=== PATIENT | male | born 1950 | race Caucasian/White ===

== ENCOUNTER 2020-02-27 11:13 | Outpatient (CLI) | payer MEDICARE, SELFPAY ==
--- NOTE | ~2020-02-27 | US_ITS ---
EXAMINATION: US carotid duplex BI DATE: 02/27/2020 12:05 INDICATION: Bilateral carotid stenosis. TECHNIQUE: Grayscale, color Doppler, and pulsed Doppler images of the cervical carotid arteries were obtained. The degree of vessel stenosis is placed in one of the following categories: normal, <50%, 5 0-69%, >=70% but less than near-occlusion, near-occlusion, or total occlusion. Note that percent sten osis relative to normal distal artery lumen diameter is indirectly measured from velocity measurement s as described by Rafy, et al. Radiology 2003; 229:340-346. COMPARISON: Ultrasound 07/28/2005 FINDINGS: RIGHT: The right common carotid artery (CCA) peak systolic velocity (PSV) is 100 cm/s. The right internal ca rotid artery (ICA) PSV is 81 cm/s. The right ICA end-diastolic velocity (EDV) is 23 cm/s. The right I CA/CCA PSV ratio is 0.8. Grayscale and color Doppler images yield an estimate of <50% diameter reduct ion from plaque in the ICA. There is antegrade flow in the right vertebral artery. LEFT: The left CCA PSV is 93 cm/s. The left ICA PSV is 83 cm/s. The left ICA EDV is 27 cm/s. The left ICA/C CA PSV ratio is 0.9. Grayscale and color Doppler images yield an estimate of <50% diameter reduction from plaque in the ICA. There is antegrade flow in the left vertebral artery. IMPRESSION: 1. <50% stenosis in the right internal carotid artery. 2. <50% stenosis in the left internal carotid artery. Reviewed, dictated and finalized at location A.
== END 2020-02-27 11:14 | disposition home or self-care (01) ==
PROVIDERS: PCP Internal Medicine; Visit Provider Internal Medicine
DX: I65.23 Occlusion and stenosis of bilateral carotid arteries (principal)
CPT/HCPCS: 93880

== ENCOUNTER 2020-07-12 10:10 | Outpatient (CLI) | payer MEDICARE, SELFPAY ==
--- NOTE | ~2020-07-12 | XR_ITS ---
EXAMINATION: XR shoulder LT min 2V DATE: 07/12/2020 10:51 INDICATION: Left shoulder pain. TECHNIQUE: 5 views of left shoulder were obtained. COMPARISON: None. FINDINGS: Bone alignment is normal. No fracture. There is mild osteoarthritis of glenohumeral joint a nd moderate osteoarthritis of acromioclavicular joint. IMPRESSION: 1. Polyarticular osteoarthritis. Reviewed, dictated and finalized at location A.
== END 2020-07-12 10:11 | disposition home or self-care (01) ==
PROVIDERS: PCP Internal Medicine; Visit Provider Internal Medicine
DX: M25.512 Pain in left shoulder (principal)
CPT/HCPCS: 73030

== ENCOUNTER 2020-07-14 10:52 | Outpatient (CLI) | payer MEDICARE, SELFPAY ==
--- NOTE | ~2020-07-14 | MR_ITS ---
EXAMINATION: MR shoulder LT wo con DATE: 07/14/2020 11:43 INDICATION: Left shoulder pain TECHNIQUE: Magnetic resonance imaging (MRI) of the left shoulder was performed without intravenous co ntrast. Sequences included axial PD-weighted FS FSE, coronal oblique PD-weighted FS FSE, coronal obli que T2-weighted FS FSE, sagittal PD-weighted FS FSE, and sagittal T1-weighted SE. COMPARISON: None. FINDINGS: Some degree of respiratory motion artifact or blurring on the sequences which mildly limits evaluatio n, most significantly for the labrum and cartilage. Coracoacromial arch: The acromion undersurface is curved in morphology (type II). The coracoacromial ligament is normal. M ild acromioclavicular osteoarthritis. Rotator cuff: Supraspinatus and moderate infraspinatus tendinopathy with full-thickness tear extending along the ware perior and middle facet footplates of both tendons. A minimal portion of the anterior most supraspina tus tendon appears to remain tethered to the superior facet footplate near the cephalad aspect of the lateral rim of the intertubercular groove. There is a small portion of the conjoined portion of the supraspinatus and infraspinatus tendons which appears to remain attached to the anterior aspect of th e superior facet footplate but which has a frayed and lax appearance suggesting it is torn more media lly. The supraspinatus tear margin is retracted approximately 2.7 cm to the level of the apex of the humeral head. The teres minor tendon is normal. Mild subscapularis tendinopathy with partial thicknes s tear involving the cysts superolateral quadrant of the lesser tuberosity footplate with associated split tear extending 1 cm more medially between the portion of the tendon remaining attached to the l rodrigo tuberosity and the more superficial portion of the tendon which remains contiguous to the trans verse humeral ligament. No fatty atrophy of the rotator cuff musculature. There is some feathery musc ular edema in the superficial aspect of the infraspinatus muscle belly consistent with associated low -grade muscle strain. Biceps tendon, glenoid labrum and glenohumeral cartilage: Moderate tendinopathy and longitudinal split tearing of the long head biceps tendon which is subluxed across the medial rim of the intertubercular groove and into the subscapularis tendon split tear def ect. Glenoid labrum is normal. Glenohumeral cartilage is normal. Fluid: Small glenohumeral joint effusion which extends through the full-thickness rotator cuff resulting in a small amount of fluid in the subacromial/subdeltoid and subcoracoid bursae. No loose osteochondral bodies. Bones: Slight cephalad subluxation of the humeral head with respect to the glenoid with narrowing of the sub acromial space which now measures approximately 3 mm. No fracture or pathologic marrow replacing proc ess. Mild cystic change at the greater tuberosity likely related to chronic rotator cuff disease. IMPRESSION: 1. Full-thickness tear involving nearly the entire supraspinatus and infraspinatus tendons. 2. Small partial-thickness tear involving the superolateral quadrant of the lesser tuberosity footpla te of the subscapularis tendon and allowing medial subluxation of the long head biceps tendon into th e tear defect. 3. Moderate tendinopathy and longitudinal split tearing of the long head biceps tendon. 4. Mild chromic clavicular osteoarthritis. Reviewed, dictated and finalized at location A. TECHNICIAN IMPRESSION: 1. Full-thickness tear involving nearly the entire supraspinatus and infraspina tus tendons. 2. Small partial-thickness tear involving the superolateral quadrant of the les ser tuberosity footplate of the subscapularis tendon and allowing medial sublux ation of the long
== END 2020-07-14 10:53 | disposition home or self-care (01) ==
LOC: CHSIMG 10:53
PROVIDERS: PCP Internal Medicine; Visit Provider Internal Medicine
DX: M25.512 Pain in left shoulder (principal)
CPT/HCPCS: 73221

== ENCOUNTER 2020-09-04 10:30 | Outpatient (CLI) | payer MEDICARE, SELFPAY ==
[2020-09-04 11:38] LABS: SARS-CoV-2 Ag Positive (Negative)
== END 2020-09-04 10:31 | disposition home or self-care (01) ==
LOC: CHSLAB 10:33
PROVIDERS: PCP Internal Medicine; Visit Provider Internal Medicine
DX: U07.1 COVID-19 (principal)
CPT/HCPCS: 87426

== ENCOUNTER 2021-01-21 12:54 | Outpatient (RCR) | payer MEDICARE, SELFPAY ==
--- NOTE | 2021-01-21 14:01 | PTOPEVAL ---
Thank you for referring Boo Serrato to [facility].? The patient is scheduled to be seen for therapy? ____x/week for ___ weeks. Please review, sign, date and return this plan of care KRISTIAN. I agree with and certify that the following plan of care is medically necessary. Referring Physician Date Admitting Provider: Attending Provider: ADALID POPE Referring Provider: *PT Outpatient Evaluation Start: 01/21/21 13:09 Freq: Status: Active Protocol: Document 01/21/21 13:09 ACR (Rec: 01/21/21 14:00 ACR [id number]) Therapy Assessment Status Assessment Status Assessment Status Evaluation Evaluation Information Problem Diagnosis L RTC repair Onset 12/04/20 Additional Evaluation Detail DELAY PROTOCOL BY 2 WEEKS PER MD Subjective Information Patient states that since Query Text:As Reported By Patient/ surgery he has been wearing Family his sling and abduction pillow since. He states he just d/c' d his ABD pillow today. Patient states he was on a step stool and stepped on a tool bag and fell on his shoulder which tore his rotator cuff in 07/03. He states with COVID it was not an emergency surgery so he just got it done. Patient states getting a shirt on and off and driving are difficult. Patient states that his goal for therapy is to get his ROM and strength back. Prior Level of Function Activity Level (Last 3 Months) Occupation retired Hand Dominance Right Activity of Daily Living Ability Independent Indoor/Home Mobility Independent Community Mobility Independent Stairs Ability Independent Functional Cognition (Planning, Shopping Independent , Taking Medications) Cooking Yes Cleaning Yes Laundry Yes Shopping Yes Driving Yes Pain Assessment Timing of Pain Assessment Timing of Pain Assessment Assessment Pain Scale Pain Scale Used Numeric (1 - 10) Self Report Pain Assessment Left Shoulder(s) Reported Pain Level 1 Greatest Pain Intensity 5 Pain Score Pain Score 1: Self Report Additional Pain Score Comments Patient states that the pain
[2021-02-21 15:30] VITALS: BP_SYST 175
--- NOTE | 2021-02-21 16:40 | PTOPEVAL ---
Thank you for referring Boo Serrato to [facility].? The patient is scheduled to be seen for therapy? ____x/week for ___ weeks. Please review, sign, date and return this plan of care KRISTIAN. I agree with and certify that the following plan of care is medically necessary. Referring Physician Date Admitting Provider: Attending Provider: ADALID POPE Referring Provider: *HAROON Outpatient Evaluation Start: 01/21/21 13:09 Freq: Status: Active Protocol: Document 02/21/21 15:30 [facility] (Rec: 02/21/21 16:37 [facility] [id number]) Therapy Assessment Status Assessment Status Assessment Status Re-evaluation Evaluation Information Problem Diagnosis L RTC repair Onset 12/04/20 Additional Evaluation Detail quick dash = 4.5% Subjective Information patient reports he feels good Query Text:As Reported By Patient/ this date. he reports he has Family not needed any pain medication for days. he reports he is returning to see the MD this coming week. he reports he still has slight increased pain with end rom overhead movement, and reaching behind head and back. Pain Assessment Timing of Pain Assessment Timing of Pain Assessment Assessment Pain Scale Pain Scale Used Numeric (1 - 10) Self Report Pain Assessment Left Shoulder(s) Reported Pain Level 1 Pain Score Pain Score 1: Self Report Interventions Used Interventions Used By Clinicians Activity or ADL's,Education, Electrical Stimulation, Exercise,Heat Upper Extremity Range of Motion Scapular/ Shoulder Range of Motion Left Shoulder Flexion - Active 150 Shoulder Flexion - Passive 155 Shoulder Abduction - Active 170 Shoulder Abduction - Passive 175 Shoulder Lateral Rotation - Active 60 Shoulder Lateral Rotation - Passive 65 Right Shoulder Medial Rotation - Active 40 Scapular/Shoulder Range of Motion Per patient's protocol, IR was Comments not to be performed and abduction >80 degrees until week 8. Upper Extremity Muscle Strength Testing Scapular/Shoulder Left Shoulder Flexion Strength 3+ Fair + Shoulder Abduction Strength 3+ Fair + Shoulder Medial Rotation Strength 3 Fair Shoulder Lateral Rotation Strength 3 Fair General Exercise General Exercises Exercise Description -prom 10 minutes Query Text:Record Sets, Reps, -pulleys 5 minutes Resistance, and Position -bicep curls 2lb bilat x30
--- NOTE | 2021-02-21 16:42 | PTOPEVAL ---
Thank you for referring Boo Serrato to [facility] [place]Note 2[place]? The patient is scheduled to be seen for therapy? ____x/week for ___ weeks. Please review, sign, date and return this plan of care KRISTIAN. I agree with and certify that the following plan of care is medically necessary. Referring Physician Date Admitting Provider: Attending Provider: ADALID POPE Referring Provider: *[facility] Outpatient Evaluation Start: 01/21/21 13:09 Freq: Status: Active Protocol: Document 02/21/21 15:30 [facility] (Rec: 02/21/21 16:37 [facility] [id number]) Therapy Assessment Status Assessment Status Assessment Status Re-evaluation Evaluation Information Problem Diagnosis L RTC repair Onset 12/04/20 Additional Evaluation Detail quick dash = 4.5% Subjective Information patient reports he feels good Query Text:As Reported By Patient/ this date. he reports he has Family not needed any pain medication for days. he reports he is returning to see the MD this coming week. he reports he still has slight increased pain with end rom overhead movement, and reaching behind head and back. Pain Assessment Timing of Pain Assessment Timing of Pain Assessment Assessment Pain Scale Pain Scale Used Numeric (1 - 10) Self Report Pain Assessment Left Shoulder(s) Reported Pain Level 1 Pain Score Pain Score 1: Self Report Interventions Used Interventions Used By Clinicians Activity or ADL's,Education, Electrical Stimulation, Exercise,Heat Upper Extremity Range of Motion Scapular/ Shoulder Range of Motion Left Shoulder Flexion - Active 150 Shoulder Flexion - Passive 155 Shoulder Abduction - Active 170 Shoulder Abduction - Passive 175 Shoulder Lateral Rotation - Active 60 Shoulder Lateral Rotation - Passive 65 Right Shoulder Medial Rotation - Active 40 Scapular/Shoulder Range of Motion Per patient's protocol, IR was Comments not to be performed and abduction >80 degrees until week 8. Upper Extremity Muscle Strength Testing Scapular/Shoulder Left Shoulder Flexion Strength 3+ Fair + Shoulder Abduction Strength 3+ Fair + Shoulder Medial Rotation Strength 3 Fair Shoulder Lateral Rotation Strength 3 Fair General Exercise General Exercises Exercise Description -prom 10 minutes Query Text:Record Sets, Reps, -pulleys 5 minutes Resistance, and Position -bicep curls 2lb bilat x30
--- NOTE | 2021-03-22 11:25 | PTOPEVAL ---
Thank you for referring Boo Serrato to [facility].? The patient is scheduled to be seen for therapy? ____x/week for ___ weeks. Please review, sign, date and return this plan of care KRISTIAN. I agree with and certify that the following plan of care is medically necessary. Referring Physician Date Admitting Provider: Attending Provider: ADALID POPE Referring Provider: ANGELICA Outpatient Evaluation Start: 01/21/21 13:09 Freq: Status: Active Protocol: Document 03/22/21 10:38 [facility] (Rec: 03/22/21 11:24 [facility] [id number]) Therapy Assessment Status Assessment Status Assessment Status Re-evaluation Evaluation Information Problem Diagnosis L RTC repair Onset 12/04/20 Subjective Information patient reports he feels good Query Text:As Reported By Patient/ this date. he reports mild Family pain in the L shoulder, and no more than 3/10 pain in the L shoulder at worst. he reports he still has difficulty lifting objects with the L UE, and reaching/raising objects overhead. Pain Assessment Timing of Pain Assessment Timing of Pain Assessment Assessment Pain Scale Pain Scale Used Numeric (1 - 10) Self Report Pain Assessment Left Shoulder(s) Reported Pain Level 2 Greatest Pain Intensity 3 Pain Score Pain Score 2: Self Report Interventions Used Interventions Used By Clinicians Activity or ADL's,Education, Exercise Upper Extremity Range of Motion Scapular/ Shoulder Range of Motion Left Shoulder Flexion - Active 160 Shoulder Flexion - Passive 165 Shoulder Medial Rotation - Active 60 Shoulder Medial Rotation - Passive 65 Shoulder Medial Rotation - Active functional reach to the lower Query Text:Reach Behind the Back lumbar spine with combined extension and IR. Shoulder Lateral Rotation - Active 70 Shoulder Lateral Rotation - Passive 75 Shoulder Lateral Rotation - Active functional reach to the mid to Query Text:Reach Behind the Head lower cervical spine with combined flexion and ER. Upper Extremity Muscle Strength Testing Scapular/Shoulder Left Shoulder Flexion Strength 3+ Fair + Shoulder Medial Rotation Strength 4 Good Shoulder Lateral Rotation Strength 3 Fair Shoulder Strength Comments significant L shoulder elevation with flexion reaching overhead and with mmt L shoulder flexion Elbow/Forearm Left Elbow Flexion Strength 5 Normal Elbow Extension Strength
== END 2021-04-17 23:59 | disposition home or self-care (01) ==
LOC: CHSPT 12:54
PROVIDERS: PCP Internal Medicine
DX: Z98.890 Other specified postprocedural states (principal)
CPT/HCPCS: 97014; 97110; 97161; 97530; G0283

== ENCOUNTER 2022-01-23 10:18 | Outpatient (CLI) | payer MEDICARE, SELFPAY ==
--- NOTE | ~2022-01-23 | US_ITS ---
EXAMINATION: US retroperitoneal comp DATE: 01/23/2022 10:41 INDICATION: Hematuria TECHNIQUE: Multiple grayscale and Doppler ultrasound images of the kidneys were obtained. COMPARISON: None. FINDINGS: The right kidney measures 10.5 x 5.6 x 6.3 cm. There is a 1.1 cm nonobstructing stone in th e lower pole of the right kidney. The left kidney measures 11.7 x 5.8 x 6.6 cm and contains a 1.2 cm cyst. The kidneys demonstrate normal parenchymal echogenicity. There is no hydronephrosis. The bladde r is normal. IMPRESSION: 1. Nonobstructing right nephrolithiasis. Reviewed, dictated and finalized at location A.
== END 2022-01-23 10:19 | disposition home or self-care (01) ==
LOC: CHSIMG 10:21
PROVIDERS: PCP Internal Medicine; Visit Provider Internal Medicine
DX: R31.9 Hematuria, unspecified (principal)
CPT/HCPCS: 76770

== ENCOUNTER 2024-09-19 21:32 | Emergency (ER) | payer MEDICARE, SELFPAY ==
--- NOTE | ~2024-09-19 | CT_ITS ---
CLINICAL INDICATION: Flank pain COMPARISON: Reference is made to an ultrasound of the bilateral kidneys dated 01/23/2022. TECHNIQUE: Multiple contiguous axial images of the abdomen and pelvis were performed without the admi nistration of intravenous contrast The dose-length product (DLP) was 319.71 mGy-cm. Automated exposure control and iterative reconstruction technique were employed. FINDINGS/OBSERVATIONS: Visualized lower thorax: The bilateral lung bases are clear. The heart is of normal size, without pericardial effusion. Liver: The liver demonstrates homogeneous attenuation and is not enlarged measuring 18 cm in longitudinal di mension. Gallbladder and biliary system: The gallbladder is decompressed, and otherwise unremarkable. Pancreas: Limited evaluation of the pancreas secondary to the lack of intravenous contrast. Spleen: The spleen demonstrates homogeneous attenuation and is not enlarged measuring 11 cm in longitudinal d imension. Kidneys: Global enlargement of the right kidney with mild right-sided hydroureteronephrosis extending to the p roximal/mid right ureter where a obstructing stone is identified. This stone measures 8.3 x 8.3 mm. Nonobstructing 5 mm stone within the lower pole of the left kidney. Exophytic focus of soft tissue attenuation within the interpolar region of the left kidney measuring 11.4 x 9 mm for which follow-up ultrasound is recommended. In January 2022, there was a similar size focus of fluid attenuation, for which a cyst was suspected, whi ch may or may not correspond with finding. Adrenal glands: Unremarkable. Gastrointestinal tract: Fecal stasis within the colon. Appendix: The appendix is not definitively visualized. However, no pericecal inflammatory change is identified suggest the presence of acute appendicitis. Vasculature: Bulky calcifications within the abdominal aorta and adjacent vasculature. No aneurysmal dilatation or dissection is appreciated. Lymph nodes: No pathologically enlarged or morphologically suspicious lymph nodes within the retroperitoneum or at the root of the mesentery. Pelvic structures: The bladder is distended, and otherwise unremarkable. Bulky calcifications within the prostate gland. Body wall and musculoskeletal: Small fat-containing umbilical hernia. Significant degenerative disease within the lumbosacral spine with osteophyte formation, disc space n arrowing, endplate changes and vacuum phenomena. IMPRESSION: Right-sided hydroureteronephrosis secondary to a 8.3 mm obstructing stone in the proximal/mid right u reter. Indeterminate soft tissue attenuation focus within the interpolar region of the left kidney for which follow-up ultrasound (nonemergently) is recommended. Nonobstructing calculus within the left kidney. Reviewed, dictated and finalized at location A. D CARE COORDINATOR IMPRESSION: Right-sided hydroureteronephrosis secondary to a 8.3 mm obstructing stone in th e proximal/mid right ureter. Indeterminate soft tissue attenuation focus within the interpolar region of the left kidney for which follow-up ultrasound (nonemergently) is recommended. Nonobstructing calculus within the left kidney.
--- NOTE | 2024-09-19 21:36 | ED.MALEGU ---
HPI - Male Genitourinary General Chief complaint: Urogenital-Male Stated complaint: hematuria Time Seen by Provider: 09/19/24 21:36 Source: patient Mode of arrival: ambulatory Limitations: no limitations History of Present Illness HPI Narrative: 74 years old white male came to the ED by private car from home complaining of pain at the mid abdomen radiating to right lower quadrant, sharp, radiating to the right flank area started within 1-2 hour prior to arrival to the emergency room associated with hematuria. History of kidney stone, diabetes hypertension hyperlipidemia, coronary stents and bypass. Patient on baby aspirin once a day, denies intact coagulant medication intake. Patient denies any fever or chills or vomiting or diarrhea or constipation. He reports some nausea. Related Data Home Medications ?Medication ?Instructions ?Recorded ?Confirmed ?Last Taken ?Type aspirin 81 mg capsule 81 mg PO DAILY 09/19/24 Unknown History evolocumab 140 mg/mL subcutaneous 140 mg subcut .every 2 weeks 09/19/24 Unknown History pen injector (Repatha SureClick) losartan 50 mg-hydrochlorothiazide 1 tablet PO DAILY 09/19/24 Unknown History 12.5 mg tablet metoprolol succinate 25 mg 12.5 mg PO DAILY 09/19/24 Unknown History tablet,extended release 24 hr semaglutide 0.25 mg or 0.5 mg (2 0.5 mg subcut WEEKLY 09/20/24 Unknown History mg/1.5 mL) subcutaneous pen injector (Ozempic) Allergies Allergy/AdvReac Type Severity Reaction Status Date / Time No Known Allergies Allergy Verified 09/19/24 21:41 Review of Systems Review of Systems: All systems reviewed & are unremarkable except as noted in HPI and below Exam Narrative: General appearance: Well-developed, well-nourished Skin: Normal color Head: Normocephalic, nontraumatic Eyes: Clear conjunctiva ENT: Oropharynx normal, ears normal, nose normal Neck: Supple, nontender Chest and respiratory: Airway patent, no respiratory distress, no accessory muscle use Heart: Regular rate/rhythm Abdomen: Soft, nontender, no organomegaly, quiet bowel sounds Slight right flank tenderness Vascular: Normal peripheral pulses, normal capillary refill. Musculoskeletal: Normal range of motion, nontender back Neurologic: Alert and oriented ?3, SPA MANAGER/ESTHETICIAN is normal as tested, no gross motor deficit Course Consultations Consultation #1: Dr. Cruz Date: 09/20/24 Vital Signs Vital signs: Vital Signs Temperature 36.5 C 09/19/24 21:45 Pulse Rate 78 09/19/24 21:45 Respiratory Rate 18 09/19/24 21:45 Blood Pressure 169/90 H 09/19/24 21:45 Pulse Oximetry 97 09/19/24 21:45 Oxygen Delivery Room Air 09/19/24 21:45 Temperature 36.7 C 09/20/24 02:14 Pulse Rate 78 09/20/24 02:14 Respiratory Rate 18 09/20/24 02:14 Blood Pressure 119/61 09/20/24 02:14 Pulse Oximetry 93 09/20/24 02:14 Oxygen Delivery Room Air 09/20/24 02:14 Oxygen Flow Rate 2 09/19/24 23:22 MDM - Male Genitourinary MDM Narrative Medical decision making narrative: patient presents with right lower quadrant pain radiating to right flank Physical examination showing patient with mild tenderness at the right flank area. Differential diagnosis includes kidney stone, urinary tract infection Blood workup today includes CBC, CMP showed Urinalysis today showed CT scan of abdomen and pelvis without IV contrast showed Differential Diagnosis Differential diagnosis: Likely urinary tract infection, urethritis, prostatitis and other Medical Records Attestation: I reviewed the patient's medical records. Lab Data Attestation: I reviewed the patient's lab results. 09/19/24 21:53 09/19/24 21:53 Labs: Lab Results 09/19/24 Range/Units 21:53 WBC 11.8 H (4.8-10.8) K/mm3 RBC 5.08 (4.70-6.10) M/mm3 Hgb 14.5 (12.4-15.3) g/dL Hct 44.2 (37.0-46.0) % MCV 87.0 (78.0-102.0) fL MCH 28.5 (27.0-31.0) pg MCHC 32.8 (32-36) g/dL RDW 11.9 (11.6-14.4) % Plt Count 413 (150-420) K/mm3 MPV 9.5 (8.7-11.0) fl Immature Gran % (Auto) 0.4 H (0.0-0.0) % Neut % (Auto) 65.6 (50.0-70.0) % Lymph % (Auto) 20.9 (18.0-42.0) % [place] % (Auto) 9.1 (2.0-11.0) % Eos % (Auto) 3.2 (1.0-6.0) % Baso % (Auto) 0.8 (0.0-1.0) % Lymph # (Auto) 2.47 (1.10-4.50) K/mm3 [place] # (Auto) 1.07 H (0.10-0.90) K/mm3 Eos # (Auto) 0.38 (0.02-0.50) K/mm3 Baso # (Auto) 0.10 (0.00-0.10) K/mm3 Abs Immat Gran (auto) 0.05 H (0.00-0.00) K/mm3 Absolute Neuts (auto) 7.74 H (1.70-7.20) K/mm3 Absolute Nucleated RBC 0.00 (0.00-0.00) K/mm3 Nucleated RBC % 0.0 (0-0.0) % Sodium 143 (136-145) mmol/L Potassium 4.0 (3.5-5.1) mmol/L Chloride 102 (98-108) mmol/L Carbon Dioxide 32 (21-32) mmol/L Anion Gap 9 (4-12) mmol/L BUN 14 (7-18) mg/dL Creatinine 1.09 (0.70-1.30) mg/dL Estim Creat Clear Calc 54 ml/min Estimated GFR > 60 (59 - ) Glucose 174 H (70-99) mg/dL Calculated Osmolality 300 H (285-295) mOsm/kg Calcium 9.4 (8.5-10.1) mg/dL Total Bilirubin 0.4 (0.00-1.00) mg/dL AST 16 (15-37) U/L ALT 24 (16-63) U/L Alkaline Phosphatase 91 (46-116) U/L Total Protein 7.5 (6.4-8.2) g/dL Albumin 4.1 (3.4-5.0) g/dL Urine Color Dark red (Yellow) Urine Appearance Clear (Clear) Urine pH 6.5 (5.0-8.0) Ur Specific [place] 1.025 H (1.010-1.020) Urine Protein 2+ H (Negative) Urine Glucose (UA) Negative (Negative) Urine Ketones Trace H (Negative) Ur Blood (Man) 3+ H (Negative) Urine Nitrate Positive H (Negative) Urine Bilirubin 1+ H (Negative) Urine Urobilinogen 1.0 (0.2-1.0) mg/dL Leukocyte Esterase Rfl Trace H (Negative) KATHLEEN/UL Urine RBC >75 H (0-2) /hpf Urine WBC 10-15 H (0-3) /hpf Ur Squamous Epith Cells None seen (Few) /hpf Urine Bacteria 1+ H (None) /hpf Urine Yeast (Budding) Present H (None) /hpf Imaging Data Radiologist's impression: Impressions Abdomen/Pelvis CT 09/19/24 22:02 IMPRESSION: Right-sided hydroureteronephrosis secondary to a 8.3 mm obstructing stone in the proximal/mid right ureter. Indeterminate soft tissue attenuation focus within the interpolar region of the left kidney for which follow-up ultrasound (nonemergently) is recommended. Nonobstructing calculus within the left kidney. Critical Care Time Critical Care Time Critical Care Time: Yes Total Critical Care Time: 30 Discharge Plan Discharge Clinical Impression: Urinary tract infection, Kidney stone Patient Disposition: Acute Care Hospital Condition: Stable [facility] Patient Language: Beninese Prescriptions: No Action aspirin 81 mg capsule 81 mg PO DAILY Repatha SureClick 140 mg/mL pen injector 140 mg subcut .every 2 weeks losartan-hydrochlorothiazide 50-12.5 mg tablet 1 tablet PO DAILY metoprolol succinate 25 mg tablet extended release 24 hr 12.5 mg PO DAILY Ozempic 0.25 mg or 0.5 mg(2 mg/1.5 mL) pen injector 0.5 mg subcut WEEKLY Follow-up/Referrals: Heydi Gomez MD [Primary Care Provider] -
[2024-09-19 21:45] VITALS: BP 169/90; PULSE 78; RESP 18; TEMP 36.5; O2SAT 97
[2024-09-19 21:57] LABS: Appearance Urine Clear (Clear); Bilirubin Urine 1+ (Negative); Blood Urine 3+ (Negative); Glucose Urine UA Negative (Negative); Ketones Urine Trace (Negative); Leukocyte Esterase Ur Trace LEU/UL (Negative); Nitrate Urine Positive (Negative); Protein Urine 2+ (Negative); Specific Grav Ur 1.025 (1.010-1.020); pH Urine 6.5 (5.0-8.0)
[2024-09-19] MEDS: SODIUM CHLORIDE 0.9% IV 1,000 ML 999 ML IV CONT (22:06)
[2024-09-19] MEDS: ONDANSETRON INJ 4 MG/2 ML VIAL IV PUSH (22:06)
[2024-09-19] MEDS: TAMSULOSIN HCL 0.4 MG CAPSULE PO (22:08)
[2024-09-19] MEDS: HYDROmorphone HCL INJ (*CRX) 2 MG/ML VIAL 0.5 MG IV PUSH (22:08)
[2024-09-19 22:09] LABS: Basophils Percent Auto 0.8 % (0.0-1.0); Eosinophils Absolute Auto 0.38 K/mm3 (0.02-0.50); Eosinophils Percent Auto 3.2 % (1.0-6.0); Hematocrit 44.2 % (37.0-46.0); Hemoglobin 14.5 g/dL (12.4-15.3); Immature Granulocyte Absolute 0.05 K/mm3 (0.00-0.00); Immature Granulocyte Percent A 0.4 % (0.0-0.0); Lymphocytes Absolute Auto 2.47 K/mm3 (1.10-4.50); Lymphocytes Percent Auto 20.9 % (18.0-42.0); Mean Corpuscular HGB Conc 32.8 g/dL (32-36); Mean Corpuscular Hemoglobin 28.5 pg (27.0-31.0); Mean Platelet Volume 9.5 fl (8.7-11.0); Monocytes Absolute Auto 1.07 K/mm3 (0.10-0.90); Monocytes Percent Auto 9.1 % (2.0-11.0); Neutrophils Absolute Auto 7.74 K/mm3 (1.70-7.20); Neutrophils Percent Auto 65.6 % (50.0-70.0); Platelet Count Result 413 K/mm3 (150-420); Red Blood Count 5.08 M/mm3 (4.70-6.10); Red Cell Distribution Width 11.9 % (11.6-14.4); White Blood Count 11.8 K/mm3 (4.8-10.8)
[2024-09-19 22:10] LABS: Add Urine Microscopic? YES; Bacteria Urine 1+ /hpf; Budding Yeast Urine Present /hpf; Color Urine Dark Red (Yellow); RBC Urine >75 /hpf (0-2); Squamous Epithelial Cell Urine None seen /hpf (Few)
--- NOTE | 2024-09-19 22:12 | PC.NURSE ---
patient returned from imaging and medicated per order, see MAR. ivf infusing without difficulty, patient grandson now at bedside. call light within reach.
[2024-09-19 22:25] LABS: Alanine Aminotransferase 24 U/L (16-63); Albumin Level 4.1 g/dL (3.4-5.0); Alkaline Phosphatase 91 U/L (46-116); Anion Gap 9 mmol/L (4-12); Aspartate Amino Transferase 16 U/L (15-37); Bilirubin,Total 0.4 mg/dL (0.00-1.00); Blood Urea Nitrogen 14 mg/dL (7-18); Calcium 9.4 mg/dL (8.5-10.1); Carbon Dioxide 32 mmol/L (21-32); Chloride 102 mmol/L (98-108); Estimated CRCL calculation 54 ml/min; Estimated Glomerular Filt Rate > 60; Glucose 174 mg/dL (70-99); Osmolality Calculated 300 mOsm/kg (285-295); Sodium 143 mmol/L (136-145); Total Protein 7.5 g/dL (6.4-8.2)
--- NOTE | 2024-09-19 23:04 | PC.NURSE ---
ERP Dr. Forrest at bedside at this time for update regarding results and plan of care.
[2024-09-19] MEDS: levoFLOXacin 750 MG/D5W 150 ML 750 MG/150 ML BAG 100 MG IVPB (23:10)
[2024-09-19 23:20] VITALS: BP 132/73; PULSE 83; RESP 18; TEMP 36.5; O2SAT 87
[2024-09-19 23:22] VITALS: O2SAT 93
[2024-09-20 00:15] VITALS: BP 130/79; PULSE 86; RESP 16; TEMP 36.4; O2SAT 93
--- NOTE | 2024-09-20 00:40 | PC.NURSE ---
RN to bedside, IV abxs infused. patient resting on stretcher without distress, reports pain remains under control. grandson at bedside. vss. RN monitoring. patient awaiting bed at transfer facility, update provided. call light within reach. all inquirires addressed by RN at this time.
--- NOTE | 2024-09-20 01:06 | PC.NURSE ---
patient moved to hospital bed for comfort, lights dimmed per request. visitor remains at bedside. patient awaiting a bed at transfer facility.
--- NOTE | 2024-09-20 01:29 | PC.NURSE ---
patient accepted by [facility], son just arrived at bedside. grandson leaving at this time. RN awaiting patient bed placement information.
[2024-09-20 02:14] VITALS: BP 119/61; PULSE 78; RESP 18; TEMP 36.7; O2SAT 93
--- NOTE | 2024-09-22 14:54 | PC.NURSE ---
FINAL URINE CULTURE RESULTS: NO GROWTH
== END 2024-09-20 02:20 | disposition short-term general hospital (02) ==
PROVIDERS: Emergency Provider Emergency Medicine; PCP Internal Medicine
DX: N39.0 Urinary tract infection, site not specified (principal); N20.0 Calculus of kidney; Z79.85 Long-term (current) use of injectable non-insulin antidiabetic drugs; Z79.82 Long term (current) use of aspirin
CPT/HCPCS: 36415; 74176; 80053; 81001; 85025; 87086; 96361; 96365; 96375; 99285; A9270; J1171; J1956; J2405; J7030

== ENCOUNTER 2024-10-31 22:21 | Emergency (ER) | payer MEDICARE, SELFPAY ==
[2024-10-31 22:26] VITALS: BP 167/98; PULSE 106; RESP 18; TEMP 37.1; O2SAT 96
--- OUTSIDE RECORDS SUMMARY | 2024-10-31 22:26 | XMS_ITS | Clinical Summary ---
Author Organization [facility] [address] Address [address] [place] [address] Care Team Providers Care Business Economist Name Role Phone Heydi Gomez MD Primary Care Provider Aleksandr Kirkland NP Unavailable [phone] Maximo Mobley MD Unavailable Allergies Active Allergy Reactions Criticality Noted Date Comments Wofznsn-Vgn-Slh Reductase Inhibitors Muscle pain Medium Medications cholecalciferol (VITAMIN D-3) 2000 unit capsule Take 1 capsule (2,000 Units total) by mouth daily 30 capsule 12/04/[address] (CYMBALTA) 30 mg capsule Take 1 capsule (30 mg total) by mouth daily 05/02/20 21 Active ascorbic acid (VITAMIN C) 500 mg tablet,chewable Take 1 tablet/chew tab (500 mg total) by mouth daily Active naproxen (ALEVE) 220 mg tablet Take by mouth daily as needed Active fluticasone propionate (FLONASE) 50 mcg/actuation nasal spray Administer 1 spray into each nostril daily as needed Active amlodipine-valsa rtan (EXFORGE) 5-160 mg per tabletIndication s:Essential hypertension Take 1 tablet by mouth once daily 90 tablet 07/14/20 24 Active Ozempic 1 mg/dose (4 mg/3 mL) pen injector injection Inject 1 mg under the skin once a week Thursday08/09/20 24 Active Repatha SureClick 140 mg/mL pen injector INJECT 1 ML BY SUBCUTANEOUS ROUTE EVERY 2 WEEKS IN THE ABDOMEN, THIGH, OR OUTER AREA OF UPPER ARM 08/06/20 24 Active acetaminophen (TYLENOL) 500 mg tabletIndication s:Pain Take 1 tablet (500 mg total) by mouth every 6 (six) hours as needed for pain 30 tablet 09/22/19 25 Active tamsulosin (FLOMAX) 0.4 mg extended release capsule Take 1 capsule (0.4 mg total) by mouth daily with dinner 30 capsule 1 09/22/19 25 025 Active clopidogreL (PLAVIX) 75 mg tablet Take 1 tablet (75 mg total) by mouth daily 30 tablet 1 09/22/19 25 025 Active trospium (SANCTURA) 20 mg tablet Take 1 tablet (20 mg total) by mouth 2 (two) times a day 60 tablet 09/22/19 25 026 Active metoprolol tartrate (LOPRESSOR) 50 mg immediate release tablet TAKE 1 & 1/2 (ONE & ONE-HALF) TABLETS BY MOUTH TWICE DAILY 270 tablet 09/26/19 25 Active oxyBUTYnin (DITROPAN) 5 mg tablet Take 1 tablet (5 mg total) by mouth 2 (two) times a day for 5 days 10 tablet 10/20/19 25 Active HYDROcodone-acet aminophen (NORCO) 5-325 mg per tabletIndication s:Pain Take 1 tablet by mouth every 8 (eight) hours as needed for pain for up to 12 days 12 tablet 10/20/19 25 025 Active aspirin 81 mg tablet Take one by mouth one time per day 0 0 07/26/20 09 025 Discontinu ed(Stop Taking at Discharge) triamcinolone (NASACORT) 55 mcg nasal inhaler Administer 2 sprays into each nostril daily as needed 025 Discontinu ed(Stop Taking at Discharge) apixaban (ELIQUIS) 5 mg tablet Take 1 tablet (5 mg total) by mouth 2 (two) times a day 60 tablet 1 09/22/19 25 025 Discontinu ed(Stop Taking at Discharge) phenazopyridine (PYRIDIUM) 200 mg tablet Take 1 tablet (200 mg total) by mouth 3 (three) times a day for 3 days 9 tablet 10/20/19 25 025 cephalexin (KEFLEX) 500 mg capsule Take 1 capsule (500 mg total) by mouth 2 (two) times a day for 5 days 10 capsule 10/20/19 25 025 Active Problems Problem Noted Date Diagnosed Date Hematuria 09/20/2024 Nephrolithiasis 09/20/2024 Overweight (BMI 25.0-29.9) 08/31/2023 Premature beats 08/18/2022 Biceps tendonitis on left 11/20/2020 Overview (11/20/2020): Added automatically from request for surgery [id number] Tear of left supraspinatus tendon 08/03/2020 Arthritis of left 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 Obesity (BMI 30-39.9) 10/31/2019 H/O atrial fibrillation without current medicati on 04/20/2019 Paroxysmal atrial fibrillation (CMS/HCC) 019 Hx of CABG 10/13/2018 Coronary artery disease invo lving [place] coronary artery of [place] heart without angina pectoris 09/15/2018 Overview (09/15/2018): Added automatically from request for surgery [id number] Hyperlipidemia associated with type 2 diabetes umm mayers 04/24/2016 Overview (12/19/2016): Hypercholesteremia Assessment & Plan (07/28/2017 1:29 PM PERSONAL COMPANION): 07/28/2017 POC lipids: Total chol 163, TG 143, LDL 101 on Crestor 10 mg twice a week. Essential hypertension 08/14/2015 Overview (12/19/2016): Essential hypertension Type 2 diabetes mellitus with hyperlipidemia (CM S/HCC) 02/12/2015 Overview (12/19/2016): DM type 2 (diabetes mellitus, type 2) Obstructive sleep apnea syndrome 02/12/2015 Overview (12/19/2016): LINDA (obstructive sleep apnea) Presence of stent in coronary artery 02/12/2015 Overview (12/19/2016): S/P coronary artery stent placement Statin intolerance 02/12/2015 Overview (12/19/2016): Statin intolerance Resolved Problems Problem Noted Date Diagnosed Date Resolved Date Biceps tendinitis of left upper extremity 08/03/2020 08/18/2022 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/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 07/24/2020 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 07/24/2020 07/24/2020 Coronary artery disease of [place] heart with stable angina pectoris 08/31/2018 10/13/2018 Overview (08/31/2018): Added automatically from request for surgery [id number] Hyperlipidemia 02/12/2015 07/28/2017 Overview (12/19/2016): HLD (hyperlipidemia) Coronary arteriosclerosis in [place] artery 02/12/2015 10/13/2018 Overview (12/19/2016): CAD in [place] artery Encounters Date Type Department Care Team Description 10/31/2024 12:33 PM PERSONAL COMPANION Hospital Encounter [facility] [address] [place] [id number] Nephrolithiasis 10/31/2024 12:15 PM PERSONAL COMPANION Lab [facility] [address] [place] [id number] Nephrolithiasis 10/31/2024 11:20 AM PERSONAL COMPANION Office Visit [facility] Surgery [address] [place] [address] [address] [place] [address] Sofie Chen MD Nephrolithiasis (Primary Dx) 10/31/2024 [address] [facility] Surgery [facility] 2nd [place] [address] [place] [phone] Sunita Diaz MD 10/31/2024 Results Follow-Up [facility] Surgery [address] [place] [address] [address] [place] [phone] Sofie Chen MD 10/31/[address] [facility] Surgery [address] [place] [address] Sofie Chen MD Kidney stone (Primary Dx) 10/20/2024 7:35 AM PERSONAL COMPANION Anesthesia Event [facility] OR [address] [place] [phone] Familia Reed MD Grehan, William G., MD 10/20/2024 7:30 AM PERSONAL COMPANION - 10/20/2024 9:20 AM PERSONAL COMPANION Surgery [facility] OR [address] [place] [address] Sofie Chen MD HOLMIUM LASER LITHOTRIPSY, STONE BASKETING ,CYSTOSCOPY, BILATERAL RETROGRADE PYELOGRAM,BILATERAL URETEROSCOPY , BILATERAL STENT EXCHANGE 10/20/2024 5:29 AM PERSONAL COMPANION - 10/20/2024 12:32 PM PERSONAL COMPANION Hospital Encounter [facility] OR [address] [place] [address] Sofie Chen MD Nephrolithiasis (Primary Dx) Discharge Disposition: Discharge to home or self care 10/20/[address] [facility] Surgery [address] [facility] [address] [place] [address] Sofie Chen MD Kidney stone (Primary Dx) 10/14/2024 Telephone [facility]iology [address] [facility] [address] [place] [phone] Maximo Mobley MD 10/04/2024 Telephone [facility] Surgery [address] [place] [address] Diann Light 09/26/2024 Telephone [facility] [address] [facility] [address] [place] [phone] Maximo Mobley MD 09/21/2024 6:53 PM PERSONAL COMPANION Anesthesia Event [facility] Operating Room [address] [place] [address] Palmira Garcia MD Lentz, William Thomas, NP 09/21/2024 6:25 PM PERSONAL COMPANION - 09/21/2024 7:40 PM [facility] Surgery [facility] Operating Room [address] [place] [address] Valery Carson MD CYSTOSCOPY, RIGHT RETROGRADE PYELOGRAM, RIGHT URETERAL STENT PLACEMENT 09/20/2024 3:35 AM PERSONAL COMPANION - 09/22/2024 10:42 AM PERSONAL COMPANION Hospital Encounter [address] [phone] Du Cruz MD Kidney stone (Primary Dx) Discharge Disposition: Discharge to home or self care 08/31/2024 1:30 PM PERSONAL COMPANION Office Visit [facility] [address] [place] [address] Maximo Mobley MD Coronary artery disease involving [place] coronary artery of [place] heart without angina pectoris (Primary Dx); S/P CABG x 3; Essential hypertension; RBBB; Statin intolerance; Myalgia due to statin from Last 3 Months Immunizations Immunization Administration Dates Next Due Influenza, Unspecified 06/27/2024 Pfizer SARS-CoV-2 Monovalent Vaccination (12+ Yrs) PURPLE 11/29/2020,11/08/2020 Surgical History Surgery Date Site/Laterality Comments ROTATOR CUFF REPAIR Bilateral CORONARY ANGIOPLASTY WITH STENT PLACEMENT 09/14/2003 - 09/13/2004 LA RPR ANOM CORONARY ARTERY PULM ART ORIGIN GRAFT HAND SURGERY Bilateral trigger fingers CARPAL TUNNEL RELEASE Bilateral CORONARY ARTERY BYPASS GRAFT 09/14/2018 - 09/13/2019 triple bypass CYSTOSCOPY INSERTION / REMOVAL STENT / STONE 09/21/2024 Right CYSTOSCOPY, RIGHT RETROGRADE PYELOGRAM, RIGHT URETERAL STENT PLACEMENT Medical History Medical History Date Comments Sleep apnea DOES NOT WEAR CP AP MACHINE STATES Hypertension Hyperlipidemia Myocardial infarction (HCC) 2003 Type 2 diabetes mellitus (HCC) History of transfusion BLOOD 197 0'S PER PT Arthritis CHRONIC PAIN Kidney stone on right side CAD (coronary artery disease) A-fib (CMS/HCC) (HCC) 2018 NOTED AFTE R CABG Family History Medical History Relation Name Comments Prostate cancer Brother 1 Heart disease Brother 2 Garrison Serrato Other Father Aspirated food; Diabetes Mother Shen Serrato Heart failure Mother Shen Serrato Congestive heart failure; Alcohol abuse Son Arthritis Son Relation Name Status Comments Brother 1 Brother 2 Garrison Serrato Alive Father Mother Shen Serrato (Age 70) Son Social History Tobacco Use Types Packs/Day Years Used Date Smoking Tobacco: Former Cigarettes 0.5 4 Q uit: 09/14/1994 Cigars 09/14/1986 - 0 09/14/1994 Smokeless Tobacco: Never Tobacco Cessation:Counseling Given: Not Answered Alcohol Use Standard Drinks/Week Comments No 0 (1 standard drink = 0.6 oz pur e alcohol) AUDIT-C Answer Date Recorded Q1: How often do you have a drink containing alcohol? Never 10/20/2024 Q2: How many drinks containi ng alcohol do you have on a typical day when you are drinking? Patient does not drink Q3: How often do you have si x or more drinks on one occasion? Never 10/20/2024 Personal Safety Answer Date Recorded Have you ever been in or are you currently in a harmful physical or emotional relationship or is someone making you feel afraid or unsafe? Denies 10/20/2024 Sex and Gender Information Value Date Recorded Sex Assigned at Not on file Legal Sex Male 10:57 AM PERSONAL COMPANION Gender Identity Not on file Sexual Orientation Not on file Obstetrics History Last Filed Vital Signs Vital Sign Reading Time Taken Comments Blood Pressure 123/40 10/20/2024 12:15 PM PERSONAL COMPANION Pulse 79 10/20/2024 12:15 PM PERSONAL COMPANION Temperature 36.4 C (97.5 F) 10/20/2024 10:05 AM PERSONAL COMPANION Respiratory Rate 18 10/20/2024 12:15 PM PERSONAL COMPANION Oxygen Saturation 93% 10/20/2024 12:15 PM PERSONAL COMPANION Inhaled Oxygen Concentration - - Weight 91.6 kg (202 lb) 10/31/2024 11:24 AM PERSONAL COMPANION Height 175.3 cm (5' 9 ) 10/31/2024 11:24 AM PERSONAL COMPANION Body Mass Index 29.83 10/31/2024 11:24 AM PERSONAL COMPANION Plan of Treatment Health Maintenance Due Date Last Done Comments Albumin Creatinine Ratio, Urine 1951 Colon Cancer Screening-Colonoscopy 1950 Depression Screening 1950 Hemoglobin A1C 1951 Hepatitis C Screening 1951 Prostate Cancer Screening-PSA 1951 Dilated Eye Exam 1951 Foot Exam 1951 Hepatitis B Screening 1969 Abdominal Aortic Aneurysm (A AA) Screen 2016 Well Visit 65+ 2016 Zoster Vaccine (3 of 3) 11/22/2020 09/27/2020, 02/22 DTaP/Tdap/Td Vaccine (2 - Td or Tdap) 08/25/2021 08/25/2011 Covid-19 Vaccine (6 2023-2 5 season) 2024 06/18/2021, 11/29/2020, 11/29/2020, Additional history exists Lipid Panel 08/31/2025 08/31/2024, 08/14, 08/18/2022, Additional history exists eGFR 09/20/2025 09/20/2024, 03/2025, 09/23/2018, Additional history exists Fall Risk Assessment 10/07/2025 10/07/2024 Pneumococcal vaccine 65+ Completed 018, 06/13/2015, 07/22/2013 Influenza Vaccine Completed 06/27/2024, , 06/13/2019, Additional history exists Medical Devices Implanted Type Area Patient Account Analyst Device Identifier Shelf Expiration Date Model / Serial / Lot [employer] Universa 6fr 24cm Radiopaque Graduate Firm Monofilament Tether [id number] - [id number] Implanted:Qty: 1 on 10/20/2024 by Sofie Chen MD at [facility] Stent Right: Ureter [employer] [id number] 07/15/2027 [id number] / / [id number] [employer] Universa 6fr 24cm Radiopaque Graduate Firm Monofilament Tether [id number] - [id number] Implanted:Qty: 1 on 10/20/2024 by Sofie Chen MD at [facility] Stent Right: Ureter [employer] [id number] 07/15/2027 [id number] / / [id number] Medsternal Wire Cabg Bilateral: Chest Wall [employer] [id number] Suturebridge Argyle Drill Guide Punch Tap Set Implant Achilles - [id number] Implanted:Qty: 1 on 12/04/2020 by Ryan Allison MD at [facility] Left: Shoulder [employer] 01/12/2024 [id number]- CP / / [id number] [employer] Ar-7535 Fiberlink Arthrex Suturetape 1.3mm Tape Suture Nonabsorbable - [id number] Implanted:Qty: 1 on 12/04/2020 by Ryan Allison MD at [facility] Left: Shoulder [employer] 10/14/2024 [id number] / / [id number] [employer] [id number] Swivelock C 4.75mm 19.1mm Closed Eyelet Vent [place] Suture - [id number] Implanted:Qty: 1 on 12/04/2020 by Ryan Allison MD at [facility] Left: Shoulder [employer] 06/13/2024 [id number] / / [id number] [facility] [employer] [facility] [id number] Regenesorb Ultratape Ultrabraid 4.75mm Smooth 2 [place] Suture - [id number] Implanted:Qty: 1 on 12/04/2020 by Ryan Allison MD at [facility] Left: Shoulder [employer] 08/07/2023 [id number] / / [id number] [employer] [id number] Swivelock Tenodesis 6.25mm 19.1mm Closed Eyelet Shoulder Biceps - [id number] Implanted:Qty: 1 on 12/04/2020 by Ryan Allison MD at [facility] Left: Shoulder [employer] 09/13/2024 [id number]-[id number] / / [id number] Explanted Type Area Patient Account Analyst Device Identifier Shelf Expiration Date Model / Serial / Lot [employer] Universa 6fr 24cm Radiopaque Graduate Firm Monofilament Tether [id number] - [id number] - [id number] Implanted:Qty: 1 on 09/21/2024 by Valery Carson MD at [facility] Explanted:Qty: 1 on 10/20/2024 Stent Right: Ureter [employer] [facility] Inc [id number] 05/10/2027 [id number] / [id number] T1 / [id number] Procedures Procedure Name Priority Date/Time Associated Diagnosis Comments PHOSPHORUS, URINE, RANDOM Routine 10/31/2024 12:31 PM PERSONAL COMPANION Nephrolithiasis PTH Routine 10/31/2024 12:24 PM PERSONAL COMPANION Nephrolithiasis URIC ACID Routine 10/31/2024 12:24 PM PERSONAL COMPANION Nephrolithiasis URINALYSIS, MICROSCOPIC ONLY Routine 10/31/2024 12:01 PM PERSONAL COMPANION Nephrolithiasis URINALYSIS AND REFLEX TO MICROSCOPIC AND CULTURE Routine 10/31/2024 12:01 PM PERSONAL COMPANION Nephrolithiasis POCT URINALYSIS DIPSTICK Routine 10/31/2024 11:49 AM PERSONAL COMPANION Nephrolithiasis POCT GLUCOSE DEVICE Routine 10/20/2024 9 :28 AM PERSONAL COMPANION FL RETRO PYELO (IN OR) IP Routine 9:10 AM PERSONAL COMPANION STONE ANALYSIS Routine 10/20/2024 9:02 AM PERSONAL COMPANION LA AN PROCEDURE PLACEHOLDER Routine 10/20/2024 7:44 AM PERSONAL COMPANION LA AN ELECTIVE SUPRAGLOTTIC AIRWAY Routine 10/20/2024 7:44 AM PERSONAL COMPANION URETEROSCOPY STONE MANIPULATION WITH ABLATION LASER 10/20/2024 7:36 AM PERSONAL COMPANION Kidney stone POC BLOOD GAS AND CHEMISTRIES, VENOUS Routine 10/20/2024 6:15 AM PERSONAL COMPANION POCT CREATININE FOR CONTRAST EVALUATION Routine 10/20/2024 6:11 AM PERSONAL COMPANION POCT GLUCOSE DEVICE Routine 09/22/2024 7 :38 AM PERSONAL COMPANION POCT GLUCOSE DEVICE Routine 09/22/2024 4 :24 AM PERSONAL COMPANION POCT GLUCOSE DEVICE Routine 09/22/2024 12:20 AM PERSONAL COMPANION POCT GLUCOSE DEVICE Routine 09/21/2024 9 :49 PM PERSONAL COMPANION POCT GLUCOSE DEVICE Routine 09/21/2024 7 :44 PM PERSONAL COMPANION FL FLUOROSCOPY < 1 HOUR IP Routine 09/21/19 7:23 PM PERSONAL COMPANION URINE CULTURE Routine 09/21/2024 7:21 PM PERSONAL COMPANION LA AN PROCEDURE PLACEHOLDER Routine 09/21/2024 7:13 PM PERSONAL COMPANION LA AN ELECTIVE ENDOTRACHEAL AIRWAY Routine 09/21/2024 7:13 PM PERSONAL COMPANION CYSTOSCOPY PLACEMENT URETERAL STENT 09/21/2024 6:56 PM PERSONAL COMPANION Kidney stone Case Notes POC; Rob [phone] POCT GLUCOSE DEVICE Routine 09/21/2024 5 :12 PM PERSONAL COMPANION POCT GLUCOSE DEVICE Routine 09/21/2024 3 :42 PM PERSONAL COMPANION POCT GLUCOSE DEVICE Routine 09/21/2024 11:52 AM PERSONAL COMPANION POCT GLUCOSE DEVICE Routine 09/21/2024 7 :29 AM PERSONAL COMPANION POCT GLUCOSE DEVICE Routine 09/21/2024 3 :39 AM PERSONAL COMPANION POCT GLUCOSE DEVICE Routine 09/21/2024 12:07 AM PERSONAL COMPANION POCT GLUCOSE DEVICE Routine 09/20/2024 10:47 PM PERSONAL COMPANION EGFR Timed 09/20/2024 9:52 PM PERSONAL COMPANION CBC WITHOUT DIFFERENTIAL Timed 09/20/2024 9:52 PM PERSONAL COMPANION PHOSPHORUS Timed 09/20/2024 9:52 PM PERSONAL COMPANION MAGNESIUM Timed 09/20/2024 9:52 PM PERSONAL COMPANION BASIC METABOLIC PANEL Timed 09/20/2024 9:52 PM PERSONAL COMPANION TROPONIN I HIGH-SENSITIVITY 4-HOUR Timed 09/20/2024 9:52 PM PERSONAL COMPANION POCT GLUCOSE DEVICE Routine 09/20/2024 8 :37 PM PERSONAL COMPANION POCT GLUCOSE DEVICE Routine 09/20/2024 5 :23 PM PERSONAL COMPANION TROPONIN I HIGH-SENSITIVITY 6-HOUR Timed 09/20/2024 4:35 PM PERSONAL COMPANION TROPONIN I HIGH-SENSITIVITY 2-HOUR Timed 09/20/2024 1:45 PM PERSONAL COMPANION POCT GLUCOSE DEVICE Routine 09/20/2024 1 :42 PM PERSONAL COMPANION TRANSTHORACIC ECHO (TTE) COMPLETE W DOPPLER/CF W CONTRAST ED Urgent/IP Urgent 09/20/2024 12:22 PM PERSONAL COMPANION POCT GLUCOSE DEVICE Routine 09/20/2024 11:15 AM PERSONAL COMPANION XR CHEST PA LATERAL 2 VIEWS ED Urgent/IP Urgent 09/20/2024 11:04 AM PERSONAL COMPANION ECG 12-LEAD STAT 09/20/2024 10:33 AM PERSONAL COMPANION TROPONIN I HIGH-SENSITIVITY SERIES (BASELINE, 2HR, 4HR, 6HR) STAT 09/20/2024 10:15 AM PERSONAL COMPANION POCT GLUCOSE DEVICE Routine 09/20/2024 8 :45 AM PERSONAL COMPANION URINALYSIS, MICROSCOPIC ONLY Routine 09/20/2024 6:17 AM PERSONAL COMPANION URINALYSIS AND REFLEX TO MICROSCOPIC Routine 09/20/2024 6:17 AM PERSONAL COMPANION URINE CULTURE Routine 09/20/2024 6:17 AM PERSONAL COMPANION B CHECK SAMPLE STAT 09/20/2024 5:42 AM PERSONAL COMPANION POCT GLUCOSE DEVICE Routine 09/20/2024 5 :[address] BODY OUTSIDE CONSULT Routine 09/20/19 4:57 AM PERSONAL COMPANION EGFR STAT 09/20/2024 4:33 AM PERSONAL COMPANION DIFFERENTIAL AUTO STAT 09/20/2024 4:3 3 AM PERSONAL COMPANION PHOSPHORUS STAT 09/20/2024 4:33 AM PERSONAL COMPANION MAGNESIUM STAT 09/20/2024 4:33 AM PERSONAL COMPANION TYPE AND SCREEN STAT 09/20/2024 4:33 AM PERSONAL COMPANION APTT STAT 09/20/2024 4:33 AM PERSONAL COMPANION PROTIME-INR STAT 09/20/2024 4:33 AM PERSONAL COMPANION BASIC METABOLIC PANEL STAT 09/20/2024 4:33 AM PERSONAL COMPANION CBC WITH AUTO DIFFERENTIAL STAT 09/20/2024 4:33 AM PERSONAL COMPANION ELECTROCARDIOGRAM REPORT Routine 08/31/2024 2:35 PM PERSONAL COMPANION Coronary artery disease involving [place] coronary artery of [place] heart without angina pectoris POCT LIPID PANEL Routine 08/31/2024 9:59 AM PERSONAL COMPANION Coronary artery disease involving [place] coronary artery of [place] heart without angina pectoris CYSTOSCOPY PLACEMENT URETERAL STENT Kidney stone Case Notes POC; Sree [phone] from Last 3 Months Results * Phosphorus, urine, random (10/31/2024 12:31 PM PERSONAL COMPANION) Phosphorus, ur 28.7 mg/dL Comment: Interpretive Data No reference range established. Current interpretive data was last revised 2019. Urine 10/31/2024 12:3 1 PM PERSONAL COMPANION 10/31/2024 7:01 PM PERSONAL COMPANION Sofie Chen MD LAB URINE ORDERABLES Final Result Performing Organization Address City/[facility] Co de Phone Number [address] [place] [address] * Uric acid (10/31/2024 12:24 PM PERSONAL COMPANION) [facility] Uric acid 6.1 3.0 - 8.0 mg/dL Comment:Testing performed by : [address] [address] Blood 10/31/2024 12:2 4 PM PERSONAL COMPANION 10/31/2024 1:38 PM PERSONAL COMPANION Sofie Chen MD LAB BLOOD ORDERABLES Final Result Performing Organization Address [facility] de Phone Number [address] [address] * PTH (10/31/2024 12:24 PM PERSONAL COMPANION) [facility] PTH 56 15 - 65 pg/mL Comment:Testing performed by : [address] [address] Blood 10/31/2024 12:2 4 PM PERSONAL COMPANION 10/31/2024 1:38 PM PERSONAL COMPANION Sofie Chen MD LAB BLOOD ORDERABLES Final Result Performing Organization Address [facility] de Phone Number [address] [address] * (ABNORMAL) Urinalysis reflex to microscopic and culture Urine, bladder (10/31/2024 12:01 PM PERSONAL COMPANION) Color, ur Red(A) Yellow Comment:Testing performed by : [address] [address] Clarity, ur Turbid(A) Clear CHERYL Comment:Testing performed by : [address] [address] Specific gravity, ur 1.018 1.003 - 1.030 CHERYL Comment:Testing performed by : [address] [address] pH, urine 6.0 CHEYRL Comment: Interpretive Data U rine pH is affected by diet, medications, systemic acid-base disturbances, and renal tubular function. pH may affect urinary stone formation. For example, urine pH below 6.0 may help reduce the tendency for calcium phosphate stones and pH greater than 6.0 may reduce the tendency for uric acid stone formation. Source: [facility] Current Interpretive Data was last revised on 2017 Testing performed by: [address] [address] Protein, ur ql 2+(A) Negative CHERYL Comment:Testing performed by : [address] [address] Glucose, ur ql Negative Negative CHERYL Comment:Testing performed by : [address] [address] Ketones, ur Negative Negative CHERYL Comment:Testing performed by : [address] [address] Bilirubin, ur Negative Negative CHERYL Comment:Testing performed by : [address] [address] Blood, ur 3+(A) Negative CHERYL Comment:Testing performed by : [address] [address] Urobilinogen, ur <2.0 <2.0 mg/dL CHERYL Comment:Testing performed by : [address] [address] Nitrite, ur Negative Negative CHERYL Comment:Testing performed by : [address] [address] Leukocyte esterase, ur 4+(A) Negative CHERYL Comment:Testing performed by : [address] [address] UA reflex comment Reflex to microscopic UA will be performed. CHERYL Comment:Testing performed by : [address] [address] Urine, bladder 10/31/2024 12 :01 PM PERSONAL COMPANION 10/31/2024 8:31 PM PERSONAL COMPANION Arturo Carito Chen MD LAB MICROBIOLOGY - G ENERAL ORDERABLES Final Result Performing Organization Address [facility] Co de Phone Number CHERYL [address] [place] [address] * (ABNORMAL) Urinalysis, microscopic only (10/31/2024 12:01 PM PERSONAL COMPANION) WBC, ur >50(A) 0 - 5 /HPF Comment:Testing performed by : [address] [address] RBC, ur >50(A) 0 - 2 /HPF CHERYL Comment:Testing performed by : [address] [address] Culture Reflex Comment Reflex to urine culture will be performed. CHERYL Comment:Testing performed by : [address] [address] Urine, bladder 10/31/2024 12 :01 PM PERSONAL COMPANION 10/31/2024 8:31 PM PERSONAL COMPANION Sofie Chen MD LAB URINE ORDERABLES Final Result Performing Organization Address [facility] Co de Phone Number CHERYL [address] [place] [address] * (ABNORMAL) POCT urinalysis dipstick (10/31/2024 11:49 AM PERSONAL COMPANION) Color, Urine, POC Yellow Clarity, ur, POC Clear Clear Glucose, ur, POC Negative Negative MG/DL Bilirubin, ur, POC Negative Negative, Small, Moderate, Large Ketones, ur, POC Negative Negative Specific [place], POC 1.025 1.003 - 1.030 Blood, ur, POC 3+(A) Negative pH, ur, POC 6.0 5.0 - 8.0 Protein, ur, POC 2+(A) Negative Urobilinogen, urine, POC 0.2 0.2 - 1.0 mg/dL Nitrite, ur, POC Negative Negative Leukocytes, ur, POC 3+(A) Negative Lot Number 0 Urine 10/31/2024 11:4 9 AM PERSONAL COMPANION Sofie Chen MD POINT OF CARE TEST O RDERABLES Final Result * POCT glucose (10/20/2024 9:28 AM PERSONAL COMPANION) Glucose, POC 158 70 - 199 mg/dL Blood 10/20/2024 9:28 AM PERSONAL COMPANION 10/20/2024 9:28 AM PERSONAL COMPANION Sofie Chen MD LAB POCT ORDERABLES - DEVICE Final Result Performing Organization Address [facility]/ZIP Co de Phone Number CHERYL [facility] Department [place] [address] * [place] Retro Pyelo (In Or) (10/20/2024 9:10 AM PERSONAL COMPANION) Narrative ADRIAN_MORGAN_ALPHONSO_MHE - 10/20/2024 9:18 AM PERSONAL COMPANION The images from this study are not interpreted by Radiology. Please refer to the physician's procedure / OR operative note. Sofie Chen MD IMG FLUOROSCOPY PROC EDURES Final Result Performing Organization Address City/[facility]/ZIP Co de Phone Number RAD_[email or web address] * Stone analysis (10/20/2024 9:02 AM PERSONAL COMPANION) Stone analysis Not Reported [place] ref Lab Source, Kid Stone Right Ureter CHERYL FONSECA Interp, Kid stone analysis See Footnote CHERYL FONSECA Comment:RESULT: 100% Calcium oxalate monohydrate. COMMENT See Footnote CHERYL Comment: For stones containing calcium oxalate, calcium phosphate, and/or uric acid, a 24 hr urinary supersaturation test may help detect underlying risk factors for this type of stone formation and provide guidance for a stone prevention strategy. ADDITIONAL INFORMATION This test was developed and its performance characteristics determined by [facility] in a manner consistent with CLIA requirements. This test has not been cleared or approved by the U.S. Food and Drug Administration. Test Performed by: [facility] [place] [address] Project Controls Specialist: Bridger Mckeon Ph.D.; CLIA# [id number] Stone (Urine, Clean Catch) 10/20/2024 9:02 AM PERSONAL COMPANION 10/20/2024 9:29 AM PERSONAL COMPANION Willie LUNA - 10/28/2024 11:09 AM PERSONAL COMPANION Right ureteral stone for analysis us Yousef Carito Chen MD LAB URINE ORDERABLES Final Result CHERYL [address] [place] [address] Department [place] [address] [place] ref [facility] * LA AN ELECTIVE SUPRAGLOTTIC AIRWAY, LA AN PROCEDURE PLACEHOLDER (10/20/2024 7:44 AM PERSONAL COMPANION) Narrative Nallely Mosley CRNA - 10/20/2024 7:44 AM PERSONAL COMPANION Nallely Mosley CRNA 10/20/2024 7:48 AM Airway Patient location: OR Urgency: elective Indications for airway management: anesthesia Difficult airway: no Staff: Placed by: RITA: Nallely Mosley CRNA Emergent airway documentation: Risks and benefits discussed: yes Consent obtained: yes Consent given by: patient Airway prep: Preoxygenated: yes Patient position: sniffing MILS maintained throughout: yes Mask difficulty assessment: 0 - not attempted Spontaneous ventilation during airway: absent Sedation level during airway: GA Final airway details: Final airway type: supraglottic airway Final supraglottic airway: classic SGA size: 4 Number of attempts: 1 Additional comments: Patient states he has been tolerating ozempic well, without nausea/reflux. Began ozempic this past fall. Familia Reed MD ANESTHESIA ORDERABLES Edited Result - Final * (ABNORMAL) POC Blood Gas and Chemistries, Venous - (10/20/2024 6:15 AM PERSONAL COMPANION) Pathologist [facility] pH,live POC 7.38 7.32 - 7.43 pCO2, live POC 44 40 - 50 mmHg [facility] pO2,live POC 45 mmHg [facility] Comment: Interpretive Data No reference range established. Current interpretive data was last revised 2020. HCO3, live (Calc) POC 26 20 - 30 mmol/L [facility] Base excess, live POC 1 mmol/L [facility] Comment: Interpretive Data No reference range established. Current interpretive data was last revised 2020. Hemoglobin, live POC 11.6(L) 13.0 - 17.5 g/dL [facility] Hematocrit, live POC 34.0(L) 38.9 - 50.3 % [facility] Sodium, live POC 140 135 - 145 mmol/L [facility] Potassium, live POC 4.1 3.3 - 4.9 mmol/L [facility] Comment: Interpretive Data This method is not able to assess for hemolysis, which may falsely increase potassium concentrations. If further testing is needed to evaluate this result, consider in-laboratory plasma potassium. Current Interpretive Data was last revised on 2022. Glucose, live POC 158 70 - 199 mg/dL [facility] Ionized Calcium, live POC 5.10 4.50 - 5.10 mg/dL [facility] Blood 10/20/2024 6:15 AM PERSONAL COMPANION 10/20/2024 6:15 AM PERSONAL COMPANION Sofie Chen MD LAB POCT ORDERABLES - DEVICE Final Result [facility] [address] [facility] Department [place] [address] * POCT creatinine for contrast evaluation (10/20/2024 6:11 AM PERSONAL COMPANION) Creatinine POC 1.00 0.80 - 1.30 mg/dL Blood 10/20/2024 6:11 AM PERSONAL COMPANION 10/20/2024 6:11 AM PERSONAL COMPANION us Sofie Chen MD POINT OF CARE TEST O RDERABLES Final Result CHERYL [address] Department [place] [address] * POCT glucose (09/22/2024 7:38 AM PERSONAL COMPANION) Glucose, POC 116 70 - 199 mg/dL Blood 09/22/2024 7:38 AM PERSONAL COMPANION 09/22/2024 7:38 AM PERSONAL COMPANION Du Cruz MD LAB POCT ORDERABLES - DEV ICE Final Result Performing Organization Address City/[facility]/ZIP Co de Phone Number [facility] Department [place] [address] * POCT glucose (09/22/2024 4:24 AM PERSONAL COMPANION) Glucose, POC 121 70 - 199 mg/dL Blood 09/22/2024 4:24 AM PERSONAL COMPANION 09/22/2024 4:24 AM PERSONAL COMPANION Du Cruz MD LAB POCT ORDERABLES - DEV ICE Final Result Performing Organization Address City/[facility]/ZIP Co de Phone Number [facility] [place] [address] * POCT glucose (09/22/2024 12:20 AM PERSONAL COMPANION) Glucose, POC 124 70 - 199 mg/dL Blood 09/22/2024 12:2 0 AM PERSONAL COMPANION 09/22/2024 12:20 AM PERSONAL COMPANION Du Cruz MD LAB POCT ORDERABLES - DEV ICE Final Result Performing Organization Address [facility]/RUST de Phone Number CHERYL [facility] [place] [address] * POCT glucose (09/21/2024 9:49 PM PERSONAL COMPANION) Glucose, POC 130 70 - 199 mg/dL Blood 09/21/2024 9:49 PM PERSONAL COMPANION 09/21/2024 9:49 PM PERSONAL COMPANION Du Cruz MD LAB POCT ORDERABLES - DEV ICE Final Result Performing Organization Address [facility] de Phone Number [facility] [place] [address] * POCT glucose (09/21/2024 7:44 PM PERSONAL COMPANION) Glucose, POC 121 70 - 199 mg/dL Blood 09/21/2024 7:44 PM PERSONAL COMPANION 09/21/2024 7:44 PM PERSONAL COMPANION Du Cruz MD LAB POCT ORDERABLES - DEV ICE Final Result Performing Organization Address [facility] de Phone Number [facility] [place] [address] * FL Fluoroscopy < 1 Hour (09/21/2024 7:23 PM PERSONAL COMPANION) Narrative [facility]_PACS_BJ - 09/21/2024 7:23 PM PERSONAL COMPANION The images from this study are not interpreted by Radiology. Please refer to the physician's procedure / OR operative note. Valery Carson MD IMG FLUOROSCOPY PROCEDURES F inal Result Performing Organization Address [facility]/RUST de Phone Number RAD_[email or web address] * Urine culture Urine, bladder (09/21/2024 7:21 PM PERSONAL COMPANION) Report Final Report: No growth Urine, bladder 09/21/2024 7: 21 PM PERSONAL COMPANION 09/21/2024 9:38 PM PERSONAL COMPANION Narrative CHERYL ESPINOSA - 09/23/2024 7:48 AM PERSONAL COMPANION Urine culture Indications for Culture:->Urology patient Specimen received in a sterile container. Testing performed by [facility] ([phone]) us Valery Carson MD LAB MICROBIOLOGY - GENERAL O RDERABLES Final Result CHERYL [facility] [place] [address] * LA AN ELECTIVE ENDOTRACHEAL AIRWAY, LA AN PROCEDURE PLACEHOLDER (09/21/2024 7:13 PM PERSONAL COMPANION) Narrative Christiana Howard CRNA - 09/21/2024 7:13 PM PERSONAL COMPANION Christiana Howard CRNA 09/21/2024 7:14 PM Airway Patient location: OR Urgency: elective Indications for airway management: anesthesia Difficult airway: no Staff: Supervising provider: Palmira Garcia MD Placed by: FIRE CONTROL TECHNICIAN: Christiana Howard CRNA Emergent airway documentation: Risks and benefits discussed: yes Consent obtained: yes Consent given by: patient Airway prep: Preoxygenated: yes Patient position: sniffing Mask difficulty assessment: 0 - not attempted Spontaneous ventilation during airway: absent Sedation level during airway: GA Final airway details: Final airway type: endotracheal airway Tube type: ETT ETT size: 8.0 mm Technique used for successful ETT placement: video laryngoscopy Devices/Methods used in placement: stylet Insertion site: oral Blade type: Dora Video blade type: Gill Blade size: 4 Cormack-Lehane (video): grade IIa - partial view of glottis ETT to lips: 23 cm Placement verified by: auscultation and CO2 detection Airway secured with: silk tape and tegaderm Number of attempts: 1 us Palmira Garcia MD ANESTHESIA ORDERABLES Final R esult * POCT glucose (09/21/2024 5:12 PM PERSONAL COMPANION) Glucose, POC 104 70 - 199 mg/dL Blood 09/21/2024 5:12 PM PERSONAL COMPANION 09/21/2024 5:12 PM PERSONAL COMPANION Du Cruz MD LAB POCT ORDERABLES - DEV ICE Final Result Performing Organization Address City/[facility] Co de Phone Number [facility] [place] [address] * POCT glucose (09/21/2024 3:42 PM PERSONAL COMPANION) Glucose, POC 130 70 - 199 mg/dL Blood 09/21/2024 3:42 PM PERSONAL COMPANION 09/21/2024 3:42 PM PERSONAL COMPANION Du Cruz MD LAB POCT ORDERABLES - DEV ICE Final Result Performing Organization Address [facility]/[place] [address] * POCT glucose (09/21/2024 11:52 AM PERSONAL COMPANION) Glucose, POC 170 70 - 199 mg/dL Blood 09/21/2024 11:5 2 AM PERSONAL COMPANION 09/21/2024 11:52 AM PERSONAL COMPANION Du Cruz MD LAB POCT ORDERABLES - DEV ICE Final Result Performing Organization Address City/[facility]/[place] de Phone Number [facility] [place] [address] * POCT glucose (09/21/2024 7:29 AM PERSONAL COMPANION) Glucose, POC 188 70 - 199 mg/dL Blood 09/21/2024 7:29 AM PERSONAL COMPANION 09/21/2024 7:29 AM PERSONAL COMPANION us Du Cruz MD LAB POCT ORDERABLES - DEV ICE Final Result Performing Organization Address [facility]/[place] de Phone Number [facility] [address] * POCT glucose (09/21/2024 3:39 AM PERSONAL COMPANION) Glucose, POC 161 70 - 199 mg/dL Blood 09/21/2024 3:39 AM PERSONAL COMPANION 09/21/2024 3:39 AM PERSONAL COMPANION Du Cruz MD LAB POCT ORDERABLES - DEV ICE Final Result Performing Organization Address [facility] Phone Number [facility] [address] * POCT glucose (09/21/2024 12:07 AM PERSONAL COMPANION) Glucose, POC 134 70 - 199 mg/dL Blood 09/21/2024 12:0 7 AM PERSONAL COMPANION 09/21/2024 12:07 AM PERSONAL COMPANION Du Cruz MD LAB POCT ORDERABLES - DEV ICE Final Result Performing Organization Address [facility] [place] [address] * POCT glucose (09/20/2024 10:47 PM PERSONAL COMPANION) Glucose, POC 133 70 - 199 mg/dL Blood 09/20/2024 10:4 7 PM PERSONAL COMPANION 09/20/2024 10:47 PM PERSONAL COMPANION Du Cruz MD LAB POCT ORDERABLES - DEV ICE Final Result Performing Organization Address [facility]/[place] de Phone Number CHERYL ESPINOSA [facility] [place] [address] * Troponin I high-sensitivity 4-hour (09/20/2024 9:52 PM PERSONAL COMPANION) Trop I hs <4 <=35 ng/L Comment: Interpretive Data For further hscTnI resources including the diagnostic algorithm and an aid in interpretation, copy and paste this link: https://bjhlab.testcatalog.org/show/hsTrop-[email or web address] Current Interpretive Data last revised 2020. Trop I hs delta See Comment ng/L [facility] Comment:Inappropriate collec tion time to report a delta. Trop I hs pct delta See Comment % [facility] Comment:Inappropriate collec tion time to report a delta. Trop I hs interp See Comment [facility] Comment:Inappropriate collec tion time to report a delta. Blood 09/20/2024 9:52 PM PERSONAL COMPANION 09/20/2024 10:16 PM PERSONAL COMPANION [facility] MD LAB BLOOD ORDERABLES Cinthia l Result Performing Organization Address [facility] Co de Phone Number CHERYL ESPINOSA [facility] Department [place] [address] * eGFR (09/20/2024 9:52 PM PERSONAL COMPANION) eGFR 71 >=60 mL/min/1. 73 m2 Comment: Interpretive Data Reference Interval Normal >/= 90 mL/min/1.73m2 Mildly decreased* 60 - 89 mL/min/1.73m2 Mildly to moderately decreased 45 - 59 mL/min/1.73m2 Moderately to severely decreased 30 - 44 mL/min/1.73m2 Severely decreased 15 - 29 mL/min/1.73m2 Kidney Failure < 15 mL/min/1.73m2 *Relative to young adult level Estimated glomerular filtration rate is determined by the 2020 CKD-EPI equation recommended by the National Kidney Foundation (A Unifying Approach to GFR Estimation: Recommendations of the NKF-ASK Task Force on Reassessing the Inclusion of Race in Diagnosing Kidney Disease, JASN 2020). The CKD-EPI equation should not be used for patients with unstable renal function and has not been validated in children and those over 70. Current interpretive data was last reviewed 2021. Blood 09/20/2024 9:52 PM PERSONAL COMPANION 09/20/2024 10:17 PM PERSONAL COMPANION Du Cruz MD LAB BLOOD ORDERABLES Cinthia l Result Performing Organization Address City/[facility]/ZIP Co de Phone Number [facility] Department [place] [address] * (ABNORMAL) CBC without differential (09/20/2024 9:52 PM PERSONAL COMPANION) WBC 8.8 3.8 - 9.9 K/cumm Hgb 12.7(L) 13.0 - 17.5 g/dL [facility] Hct 38.5(L) 38.9 - 50.3 % [facility] Plt 307 150 - 400 K/cumm [facility] MPV 9.8 9.1 - 12.3 fL [facility] RBC 4.35 4.30 - 5.80 M/cumm [facility] MCV 88.5 81.3 - 96.4 fL [facility] MCH 29.2 27.1 - 33.3 pg [facility] MCHC 33.0 32.3 - 35.7 g/dL [facility] RDW CV 11.9 11.1 - 14.9 % [facility] RDW SD 38.7 35.7 - 48.1 fL [facility] NRBC abs 0.00 0.00 - 0.01 K/cumm [facility] Blood 09/20/2024 9:52 PM PERSONAL COMPANION 09/20/2024 10:18 PM PERSONAL COMPANION Du Cruz MD LAB BLOOD ORDERABLES Cinthia l Result Performing Organization Address City/[facility]/ZIP Co de Phone Number [facility] Department [place] [address] * Phosphorus (09/20/2024 9:52 PM PERSONAL COMPANION) [facility] Phosphorus, pl 4.1 2.3 - 4.5 mg/dL Blood 09/20/2024 9:52 PM PERSONAL COMPANION 09/20/2024 10:17 PM PERSONAL COMPANION Result [facility] Du Cruz MD LAB BLOOD ORDERABLES Cinthia l Result Performing Organization Address [facility] [place] [address] * Magnesium (09/20/2024 9:52 PM PERSONAL COMPANION) [facility] Magnesium 1.9 1.4 - 2.5 mg/dL Blood 09/20/2024 9:52 PM PERSONAL COMPANION 09/20/2024 10:17 PM PERSONAL COMPANION Result [facility] Du Cruz MD LAB BLOOD ORDERABLES Cinthia l Result Performing Organization Address [facility]/[place] [address] * Basic metabolic panel (09/20/2024 9:52 PM PERSONAL COMPANION) [facility] Sodium 141 135 - 145 mmol/L Potassium, pl 4.1 3.3 - 4.9 mmol/L [facility] Chloride 102 97 - 110 mmol/L [facility] CO2 31 22 - 32 mmol/L [facility] Anion gap 8 2 - 15 mmol/L [facility] BUN 15 6 - 25 mg/dL [facility] Creatinine 1.10 0.80 - 1.30 mg/dL [facility] Glucose 127 70 - 199 mg/dL [facility] Comment: Interpretive Data Fasting glucose >/= 126 mg/dl is diagnostic for diabetes. Fasting is defined as no caloric intake for at least 8 hours. Fasting glucose between 100 mg/dl to 125 mg/dl is diagnostic of prediabetes. In a patient with classic symptoms of hyperglycemia or hyperglycemic crisis, a random glucose >/= 200 mg/dl is diagnostic for diabetes. In the absence of unequivocal hyperglycemia, results should be confirmed by repeat testing. The classification and Diagnosis of Diabetes Diabetes Care 2021; 46: S19-S40. Current interpretive data was last revised 2022. Calcium 8.9 8.5 - 10.3 mg/dL [facility] Blood 09/20/2024 9:52 PM PERSONAL COMPANION 09/20/2024 10:17 PM PERSONAL COMPANION Du Cruz MD LAB BLOOD ORDERABLES Cinthia l Result Performing Organization Address [facility] Co de Phone Number [facility] Department [place] [address] * POCT glucose (09/20/2024 8:37 PM PERSONAL COMPANION) Glucose, POC 155 70 - 199 mg/dL Blood 09/20/2024 8:37 PM PERSONAL COMPANION 09/20/2024 8:37 PM PERSONAL COMPANION Du Cruz MD LAB POCT ORDERABLES - DEV ICE Final Result Performing Organization Address [facility]/[place] de Phone Number [facility] Department [place] [address] * POCT glucose (09/20/2024 5:23 PM PERSONAL COMPANION) Glucose, POC 145 70 - 199 mg/dL Blood 09/20/2024 5:23 PM PERSONAL COMPANION 09/20/2024 5:23 PM PERSONAL COMPANION Du Cruz MD LAB POCT ORDERABLES - DEV ICE Final Result Performing Organization Address [facility] Co de Phone Number [facility] Department [place] [address] * Troponin I high-sensitivity 6-hour (09/20/2024 4:35 PM PERSONAL COMPANION) Trop I hs <4 <=35 ng/L Comment: Interpretive Data For further hscTnI resources including the diagnostic algorithm and an aid in interpretation, copy and paste this link: [email or web address] [email or web address]/show/[email or web address] Current Interpretive Data last revised 2020. Trop I hs delta 0 ng/L [facility] Trop I hs interp Insignificant [facility] Blood 09/20/2024 4:35 PM PERSONAL COMPANION 09/20/2024 5:10 PM PERSONAL COMPANION Du Cruz MD LAB BLOOD ORDERABLES Cinthia l Result Performing Organization Address [facility] Co de Phone Number [facility] [place] [address] * Troponin I high-sensitivity 2-hour (09/20/2024 1:45 PM PERSONAL COMPANION) Pathologist [facility] Trop I hs <4 <=35 ng/L Comment: Interpretive Data For further hscTnI resources including the diagnostic algorithm and an aid in interpretation, copy and paste this link: https://MyEveTab.[email or web address] [email or web address]/show/hsTrop-[email or web address] Current Interpretive Data last revised 2020. Trop I hs delta See Comment ng/L [facility] Comment:Inappropriate collec tion time to report a delta. Trop I hs pct delta See Comment % [facility] Comment:Inappropriate collec tion time to report a delta. Trop I hs interp See Comment [facility] Comment:Inappropriate collec tion time to report a delta. Blood 09/20/2024 1:45 PM PERSONAL COMPANION 09/20/2024 2:21 PM PERSONAL COMPANION Du Cruz MD LAB BLOOD ORDERABLES Cinthia l Result Performing Organization Address [facility]/ZIP Co de Phone Number [facility] [place] [address] * POCT glucose (09/20/2024 1:42 PM PERSONAL COMPANION) Glucose, POC 172 70 - 199 mg/dL Blood 09/20/2024 1:42 PM PERSONAL COMPANION 09/20/2024 1:42 PM PERSONAL COMPANION us Du Cruz MD LAB POCT ORDERABLES - DEV ICE Final Result CHERYL [facility] [place] [address] * TRANSTHORACIC ECHO (TTE) COMPLETE W DOPPLER/CF W CONTRAST (09/20/2024 12:22 PM PERSONAL COMPANION) LV EF 70 % CARDIOREPORT Anatomical Region Laterality Modality Ultrasound 09/20/2024 11:3 5 AM PERSONAL COMPANION Narrative 09/20/2024 1:44 PM PERSONAL COMPANION Patient name: Boo Serrato Date of test: 09/20/2024 Type of test: TTE w/Doppler Hospital #: 0 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 Contrast Administered by: Diann Renee RN Supervised/Interpreted by: Steve Yu MD Diagnosis: SOB Location: [facility] Reason for test: Chest pain or SOB, pleurisy or effusion suspected MV Structure: Normal, MV Motion: Normal, Mitral Annulus: Normal AV Structure: tricuspid and is Normal, AV Motion: Normal Aotic root: Normal, TM: Normal, PV: Normal Valvular Vegetations: none seen, Mass/Thrombi: none seen RA: Normal Measurements: M-Mode Normal Aotic Root: <3.8 LA: <4.0 RV: <2.8 LV(ED): <5.7 LV(ES): Variable 2D Linear Normal Aotic Root: 3.2 cm <4.0 Ao Indexed: 1.6 cm/M2 <2.0 LA: <4.0 RV: 3.6 cm <4.2 LV(ED): 4.7 cm <5.9 LV(ES): 2.5 cm <4.0 2D Vol. Normal Indexed Indexed Normal RA: 30.0 ml 14.6 ml/M2 11-39 LA: 80.0 ml 39.0 ml/M2 16-34 RV: <12.7 LV(ED): 88.0 ml 62-150 42.9 ml/M2 <75 LV(ES): 26.0 ml 21-61 12.7 ml/M2 <32 3D Vol. Indexed Normal LV(ED): <75 LV(ES): <32 LV EF: 70 % (Normal: >=52%) LV Septum: 0.9 cm (Normal: <1.0 cm) Wall Motion Scoring (1=Normal 2=Hypo 3=Akinetic 4=Dyskin./Aneurysm 0=Not visualized) Parasternal Long [place]:MAS=1 BAS=1 MIL=1 JESSICA=1 Parasternal Short [place]:MAS=1 MIS=1 KY=1 MIL=1 MAL=1 MA=1 Apical 4 Chambers:=1 MIS=1 BIS=1 BAL=1 MAL=1 AL=1 AC=1 Apical 2 Chambers:AI=1 KY=1 BI=1 BA=1 MA=1 AA=1 AC=1 LV Global Longitudinal Strain: -19.1% (Normal <-17%) RV Global Longitudinal Strain: LV Function: Normal LV Ejection Fraction, (EF=52-72%) RV Function: Normal Septal Motion: Normal Pericardial Effusion: none seen Atrial Septum: Normal DOPPLER/COLOR FLOW DOPPLER RESULTS: Diastolic Function: Grade I, altered relax. w/N. LA pres. Tricuspid Valve: mild TV regurgitation Pulmonic Valve: normal PV AV Regurgitation: No AR seen AV Stenosis: no AV Area: cm2 AV Pressure Gradient (mmHg): Mean: 0, Peak:0 MV Regurgitation: Mild MR MV Stenosis: no MS MV Area: cm2 MV Pressure Gradient (mmHg): Mean: 0 MV ERO: cm Regurg. Vol.: ml/beat Regurg. Frac.: % PA Pressure: 30+ mmHg DOPPLER/COLOR FOLOW DOPPLER COMMENTS: No AR seen, Mild MR, no , no MS, mild TV regurgitation, normal PV. Diastolic function: Grade I, altered relax. w/N. LA pres. PVAT 78 / E: A1.8 / Evel 87 / E/e' 13,7 / CONTRAST: 0.15 ml Definity Administered, (1.35 ml wasted). SUMMARY: Normal LV volume, mass, systolic function (LVEF 70%, GLS -19.1%). Grade 1 diastolic dysfunction. Normal AV. Mild MR. Dilated LA. Normal RV size, low normal function. Mild TR. PASP 30 mmHg. Normal IVC/RAP. Normal aorta. 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 Confirmed on 09/20/2024 - 13:44:19 by Steve Yu MD By signing this report, the attending director women certifies that he or she has personally supervised and interpreted the echocardiogram and has reviewed and or edited and agrees with the written comments contained within the report. 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 Contrast Administered by: Diann Renee RN Supervised/Interpreted by: Steve Yu MD Diagnosis: SOB Location: [facility] Reason for test: Chest pain or SOB, pleurisy or effusion suspected MV Structure: Normal, MV Motion: Normal, Mitral Annulus: Normal AV Structure: tricuspid and is Normal, AV Motion: Normal Aotic root: Normal, TM: Normal, PV: Normal Valvular Vegetations: none seen, Mass/Thrombi: none seen RA: Normal Measurements: M-Mode Normal Aotic Root: <3.8 LA: <4.0 RV: <2.8 LV(ED): <5.7 LV(ES): Variable 2D Linear Normal Aotic Root: 3.2 cm <4.0 Ao Indexed: 1.6 cm/M2 <2.0 LA: <4.0 RV: 3.6 cm <4.2 LV(ED): 4.7 cm <5.9 LV(ES): 2.5 cm <4.0 2D Vol. Normal Indexed Indexed Normal RA: 30.0 ml 14.6 ml/M2 11-39 LA: 80.0 ml 39.0 ml/M2 16-34 RV: <12.7 LV(ED): 88.0 ml 62-150 42.9 ml/M2 <75 LV(ES): 26.0 ml 21-61 12.7 ml/M2 <32 3D Vol. Indexed Normal LV(ED): <75 LV(ES): <32 LV EF: 70 % (Normal: >=52%) LV Septum: 0.9 cm (Normal: <1.0 cm) Wall Motion Scoring (1=Normal 2=Hypo 3=Akinetic 4=Dyskin./Aneurysm 0=Not visualized) Parasternal Long [place]:MAS=1 BAS=1 MIL=1 JESSICA=1 Parasternal Short [place]:MAS=1 MIS=1 KY=1 MIL=1 MAL=1 MA=1 Apical 4 Chambers:=1 MIS=1 BIS=1 BAL=1 MAL=1 AL=1 AC=1 Apical 2 Chambers:AI=1 KY=1 BI=1 BA=1 MA=1 AA=1 AC=1 LV Global Longitudinal Strain: -19.1% (Normal <-17%) RV Global Longitudinal Strain: LV Function: Normal LV Ejection Fraction, (EF=52-72%) RV Function: Normal Septal Motion: Normal Pericardial Effusion: none seen Atrial Septum: Normal DOPPLER/COLOR FLOW DOPPLER RESULTS: Diastolic Function: Grade I, altered relax. w/N. LA pres. Tricuspid Valve: mild TV regurgitation Pulmonic Valve: normal PV AV Regurgitation: No AR seen AV Stenosis: no AV Area: cm2 AV Pressure Gradient (mmHg): Mean: 0, Peak:0 MV Regurgitation: Mild MR MV Stenosis: no MS MV Area: cm2 MV Pressure Gradient (mmHg): Mean: 0 MV ERO: cm Regurg. Vol.: ml/beat Regurg. Frac.: % PA Pressure: 30+ mmHg DOPPLER/COLOR FOLOW DOPPLER COMMENTS: No AR seen, Mild MR, no , no MS, mild TV regurgitation, normal PV. Diastolic function: Grade I, altered relax. w/N. LA pres. PVAT 78 / E: A1.8 / Evel 87 / E/e' 13,7 / CONTRAST: 0.15 ml Definity Administered, (1.35 ml wasted). SUMMARY: Normal LV volume, mass, systolic function (LVEF 70%, GLS -19.1%). Grade 1 diastolic dysfunction. Normal AV. Mild MR. Dilated LA. Normal RV size, low normal function. Mild TR. PASP 30 mmHg. Normal IVC/RAP. Normal aorta. 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 Confirmed on 09/20/2024 - 13:44:19 by Steve Yu MD By signing this report, the attending director women certifies that he or she has personally supervised and interpreted the echocardiogram and has reviewed and or edited and agrees with the written comments contained within the report. Du Cruz MD CV ECHO PROCEDURES Final Result * POCT glucose (09/20/2024 11:15 AM PERSONAL COMPANION) Glucose, POC 149 70 - 199 mg/dL Blood 09/20/2024 11:1 5 AM PERSONAL COMPANION 09/20/2024 11:15 AM PERSONAL COMPANION Du Cruz MD LAB POCT ORDERABLES - DEV ICE Final Result [facility] [place] [address] * XR Chest Pa Lateral 2 Views (09/20/2024 11:04 AM PERSONAL COMPANION) Anatomical Region Laterality Modality Body, Chest N/A Computed Radiogr aphy 09/20/2024 11:2 4 AM PERSONAL COMPANION Impressions 09/20/2024 11:24 AM PERSONAL COMPANION Comparison is made to prior study of 11/27/2020. The lung volumes are smaller with increased atelectasis. There is no pulmonary edema or pneumonia. No pneumothorax. No definite pleural effusion. The heart size and mediastinal contour are unchanged. Electronically signed by: Lokesh Bui M.D. Narrative 09/20/2024 11:24 AM PERSONAL COMPANION EXAMINATION: 2 view chest radiograph Procedure Note Lokesh Bui MD - 09/20/2024 EXAMINATION: 2 view chest radiograph IMPRESSION: Comparison is made to prior study of 11/27/2020. The lung volumes are smaller with increased atelectasis. There is no pulmonary edema or pneumonia. No pneumothorax. No definite pleural effusion. The heart size and mediastinal contour are unchanged. Electronically signed by: Lokesh Bui M.D. Result [facility] Du Cruz MD IMG XR PROCEDURES Final R esult * ECG 12 lead (09/20/2024 10:33 AM PERSONAL COMPANION) Pathologist [facility] Ventricular Rate EKG/Min 86 BPM [facility] Atrial Rate 86 BPM [facility] LA-Interval (MSEC) 154 ms [facility] QRS-Interval (MSEC) 124 ms [facility] QT-Interval (MSEC) 378 ms [facility] QTc 452 ms [facility] P [place] -9 degrees [facility] R [place] -5 degrees [facility] T Tyler 16 degrees [facility] Diagnosis Normal sinus rhythm Right bundle branch block Abnormal ECG No previous ECGs available Confirmed by Bouchra FLAHERTY [facility] ([id number]) on 09/20/2024 10:32:01 PM [facility] 09/20/2024 10:3 3 AM PERSONAL COMPANION 09/20/2024 10:32 PM PERSONAL COMPANION Result [facility] Urbano Rhodes MD ECG ORDERABLES Final Result [facility] * Troponin I high-sensitivity series (baseline, 2hr, 4hr, 6hr) (09/20/2024 10:15 AM PERSONAL COMPANION) [facility] Trop I hs <4 <=35 ng/L Comment: Interpretive Data For further hscTnI resources including the diagnostic algorithm and an aid in interpretation, copy and paste this link: [email or web address] Current Interpretive Data last revised 2020. Blood 09/20/2024 10:1 5 AM PERSONAL COMPANION 09/20/2024 10:52 AM PERSONAL COMPANION Result [facility] Du Cruz MD LAB BLOOD ORDERABLES Cinthia l Result Performing Organization Address City/[facility]/ZIP Co de Phone Number [facility] [place] [address] * POCT glucose (09/20/2024 8:45 AM PERSONAL COMPANION) Glucose, POC 147 70 - 199 mg/dL Blood 09/20/2024 8:45 AM PERSONAL COMPANION 09/20/2024 8:45 AM PERSONAL COMPANION [facility] Velasquez Cruz MD LAB POCT ORDERABLES - DEV ICE Final Result Performing Organization Address [facility]/[place] de Phone Number [facility] [place] [address] * (ABNORMAL) Urinalysis reflex to microscopic (09/20/2024 6:17 AM PERSONAL COMPANION) Color, ur Katie Yellow Clarity, ur Cloudy(A) Clear [facility] Specific gravity, ur 1.022 1.003 - 1.030 [facility] pH, urine 5.5 [facility] Comment: Interpretive Data U rine pH is affected by diet, medications, systemic acid-base disturbances, and renal tubular function. pH may affect urinary stone formation. For example, urine pH below 6.0 may help reduce the tendency for calcium phosphate stones and pH greater than 6.0 may reduce the tendency for uric acid stone formation. Source: [facility] Current Interpretive Data was last revised on 2017 Protein, ur ql 1+(A) Negative [facility] Glucose, ur ql Negative Negative [facility] Ketones, ur Negative Negative [facility] Bilirubin, ur Negative Negative [facility] Blood, ur 3+(A) Negative [facility] Urobilinogen, ur <2.0 <2.0 mg/dL [facility] Nitrite, ur Negative Negative [facility] Leukocyte esterase, ur Negative Negative [facility] UA reflex comment Reflex to microscopic UA will be performed. [facility] Urine 09/20/2024 6:17 AM PERSONAL COMPANION 09/20/2024 6:40 AM PERSONAL COMPANION Du Cruz MD LAB URINE ORDERABLES Cinthia l Result Performing Organization Address [facility] Co de Phone Number [facility] Department [place] [address] * (ABNORMAL) Urinalysis, microscopic only (09/20/2024 6:17 AM PERSONAL COMPANION) WBC, ur 0-5 0 - 5 /HPF RBC, ur >50(A) 0 - 2 /HPF [facility] Mucous, ur Present(A) [facility] Urine 09/20/2024 6:17 AM PERSONAL COMPANION 09/20/2024 6:40 AM PERSONAL COMPANION Du Cruz MD LAB URINE ORDERABLES Cinthia l Result Performing Organization Address [facility]/[place] de Phone Number [facility] Department [place] [address] * Urine culture Urine, clean voided (09/20/2024 6:17 AM PERSONAL COMPANION) Report Final Report: No growth Urine, clean voided 09/20/2024 6:17 AM PERSONAL COMPANION 09/20/2024 6:43 AM PERSONAL COMPANION Narrative [facility] - 09/21/2024 9:41 AM PERSONAL COMPANION Indications for Culture:->Urology patient Testing performed by [facility] Microbiology [facility] ([phone]) Du Cruz MD LAB MICROBIOLOGY - GENERA L ORDERABLES Final Result Performing Organization Address [facility] Co de Phone Number [facility] Department [place] [address] * Check Sample (09/20/2024 5:42 AM PERSONAL COMPANION) ABO Rh O Negative [facility] OTHER 09/20/2024 5:42 AM PERSONAL COMPANION 09/20/2024 6:43 AM PERSONAL COMPANION Du Cruz MD LAB BLOOD ORDERABLES Cinthia l Result [facility] Department [place] [address] BJ * POCT glucose (09/20/2024 5:29 AM PERSONAL COMPANION) Glucose, POC 143 70 - 199 mg/dL Blood 09/20/2024 5:29 AM PERSONAL COMPANION 09/20/2024 5:29 AM PERSONAL COMPANION Du Cruz MD LAB POCT ORDERABLES - DEV ICE Final Result Performing Organization Address [facility] Co de Phone Number [facility] [place] [address] * CT Body Outside Consult (09/20/2024 4:57 AM PERSONAL COMPANION) Anatomical Region Laterality Modality Body N/A Computed Tomogra phy 09/20/2024 9:40 AM PERSONAL COMPANION Impressions 09/20/2024 12:05 PM PERSONAL COMPANION 1. Mild right hydroureteronephrosis down to the level of an obstructing 8mm right proximal ureteral stone. 5 mm nonobstructing left renal calculus without appreciable left-sided hydronephrosis. 2. Indeterminant 1cm exophytic left renal lesion, recommend ultrasound to further characterize. Recommend follow up of the Incidental renal nodule Additional Imaging in 3 Months with renal ultrasound. The findings, conclusions and recommendations within this report do not replace the initial findings, conclusions and recommendations made at the facility where the study was performed based upon the imaging and clinical condition at that time. Comparison with the prior report and clinical history is necessary. The provided images may or may not represent the [place] source data set and thus may contain changes that may lower the accuracy of this second-opinion interpretation. Dictated by: Bradley Maldonado M.D. The radiology attending physician has personally reviewed this study, and had reviewed and/or edited this written report and agrees with it. Electronically signed by: Louann Camilo M.D. Narrative 09/20/2024 12:05 PM PERSONAL COMPANION EXAMINATION: RADIOLOGY CONSULTATION ON OUTSIDE IMAGING STUDY STUDY INITIALLY PERFORMED: 09/19/2024 at [facility]. TYPE OF STUDY: Multiple CT images of the abdomen and pelvis without IV contrast are provided at the time of this interpretation. CONTRAST ROUTE: No contrast was administered. The protocol was adequate to address the clinical question. The outside final report was not available at the time of this second opinion interpretation. TYPE OF CONSULTATION: Consult on outside imaging study with images submitted through Outside Image Sharing Service DATE OF CONSULTATION: 09/20/2024 8:18 AM HISTORY: Acute right abdominal/flank pain and hematuria COMPARISON: None available. FINDINGS: The included bases of the lungs demonstrates partially imaged postoperative changes of coronary artery bypass grafting and coronary artery disease. There is mild segmental atelectasis. No pleural effusion. The heart size is normal. There is no pericardial effusion. The thoracic aorta is normal in caliber with mild atherosclerosis. Normal noncontrast appearance of the liver. There is no intrahepatic or extrahepatic biliary ductal dilation. The gallbladder is relatively decompressed. The pancreas, spleen, and adrenal glands are normal. There is mild right greater than left perinephric fat stranding bilaterally. There is mild right-sided hydroureteronephrosis down to the level of a 8mm right proximal ureteral stone. 5 mm nonobstructing left renal calculus is also noted. There is no appreciable left-sided hydronephrosis. 1 cm exophytic left renal lesion is noted and indeterminant. The bladder is decompressed. The calcified prostate is present. There is no free fluid in the abdomen or pelvis. There is no pneumoperitoneum. There is no bowel obstruction. Normal stomach and duodenal sweep. Colonic diverticulosis without diverticulitis. Normal appendix. There is moderate atherosclerosis of the abdominal aorta which is normal in course and caliber. There are scattered prominent periaortic lymph nodes, which are not enlarged, likely reactive. Degenerative changes of the spine are noted. There are no acute osseous abnormalities. Small fat containing umbilical hernia. Procedure Note Louann Camilo MD - 09/20/2024 EXAMINATION: RADIOLOGY CONSULTATION ON OUTSIDE IMAGING STUDY STUDY INITIALLY PERFORMED: 09/19/2024 at [facility]. TYPE OF STUDY: Multiple CT images of the abdomen and pelvis without IV contrast are provided at the time of this interpretation. CONTRAST ROUTE: No contrast was administered. The protocol was adequate to address the clinical question. The outside final report was not available at the time of this second opinion interpretation. TYPE OF CONSULTATION: Consult on outside imaging study with images submitted through Outside Image Sharing Service DATE OF CONSULTATION: 09/20/2024 8:18 AM HISTORY: Acute right abdominal/flank pain and hematuria COMPARISON: None available. FINDINGS: The included bases of the lungs demonstrates partially imaged postoperative changes of coronary artery bypass grafting and coronary artery disease. There is mild segmental atelectasis. No pleural effusion. The heart size is normal. There is no pericardial effusion. The thoracic aorta is normal in caliber with mild atherosclerosis. Normal noncontrast appearance of the liver. There is no intrahepatic or extrahepatic biliary ductal dilation. The gallbladder is relatively decompressed. The pancreas, spleen, and adrenal glands are normal. There is mild right greater than left perinephric fat stranding bilaterally. There is mild right-sided hydroureteronephrosis down to the level of a 8mm right proximal ureteral stone. 5 mm nonobstructing left renal calculus is also noted. There is no appreciable left-sided hydronephrosis. 1 cm exophytic left renal lesion is noted and indeterminant. The bladder is decompressed. The calcified prostate is present. There is no free fluid in the abdomen or pelvis. There is no pneumoperitoneum. There is no bowel obstruction. Normal stomach and duodenal sweep. Colonic diverticulosis without diverticulitis. Normal appendix. There is moderate atherosclerosis of the abdominal aorta which is normal in course and caliber. There are scattered prominent periaortic lymph nodes, which are not enlarged, likely reactive. Degenerative changes of the spine are noted. There are no acute osseous abnormalities. Small fat containing umbilical hernia. IMPRESSION: 1. Mild right hydroureteronephrosis down to the level of an obstructing 8mm right proximal ureteral stone. 5 mm nonobstructing left renal calculus without appreciable left-sided hydronephrosis. 2. Indeterminant 1cm exophytic left renal lesion, recommend ultrasound to further characterize. Recommend follow up of the Incidental renal nodule Additional Imaging in 3 Months with renal ultrasound. The findings, conclusions and recommendations within this report do not replace the initial findings, conclusions and recommendations made at the facility where the study was performed based upon the imaging and clinical condition at that time. Comparison with the prior report and clinical history is necessary. The provided images may or may not represent the [place] source data set and thus may contain changes that may lower the accuracy of this second-opinion interpretation. Dictated by: Bradley Maldonado M.D. The radiology attending physician has personally reviewed this study, and had reviewed and/or edited this written report and agrees with it. Electronically signed by: Louann Camilo M.D. Du Cruz MD IMG CT PROCEDURES Final R esult * eGFR (09/20/2024 4:33 AM PERSONAL COMPANION) eGFR 82 >=60 mL/min/1. 73 m2 Comment: Interpretive Data Reference Interval Normal >/= 90 mL/min/1.73m2 Mildly decreased* 60 - 89 mL/min/1.73m2 Mildly to moderately decreased 45 - 59 mL/min/1.73m2 Moderately to severely decreased 30 - 44 mL/min/1.73m2 Severely decreased 15 - 29 mL/min/1.73m2 Kidney Failure < 15 mL/min/1.73m2 *Relative to young adult level Estimated glomerular filtration rate is determined by the 2020 CKD-EPI equation recommended by the National Kidney Foundation (A Unifying Approach to GFR Estimation: Recommendations of the NKF-ASK Task Force on Reassessing the Inclusion of Race in Diagnosing Kidney Disease, JASN 202). The CKD-EPI equation should not be used for patients with unstable renal function and has not been validated in children and those over 70. Current interpretive data was last reviewed 2021. Blood 09/20/2024 4:33 AM PERSONAL COMPANION 09/20/2024 5:19 AM PERSONAL COMPANION us Du Cruz MD LAB BLOOD ORDERABLES Cinthia l Result [facility] [place] [address] * (ABNORMAL) Differential, auto (09/20/2024 4:33 AM PERSONAL COMPANION) Neutrophil abs 6.8(H) 1.5 - 6.5 K/cumm Imm gran abs 0.0 0.0 - 0.1 K/cumm [facility] Lymphocyte abs 2.1 0.8 - 3.3 K/cumm [facility] Monocyte abs 1.0(H) 0.2 - 0.8 K/cumm [facility] Eosinophil abs 0.2 0.0 - 0.5 K/cumm [facility] Basophil abs 0.1 0.0 - 0.1 K/cumm [facility] Neutrophil pct 66.4 % [facility] Comment: Interpretive Data Percent cell count reference ranges are not reported, since discordance with absolute values may lead to misinterpretation of CBC data. Current Interpretive Data was last revised on 2017. Imm gran pct 0.4 % [facility] Comment: Interpretive Data Percent cell count reference ranges are not reported, since discordance with absolute values may lead to misinterpretation of CBC data. Current Interpretive Data was last revised on 2017. Lymphocyte pct 20.9 % [facility] Comment: Interpretive Data Percent cell count reference ranges are not reported, since discordance with absolute values may lead to misinterpretation of CBC data. Current Interpretive Data was last revised on 2017. Monocyte pct 9.5 % [facility] Comment: Interpretive Data Percent cell count reference ranges are not reported, since discordance with absolute values may lead to misinterpretation of CBC data. Current Interpretive Data was last revised on 2017. Eosinophil pct 2.1 % [facility] Comment: Interpretive Data Percent cell count reference ranges are not reported, since discordance with absolute values may lead to misinterpretation of CBC data. Current Interpretive Data was last revised on 2017. Basophil pct 0.7 % [facility] Comment: Interpretive Data Percent cell count reference ranges are not reported, since discordance with absolute values may lead to misinterpretation of CBC data. Current Interpretive Data was last revised on 2017. Blood 09/20/2024 4:33 AM PERSONAL COMPANION 09/20/2024 5:21 AM PERSONAL COMPANION Du Cruz MD LAB BLOOD ORDERABLES Cinthia l Result Performing Organization Address [facility] Co de Phone Number [facility] [place] [address] * (ABNORMAL) CBC with auto differential (09/20/2024 4:33 AM PERSONAL COMPANION) [facility] WBC 10.2(H) 3.8 - 9.9 K/cumm Hgb 13.4 13.0 - 17.5 g/dL [facility] Hct 40.2 38.9 - 50.3 % [facility] Plt 346 150 - 400 K/cumm [facility] MPV 9.9 9.1 - 12.3 fL [facility] RBC 4.53 4.30 - 5.80 M/cumm [facility] MCV 88.7 81.3 - 96.4 fL [facility] MCH 29.6 27.1 - 33.3 pg [facility] MCHC 33.3 32.3 - 35.7 g/dL [facility] RDW CV 11.9 11.1 - 14.9 % [facility] RDW SD 39.0 35.7 - 48.1 fL [facility] NRBC abs 0.00 0.00 - 0.01 K/cumm [facility] Blood 09/20/2024 4:33 AM PERSONAL COMPANION 09/20/2024 5:21 AM PERSONAL COMPANION Du Cruz MD LAB BLOOD ORDERABLES Cinthia l Result [facility] Department [place] [address] * aPTT (09/20/2024 4:33 AM PERSONAL COMPANION) Pathologist [facility] aPTT 35 28 - 38 sec Comment: Interpretive Data Heparin therapeutic range: 66.0 - 100.0 seconds. Range based on correlation with therapeutic heparin activity range of 0.3 - 0.7 Units/mL. Current interpretive data was last revised on 2023. Blood 09/20/2024 4:33 AM PERSONAL COMPANION 09/20/2024 5:30 AM PERSONAL COMPANION Du Cruz MD LAB BLOOD ORDERABLES Cinthia l Result Performing Organization Address [facility]/[place] de Phone Number [facility] [place] [address] * Protime-INR (09/20/2024 4:33 AM PERSONAL COMPANION) PT 11.7 9.7 - 13.0 sec INR 1.08 0.90 - 1.20 [facility] Comment: Interpretive data Oral anticoagulant therapeutic ranges: Venous thromboembolism prophylaxis or treatment: 2.0-3.0 CARDIOLOGY Standard range: 2.0-3.0 High-intensity range: 2.5-3.5 Refer to indication-specific guidelines for appropriate target ranges for prosthetic heart valve replacement. Current interpretive data was last revised on 2019. Blood 09/20/2024 4:33 AM PERSONAL COMPANION 09/20/2024 5:30 AM PERSONAL COMPANION Result [facility] Du Cruz MD LAB BLOOD ORDERABLES Cinthia l Result Performing Organization Address [facility]/[place] [address] * Type and screen (09/20/2024 4:33 AM PERSONAL COMPANION) ABO Rh O Negative [place], indirect Negative [facility] Blood 09/20/2024 4:33 AM PERSONAL COMPANION 09/20/2024 5:20 AM PERSONAL COMPANION Narrative [employer] [facility] [facility] - 09/20/2024 6:11 AM PERSONAL COMPANION Has the patient had Daratumumab or Isatuximab in the past 6 months?->Unknown Du Cruz MD LAB BLOOD BANK TEST ORDER YULI Final Result Performing Organization Address City/[facility] Co de Phone Number [facility] [place] [address] * Phosphorus (09/20/2024 4:33 AM PERSONAL COMPANION) [facility] Phosphorus, pl 3.7 2.3 - 4.5 mg/dL Blood 09/20/2024 4:33 AM PERSONAL COMPANION 09/20/2024 5:19 AM PERSONAL COMPANION Du Cruz MD LAB BLOOD ORDERABLES Cinthia l Result Performing Organization Address [facility] de Phone Number [facility] [place] [address] * Magnesium (09/20/2024 4:33 AM PERSONAL COMPANION) [facility] Magnesium 2.0 1.4 - 2.5 mg/dL Blood 09/20/2024 4:33 AM PERSONAL COMPANION 09/20/2024 5:19 AM PERSONAL COMPANION Du Cruz MD LAB BLOOD ORDERABLES Cinthia l Result Performing Organization Address [facility] de Phone Number [facility] [place] [address] * Basic metabolic panel (09/20/2024 4:33 AM PERSONAL COMPANION) [facility] Sodium 142 135 - 145 mmol/L Potassium, pl 4.3 3.3 - 4.9 mmol/L [facility] Chloride 105 97 - 110 mmol/L [facility] CO2 30 22 - 32 mmol/L [facility] Anion gap 7 2 - 15 mmol/L [facility] BUN 14 6 - 25 mg/dL [facility] Creatinine 0.97 0.80 - 1.30 mg/dL [facility] Glucose 143 70 - 199 mg/dL [facility] Comment: Interpretive Data Fasting glucose >/= 126 mg/dl is diagnostic for diabetes. Fasting is defined as no caloric intake for at least 8 hours. Fasting glucose between 100 mg/dl to 125 mg/dl is diagnostic of prediabetes. In a patient with classic symptoms of hyperglycemia or hyperglycemic crisis, a random glucose >/= 200 mg/dl is diagnostic for diabetes. In the absence of unequivocal hyperglycemia, results should be confirmed by repeat testing. The classification and Diagnosis of Diabetes Diabetes Care 2021; 46: S19-S40. Current interpretive data was last revised 2022. Calcium 9.2 8.5 - 10.3 mg/dL [facility] Blood 09/20/2024 4:33 AM PERSONAL COMPANION 09/20/2024 5:19 AM PERSONAL COMPANION Result [facility] Du Cruz MD LAB BLOOD ORDERABLES Cinthia mercado Result [facility] Department [place] [address] * Electrocardiogram Report (08/31/2024 2:35 PM PERSONAL COMPANION) Maximo Mobley MD ECG ORDERABLES Edited Result - Final * POCT lipid panel (08/31/2024 9:59 AM PERSONAL COMPANION) Cholesterol, POC 108 mg/dL Comment:GLU = 121 HDL, POC 36 mg/dL Triglycerides, POC 194 mg/dL LDL Cholesterol POC 33 mg/dL Chol/HDL Ratio, POC 0.9 Non-HDL Cholesterol, POC 72 mg/dL Cholesterol Total, POC 108 mg/dL Capillary blood 08/31/2024 9 :59 AM PERSONAL COMPANION Maximo Mobley MD POINT OF CARE TEST ORDERABLES Fi nal Result from Last [address] [facility] [employer] [facility] OPEN ACCESS MEDICARE [facility] Address: [address] [address] [place] [address] [facility] [employer] Advance Directives For more information, please contact: [phone] * Full Code (Latest Code Status on File) Date Activated Date Inactivated Comments 09/20/2024 4:10 AM 09/22/2024 2:52 PM * Full Code Date Activated Date Inactivated Comments 09/16/2018 1:22 PM 09/23/2018 6:01 PM Care Teams Business Economist Relationship Specialty Start Date End Date Heydi Gomez MD [address] [place] [address] PCP - General 12/12/16 Aleksandr Kirkland NP [address] [place] [address] [address], [place] [address] Nurse Practitioner Nurse Practitioner 12/04/20 Maximo Mobley MD [facility] [facility] [address] [place] [id number] Consulting Physician Cardiology 10/07/24
--- OUTSIDE RECORDS SUMMARY | 2024-10-31 22:26 | XMS_ITS | Encounter Summary ---
Author Organization [facility] Healthcare Address [address] [place] [address] Care Team Providers Care Government Affairs Director Name Role Phone Heydi Gomez MD Primary Care Provider [phone] Aleksandr Kirkland NP Unavailable [phone] Maximo Mobley MD Unavailable Encounter Details Date Type Department Care Team (Latest Contact Info) Description 10/31/2024 12:33 PM WINE MANAGER Hospital Encounter [facility] Building [address] [id number] Nephrolithiasis Social History Tobacco Use Types Packs/Day Years Used Date Smoking Tobacco: Former Cigarettes 0.5 4 Q uit: 09/14/1994 Cigars 09/14/1986 - 0 09/14/1994 Smokeless Tobacco: Never Alcohol Use Standard Drinks/Week Comments No 0 [...] on file Legal Sex Male 10:57 AM WINE MANAGER Gender Identity Not on file Sexual Orientation Not on file documented as of this encounter Plan of Treatment Pending Results Name Type Priority Associated Diagnoses Date /Time Urine culture Urine, bladder Microbiology Routine 10/31/2024 12:01 PM WINE MANAGER Scheduled Orders Name Type Priority Associated Diagnoses Orde r Schedule Urine culture Microbiology Routine Once for 1 Occurrences starting 10/31/2024 until 10/31/2024 documented as of this encounter Procedures Procedure Name Priority Date/Time Associated Diagnosis Comments URINALYSIS AND REFLEX TO MICROSCOPIC AND CULTURE Routine 10/31/2024 12:01 PM WINE MANAGER Nephrolithiasis URINALYSIS, MICROSCOPIC ONLY Routine 10/31/2024 12:01 PM WINE MANAGER Nephrolithiasis documented in this encounter Results * (ABNORMAL) Urinalysis, microscopic only (10/31/2024 12:01 PM WINE MANAGER) WBC, ur >50(A) 0 - 5 /HPF Comment:Testing performed by : [address] [address] RBC, ur >50(A) 0 - 2 /HPF CHERYL FONSECA Comment:Testing performed by : [address] [address] Culture Reflex Comment Reflex to urine culture will be performed. CHERYL Comment:Testing performed by : [address] [address] Urine, bladder 10/31/2024 12 :01 PM WINE MANAGER 10/31/2024 8:31 PM WINE MANAGER us Yousef Carito Chen MD LAB URINE ORDERABLES Final Result CHERYL [address] [facility] Department [place] [address] * (ABNORMAL) Urinalysis reflex to microscopic and culture Urine, bladder (10/31/2024 12:01 PM WINE MANAGER) Color, ur Red(A) Yellow Comment:Testing performed by : [address] [place] [address] Clarity, ur Turbid(A) Clear CHERYL Comment:Testing performed by : [address] [address] Specific gravity, ur 1.018 1.003 - 1.030 CHERYL Comment:Testing performed by : [address] [address] pH, urine 6.0 CHERYL Comment: Interpretive Data U rine pH is affected by diet, medications, systemic acid-base disturbances, and renal tubular function. pH may affect urinary stone formation. For example, urine pH below 6.0 may help reduce the tendency for calcium phosphate stones and pH greater than 6.0 may reduce the tendency for uric acid stone formation. Source: [facility] [employer] Current Interpretive Data was last revised on 2017 Testing performed by: [address] [address] Protein, ur ql 2+(A) Negative CHERYL Comment:Testing performed by : [address] [address] Glucose, ur ql Negative Negative CHERYL Comment:Testing performed by : [address] [address] Ketones, ur Negative Negative CHERYL Comment:Testing performed by : [address] [address] Bilirubin, ur Negative Negative CHERYL Comment:Testing performed by : [address] [address] Blood, ur 3+(A) Negative CHERYL Comment:Testing performed by : [address] [address] Urobilinogen, ur <2.0 <2.0 mg/dL CHERYL Comment:Testing performed by : [address] [address] Nitrite, ur Negative Negative CHERYL Comment:Testing performed by : [address] [address] Leukocyte esterase, ur 4+(A) Negative CHERYL Comment:Testing performed by : [address] [address] UA reflex comment Reflex to microscopic UA will be performed. CHERYL Comment:Testing performed by : [facility] [address] [facility], [place]., [address] Urine, bladder 10/31/2024 12 :01 PM WINE MANAGER 10/31/2024 8:31 PM WINE MANAGER us Yousef Carito Chen MD LAB MICROBIOLOGY - G ENERAL ORDERABLES Final Result CHERYL [address] [facility] Department [place] [address] documented in this encounter Visit Diagnoses Diagnosis Nephrolithiasis Calculus of kidney documented in this encounter Care Teams Government Affairs Director Relationship Specialty Start Date End Date Heydi Gomez MD [address] [place] [address] PCP - General 12/12/16 Aleksandr Kirkland, JONATAN [address] [place] [address] [address], [place] [address] Nurse Practitioner Nurse Practitioner 12/04/20 Maximo Mobley MD [address] [place] [address] Consulting Physician Cardiology 10/07/24 documented as of this encounter
--- OUTSIDE RECORDS SUMMARY | 2024-10-31 22:26 | XMS_ITS | Encounter Summary ---
Author Organization [facility] Address [address] [facility] [address] [place] [address] Phone Care Team Providers Care Visiting Professor Name Role Phone Heydi Gomez MD Primary Care Provider [phone] Aleksandr Kirkland NP Unavailable Maximo Mobley MD Unavailable Encounter Details Date Type Department Care Team (Late st Contact Info) Description 10/31/2024 Results Follow-Up [facility] [address] [place] [address] [address] [place] [address] Sofie Chen MD [address] [facility] [place], [place] [id number] Social History Tobacco Use Types Packs/Day Years [...] on file Legal Sex Male 10:57 AM PELT SALTER Gender Identity Not on file Sexual Orientation Not on file documented as of this encounter Plan of Treatment Not on file documented as of this encounter Visit Diagnoses Not on filedocumented in this encounter Care Teams Visiting Professor Relationship Specialty Start Date End Date Heydi Gomez MD [address] [place] [address] PCP - General 12/12/16 Aleksandr Kirkland NP [address] [facility] [address], [place] [address] Nurse Practitioner Nurse Practitioner 12/04/20 Maximo Mobley MD [address] [address] Consulting Physician Cardiology 10/07/24 documented as of this encounter
--- OUTSIDE RECORDS SUMMARY | 2024-10-31 22:26 | XMS_ITS | Encounter Summary ---
Author Organization [facility] Healthcare Address [address] [place] [address] Care Team Providers Care Business Operations Specialist Name Role Phone Heydi Gomez MD Primary Care Provider [phone] Aleksandr Kirkland NP Unavailable [phone] Maximo Mobley MD Unavailable Encounter Details Date Type Department Care Team (Late st Contact Info) Description 10/14/2024 Telephone [facility] Medical Group Cardiology [address] [place] [address] Maximo Mobley MD [address] [address] Social History Tobacco Use Types Packs/Day Years Used Date Smoking Tobacco: Former Cigarettes 0.5 4 Q uit: 09/14/1994 Cigars 09/14/1986 - 0 09/14/1994 Smokeless Tobacco: Never Alcohol Use Standard Drinks/Week Comments No 0 (1 standard drink = 0.6 oz pur e alcohol) AUDIT-C Answer Date Recorded Q1: How often do you have a drink containing alcohol? Never 10/07/2024 Q2: How many drinks containi ng alcohol do you have on a typical day when you are drinking? Patient does not drink Q3: How often do you have si x or more drinks on one occasion? Never 10/07/2024 Personal Safety Answer Date Recorded Have you ever been in or are you currently in a harmful physical or emotional relationship or is someone making you feel afraid or unsafe? Denies 10/07/2024 Sex and Gender Information Value Date Recorded Sex Assigned at Not on file Legal Sex Male 10:57 AM COMBAT CONTROL Gender Identity Not on file Sexual Orientation Not on file documented as of this encounter Miscellaneous Notes * Telephone Encounter - Bhavna Mota, RN - 10/14/2024 9:30 AM COMBAT CONTROL DK-Dr. Gomez is requesting a callback from you regarding this pt-his personal cell is listed. Thank you! AT CONTROL * Telephone Encounter - Wen Hernandez - 10/14/2024 9:[address] Gomez (PCP) is requesting to speak to Dr. Mobley today. States pt has a lot of blood in urine and wanting to see if Eliquis can be stopped. Contact: AT CONTROL documented in this encounter Plan of Treatment Not on file documented as of this encounter Visit Diagnoses Not on filedocumented in this encounter Care Teams Business Operations Specialist Relationship Specialty Start Date End Date Heydi Gomez MD [address] [place] [address] PCP - General 12/12/16 Aleksandr Kirkland NP [address] [place] [address] [address] [place] [address] Nurse Practitioner Nurse Practitioner 12/04/20 Maximo Mobley MD [address] [facility] [address] [place] [address] Consulting Physician Cardiology 10/07/24 documented as of this encounter
--- OUTSIDE RECORDS SUMMARY | 2024-10-31 22:26 | XMS_ITS | Continuity of Care Document ---
Author Organization [facility] Address [address] [place] [address] [address] [place] [address] Phone Care Team Providers Care Can Closing Machine Operator Name Role Phone Jocelyn MS, OTR/L, CHTKimberley Unavailable Unavailable Procedures Procedure Date JOGGER OPERATOR Acute Therapeutic Exercise Therapeutic Activities Neuromuscular Re-Ed Manual Therapy Hot or Cold Pack Progress Note Therapeutic Exercise Therapeutic Activities Neuromuscular Re-Ed Manual Therapy Hot or Cold Pack Therapeutic Exercise Therapeutic Activities Neuromuscular Re-Ed Manual Therapy Hot or Cold Pack Therapeutic Exercise Therapeutic Activities Neuromuscular Re-Ed Manual Therapy Hot or Cold Pack Therapeutic Exercise Therapeutic Activities Neuromuscular Re-Ed Manual Therapy Hot or Cold Pack Therapeutic Exercise Therapeutic Activities Neuromuscular Re-Ed Manual Therapy Hot or Cold Pack Therapeutic Exercise Therapeutic Activities Neuromuscular Re-Ed Manual Therapy Hot or Cold Pack Therapeutic Exercise Therapeutic Activities Neuromuscular Re-Ed Manual Therapy Hot or Cold Pack Theraputty Therapeutic Exercise Therapeutic Activities Neuromuscular Re-Ed Manual Therapy Hot or Cold Pack Therapeutic Exercise Therapeutic Activities Neuromuscular Re-Ed Manual Therapy Hot or Cold Pack Therapeutic Exercise Therapeutic Activities Neuromuscular Re-Ed Manual Therapy Hot or Cold Pack OT Re-Evaluation Therapeutic Exercise Therapeutic Activities Neuromuscular Re-Ed Manual Therapy Hot or Cold Pack Therapeutic Exercise Therapeutic Activities Neuromuscular Re-Ed Hot or Cold Pack OT Evaluation Low Complexity Therapeutic Exercise Neuromuscular Re-Ed Hot or Cold Pack Advance Directives Directive Yes / No Effective Date File Name No Information Encounters Encounter Description Practice Location Reason(s) For Visit Diagnoses Date Provider Providers Copied on Encounter [facility], [place], [place], [id number], [place] tel:[phone] Cope Stiffness of right wrist, not elsewhere classifiedOth symptoms and signs involving the musculoskeletal systemParesthes ia of skinOther general symptoms and signsCarpal tunnel syndrome, right upper limbCarpal tunnel syndrome, left upper limb 8 Jocelyn Chu. [address] [facility], [address], [place], [address], [place]. tel:[phone] Referring Provider: Jan Licea, [address] [facility] [address], [place], [address]. tel:[phone] [facility], [place], [place], [id number], [place] tel:[phone] Cope Stiffness of right wrist, not elsewhere classifiedOth symptoms and signs involving the musculoskeletal systemParesthes ia of skinOther general symptoms and signsCarpal tunnel syndrome, right upper limbCarpal tunnel syndrome, left upper limb 8 Jocelyn Chu. [address] [facility], [address], [place], [address], [place]. tel:[phone] Referring Provider: Jan Licea, [address] [facility] [address], [place], [address]. tel:[phone] [facility], [address], [place], [place], [id number], [place] tel:[phone] Cope Stiffness of right wrist, not elsewhere classifiedOth symptoms and signs involving the musculoskeletal systemParesthes ia of skinOther general symptoms and signsCarpal tunnel syndrome, right upper limbCarpal tunnel syndrome, left upper limb 8 Jocelyn Chu. [address] [facility], [address], [place], [address], [place]. tel:[phone] Referring Provider: Jan Licea, [address] [place] [address] [address], [place] [place], [address]. tel:[phone] [facility] [facility] [address], [place], [place], [address], [place] tel:[phone] Cope Stiffness of right wrist, not elsewhere classifiedOth symptoms and signs involving the musculoskeletal systemParesthes ia of skinOther general symptoms and signsCarpal tunnel syndrome, right upper limbCarpal tunnel syndrome, left upper limb 8 Jocelyn Chu. [address] [facility], [address], [place], [address], [place]. tel:[phone] Referring Provider: Jan Licea, [address] [facility] [address], [place], [address]. tel:[phone] [facility], [address], [place], [place], [id number], [place] tel:[phone] Cope Stiffness of right wrist, not elsewhere classifiedOth symptoms and signs involving the musculoskeletal systemParesthes ia of skinOther general symptoms and signsCarpal tunnel syndrome, right upper limbCarpal tunnel syndrome, left upper limb 8 Jocelyn Desouzafer. [address] [facility], [address], [place], [address], [place]. tel:[phone] Referring Provider: Jan Licea, [address] [facility] [address], [place], [address]. tel:[phone] [facility] [address], [place], [place], [address], [place] tel:[phone] Cope Stiffness of right wrist, not elsewhere classifiedOth symptoms and signs involving the musculoskeletal systemParesthes ia of skinOther general symptoms and signsCarpal tunnel syndrome, right upper limbCarpal tunnel syndrome, left upper limb 8 Jocelyn Chu. [address] [facility], [address], [place], [address], [place]. tel:[phone] Referring Provider: Jan Licea, [address] [facility] [address], [place], [address]. tel:[phone] [place] [address], [place], [place], [address], [place] tel:[phone] Cope Stiffness of right wrist, not elsewhere classifiedOth symptoms and signs involving the musculoskeletal systemParesthes ia of skinOther general symptoms and signsCarpal tunnel syndrome, right upper limbCarpal tunnel syndrome, left upper limb 8 Jocelyn Chu. [address] [facility], [address], [place], [address], [place]. tel:[phone] Referring Provider: Jan Licea, [address] [facility] [address], [place], [address]. tel:[phone] [facility], [place], [place], [address], [place] tel:[phone] Cope Stiffness of right wrist, not elsewhere classifiedOth symptoms and signs involving the musculoskeletal systemParesthes ia of skinOther general symptoms and signsCarpal tunnel syndrome, right upper limbCarpal tunnel syndrome, left upper limb Oct-1 0-201 8 Haantonio Kimberley. [address] [facility], [address], [place], [address], [place]. tel:[phone] Referring Provider: Jan Licea, [address] [place] [address] [address], [place], [address]. tel:[phone] [facility] [address] [place], [place] [address] [address], [place], [place], [address], [place] tel:[phone] Cope Stiffness of right wrist, not elsewhere classifiedOth symptoms and signs involving the musculoskeletal systemParesthes ia of skinOther general symptoms and signsCarpal tunnel syndrome, right upper limbCarpal tunnel syndrome, left upper limb Oct-0 8-201 8 Hauscamrit Kimberley. [address] [place] [address], [address], [place], [address], [place]. tel:[phone] Referring Provider: Jan Licea, [address] [place] [address] [address], [place], [address]. tel:[phone] [facility] [address] [facility] [address], [place], [place], [address], [place] tel:[phone] Cope Stiffness of right wrist, not elsewhere classifiedOth symptoms and signs involving the musculoskeletal systemParesthes ia of skinOther general symptoms and signsCarpal tunnel syndrome, right upper limbCarpal tunnel syndrome, left upper limb Jun-0 5-201 8 Hauscamrit Kimberley. [address] [facility], [address], [place], [address], [place]. tel:[phone] Referring Provider: Jan Licea, [address] [place] [address] [address], [place], [address]. tel:[phone] [facility] [facility] [address], [place], [place], [address], [place] tel:[phone] Cope Stiffness of right wrist, not elsewhere classifiedOth symptoms and signs involving the musculoskeletal systemParesthes ia of skinOther general symptoms and signsCarpal tunnel syndrome, right upper limbCarpal tunnel syndrome, left upper limb 0 3-201 8 Haantonio Chu. [address] [facility], [address], [place], [place], [facility], [place]. tel:[phone] Referring Provider: Jan Licea, [address] [place] [address] [address], [place], [address]. tel:[phone] [facility] [address] [facility] [address], [place], [place], [address], [place] tel:[phone] Cope Stiffness of right wrist, not elsewhere classifiedOth symptoms and signs involving the musculoskeletal systemParesthes ia of skinOther general symptoms and signsCarpal tunnel syndrome, right upper limbCarpal tunnel syndrome, left upper limb 0 1-201 8 Haantonio Chu. [address] [facility], [address], [place], [place], [facility], [place]. tel:[phone] Referring Provider: Jan Licea, [address] [place] [address] [address], [place], [address]. tel:[phone] [facility] [address] [facility] [address], [place], [place], [id number], [place] tel:[phone] Cope Stiffness of right wrist, not elsewhere classifiedOth symptoms and signs involving the musculoskeletal systemParesthes ia of skinOther general symptoms and signsCarpal tunnel syndrome, right upper limb Sep-2 6-201 8 Haantonio Chu. [address] [facility], [address], [place], [address], [place]. tel:[phone] Referring Provider: Jan Licea, [address] [place] [address] [address], [place], [address]. tel:[phone] [facility] [facility], [place], [place], [address], [place] tel:[phone] Cope Stiffness of right wrist, not elsewhere classifiedOth symptoms and signs involving the musculoskeletal systemParesthes ia of skinOther general symptoms and signsCarpal tunnel syndrome, right upper limb Sep-2 4-201 8 Hauschild Kimberley. [address] [facility], [address], [place], [address], [place]. tel:[phone] Referring Provider: Jan Licea, [address] [facility] [address], [place], [address]. tel:[phone] Family History Family Member Type Diagnosis Age At Onset No Information Payers Payer name Insurance type Covered libertarian ID Authoriza tion(s) -[facility]audel c[id number] Social History Type Description Quantity Date Captured Comments Sex Male Smoking Status No Information Chief Complaint And Reason For Visit No Information Reason For Referral Reason For Referral No Information History Of Present Illness Encounter Date Complaint History Of Prese nt Illness No Information Functional Status Date Functional Assessmen t No Information Instructions Date Instruction Additional Infor mation No Information Assessments Type Assessment Date No Information Patient Care Teams Name Effective Dates (start - stop) Status Members No Information
--- OUTSIDE RECORDS SUMMARY | 2024-10-31 22:26 | XMS_ITS | Encounter Summary ---
Author Organization [facility] Address [address] [place] [address] Care Team Providers Care Lamps Tester And Inspector Name Role Phone Heydi Gomez MD Primary Care Provider [phone] Aleksandr Kirkland NP Unavailable [phone] Maximo Mobley MD Unavailable Encounter Details Date Type Department Care Team (Late st Contact Info) Description 10/31/2024 12:15 PM SHIPPING AND RECEIVING SPECIALIST Lab [facility] Building [address] [id number] Nephrolithiasis Social History Tobacco Use Types Packs/Day [...] on file Legal Sex Male 10:57 AM SHIPPING AND RECEIVING SPECIALIST Gender Identity Not on file Sexual Orientation Not on file documented as of this encounter Plan of Treatment Not on file documented as of this encounter Procedures Procedure Name Priority Date/Time Associated Diagnosis Comments PHOSPHORUS, URINE, RANDOM Routine 10/31/2024 12:31 PM SHIPPING AND RECEIVING SPECIALIST Nephrolithiasis URIC ACID Routine 10/31/2024 12:24 PM SHIPPING AND RECEIVING SPECIALIST Nephrolithiasis PTH Routine 10/31/2024 12:24 PM SHIPPING AND RECEIVING SPECIALIST Nephrolithiasis documented in this encounter Results * Phosphorus, urine, random (10/31/2024 12:31 PM SHIPPING AND RECEIVING SPECIALIST) Pathologist [facility] Phosphorus, ur 28.7 mg/dL Comment: Interpretive Data No reference range established. Current interpretive data was last revised 2019. Urine 10/31/2024 12:3 1 PM SHIPPING AND RECEIVING SPECIALIST 10/31/2024 7:01 PM SHIPPING AND RECEIVING SPECIALIST us Yousef Carito Chen MD LAB URINE ORDERABLES Final Result Performing Organization Address City/[facility]/ZIP Co de Phone Number [address] [place] [address] * PTH (10/31/2024 12:24 PM SHIPPING AND RECEIVING SPECIALIST) Pathologist [facility] PTH 56 15 - 65 pg/mL Comment:Testing performed by : [facility], [address] [place] [address], [address] Blood 10/31/2024 12:2 4 PM SHIPPING AND RECEIVING SPECIALIST 10/31/2024 1:38 PM SHIPPING AND RECEIVING SPECIALIST Sofie Chen MD LAB BLOOD ORDERABLES Final Result [address] [place] [address] * Uric acid (10/31/2024 12:24 PM SHIPPING AND RECEIVING SPECIALIST) Pathologist [facility] Uric acid 6.1 3.0 - 8.0 mg/dL Comment:Testing performed by : [facility], [address] [place] [address], [place]., [address] Blood 10/31/2024 12:2 4 PM SHIPPING AND RECEIVING SPECIALIST 10/31/2024 1:38 PM SHIPPING AND RECEIVING SPECIALIST us Yousef Carito Chen MD LAB BLOOD ORDERABLES Final Result [facility] [address] [facility] [place] [address] documented in this encounter Visit Diagnoses Diagnosis Nephrolithiasis Calculus of kidney documented in this encounter Care Teams Lamps Tester And Inspector Relationship Specialty Start Date End Date Heydi Gomez MD [address] [place] [address] PCP - General 12/12/16 Aleksandr Kirkland NP [address] [place] [address] [address] [place] [address] Nurse Practitioner Nurse Practitioner 12/04/20 Maximo Mobley MD [address] [place] [address] [place] [address] Consulting Physician Cardiology 10/07/24 documented as of this encounter
--- OUTSIDE RECORDS SUMMARY | 2024-10-31 22:26 | XMS_ITS | Encounter Summary ---
Author Organization [facility] Healthcare Address [address] [place] [address] Care Team Providers Care Fruit Loader Machine Operator Name Role Phone Heydi Gomez MD Primary Care Provider [phone] Aleksandr Kirkland NP Unavailable [phone] Maximo Mobley MD Unavailable Encounter Details Date Type Department Care Team (Late st Contact Info) Description 09/21/2018 Telephone Transition to Wellness [address] [address] Vijaya Dunn LCSW Social History Tobacco Use Types Packs/Day Years Used Date Smoking Tobacco: Former Smokeless Tobacco: Never Alcohol Use Standard Drinks/Week Comments No 0 (1 standard drink = 0.6 oz pur e alcohol) Sex and Gender Information Value Date Recorded Sex Assigned at Not on file Legal Sex Male 10:57 AM CASHIER HOST/HOSTESS Gender Identity Not on file Sexual Orientation Not on file documented as of this encounter Plan of Treatment Not on file documented as of this encounter Visit Diagnoses Not on filedocumented in this encounter Additional Health Concerns Infection Onset Date Last Indicated Resolved Time COVID: Recovered 09/04/2020 12/03/2020 04/02/2021 3:05 AM CDT documented as of this encounter Care Teams Fruit Loader Machine Operator Relationship Specialty Start Date End Date Heydi Gomez MD [address] [place] [address] PCP - General 12/12/16 Aleksandr Kirkland NP [address] [place] [address] [address], [place] [address] Nurse Practitioner Nurse Practitioner 12/04/20 Maximo Mobley MD [address] [address] Consulting Physician Cardiology 10/07/24 documented as of this encounter
--- OUTSIDE RECORDS SUMMARY | 2024-10-31 22:26 | XMS_ITS | Referral Summary ---
Author Organization [facility] [address] Address [address] [place] [address] Care Team Providers Care Machine Operator Farmworker Name Role Phone Heydi Goemz MD Primary Care Provider [phone] Aleksandr Kirkland NP Unavailable Maximo Mobley MD Unavailable Encounters Date Type Department Care Team Description 10/31/2024 Telephone [facility] Surgery [facility] 2nd [place] [address] [place] [id number] Sunita Diaz MD 10/31/2024 Results Follow-Up [facility] Surgery [address] [place] [address] [address] [place] [phone] 74 Sofie Chen MD 10/31/2024 12:33 PM RATE QUOTING OPERATOR Hospital Encounter [facility] Office Building [address] [place] [address] Nephrolithiasis 10/31/2024 12:15 PM RATE QUOTING OPERATOR Lab [facility] Office Building [address] [place] [address] Nephrolithiasis 10/31/2024 Orders Only [facility] Surgery [address] [place] [address] [address] [place] [address] Sofie Chen MD Kidney stone (Primary Dx) 10/31/2024 11:20 AM RATE QUOTING OPERATOR Office Visit [facility] Surgery [address] [facility] [address] [place] [address] Sofie Chen MD Nephrolithiasis (Primary Dx) 10/20/2024 Orders Only [facility] Surgery [address] [place] [address] Sofie Chen MD Kidney stone (Primary Dx) 10/20/2024 7:30 AM RATE QUOTING OPERATOR - 10/20/2024 9:20 AM RATE QUOTING OPERATOR Surgery [facility] OR [address] [place] [address] Sofie Chen MD HOLMIUM LASER LITHOTRIPSY, STONE BASKETING ,CYSTOSCOPY, BILATERAL RETROGRADE PYELOGRAM,BILATERAL URETEROSCOPY , BILATERAL STENT EXCHANGE 10/20/2024 7:35 AM RATE QUOTING OPERATOR Anesthesia Event [facility] OR [address] [place] [address] Familia Reed MD Grehan, William G., MD 10/20/2024 5:29 AM RATE QUOTING OPERATOR - 10/20/2024 12:32 PM RATE QUOTING OPERATOR Hospital Encounter [facility] OR [address] [place] [address] Sofie Chen MD Nephrolithiasis (Primary Dx) Discharge Disposition: Discharge to home or self care 10/14/2024 Telephone [facility] Cardiology [address] [facility] [address] [place] [phone] Maximo Mobley MD 10/04/2024 Telephone [facility] Surgery [facility] [place] [address] Diann Light 09/26/2024 Telephone [facility] Cardiology [address] [place] [address] Maximo Mobley MD 09/20/2024 3:35 AM RATE QUOTING OPERATOR - 09/22/2024 10:42 AM RATE QUOTING OPERATOR Hospital Encounter [facility] 1 [place] [address] Du Cruz MD Kidney stone (Primary Dx) Discharge Disposition: Discharge to home or self care 09/21/2024 6:53 PM RATE QUOTING OPERATOR Anesthesia Event [facility] Operating Room 1 [place] [address] Palmira Garcia MD Lentz, William Thomas, NP 09/21/2024 6:25 PM RATE QUOTING OPERATOR - 09/21/2024 7:40 PM RATE QUOTING OPERATOR Surgery [facility] Operating Room 1 [place] [address] Valery Carson MD CYSTOSCOPY, RIGHT RETROGRADE PYELOGRAM, RIGHT URETERAL STENT PLACEMENT 08/31/2024 1:30 PM RATE QUOTING OPERATOR Office Visit [facility] Cardiology [address] [place] [address] Maximo Mobley MD Coronary artery disease involving otoe-[place]ou[place] coronary artery of o[place] heart without angina pectoris (Primary Dx); S/P CABG x 3; Essential hypertension; RBBB; Statin intolerance; Myalgia due to statin from Last 3 Months Allergies Active Allergy Reactions Criticality Noted Date Comments Fmpxplb-Vmy-Voe Reductase Inhibitors Muscle pain Medium Medications cholecalciferol [...] 2 (two) times a day 60 tablet 11 09/22/19 25 026 Active metoprolol tartrate (LOPRESSOR) [...] (11/20/2020): Added automatically from request for surgery [id number] Tear of left supraspinatus tendon 08/03/2020 Arthritis of left 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 Obesity (BMI 30-39.9) 10/31/2019 H/O atrial fibrillation without current medicati on 04/20/2019 Paroxysmal atrial fibrillation (CMS/HCC) 019 Hx of CABG 10/13/2018 Coronary artery disease invo lving otoe-missouria coronary artery of [place] heart without angina pectoris 09/15/2018 Overview (09/15/2018): Added automatically from request for surgery [id number] Hyperlipidemia associated with type 2 diabetes m talib 04/24/2016 Overview (12/19/2016): Hypercholesteremia Assessment & Plan (07/28/2017 1:29 PM RATE QUOTING OPERATOR): 07/28/2017 POC lipids: Total chol 163, TG [...] (08/31/2018): Added automatically from request for surgery [id number] Hyperlipidemia 02/12/2015 07/28/2017 Overview (12/19/2016): HLD (hyperlipidemia) Coronary arteriosclerosis in o[place]ou[place] artery 02/12/2015 10/13/2018 Overview (12/19/2016): CAD in o[place] artery Immunizations Immunization Administration Dates Next Due Influenza, Unspecified 06/27/2024 Pfizer SARS-CoV-2 Monovalent Vaccination (12+ Yrs) PURPLE 11/29/2020,11/08/2020 Social History Tobacco Use Types Packs/Day Years [...] on file Legal Sex Male 10:57 AM RATE QUOTING OPERATOR Gender Identity Not on file Sexual Orientation Not on file Last Filed Vital Signs Vital Sign Reading Time Taken Comments Blood Pressure 123/40 10/20/2024 12:15 PM RATE QUOTING OPERATOR Pulse 79 10/20/2024 12:15 PM RATE QUOTING OPERATOR Temperature 36.4 C (97.5 F) 10/20/2024 10:05 AM RATE QUOTING OPERATOR Respiratory Rate 18 10/20/2024 12:15 PM RATE QUOTING OPERATOR Oxygen Saturation 93% 10/20/2024 12:15 PM RATE QUOTING OPERATOR Inhaled Oxygen Concentration - - Weight 91.6 kg (202 lb) 10/31/2024 11:24 AM RATE QUOTING OPERATOR Height 175.3 cm (5' 9 ) 10/31/2024 11:24 AM RATE QUOTING OPERATOR Body Mass Index 29.83 10/31/2024 11:24 AM RATE QUOTING OPERATOR Plan of Treatment Not on file Medical Devices Implanted Type Area Roofing Foreman Device Identifier Shelf Expiration Date Model / Serial / Lot [employer] Universa 6fr 24cm Radiopaque Graduate Firm Monofilament Tether [id number] - [id number] Implanted:Qty: 1 on 10/20/2024 by oSfie Chen MD at [facility] Stent Right: Ureter [employer] [id number] 07/15/2027 [id number] / / [id number] [employer] Universa 6fr 24cm Radiopaque Graduate Firm Monofilament Tether [id number] - [id number] Implanted:Qty: 1 on 10/20/2024 by Sofie Chen MD at [facility] Stent Right: Ureter [employer] [id number] 07/15/2027 [id number] / / [id number] Medsternal Wire Cabg Bilateral: Chest Wall [employer] [id number] Suturebridge [place] Drill Guide Punch Tap Set Implant Achilles - [id number] Implanted:Qty: 1 on 12/04/2020 by Ryan Allison MD at [facility] Left: Shoulder [employer] 01/12/2024 [id number]- CP / / [id number] [employer] Ar-7535 Fiberlink Arthrex Suturetape 1.3mm Tape Suture Nonabsorbable - [id number] Implanted:Qty: 1 on 12/04/2020 by Ryan Allison MD at [facility] Left: Shoulder [employer] 10/14/2024 AR-7535 / / [id number] [employer] Ar-2324bcc Swivelock C 4.75mm 19.1mm Closed Eyelet Vent [place] Suture - [id number] Implanted:Qty: 1 on 12/04/2020 by Ryan Allison MD at [facility] Left: Shoulder [employer] 06/13/2024 AR-[id number] / / [id number] [facility] [employer] [facility] [id number] Regenesorb Ultratape Ultrabraid 4.75mm Smooth 2 [place] Suture - [id number] Implanted:Qty: 1 on 12/04/2020 by Ryan Allison MD at [facility] Left: Shoulder [employer] 08/07/2023 [id number] / / [id number] [employer] Ar-[id number] Swivelock Tenodesis 6.25mm 19.1mm Closed Eyelet Shoulder Biceps - [id number] Implanted:Qty: 1 on 12/04/2020 by Ryan Allison MD at [facility] Left: Shoulder [employer] 09/13/2024 AR-[id number] / / [id number] Explanted Type Area Roofing Foreman Device Identifier Shelf Expiration Date Model / Serial / Lot [employer] Universa 6fr 24cm Radiopaque Graduate Firm Monofilament Tether [id number] - [id number] - [id number] Implanted:Qty: 1 on 09/21/2024 by Valery Carson MD at [facility] Explanted:Qty: 1 on 10/20/2024 Stent Right: Ureter [employer] [id number] 05/10/2027 [id number] / [id number] T1 / [id number] Procedures Procedure Name Priority Date/Time Associated Diagnosis Comments PHOSPHORUS, URINE, RANDOM Routine 10/31/2024 12:31 PM RATE QUOTING OPERATOR Nephrolithiasis PTH Routine 10/31/2024 12:24 PM RATE QUOTING OPERATOR Nephrolithiasis URIC ACID Routine 10/31/2024 12:24 PM RATE QUOTING OPERATOR Nephrolithiasis URINALYSIS, MICROSCOPIC ONLY Routine 10/31/2024 12:01 PM RATE QUOTING OPERATOR Nephrolithiasis URINALYSIS AND REFLEX TO MICROSCOPIC AND CULTURE Routine 10/31/2024 12:01 PM RATE QUOTING OPERATOR Nephrolithiasis POCT URINALYSIS DIPSTICK Routine 10/31/2024 11:49 AM RATE QUOTING OPERATOR Nephrolithiasis POCT GLUCOSE DEVICE Routine 10/20/2024 9 :28 AM RATE QUOTING OPERATOR FL RETRO PYELO (IN OR) IP Routine 9:10 AM RATE QUOTING OPERATOR STONE ANALYSIS Routine 10/20/2024 9:02 AM RATE QUOTING OPERATOR WI AN PROCEDURE PLACEHOLDER Routine 10/20/2024 7:44 AM RATE QUOTING OPERATOR WI AN ELECTIVE SUPRAGLOTTIC AIRWAY Routine 10/20/2024 7:44 AM RATE QUOTING OPERATOR URETEROSCOPY STONE MANIPULATION WITH ABLATION LASER 10/20/2024 7:36 AM RATE QUOTING OPERATOR Kidney stone POC BLOOD GAS AND CHEMISTRIES, VENOUS Routine 10/20/2024 6:15 AM RATE QUOTING OPERATOR POCT CREATININE FOR CONTRAST EVALUATION Routine 10/20/2024 6:11 AM RATE QUOTING OPERATOR POCT GLUCOSE DEVICE Routine 09/22/2024 7 :38 AM RATE QUOTING OPERATOR POCT GLUCOSE DEVICE Routine 09/22/2024 4 :24 AM RATE QUOTING OPERATOR POCT GLUCOSE DEVICE Routine 09/22/2024 12:20 AM RATE QUOTING OPERATOR POCT GLUCOSE DEVICE Routine 09/21/2024 9 :49 PM RATE QUOTING OPERATOR POCT GLUCOSE DEVICE Routine 09/21/2024 7 :44 PM RATE QUOTING OPERATOR FL FLUOROSCOPY < 1 HOUR IP Routine 09/21/19 7:23 PM RATE QUOTING OPERATOR URINE CULTURE Routine 09/21/2024 7:21 PM RATE QUOTING OPERATOR WI AN PROCEDURE PLACEHOLDER Routine 09/21/2024 7:13 PM RATE QUOTING OPERATOR WI AN ELECTIVE ENDOTRACHEAL AIRWAY Routine 09/21/2024 7:13 PM RATE QUOTING OPERATOR CYSTOSCOPY PLACEMENT URETERAL STENT 09/21/2024 6:56 PM RATE QUOTING OPERATOR Kidney stone Case Notes POC; Rob [phone] POCT GLUCOSE DEVICE Routine 09/21/2024 5 :12 PM RATE QUOTING OPERATOR POCT GLUCOSE DEVICE Routine 09/21/2024 3 :42 PM RATE QUOTING OPERATOR POCT GLUCOSE DEVICE Routine 09/21/2024 11:52 AM RATE QUOTING OPERATOR POCT GLUCOSE DEVICE Routine 09/21/2024 7 :29 AM RATE QUOTING OPERATOR POCT GLUCOSE DEVICE Routine 09/21/2024 3 :39 AM RATE QUOTING OPERATOR POCT GLUCOSE DEVICE Routine 09/21/2024 12:07 AM RATE QUOTING OPERATOR POCT GLUCOSE DEVICE Routine 09/20/2024 10:47 PM RATE QUOTING OPERATOR EGFR Timed 09/20/2024 9:52 PM RATE QUOTING OPERATOR CBC WITHOUT DIFFERENTIAL Timed 09/20/2024 9:52 PM RATE QUOTING OPERATOR PHOSPHORUS Timed 09/20/2024 9:52 PM RATE QUOTING OPERATOR MAGNESIUM Timed 09/20/2024 9:52 PM RATE QUOTING OPERATOR BASIC METABOLIC PANEL Timed 09/20/2024 9:52 PM RATE QUOTING OPERATOR TROPONIN I HIGH-SENSITIVITY 4-HOUR Timed 09/20/2024 9:52 PM RATE QUOTING OPERATOR POCT GLUCOSE DEVICE Routine 09/20/2024 8 :37 PM RATE QUOTING OPERATOR POCT GLUCOSE DEVICE Routine 09/20/2024 5 :23 PM RATE QUOTING OPERATOR TROPONIN I HIGH-SENSITIVITY 6-HOUR Timed 09/20/2024 4:35 PM RATE QUOTING OPERATOR TROPONIN I HIGH-SENSITIVITY 2-HOUR Timed 09/20/2024 1:45 PM RATE QUOTING OPERATOR POCT GLUCOSE DEVICE Routine 09/20/2024 1 :42 PM RATE QUOTING OPERATOR TRANSTHORACIC ECHO (TTE) COMPLETE W DOPPLER/CF W CONTRAST ED Urgent/IP Urgent 09/20/2024 12:22 PM RATE QUOTING OPERATOR POCT GLUCOSE DEVICE Routine 09/20/2024 11:15 AM RATE QUOTING OPERATOR XR CHEST PA LATERAL 2 VIEWS ED Urgent/IP Urgent 09/20/2024 11:04 AM RATE QUOTING OPERATOR ECG 12-LEAD STAT 09/20/2024 10:33 AM RATE QUOTING OPERATOR TROPONIN I HIGH-SENSITIVITY SERIES (BASELINE, 2HR, 4HR, 6HR) STAT 09/20/2024 10:15 AM RATE QUOTING OPERATOR POCT GLUCOSE DEVICE Routine 09/20/2024 8 :45 AM RATE QUOTING OPERATOR URINALYSIS, MICROSCOPIC ONLY Routine 09/20/2024 6:17 AM RATE QUOTING OPERATOR URINALYSIS AND REFLEX TO MICROSCOPIC Routine 09/20/2024 6:17 AM RATE QUOTING OPERATOR URINE CULTURE Routine 09/20/2024 6:17 AM RATE QUOTING OPERATOR B CHECK SAMPLE STAT 09/20/2024 5:42 AM RATE QUOTING OPERATOR POCT GLUCOSE DEVICE Routine 09/20/2024 5 :29 AM RATE QUOTING OPERATOR CT BODY OUTSIDE CONSULT Routine 09/20/19 4:57 AM RATE QUOTING OPERATOR EGFR STAT 09/20/2024 4:33 AM RATE QUOTING OPERATOR DIFFERENTIAL AUTO STAT 09/20/2024 4:3 3 AM RATE QUOTING OPERATOR PHOSPHORUS STAT 09/20/2024 4:33 AM RATE QUOTING OPERATOR MAGNESIUM STAT 09/20/2024 4:33 AM RATE QUOTING OPERATOR TYPE AND SCREEN STAT 09/20/2024 4:33 AM RATE QUOTING OPERATOR APTT STAT 09/20/2024 4:33 AM RATE QUOTING OPERATOR PROTIME-INR STAT 09/20/2024 4:33 AM RATE QUOTING OPERATOR BASIC METABOLIC PANEL STAT 09/20/2024 4:33 AM RATE QUOTING OPERATOR CBC WITH AUTO DIFFERENTIAL STAT 09/20/2024 4:33 AM RATE QUOTING OPERATOR ELECTROCARDIOGRAM REPORT Routine 08/31/2024 2:35 PM RATE QUOTING OPERATOR Coronary artery disease involving otoe-[place]ouria coronary artery of o[place] heart without angina pectoris POCT LIPID PANEL Routine 08/31/2024 9:59 AM RATE QUOTING OPERATOR Coronary artery disease involving o[place]e-[place]ou[place] coronary artery of o[place]ou[place] heart without angina pectoris CYSTOSCOPY PLACEMENT URETERAL STENT Kidney stone Case Notes POC; Sree [phone] from Last 3 Months Results * Phosphorus, urine, random (10/31/2024 12:31 PM RATE QUOTING OPERATOR) Phosphorus, ur 28.7 mg/dL Comment: Interpretive Data No reference range established. Current interpretive data was last revised 2019. Urine 10/31/2024 12:3 1 PM RATE QUOTING OPERATOR 10/31/2024 7:01 PM RATE QUOTING OPERATOR us Hectorsef Carito Chen MD LAB URINE ORDERABLES Final Result Performing Organization Address [facility] de Phone Number [address] [address] * Uric acid (10/31/2024 12:24 PM RATE QUOTING OPERATOR) Pathologist [facility] Uric acid 6.1 3.0 - 8.0 mg/dL Comment:Testing performed by : [address] [address] Blood 10/31/2024 12:2 4 PM RATE QUOTING OPERATOR 10/31/2024 1:38 PM RATE QUOTING OPERATOR us Yousef Carito Chen MD LAB BLOOD ORDERABLES Final Result Performing Organization Address [facility] de Phone Number [address] [address] * PTH (10/31/2024 12:24 PM RATE QUOTING OPERATOR) Pathologist [facility] PTH 56 15 - 65 pg/mL Comment:Testing performed by : [address] [address] Blood 10/31/2024 12:2 4 PM RATE QUOTING OPERATOR 10/31/2024 1:38 PM RATE QUOTING OPERATOR Sofie Chen MD LAB BLOOD ORDERABLES Final Result Performing Organization Address [facility] de Phone Number [address] [address] * (ABNORMAL) Urinalysis reflex to microscopic and culture Urine, bladder (10/31/2024 12:01 PM RATE QUOTING OPERATOR) Pathologist [facility] Color, ur Red(A) Yellow Comment:Testing performed by : [address] [address] Clarity, ur Turbid(A) Clear CHERYL FONSECA Comment:Testing performed by : [address] [address] Specific gravity, ur 1.018 1.003 - 1.030 CHERYL FONSECA Comment:Testing performed by : [facility], [address] [place] [address], [place]., [address] pH, urine 6.0 CHERYL Comment: Interpretive Data U rine pH is affected by diet, medications, systemic acid-base disturbances, and renal tubular function. pH may affect urinary stone formation. For example, urine pH below 6.0 may help reduce the tendency for calcium phosphate stones and pH greater than 6.0 may reduce the tendency for uric acid stone formation. Source: [facility] Current Interpretive Data was last revised on 2017 Testing performed by: [facility], [address] [place] [address], [place]., [address] Protein, ur ql 2+(A) Negative CHERYL Comment:Testing performed by : [address], [place]., [address] Glucose, ur ql Negative Negative CHERYL Comment:Testing performed by : [address], [place]., [address] Ketones, ur Negative Negative CHERYL Comment:Testing performed by : [address], [place]., [address] Bilirubin, ur Negative Negative CHERYL Comment:Testing performed by : [address], [place]., [address] Blood, ur 3+(A) Negative CHERYL Comment:Testing performed by : [address], [place]., [address] Urobilinogen, ur <2.0 <2.0 mg/dL CHERYL Comment:Testing performed by : [address] [address] Nitrite, ur Negative Negative CHERYL Comment:Testing performed by : [address], [place]., [address] Leukocyte esterase, ur 4+(A) Negative CHERYL Comment:Testing performed by : [address] [address] UA reflex comment Reflex to microscopic UA will be performed. CHERYL Comment:Testing performed by : [address], [place]., [address] Urine, bladder 10/31/2024 12 :01 PM RATE QUOTING OPERATOR 10/31/2024 8:31 PM RATE QUOTING OPERATOR Hectorsef Carito Chen MD LAB MICROBIOLOGY - G ENERAL ORDERABLES Final Result Performing Organization Address [facility] Co de Phone Number CHERYL [address] [place] [place] [address] * (ABNORMAL) Urinalysis, microscopic only (10/31/2024 12:01 PM RATE QUOTING OPERATOR) WBC, ur >50(A) 0 - 5 /HPF Comment:Testing performed by : [facility], [address] [place] [address]., [address] RBC, ur >50(A) 0 - 2 /HPF CHERYL Comment:Testing performed by : [facility], [address] [place] [address]., [address] Culture Reflex Comment Reflex to urine culture will be performed. CHERYL Comment:Testing performed by : [address] [address] Urine, bladder 10/31/2024 12 :01 PM RATE QUOTING OPERATOR 10/31/2024 8:31 PM RATE QUOTING OPERATOR us Yousef Carito Chen MD LAB URINE ORDERABLES Final Result Performing Organization Address [facility] de Phone Number CHERYL [address] [address] * (ABNORMAL) POCT urinalysis dipstick (10/31/2024 11:49 AM RATE QUOTING OPERATOR) Color, Urine, POC Yellow Clarity, ur, POC Clear Clear Glucose, ur, POC Negative Negative MG/DL Bilirubin, ur, POC Negative Negative, Small, Moderate, Large Ketones, ur, POC Negative Negative Specific [place], POC 1.025 1.003 - 1.030 Blood, ur, POC 3+(A) Negative pH, ur, POC 6.0 5.0 - 8.0 Protein, ur, POC 2+(A) Negative Urobilinogen, urine, POC 0.2 0.2 - 1.0 mg/dL Nitrite, ur, POC Negative Negative Leukocytes, ur, POC 3+(A) Negative Lot Number 0 Urine 10/31/2024 11:4 9 AM RATE QUOTING OPERATOR Sofie Chen MD POINT OF CARE TEST O RDERABLES Final Result * POCT glucose (10/20/2024 9:28 AM RATE QUOTING OPERATOR) Glucose, POC 158 70 - 199 mg/dL Blood 10/20/2024 9:28 AM RATE QUOTING OPERATOR 10/20/2024 9:28 AM RATE QUOTING OPERATOR Sofie Chen MD LAB POCT ORDERABLES - DEVICE Final Result Performing Organization Address [facility] Co de Phone Number CHERYL FONSECA [address] [facility] Department [place] [address] * FL Retro Pyelo (In Or) (10/20/2024 9:10 AM RATE QUOTING OPERATOR) Narrative ADRIAN_MORGAN_RAYMUNDOB_MHE - 10/20/2024 9:18 AM RATE QUOTING OPERATOR The images from this study are not interpreted by Radiology. Please refer to the physician's procedure / OR operative note. Sofie Chen MD IMG FLUOROSCOPY PROC EDURES Final Result Performing Organization Address [facility] Co de Phone Number ADRIAN_[email or web address] * Stone analysis (10/20/2024 9:02 AM RATE QUOTING OPERATOR) Stone analysis Not Reported [facility] Source, Kid Stone Right Ureter CHERYL Interp, Kid stone analysis See Footnote CHERYL FONSECA Comment:RESULT: 100% Calcium oxalate monohydrate. COMMENT See Footnote CHERYL FONSECA Comment: For stones containing calcium oxalate, calcium phosphate, and/or uric acid, a 24 hr urinary supersaturation test may help detect underlying risk factors for this type of stone formation and provide guidance for a stone prevention strategy. ADDITIONAL INFORMATION This test was developed and its performance characteristics determined by [facility] in a manner consistent with CLIA requirements. This test has not been cleared or approved by the U.S. Food and Drug Administration. Test Performed by: [facility] - [facility] [address] [place] [address] Capacitor Inspector: Bridger Mckeon Ph.D.; CLIA# [id number] Stone (Urine, Clean Catch) 10/20/2024 9:02 AM RATE QUOTING OPERATOR 10/20/2024 9:29 AM RATE QUOTING OPERATOR Narrative CHERYL - 10/28/2024 11:09 AM RATE QUOTING OPERATOR Right ureteral stone for analysis us Sofie Chen MD LAB URINE ORDERABLES Final Result CHERYL [address] [place] [address] Department [place] [address] [facility] * WI AN ELECTIVE SUPRAGLOTTIC AIRWAY, WI AN PROCEDURE PLACEHOLDER (10/20/2024 7:44 AM RATE QUOTING OPERATOR) Narrative Nalelly Mosley CRNA - 10/20/2024 7:44 AM RATE QUOTING OPERATOR Nallely Mosley CRNA 10/20/2024 7:48 AM Airway Patient location: OR Urgency: elective Indications for airway management: anesthesia Difficult airway: no Staff: Placed by: IRRIGATION SERVICE TECHNICIAN: Nallely Mosley CRNA Emergent airway documentation: Risks [...] without nausea/reflux. Began ozempic this past fall. us Familia Reed MD ANESTHESIA ORDERABLES Edited Result - Final * (ABNORMAL) POC Blood Gas and Chemistries, Venous - (10/20/2024 6:15 AM RATE QUOTING OPERATOR) pH,live POC 7.38 7.32 - 7.43 pCO2, live POC 44 40 - 50 mmHg [facility] pO2,live POC 45 mmHg [facility] Comment: Interpretive Data No reference range established. Current interpretive data was last revised 2020. HCO3, live (Calc) POC 26 20 - 30 mmol/L [facility] Base excess, live POC 1 mmol/L [facility] Comment: Interpretive Data No reference range established. Current interpretive data was last revised 2020. Hemoglobin, live POC 11.6(L) 13.0 - 17.5 g/dL [facility] Hematocrit, live POC 34.0(L) 38.9 - 50.3 % [facility] Sodium, live POC 140 135 - 145 mmol/L [facility] Potassium, live POC 4.1 3.3 - 4.9 mmol/L [facility] Comment: Interpretive Data This method is not able to assess for hemolysis, which may falsely increase potassium concentrations. If further testing is needed to evaluate this result, consider in-laboratory plasma potassium. Current Interpretive Data was last revised on 2022. Glucose, live POC 158 70 - 199 mg/dL [facility] Ionized Calcium, live POC 5.10 4.50 - 5.10 mg/dL [facility] Blood 10/20/2024 6:15 AM RATE QUOTING OPERATOR 10/20/2024 6:15 AM RATE QUOTING OPERATOR us Hectorsef Carito Chen MD LAB POCT ORDERABLES - DEVICE Final Result CHERYL [address] [facility] Department [place] [address] * POCT creatinine for contrast evaluation (10/20/2024 6:11 AM RATE QUOTING OPERATOR) Pathologist [facility] Creatinine POC 1.00 0.80 - 1.30 mg/dL Blood 10/20/2024 6:11 AM RATE QUOTING OPERATOR 10/20/2024 6:11 AM RATE QUOTING OPERATOR us Sofie Chen MD POINT OF CARE TEST O RDERABLES Final Result CHERYL [address] [place] [address] * POCT glucose (09/22/2024 7:38 AM RATE QUOTING OPERATOR) Glucose, POC 116 70 - 199 mg/dL Blood 09/22/2024 7:38 AM RATE QUOTING OPERATOR 09/22/2024 7:38 AM RATE QUOTING OPERATOR Du Cruz MD LAB POCT ORDERABLES - DEV ICE Final Result Performing Organization Address City/[facility]/ZIP Co de Phone Number [facility] [place] [address] * POCT glucose (09/22/2024 4:24 AM RATE QUOTING OPERATOR) Glucose, POC 121 70 - 199 mg/dL Blood 09/22/2024 4:24 AM RATE QUOTING OPERATOR 09/22/2024 4:24 AM RATE QUOTING OPERATOR Du Cruz MD LAB POCT ORDERABLES - DEV ICE Final Result Performing Organization Address [facility]/ZIP Co de Phone Number [facility] [place] [address] * POCT glucose (09/22/2024 12:20 AM RATE QUOTING OPERATOR) Glucose, POC 124 70 - 199 mg/dL Blood 09/22/2024 12:2 0 AM RATE QUOTING OPERATOR 09/22/2024 12:20 AM RATE QUOTING OPERATOR Du Cruz MD LAB POCT ORDERABLES - DEV ICE Final Result Performing Organization Address City/[facility]/ZIP Co de Phone Number [facility] [place] [address] * POCT glucose (09/21/2024 9:49 PM RATE QUOTING OPERATOR) Glucose, POC 130 70 - 199 mg/dL Blood 09/21/2024 9:49 PM RATE QUOTING OPERATOR 09/21/2024 9:49 PM RATE QUOTING OPERATOR Du Cruz MD LAB POCT ORDERABLES - DEV ICE Final Result Performing Organization Address [facility] de Phone Number [facility] [place] [address] * POCT glucose (09/21/2024 7:44 PM RATE QUOTING OPERATOR) Glucose, POC 121 70 - 199 mg/dL Blood 09/21/2024 7:44 PM RATE QUOTING OPERATOR 09/21/2024 7:44 PM RATE QUOTING OPERATOR Du Cruz MD LAB POCT ORDERABLES - DEV ICE Final Result Performing Organization Address [facility] de Phone Number [facility] [place] [address] * [place] Fluoroscopy < 1 Hour (09/21/2024 7:23 PM RATE QUOTING OPERATOR) Narrative [facility] - 09/21/2024 7:23 PM RATE QUOTING OPERATOR The images from this study are not interpreted by Radiology. Please refer to the physician's procedure / OR operative note. Valery Carson MD IMG FLUOROSCOPY PROCEDURES F inal Result Performing Organization Address [facility] Co de Phone Number [email or web address] * Urine culture Urine, bladder (09/21/2024 7:21 PM RATE QUOTING OPERATOR) Report Final Report: No growth Urine, bladder 09/21/2024 7: 21 PM RATE QUOTING OPERATOR 09/21/2024 9:38 PM RATE QUOTING OPERATOR Narrative [facility] - 09/23/2024 7:48 AM RATE QUOTING OPERATOR Urine culture Indications for Culture:->Urology patient Specimen received in a sterile container. Testing performed by [facility] ([phone]) us Valery Carson MD LAB MICROBIOLOGY - GENERAL O RDERABLES Final Result CHERYL [facility] [place] [address] * WI AN ELECTIVE ENDOTRACHEAL AIRWAY, WI AN PROCEDURE PLACEHOLDER (09/21/2024 7:13 PM RATE QUOTING OPERATOR) Narrative Christiana Howard CRNA - 09/21/2024 7:13 PM RATE QUOTING OPERATOR Christiana Howard CRNA 09/21/2024 7:14 PM Airway Patient location: OR Urgency: elective Indications for airway management: anesthesia Difficult airway: no Staff: Supervising provider: Palmira Garcia MD Placed by: IRRIGATION SERVICE TECHNICIAN: Christiana Howard CRNA Emergent airway documentation: [...] esult * POCT glucose (09/21/2024 5:12 PM RATE QUOTING OPERATOR) Glucose, POC 104 70 - 199 mg/dL Blood 09/21/2024 5:12 PM RATE QUOTING OPERATOR 09/21/2024 5:12 PM RATE QUOTING OPERATOR us Du Cruz MD LAB POCT ORDERABLES - DEV ICE Final Result Performing Organization Address [facility] Co de Phone Number [facility] [place] [address] * POCT glucose (09/21/2024 3:42 PM RATE QUOTING OPERATOR) Glucose, POC 130 70 - 199 mg/dL Blood 09/21/2024 3:42 PM RATE QUOTING OPERATOR 09/21/2024 3:42 PM RATE QUOTING OPERATOR Du Cruz MD LAB POCT ORDERABLES - DEV ICE Final Result Performing Organization Address [facility] [place] [address] * POCT glucose (09/21/2024 11:52 AM RATE QUOTING OPERATOR) Glucose, POC 170 70 - 199 mg/dL Blood 09/21/2024 11:5 2 AM RATE QUOTING OPERATOR 09/21/2024 11:52 AM RATE QUOTING OPERATOR Du Cruz MD LAB POCT ORDERABLES - DEV ICE Final Result Performing Organization Address [facility] Co de Phone Number [facility] [place] [address] * POCT glucose (09/21/2024 7:29 AM RATE QUOTING OPERATOR) Glucose, POC 188 70 - 199 mg/dL Blood 09/21/2024 7:29 AM RATE QUOTING OPERATOR 09/21/2024 7:29 AM RATE QUOTING OPERATOR Du Cruz MD LAB POCT ORDERABLES - DEV ICE Final Result Performing Organization Address City/[facility] Co de Phone Number [facility] [place] [address] * POCT glucose (09/21/2024 3:39 AM RATE QUOTING OPERATOR) Glucose, POC 161 70 - 199 mg/dL Blood 09/21/2024 3:39 AM RATE QUOTING OPERATOR 09/21/2024 3:39 AM RATE QUOTING OPERATOR Du Cruz MD LAB POCT ORDERABLES - DEV ICE Final Result Performing Organization Address [facility] de Phone Number [facility] [place] [address] * POCT glucose (09/21/2024 12:07 AM RATE QUOTING OPERATOR) Glucose, POC 134 70 - 199 mg/dL Blood 09/21/2024 12:0 7 AM RATE QUOTING OPERATOR 09/21/2024 12:07 AM RATE QUOTING OPERATOR Du Cruz MD LAB POCT ORDERABLES - DEV ICE Final Result Performing Organization Address [facility] de Phone Number [facility] [place] [address] * POCT glucose (09/20/2024 10:47 PM RATE QUOTING OPERATOR) Glucose, POC 133 70 - 199 mg/dL Blood 09/20/2024 10:4 7 PM RATE QUOTING OPERATOR 09/20/2024 10:47 PM RATE QUOTING OPERATOR Du Cruz MD LAB POCT ORDERABLES - DEV ICE Final Result Performing Organization Address [facility] de Phone Number [facility] [place] [address] * Troponin I high-sensitivity 4-hour (09/20/2024 9:52 PM RATE QUOTING OPERATOR) Trop I hs <4 <=35 ng/L Comment: Interpretive Data For further hscTnI resources including the diagnostic algorithm and an aid in interpretation, copy and paste this link: https://bjhlab.testcatalog.org/show/hsTrop-1 Current Interpretive Data last revised 2020. Trop I hs delta See Comment ng/L CHERYL [facility] Comment:Inappropriate collec tion time to report a delta. Trop I hs pct delta See Comment % CHERYL [facility] Comment:Inappropriate collec tion time to report a delta. Trop I hs interp See Comment CHERYL [facility] Comment:Inappropriate collec tion time to report a delta. Blood 09/20/2024 9:52 PM RATE QUOTING OPERATOR 09/20/2024 10:16 PM RATE QUOTING OPERATOR [facility] Velasquez Cruz MD LAB BLOOD ORDERABLES Cinthia mercado Result [facility] [place] [address] * eGFR (09/20/2024 9:52 PM RATE QUOTING OPERATOR) eGFR 71 >=60 mL/min/1. 73 m2 Comment: [...] last reviewed 2021. Blood 09/20/2024 9:52 PM RATE QUOTING OPERATOR 09/20/2024 10:17 PM RATE QUOTING OPERATOR uD Cruz MD LAB BLOOD ORDERABLES Cinthia l Result Performing Organization Address [facility] Co de Phone Number [facility] Department [place] [address] * (ABNORMAL) CBC without differential (09/20/2024 9:52 PM RATE QUOTING OPERATOR) Pathologist [facility] [place] WBC 8.8 3.8 - 9.9 K/cumm Hgb 12.7(L) 13.0 - 17.5 g/dL [facility] Hct 38.5(L) 38.9 - 50.3 % [facility] Plt 307 150 - 400 K/cumm [facility] MPV 9.8 9.1 - 12.3 fL [facility] RBC 4.35 4.30 - 5.80 M/cumm [facility] MCV 88.5 81.3 - 96.4 fL [facility] MCH 29.2 27.1 - 33.3 pg [facility] MCHC 33.0 32.3 - 35.7 g/dL [facility] RDW CV 11.9 11.1 - 14.9 % [facility] RDW SD 38.7 35.7 - 48.1 fL [facility] NRBC abs 0.00 0.00 - 0.01 K/cumm [facility] Blood 09/20/2024 9:52 PM RATE QUOTING OPERATOR 09/20/2024 10:18 PM RATE QUOTING OPERATOR Du Cruz MD LAB BLOOD ORDERABLES Cinthia l Result [facility] [place] [address] * Phosphorus (09/20/2024 9:52 PM RATE QUOTING OPERATOR) Pathologist [facility] [place] Phosphorus, pl 4.1 2.3 - 4.5 mg/dL Blood 09/20/2024 9:52 PM RATE QUOTING OPERATOR 09/20/2024 10:17 PM RATE QUOTING OPERATOR Du Cruz MD LAB BLOOD ORDERABLES Cinthia l Result Performing Organization Address City/[facility]/ZIP Co de Phone Number [facility] Department [place] [address] * Magnesium (09/20/2024 9:52 PM RATE QUOTING OPERATOR) Pathologist [facility] [place] Magnesium 1.9 1.4 - 2.5 mg/dL Blood 09/20/2024 9:52 PM RATE QUOTING OPERATOR 09/20/2024 10:17 PM RATE QUOTING OPERATOR Du Cruz MD LAB BLOOD ORDERABLES Cinthia l Result Performing Organization Address [facility] de Phone Number [facility] Department [place] [address] * Basic metabolic panel (09/20/2024 9:52 PM RATE QUOTING OPERATOR) Pathologist [facility] [place] Sodium 141 135 - 145 mmol/L Potassium, pl 4.1 3.3 - 4.9 mmol/L [facility] Chloride 102 97 - 110 mmol/L [facility] CO2 31 22 - 32 mmol/L [facility] Anion gap 8 2 - 15 mmol/L [facility] BUN 15 6 - 25 mg/dL [facility] Creatinine 1.10 0.80 - 1.30 mg/dL [facility] Glucose 127 70 - 199 mg/dL [facility] Comment: Interpretive Data Fasting glucose >/= [...] 2022. Calcium 8.9 8.5 - 10.3 mg/dL [facility] Blood 09/20/2024 9:52 PM RATE QUOTING OPERATOR 09/20/2024 10:17 PM RATE QUOTING OPERATOR Du Cruz MD LAB BLOOD ORDERABLES Cinthia l Result Performing Organization Address [facility] Co de Phone Number [facility] [place] [address] * POCT glucose (09/20/2024 8:37 PM RATE QUOTING OPERATOR) Glucose, POC 155 70 - 199 mg/dL Blood 09/20/2024 8:37 PM RATE QUOTING OPERATOR 09/20/2024 8:37 PM RATE QUOTING OPERATOR Du Cruz MD LAB POCT ORDERABLES - DEV ICE Final Result Performing Organization Address [facility] de Phone Number [facility] [place] [address] * POCT glucose (09/20/2024 5:23 PM RATE QUOTING OPERATOR) Glucose, POC 145 70 - 199 mg/dL Blood 09/20/2024 5:23 PM RATE QUOTING OPERATOR 09/20/2024 5:23 PM RATE QUOTING OPERATOR Result [facility] Du Cruz MD LAB POCT ORDERABLES - DEV ICE Final Result Performing Organization Address [facility] [place] [address] * Troponin I high-sensitivity 6-hour (09/20/2024 4:35 PM RATE QUOTING OPERATOR) Trop I hs <4 <=35 ng/L Comment: Interpretive Data For further hscTnI resources including the diagnostic algorithm and an aid in interpretation, copy and paste this link: https://bjhlab.testcatalog.org/show/hsTrop-1 Current Interpretive Data last revised 2020. Trop I hs delta 0 ng/L [facility] Trop I hs interp Insignificant [facility] Blood 09/20/2024 4:35 PM RATE QUOTING OPERATOR 09/20/2024 5:10 PM RATE QUOTING OPERATOR Du Cruz MD LAB BLOOD ORDERABLES Cinthia l Result Performing Organization Address [facility] Co de Phone Number [facility] [place] [address] * Troponin I high-sensitivity 2-hour (09/20/2024 1:45 PM RATE QUOTING OPERATOR) [facility] Trop I hs <4 <=35 ng/L Comment: Interpretive Data For further hscTnI resources including the diagnostic algorithm and an aid in interpretation, copy and paste this link: https://bjhlab.testcatalog.org/show/hsTrop-1 Current Interpretive Data last revised 2020. Trop I hs delta See Comment ng/L [facility] Comment:Inappropriate collec tion time to report a delta. Trop I hs pct delta See Comment % [facility] Comment:Inappropriate collec tion time to report a delta. Trop I hs interp See Comment [facility] Comment:Inappropriate collec tion time to report a delta. Blood 09/20/2024 1:45 PM RATE QUOTING OPERATOR 09/20/2024 2:21 PM RATE QUOTING OPERATOR Result [facility] Du Cruz MD LAB BLOOD ORDERABLES Cinthia l Result Performing Organization Address [facility] Co de Phone Number [facility] [place] [address] * POCT glucose (09/20/2024 1:42 PM RATE QUOTING OPERATOR) [facility] Glucose, POC 172 70 - 199 mg/dL Blood 09/20/2024 1:42 PM RATE QUOTING OPERATOR 09/20/2024 1:42 PM RATE QUOTING OPERATOR Result [facility] Du Cruz MD LAB POCT ORDERABLES - DEV ICE Final Result CHERYL [facility] [place] [address] * TRANSTHORACIC ECHO (TTE) COMPLETE W DOPPLER/CF W CONTRAST (09/20/2024 12:22 PM RATE QUOTING OPERATOR) LV EF 70 % CARDIOREPORT Anatomical Region Laterality Modality Ultrasound 09/20/2024 11:3 5 AM RATE QUOTING OPERATOR Narrative 09/20/2024 1:44 PM RATE QUOTING OPERATOR Patient name: Boo Serrato Date of test: 09/20/2024 Type of test: TTE w/Doppler Hospital #: 0 Date of : 1950 (M) Sql Programmer: Nichole Lin RDCS, [facility] Referring Physician: DU CRUZ MD Contrast Agent: 0.15 ml Definity Administered, (1.35 ml wasted). Contrast Administered by: Diann Renee RN Supervised/Interpreted by: Steve Yu MD Diagnosis: SOB Location: [facility] Reason for test: Chest pain or [...] 2=Hypo 3=Akinetic 4=Dyskin./Aneurysm 0=Not visualized) Parasternal Long [place]:MAS=1 BAS=1 MIL=1 JESSICA=1 Parasternal [place]:MAS=1 MIS=1 NM=1 MIL=1 MAL=1 MA=1 Apical 4 Chambers:=1 MIS=1 BIS=1 BAL=1 MAL=1 AL=1 AC=1 Apical 2 Chambers:AI=1 NM=1 BI=1 BA=1 MA=1 AA=1 AC=1 LV Global [...] MD By signing this report, the attending applications coordinator certifies that he or she has personally supervised and interpreted the echocardiogram and has reviewed and or edited and agrees with the written comments contained within the report. Procedure Note Steve Yu MD - 09/20/2024 Patient name: Boo Serrato Date of test: 09/20/2024 Type of test: TTE w/Doppler [facility] #: 0 Date of : 1950 (M) Sql Programmer: Nichole Lin, SONAL, [facility] Referring Physician: DU CRUZ MD Contrast Agent: 0.15 ml Definity Administered, (1.35 ml wasted). Contrast Administered by: Diann Renee, RN Supervised/Interpreted by: Steve Yu MD Diagnosis: SOB Location: [facility] Reason for test: Chest pain or [...] 2=Hypo 3=Akinetic 4=Dyskin./Aneurysm 0=Not visualized) Parasternal [place]:MAS=1 BAS=1 MIL=1 JESSICA=1 Parasternal [place]:MAS=1 MIS=1 NM=1 MIL=1 MAL=1 MA=1 Apical 4 Chambers:=1 MIS=1 BIS=1 BAL=1 MAL=1 AL=1 AC=1 Apical 2 Chambers:AI=1 NM=1 BI=1 BA=1 MA=1 AA=1 AC=1 LV Global [...] MD By signing this report, the attending applications coordinator certifies that he or she has personally supervised and interpreted the echocardiogram and has reviewed and or edited and agrees with the written comments contained within the report. Du Cruz MD CV ECHO PROCEDURES Final Result * POCT glucose (09/20/2024 11:15 AM RATE QUOTING OPERATOR) Glucose, POC 149 70 - 199 mg/dL Blood 09/20/2024 11:1 5 AM RATE QUOTING OPERATOR 09/20/2024 11:15 AM RATE QUOTING OPERATOR Du Cruz MD LAB POCT ORDERABLES - DEV ICE Final Result CHERYL [facility] One [facility] [place] [address] * XR Chest Pa Lateral 2 Views (09/20/2024 11:04 AM RATE QUOTING OPERATOR) Anatomical Region Laterality Modality Body, Chest N/A Computed Radiogr aphy 09/20/2024 11:2 4 AM RATE QUOTING OPERATOR Impressions 09/20/2024 11:24 AM RATE QUOTING OPERATOR Comparison is made to prior study of 11/27/2020. The lung volumes are smaller with increased atelectasis. There is no pulmonary edema or pneumonia. No pneumothorax. No definite pleural effusion. The heart size and mediastinal contour are unchanged. Electronically signed by: Lokesh Bui M.D. Narrative 09/20/2024 11:24 AM RATE QUOTING OPERATOR EXAMINATION: 2 view chest radiograph Procedure Note Lokesh Bui MD - 09/20/2024 EXAMINATION: 2 view chest radiograph IMPRESSION: Comparison is made to prior study of 11/27/2020. The lung volumes are smaller with increased atelectasis. There is no pulmonary edema or pneumonia. No pneumothorax. No definite pleural effusion. The heart size and mediastinal contour are unchanged. Electronically signed by: Lokesh Bui M.D. Du Cruz MD IMG XR PROCEDURES Final R esult * ECG 12 lead (09/20/2024 10:33 AM RATE QUOTING OPERATOR) [facility] Ventricular Rate EKG/Min 86 BPM [facility] Atrial Rate 86 BPM [facility] WI-Interval (MSEC) 154 ms [facility] QRS-Interval (MSEC) 124 ms [facility] QT-Interval (MSEC) 378 ms [facility] QTc 452 ms [facility] P [place] -9 degrees [facility] R [place] -5 degrees [facility] T [place] 16 degrees [facility] Diagnosis Normal sinus rhythm Right bundle branch block Abnormal ECG No previous ECGs available Confirmed by Laura Shook MD ([id number]) on 09/20/2024 10:32:01 PM [facility] 09/20/2024 10:3 3 AM RATE QUOTING OPERATOR 09/20/2024 10:32 PM RATE QUOTING OPERATOR us Urbano Rhodes MD ECG ORDERABLES Final Result [facility] * Troponin I high-sensitivity series (baseline, 2hr, 4hr, 6hr) (09/20/2024 10:15 AM RATE QUOTING OPERATOR) [facility] Trop I hs <4 <=35 ng/L Comment: Interpretive Data For further [facility] resources including the diagnostic algorithm and an aid in interpretation, copy and paste this link: https://bjhlab.testcatalog.org/show/hsTrop-1 Current Interpretive Data last revised 2020. Blood 09/20/2024 10:1 5 AM RATE QUOTING OPERATOR 09/20/2024 10:52 AM RATE QUOTING OPERATOR us Du Cruz MD LAB BLOOD ORDERABLES Cinthia l Result [facility] Department [place] [address] * POCT glucose (09/20/2024 8:45 AM RATE QUOTING OPERATOR) [facility] Glucose, POC 147 70 - 199 mg/dL Blood 09/20/2024 8:45 AM RATE QUOTING OPERATOR 09/20/2024 8:45 AM RATE QUOTING OPERATOR Du Cruz MD LAB POCT ORDERABLES - DEV ICE Final Result Performing Organization Address [facility] Co de Phone Number [facility] [place] [address] * (ABNORMAL) Urinalysis reflex to microscopic (09/20/2024 6:17 AM RATE QUOTING OPERATOR) Color, ur Katie Yellow Clarity, ur Cloudy(A) Clear [facility] Specific gravity, ur 1.022 1.003 - 1.030 [facility] pH, urine 5.5 [facility] Comment: Interpretive Data U rine pH is affected by diet, medications, systemic acid-base disturbances, and renal tubular function. pH may affect urinary stone formation. For example, urine pH below 6.0 may help reduce the tendency for calcium phosphate stones and pH greater than 6.0 may reduce the tendency for uric acid stone formation. Source: [facility] Current Interpretive Data was last revised on 2017 Protein, ur ql 1+(A) Negative [facility] Glucose, ur ql Negative Negative [facility] Ketones, ur Negative Negative [facility] Bilirubin, ur Negative Negative [facility] Blood, ur 3+(A) Negative [facility] Urobilinogen, ur <2.0 <2.0 mg/dL [facility] Nitrite, ur Negative Negative [facility] Leukocyte esterase, ur Negative Negative [facility] UA reflex comment Reflex to microscopic UA will be performed. [facility] Urine 09/20/2024 6:17 AM RATE QUOTING OPERATOR 09/20/2024 6:40 AM RATE QUOTING OPERATOR Du Cruz MD LAB URINE ORDERABLES Cinthia l Result Performing Organization Address [facility]/ZIP Co de Phone Number [facility] [place] [address] * (ABNORMAL) Urinalysis, microscopic only (09/20/2024 6:17 AM RATE QUOTING OPERATOR) WBC, ur 0-5 0 - 5 /HPF RBC, ur >50(A) 0 - 2 /HPF [facility] Mucous, ur Present(A) [facility] Urine 09/20/2024 6:17 AM RATE QUOTING OPERATOR 09/20/2024 6:40 AM RATE QUOTING OPERATOR Du Cruz MD LAB URINE ORDERABLES Cinthia l Result Performing Organization Address [facility] de Phone Number [facility] [place] [address] * Urine culture Urine, clean voided (09/20/2024 6:17 AM RATE QUOTING OPERATOR) Report Final Report: No growth Urine, clean voided 09/20/2024 6:17 AM RATE QUOTING OPERATOR 09/20/2024 6:43 AM RATE QUOTING OPERATOR Narrative [facility] - 09/21/2024 9:41 AM RATE QUOTING OPERATOR Indications for Culture:->Urology patient Testing performed by [facility] ([phone]) Du Cruz MD LAB MICROBIOLOGY - GENERA L ORDERABLES Final Result Performing Organization Address [facility] de Phone Number [facility] [place] [address] * Check Sample (09/20/2024 5:42 AM RATE QUOTING OPERATOR) ABO Rh O Negative [facility] HCLL OTHER 09/20/2024 5:42 AM RATE QUOTING OPERATOR 09/20/2024 6:43 AM RATE QUOTING OPERATOR Du Cruz MD LAB BLOOD ORDERABLES Cinthia l Result Performing Organization Address [facility] Co de Phone Number [facility] [place] [address] [facility] * POCT glucose (09/20/2024 5:29 AM RATE QUOTING OPERATOR) Glucose, POC 143 70 - 199 mg/dL Blood 09/20/2024 5:29 AM RATE QUOTING OPERATOR 09/20/2024 5:29 AM RATE QUOTING OPERATOR [facility] MD LAB POCT ORDERABLES - DEV ICE Final Result CHERYL [facility] One [facility] [place] [address] * CT Body Outside Consult (09/20/2024 4:57 AM RATE QUOTING OPERATOR) Anatomical Region Laterality Modality Body N/A Computed Tomogra phy 09/20/2024 9:40 AM RATE QUOTING OPERATOR Impressions 09/20/2024 12:05 PM RATE QUOTING OPERATOR 1. Mild right hydroureteronephrosis down to the [...] images may or may not represent the o[place] source data set and thus may contain changes that may lower the accuracy of this second-opinion interpretation. Dictated by: Bradley Maldonado M.D. The radiology attending physician has personally reviewed this study, and had reviewed and/or edited this written report and agrees with it. Electronically signed by: Louann Camilo M.D. Narrative 09/20/2024 12:05 PM RATE QUOTING OPERATOR EXAMINATION: RADIOLOGY CONSULTATION ON OUTSIDE IMAGING STUDY STUDY INITIALLY PERFORMED: 09/19/2024 at [facility]. TYPE OF STUDY: Multiple CT images of [...] IMAGING STUDY STUDY INITIALLY PERFORMED: 09/19/2024 at [facility]. TYPE OF STUDY: Multiple CT images of [...] images may or may not represent the o[place] source data set and thus may contain changes that may lower the accuracy of this second-opinion interpretation. Dictated by: Bradley Maldonado M.D. The radiology attending physician has personally reviewed this study, and had reviewed and/or edited this written report and agrees with it. Electronically signed by: Louann Camilo M.D. Du Cruz MD IMG CT PROCEDURES Final R esult * eGFR (09/20/2024 4:33 AM RATE QUOTING OPERATOR) eGFR 82 >=60 mL/min/1. 73 m2 Comment: [...] last reviewed 2021. Blood 09/20/2024 4:33 AM RATE QUOTING OPERATOR 09/20/2024 5:19 AM RATE QUOTING OPERATOR Du Cruz MD LAB BLOOD ORDERABLES Cinthia l Result [facility] Department [place] [address] * (ABNORMAL) Differential, auto (09/20/2024 4:33 AM RATE QUOTING OPERATOR) Neutrophil abs 6.8(H) 1.5 - 6.5 K/cumm Imm gran abs 0.0 0.0 - 0.1 K/cumm [facility] Lymphocyte abs 2.1 0.8 - 3.3 K/cumm [facility] Monocyte abs 1.0(H) 0.2 - 0.8 K/cumm [facility] Eosinophil abs 0.2 0.0 - 0.5 K/cumm [facility] Basophil abs 0.1 0.0 - 0.1 K/cumm [facility] Neutrophil pct 66.4 % [facility] Comment: Interpretive Data Percent cell count reference ranges are not reported, since discordance with absolute values may lead to misinterpretation of CBC data. Current Interpretive Data was last revised on 2017. Imm gran pct 0.4 % [facility] Comment: Interpretive Data Percent cell count reference ranges are not reported, since discordance with absolute values may lead to misinterpretation of CBC data. Current Interpretive Data was last revised on 2017. Lymphocyte pct 20.9 % [facility] Comment: Interpretive Data Percent cell count reference ranges are not reported, since discordance with absolute values may lead to misinterpretation of CBC data. Current Interpretive Data was last revised on 2017. Monocyte pct 9.5 % [facility] Comment: Interpretive Data Percent cell count reference ranges are not reported, since discordance with absolute values may lead to misinterpretation of CBC data. Current Interpretive Data was last revised on 2017. Eosinophil pct 2.1 % [facility] Comment: Interpretive Data Percent cell count reference ranges are not reported, since discordance with absolute values may lead to misinterpretation of CBC data. Current Interpretive Data was last revised on 2017. Basophil pct 0.7 % [facility] Comment: Interpretive Data Percent cell count reference ranges are not reported, since discordance with absolute values may lead to misinterpretation of CBC data. Current Interpretive Data was last revised on 2017. Blood 09/20/2024 4:33 AM RATE QUOTING OPERATOR 09/20/2024 5:21 AM RATE QUOTING OPERATOR Du Cruz MD LAB BLOOD ORDERABLES Cinthia mercado Result [facility] [place] [address] * (ABNORMAL) CBC with auto differential (09/20/2024 4:33 AM RATE QUOTING OPERATOR) [facility] WBC 10.2(H) 3.8 - 9.9 K/cumm Hgb 13.4 13.0 - 17.5 g/dL [facility] Hct 40.2 38.9 - 50.3 % [facility] Plt 346 150 - 400 K/cumm [facility] MPV 9.9 9.1 - 12.3 fL [facility] RBC 4.53 4.30 - 5.80 M/cumm [facility] MCV 88.7 81.3 - 96.4 fL [facility] MCH 29.6 27.1 - 33.3 pg [facility] MCHC 33.3 32.3 - 35.7 g/dL [facility] RDW CV 11.9 11.1 - 14.9 % [facility] RDW SD 39.0 35.7 - 48.1 fL [facility] NRBC abs 0.00 0.00 - 0.01 K/cumm [facility] Blood 09/20/2024 4:33 AM RATE QUOTING OPERATOR 09/20/2024 5:21 AM RATE QUOTING OPERATOR Du Cruz MD LAB BLOOD ORDERABLES Cinthia l Result Performing Organization Address [facility]/State/ZIP Co de Phone Number [facility] [place] [address] * aPTT (09/20/2024 4:33 AM RATE QUOTING OPERATOR) [facility] aPTT 35 28 - 38 sec Comment: Interpretive Data Heparin therapeutic range: 66.0 - 100.0 seconds. Range based on correlation with therapeutic heparin activity range of 0.3 - 0.7 Units/mL. Current interpretive data was last revised on 2023. Blood 09/20/2024 4:33 AM RATE QUOTING OPERATOR 09/20/2024 5:30 AM RATE QUOTING OPERATOR Du Cruz MD LAB BLOOD ORDERABLES Cinthia l Result Performing Organization Address [facility] Co de Phone Number [facility] [place] [address] * Protime-INR (09/20/2024 4:33 AM RATE QUOTING OPERATOR) Pathologist [facility] PT 11.7 9.7 - 13.0 sec INR 1.08 0.90 - 1.20 [facility] Comment: Interpretive data Oral anticoagulant therapeutic ranges: Venous thromboembolism prophylaxis or treatment: 2.0-3.0 CARDIOLOGY Standard range: 2.0-3.0 High-intensity range: 2.5-3.5 Refer to indication-specific guidelines for appropriate target ranges for prosthetic heart valve replacement. Current interpretive data was last revised on 2019. Blood 09/20/2024 4:33 AM RATE QUOTING OPERATOR 09/20/2024 5:30 AM RATE QUOTING OPERATOR Du Cruz MD LAB BLOOD ORDERABLES Cinthia l Result Performing Organization Address [facility] [place] [address] * Type and screen (09/20/2024 4:33 AM RATE QUOTING OPERATOR) [facility] ABO Rh O Negative Tono, indirect Negative [facility] Blood 09/20/2024 4:33 AM RATE QUOTING OPERATOR 09/20/2024 5:20 AM RATE QUOTING OPERATOR Narrative [facility] - 09/20/2024 6:11 AM RATE QUOTING OPERATOR Has the patient had Daratumumab or Isatuximab in the past 6 months?->Unknown Du Cruz MD LAB BLOOD BANK TEST ORDER YULI Final Result Performing Organization Address [facility] [place] [address] * Phosphorus (09/20/2024 4:33 AM RATE QUOTING OPERATOR) Pathologist [facility] Phosphorus, pl 3.7 2.3 - 4.5 mg/dL Blood 09/20/2024 4:33 AM RATE QUOTING OPERATOR 09/20/2024 5:19 AM RATE QUOTING OPERATOR Du Cruz MD LAB BLOOD ORDERABLES Cinthia l Result Performing Organization Address City/[facility] Co de Phone Number [facility] [place] [address] * Magnesium (09/20/2024 4:33 AM RATE QUOTING OPERATOR) Pathologist [facility] Magnesium 2.0 1.4 - 2.5 mg/dL Blood 09/20/2024 4:33 AM RATE QUOTING OPERATOR 09/20/2024 5:19 AM RATE QUOTING OPERATOR Du Cruz MD LAB BLOOD ORDERABLES Cinthia l Result Performing Organization Address [facility] de Phone Number [facility] [place] [address] * Basic metabolic panel (09/20/2024 4:33 AM RATE QUOTING OPERATOR) Pathologist [facility] Sodium 142 135 - 145 mmol/L Potassium, pl 4.3 3.3 - 4.9 mmol/L [facility] Chloride 105 97 - 110 mmol/L [facility] CO2 30 22 - 32 mmol/L [facility] Anion gap 7 2 - 15 mmol/L [facility] BUN 14 6 - 25 mg/dL [facility] Creatinine 0.97 0.80 - 1.30 mg/dL [facility] Glucose 143 70 - 199 mg/dL [facility] Comment: Interpretive Data Fasting glucose >/= [...] 2022. Calcium 9.2 8.5 - 10.3 mg/dL [facility] Blood 09/20/2024 4:33 AM RATE QUOTING OPERATOR 09/20/2024 5:19 AM RATE QUOTING OPERATOR Du Cruz MD LAB BLOOD ORDERABLES Cinthia l Result [facility] [place] [address] * Electrocardiogram Report (08/31/2024 2:35 PM RATE QUOTING OPERATOR) Maximo Mobley MD ECG ORDERABLES Edited Result - Final * POCT lipid panel (08/31/2024 9:59 AM RATE QUOTING OPERATOR) Cholesterol, POC 108 mg/dL Comment:GLU = 121 HDL, POC 36 mg/dL Triglycerides, POC 194 mg/dL LDL Cholesterol POC 33 mg/dL Chol/HDL Ratio, POC 0.9 Non-HDL Cholesterol, POC 72 mg/dL Cholesterol Total, POC 108 mg/dL Capillary blood 08/31/2024 9 :59 AM RATE QUOTING OPERATOR Maximo Mobley MD POINT OF CARE TEST ORDERABLES Fi nal Result from Last 3 Months [facility] OPEN ACCESS MEDIC[facility] Address: [address] [address] [place] [address] [facility] Advance Directives For more information, please contact: [phone] * Full Code (Latest Code Status on File) Date Activated Date Inactivated Comments 09/20/2024 4:10 AM 09/22/2024 2:52 PM * Full Code Date Activated Date Inactivated Comments 09/16/2018 1:22 PM 09/23/2018 6:01 PM Care Teams Machine Operator Farmworker Relationship Specialty Start Date End Date Heydi Gomez MD [address] [place] [address] PCP - General 12/12/16 Aleksandr Kirkland NP [address] [place] [address] [address] [place] [address] Nurse Practitioner Nurse Practitioner 12/04/20 Maximo Mobley MD [address] [address] Consulting Physician Cardiology 10/07/24
--- OUTSIDE RECORDS SUMMARY | 2024-10-31 22:26 | XMS_ITS | Encounter Summary ---
Author Organization [facility] Healthcare Address [address] [place] [address] Care Team Providers Care Sheet Finisher Name Role Phone Heydi Gomez MD Primary Care Provider Aleksandr Kirkland NP Unavailable Maximo Mobley MD Unavailable Encounter Details Date Type Department Care Team (Late st Contact Info) Description 09/17/2018 Telephone [facility] [address] [place], [place] [id number] Vijaya Dunn LCSW Social History Tobacco Use Types Packs/Day Years Used Date Smoking Tobacco: Former Smokeless Tobacco: Never Alcohol Use Standard Drinks/Week Comments No 0 (1 standard drink = 0.6 oz pur e alcohol) Sex and Gender Information Value Date Recorded Sex Assigned at Not on file 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 Gender Identity Not on file Sexual Orientation Not on file documented as of this encounter Plan of Treatment Not on file documented as of this encounter Visit Diagnoses Not on filedocumented in this encounter Additional Health Concerns Infection Onset Date Last Indicated Resolved Time COVID: Recovered 09/04/2020 12/03/2020 04/02/2021 3:05 AM CDT documented as of this encounter Care Teams Sheet Finisher Relationship Specialty Start Date End Date Heydi Gomez MD [address] [place] [address] PCP - General 12/12/16 Aleksandr Kirkland NP [address] [place] [address] [address] [place] [address] Nurse Practitioner Nurse Practitioner 12/04/20 Maximo Mobley MD [address] [place] [address] [address] Consulting Physician Cardiology 10/07/24 documented as of this encounter
--- OUTSIDE RECORDS SUMMARY | 2024-10-31 22:26 | XMS_ITS | Encounter Summary ---
Author Organization [facility] Address [address] [facility] [address] [place] [address] Phone Care Team Providers Care Rn Cardiology Name Role Phone Heydi Gomez MD Primary Care Provider Aleksandr Kirkland NP Unavailable [phone] Maximo Mobley MD Unavailable Reason for Referral * Diagnostic Imaging (Routine) - Pending Review Specialty Diagnoses / Procedures Referred By Dori king Referred To Contact Diagnoses Nephrolithiasis Procedures US Kidney Complete Sofie Chen MD [address] [facility] [place] [address] Phone: tel: fax: [facility] (All Locations) Referral ID Status Reason Start Date Expiration Date V isits Requested Visits Authorized [id number] Pending Review 10/31/2024 11/30/2025 99 99 DOZER ENGINEER Encounter Details Date Type Department Care Team (Latest Contact Info) Description 10/31/2024 11:20 AM BULLDOZER ENGINEER Office Visit [facility] [facility] [address] [place] [address] Sofie Chen MD [address] [facility] [place] [address] Nephrolithiasis (Primary Dx) Social History Tobacco Use Types Packs/Day Years [...] on file Legal Sex Male 10:57 AM BULLDOZER ENGINEER Gender Identity Not on file Sexual Orientation Not on file documented as of this encounter Last Filed Vital Signs Vital Sign Reading Time Taken Comments Blood Pressure - - Pulse - - Temperature - - Respiratory Rate - - Oxygen Saturation - - Inhaled Oxygen Concentration - - Weight 91.6 kg (202 lb) 10/31/2024 11:24 AM BULLDOZER ENGINEER Height 175.3 cm (5' 9 ) 10/31/2024 11:24 AM BULLDOZER ENGINEER Body Mass Index 29.83 10/31/2024 11:24 AM BULLDOZER ENGINEER documented in this encounter Patient Instructions * Patient Instructions* Sofie Chen MD - 10/31/2024 11:20 AM BULLDOZER ENGINEER - US kidneys 4 Weeks - FU OV 4 weeks with US prior - PTH - URIC ACID - PHOSPHORUS (PO4) - UR,24 HR, (litho link) - CMP General Kidney Stone Prevention Recommendations 1. Drink enough fluid (preferably water) to produce 2-3 L urine per day 2. Maintain moderate calcium (3-4 daily servings of calcium-rich foods) 3. Maintain low sodium (less than 2-3 g/day) diet 4. Limit animal protein intake (especially red meat -- no more than 2x/week) 5. Increase citrate intake by drinking natural lemonade or adding lemon wedges and lemon juice (~4 oz. lemon juice concentrate daily) to beverages. 6. Decrease dietary oxalate -- oxalate-rich foods that may require moderation in your diet include,but are not limited to: black/iced tea, instant coffee, nuts, nut butters, blueberries, blackberries, raspberries, canned strawberries, rhubarb, [place] grapes, tangerines, citrus fruit peels, beets,michaela greens, kale, spinach, chococlate, and black pepper. DOZER ENGINEER * Attachments The following attachments cannot be sent through Care Everywhere. * Cystoscopy (Associate Attorney) ([place] Ze[place]) documented in this encounter Progress Notes * Sofie Chen MD - 10/31/2024 11:20 AM CST Male Office Cystoscopy Indications: - S/P Meet URS, LL, Meet Stents - Stone analysis: 100% Calcium oxalate monohydrate. Prophylactic Antibiotics: Procedure Details: Boo Serrato was brought to the procedure room and placed in the supine position. The risks and benefits of this procedure including bleeding, severe urinary tract infection, urosepsis, burning with urination, and urethral stricture formation were discussed. The patient wishes to proceed. Pre procedure urinalysis revealed no evidence of pyuria or bacteruria. The patient was prepped and draped in the standard fashion, and 10cc of 1% viscous lidocaine was injected into the urethra. He was prepped and draped in the usual sterile fashion. A flexible cystoscope was inserted. The penile urethra wnl. The bulbar urethra was wnl. The membranous urethra was intact. The prostatic urethra was 3 cm in length with no visual obstruction. The bladder was entered and inspected. Stents were removed intact sequentially. The patient tolerated the procedure well. The Patient, family, and/or caregiver verbalizes understanding of instructions and plan of care. Disposition: Home - hemodynamically stable. Condition: stable - US kidneys 4 Weeks - FU OV 4 weeks with US prior - PTH - URIC ACID - PHOSPHORUS (PO4) - UR,24 HR, (litho link) - CMP General Kidney Stone Prevention Recommendations 1. Drink enough fluid (preferably water) to produce 2-3 L urine per day 2. Maintain moderate calcium (3-4 daily servings of calcium-rich foods) 3. Maintain low sodium (less than 2-3 g/day) diet 4. Limit animal protein intake (especially red meat -- no more than 2x/week) 5. Increase citrate intake by drinking natural lemonade or adding lemon wedges and lemon juice (~4 oz. lemon juice concentrate daily) to beverages. 6. Decrease dietary oxalate -- oxalate-rich foods that may require moderation in your diet include,but are not limited to: black/iced tea, instant coffee, nuts, nut butters, blueberries, blackberries, raspberries, canned strawberries, rhubarb, [place] grapes, tangerines, citrus fruit peels, beets,michaela greens, kale, spinach, chococlate, and black pepper. Sofie Chen MD, 10/31/2024 11:43 AM Referring Physician: Heydi Gomez Attending Physician: No att. providers found Primary Care Physician: Heydi Gomez MD DOZER ENGINEER documented in this encounter Miscellaneous Notes * Addendum Note - Laura Krishna - 10/31/2024 11:20 AM CSTAddended by: LAURA KRISHNA on: 10/31/2024 12:15 PM Modules accepted: Orders DOZER ENGINEER * Addendum Note - Diann Barrera RMA - 10/31/2024 11:20 AM CSTAddended by: DIANN BARRERA on: 10/31/2024 12:21 PM Modules accepted: Orders DOZER ENGINEER documented in this encounter Plan of Treatment Scheduled Orders Name Type Priority Associated Diagnoses Orde r Schedule US Kidney Complete Imaging Schedule Rout ine, Read Routine (OP Routine) Nephrolithiasis Expected: 10/31/2024, Expires: 04/30/2026 [facility] 24Hr Urine Panel Lab Routine Nephrolithiasis Expected: 11/03/2024, Expires: 10/31/2025 documented as of this encounter Procedures Procedure Name Priority Date/Time Associated Diagnosis Comments POCT URINALYSIS DIPSTICK Routine 10/31/2024 11:49 AM BULLDOZER ENGINEER Nephrolithiasis documented in this encounter Results * Phosphorus, urine, random (10/31/2024 12:31 PM BULLDOZER ENGINEER) Phosphorus, ur 28.7 mg/dL Comment: Interpretive Data No reference range established. Current interpretive data was last revised 2019. Urine 10/31/2024 12:3 1 PM BULLDOZER ENGINEER 10/31/2024 7:01 PM BULLDOZER ENGINEER Sofie Chen MD LAB URINE ORDERABLES Final Result Performing Organization Address [facility] de Phone Number [address] [place] [address] * Uric acid (10/31/2024 12:24 PM BULLDOZER ENGINEER) Pathologist [facility] Uric acid 6.1 3.0 - 8.0 mg/dL Comment:Testing performed by : [facility], [address] [place] [address]., [address] Blood 10/31/2024 12:2 4 PM BULLDOZER ENGINEER 10/31/2024 1:38 PM BULLDOZER ENGINEER Sofie Chen MD LAB BLOOD ORDERABLES Final Result Performing Organization Address City/[facility] Co de Phone Number [address] [place] [address] * PTH (10/31/2024 12:24 PM BULLDOZER ENGINEER) PTH 56 15 - 65 pg/mL Comment:Testing performed by : [address] [address] Blood 10/31/2024 12:2 4 PM BULLDOZER ENGINEER 10/31/2024 1:38 PM BULLDOZER ENGINEER us Hectorsef Carito Chen MD LAB BLOOD ORDERABLES Final Result [facility] [address] [facility] [place] [address] * (ABNORMAL) Urinalysis reflex to microscopic and culture Urine, bladder (10/31/2024 12:01 PM BULLDOZER ENGINEER) Color, ur Red(A) Yellow Comment:Testing performed by : [address] [address] Clarity, ur Turbid(A) Clear CH[facility] Comment:Testing performed by : [address] [address] Specific gravity, ur 1.018 1.003 - 1.030 [facility] Comment:Testing performed by : [address] [address] pH, urine 6.0 [facility] Comment: Interpretive Data U rine pH is affected by diet, medications, systemic acid-base disturbances, and renal tubular function. pH may affect urinary stone formation. For example, urine pH below 6.0 may help reduce the tendency for calcium phosphate stones and pH greater than 6.0 may reduce the tendency for uric acid stone formation. Source: [facility] Current Interpretive Data was last revised on 2017 Testing performed by: [address] [address] Protein, ur ql 2+(A) Negative [facility] Comment:Testing performed by : [address] [address] Glucose, ur ql Negative Negative [facility] Comment:Testing performed by : [address] [address] Ketones, ur Negative Negative [facility] Comment:Testing performed by : [address] [address] Bilirubin, ur Negative Negative [facility] Comment:Testing performed by : [facility], [address] [place] [address]., [address] Blood, ur 3+(A) Negative [facility]ERY[facility] Comment:Testing performed by : [facility], [address] [place] [address]., [address] Urobilinogen, ur <2.0 <2.0 mg/dL [facility] Comment:Testing performed by : [address] [address] Nitrite, ur Negative Negative [facility] Comment:Testing performed by : [address], [place]., [address] Leukocyte esterase, ur 4+(A) Negative [facility] Comment:Testing performed by : [address] [address] UA reflex comment Reflex to microscopic UA will be performed. [facility]ERYL Comment:Testing performed by : [address] [address] Urine, bladder 10/31/2024 12 :01 PM BULLDOZER ENGINEER 10/31/2024 8:31 PM BULLDOZER ENGINEER us Yousef Carito Chen MD LAB MICROBIOLOGY - G ENERAL ORDERABLES Final Result [facility] [address] [facility] [place] [address] * (ABNORMAL) POCT urinalysis dipstick (10/31/2024 11:49 AM BULLDOZER ENGINEER) Color, Urine, POC Yellow Clarity, ur, POC Clear Clear Glucose, ur, POC Negative Negative MG/DL Bilirubin, ur, POC Negative Negative, Small, Moderate, Large Ketones, ur, POC Negative Negative Specific [place], POC 1.025 1.003 - 1.030 Blood, ur, POC 3+(A) Negative pH, ur, POC 6.0 5.0 - 8.0 Protein, ur, POC 2+(A) Negative Urobilinogen, urine, POC 0.2 0.2 - 1.0 mg/dL Nitrite, ur, POC Negative Negative Leukocytes, ur, POC 3+(A) Negative Lot Number 0 Urine 10/31/2024 11:4 9 AM BULLDOZER ENGINEER us Yousef Carito Chen MD POINT OF CARE TEST O RDERABLES Final Result documented in this encounter Visit Diagnoses Diagnosis Nephrolithiasis- Primary Calculus of kidney documented in this encounter Care Teams Rn Cardiology Relationship Specialty Start Date End Date Heydi Gomez MD [address] [place] [address] PCP - General 12/12/16 Aleksandr Kirkland NP [address] [place] [address] [address] [place] [address] Nurse Practitioner Nurse Practitioner 12/04/20 Maximo Mobley MD [address] [address] Consulting Physician Cardiology 10/07/24 documented as of this encounter
--- OUTSIDE RECORDS SUMMARY | 2024-10-31 22:26 | XMS_ITS | Clinical Summary ---
Author Organization [facility] Address [address] [place] [address] Attn: Epic Prelude ADT TERRA MICHELLE [address] Care Team Providers Care Warper Creeler Name Role Phone Unavailable Primary Care Provider Unavailabl e Social History Tobacco Use Types Packs/Day Years Used Date Smoking Tobacco: Never Assessed Sex and Gender Information Value Date Recorded Sex Assigned at Not on file Legal Sex Male 3:27 PM CDT Gender Identity Not on file Sexual Orientation Not on file Plan of Treatment Health Maintenance Due Date Last Done Comments DTAP/TDAP/TD VACCINES (1 - Tdap) 1970 COLORECTAL SCREENING 1996 Colorectal Cancer Screening 1996 FIT-DNA Q 3 years 1996 FIT/FOBT Q 1 year 1996 Flex Sig/CT Colonography Q 5 years 1996 PNEUMOCOCCAL VACCINE 65+ YEARS (1 of 1 - PCV) 04/15/20 01 ZOSTER VACCINE (1 of 2) 2001 INFLUENZA VACCINE (#1) 2024 RSV VACCINE (60+ or ) (1 - 1-dose 75+ series) 2026 Insurance RX AETNA Medicare Part D RX AETNA Medicare Part D
--- OUTSIDE RECORDS SUMMARY | 2024-10-31 22:26 | XMS_ITS | Encounter Summary ---
Author Organization [facility] Address [address] [facility] [address] [place] [address] Phone Care Team Providers Care Ticket Broker Name Role Phone Heydi Gomez MD Primary Care Provider Aleksandr Kirkland NP Unavailable [phone] Maximo Mobley MD Unavailable Encounter Details Date Type Department Care Team (Late st Contact Info) Description 10/31/2024 Telephone [facility] 2nd [place] [address] [place] [address] Sunita Diaz MD [address] [facility] [phone] [place], [place] [id number] Social History Tobacco Use Types Packs/Day Years [...] on file 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 He has been voiding without difficulty for the past couple of days. He endorses passage of small clots but is able to pass them after a brief period. He does not note suprapubic distention at this time and it's difficult to assess whether he is experiencing retention vs.Bladder spasms given indwelling stents since it has only been 15 minutes. He has not been taking oxybutynin but has been taking trospium; recommended that he stop taking these medications as they maymake it more difficult to void and drink plenty of fluids. No other sx or complaints. Instructed him to go to nearest ED for straight cath if he is unable to void in the next 6 hours and he expressedclear understanding. Bradley Diaz MD, MS Urologic Surgery PGY-2 To reach the urology consult resident from 6:00 to 18:00 (Thursday-Thursday), please call [phone].If you want to contact Urology consults after hours (18:00 to 6:00) and over the weekend, please call the systems operator or check the schedule on Amion. CE LEAD documented in this encounter Plan of Treatment Not on file documented as of this encounter Visit Diagnoses Not on filedocumented in this encounter Care Teams Ticket Broker Relationship Specialty Start Date End Date Heydi Gomez MD [address] [place] [address] PCP - General 12/12/16 Aleksandr Kirkland NP [address] [address] Nurse Practitioner Nurse Practitioner 12/04/20 Maximo Mobley MD [address] [place] [address] [address] Consulting Physician Cardiology 10/07/24 documented as of this encounter
--- OUTSIDE RECORDS SUMMARY | 2024-10-31 22:26 | XMS_ITS | Encounter Summary ---
Author Organization [facility] Address [address] [facility] [address] [place] [address] Phone Care Team Providers Care Ecdis N Navigation Operator Name Role Phone Heydi Gomez MD Primary Care Provider Aleksandr Kirkland NP Unavailable [phone] Maximo Molbey MD Unavailable Encounter Details Date Type Department Care Team (Late st Contact Info) Description 10/31/2024 Orders Only [facility] Surgery [facility] [facility] [address] [place] [address] Sofie Chen MD [address] [facility] [place], [place] [id number] Kidney stone (Primary Dx) Social History Tobacco Use Types [...] you are drinking? 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 Gender Identity Not on file Sexual Orientation Not on file documented as of this encounter Plan of Treatment Scheduled Orders Name Type Priority Associated Diagnoses Orde r Schedule Creatinine clearance, urine, 24 hour Lab Routine Kidney stone Expected: 10/31/2024, Expires: 10/31/2025 documented as of this encounter Visit Diagnoses Diagnosis Kidney stone- Primary Calculus of kidney documented in this encounter Care Teams Ecdis N Navigation Operator Relationship Specialty Start Date End Date Heydi Gomez MD [address] [place] [address] PCP - General 12/12/16 Aleksandr Kirkland NP [address] [place] [address] [address], [place] [address] Nurse Practitioner Nurse Practitioner 12/04/20 Maximo Mobley MD [address] [place] [address] Consulting Physician Cardiology 10/07/24 documented as of this encounter
--- NOTE | 2024-10-31 22:38 | ED_ITS ---
HPI - Male Genitourinary General Stated complaint: urogenital male Time Seen by Provider: 10/31/24 22:36 Source: patient Mode of arrival: ambulatory Limitations: no limitations History of Present Illness HPI Narrative: patient is a 74-year-old male with significant past medical history that presents today for problems with urination. Patient had kidney stones before 4th and her work and now there ureteral stents were put in and they put the stents out today and he was urinating blood pretty much most of the time of the day today. Until finally he could not even urine and blood that was coming out. That is when he came to the emergency department. He will need to have Carter catheterization put and at that follow-up tomorrow with Urology. Related Data Home Medications ?Medication ?Instructions ?Recorded ?Confirmed ?Last Taken ?Type aspirin 81 mg capsule 81 mg PO DAILY 09/19/24 Unknown History evolocumab 140 mg/mL subcutaneous 140 mg subcut .every 2 weeks 09/19/24 Unknown History pen injector (Repatha deviantARTick) losartan 50 mg-hydrochlorothiazide 1 tablet PO DAILY 09/19/24 Unknown History 12.5 mg tablet metoprolol succinate 25 mg 12.5 mg PO DAILY 09/19/24 Unknown History tablet,extended release 24 hr semaglutide 0.25 mg or 0.5 mg (2 0.5 mg subcut WEEKLY 09/20/24 Unknown History mg/1.5 mL) subcutaneous pen injector (Ozempic) Allergies Allergy/AdvReac Type Severity Reaction Status Date / Time No Known Allergies Allergy Verified 09/19/24 21:41 Review of Systems Review of Systems: All systems reviewed & are unremarkable except as noted in HPI and below Constitutional: Constitutional: Reports as per HPI Eyes: Eyes: Reports no additional eye complaints ENT: Reports system reviewed and no additional complaints, except as documented Cardiovascular: Cardiovascular: Reports no additional cardiovascular complaints Respiratory: Respiratory: Reports no additional respiratory complaints Gastrointestinal: Gastrointestinal: Reports no additional gastrointestinal complaints Genitourinary: Genitourinary: Reports as per HPI and Reports hematuria Musculoskeletal: Musculoskeletal: Reports no additional musculoskeletal complaints Integumentary/Breasts: Skin/Breast: Reports system reviewed and no additional complaints, except as docu Neurologic: Reports system reviewed and no additional complaints, except as documented Psychiatric: Psychiatric: Reports no additional psychiatric complaints Endocrine: Endocrine: Reports no additional endocrine complaints Hematologic/Lymphatic: Hematologic/Lymphatic: Reports no additional hematologic/lymphatic complaints Allergic/Immunologic: Allergic/Immunologic: Reports no additional allergic/immunologic complaints Exam Const: General: healthy appearing and no acute distress Nutritional Appearance: well nourished HENMT: Head: normal to inspection Ears: TM's normal bilaterally Face/Nose/Sinus: Normal external nose present Eyes: Conjunctivae: conjunctivae normal Pupils: Equal, round and reactive pupils present EOM: EOMs intact bilaterally Neck: Neck: normal visual inspection Chest: Chest palpation & inspection: normal inspection of the chest Resp: Effort & Inspection: normal respiratory effort Auscultation: clear to auscultation bilaterally Cardio: Rate: regular rate Rhythm: regular rhythm GI: GI Palp: Yes Soft to palpation : Other: Is a bladder scan and 800 was left. Will put a catheter in to get out this Urine. Urinary Catheter: Urinary Catheter: urine red Back/Spine/Pelvis: Back: no CVA tenderness Skin: General skin exam: normal color Rashes: no rashes Wounds: no wounds Neuro: General: patient oriented x3 Cranial nerves: Yes CN's II-XII intact bilaterally Speech: normal speech Gait exam (Neuro): Normal gait present Extrem: General: normal to inspection Psych: Mental Status: mental status grossly normal Affect: normal affect Attitude: cooperative Course Vital Signs Vital signs: Vital Signs Temperature 98.7 F 10/31/24 22:26 Pulse Rate 106 H 10/31/24 22:26 Respiratory Rate 18 10/31/24 22:26 Blood Pressure 167/98 H 10/31/24 22:26 Pulse Oximetry 96 10/31/24 22:26 Oxygen Delivery Room Air 10/31/24 22:26 Temperature 98.7 F 10/31/24 22:26 Pulse Rate 106 H 10/31/24 22:26 Respiratory Rate 18 10/31/24 22:26 Blood Pressure 167/98 H 10/31/24 22:26 Pulse Oximetry 96 10/31/24 22:26 Oxygen Delivery Room Air 10/31/24 22:26 MDM - Male Genitourinary MDM Narrative Medical decision making narrative: Want to put a urinary catheter and to get out of here because it is not going out most likely because the clots in the blood. First attempt for a cathet erization had also clots came out and got stuck and no urine was coming out. Will times he has a larger devices try to get the urine out. And get the clots past rather stuck. We will get it with this larger catheter and get the clots out and then get the urine out. He was to follow-up with urology tomorrow. Differential Diagnosis Differential diagnosis: Likely acute retention of urine Medical Records Attestation: I reviewed the patient's medical records. Lab Data Attestation: I reviewed the patient's lab results. ABG Data Attestation: I personally reviewed and interpreted this ABG as follows: Imaging Data Attestation: I personally reviewed and interpreted this imaging study as follows: Discharge Plan Discharge Clinical Impression: Acute urinary retention, Blood clots in urine Patient Disposition: Home, Self-Care Condition: Stable Instructions: Carter Catheter Placement and Care (ED) Additional Instructions: follow-up tomorrow with Urology call 1st thing in the morning and see them tomorrow. Patient Language: Mosotho Prescriptions: No Action aspirin 81 mg capsule 81 mg PO DAILY Repatha SureClick 140 mg/mL pen injector 140 mg subcut .every 2 weeks losartan-hydrochlorothiazide 50-12.5 mg tablet 1 tablet PO DAILY metoprolol succinate 25 mg tablet extended release 24 hr 12.5 mg PO DAILY Ozempic 0.25 mg or 0.5 mg(2 mg/1.5 mL) pen injector 0.5 mg subcut WEEKLY Follow-up/Referrals: Heydi Gomez MD [Primary Care Provider] - Time of Disposition: 22:47
--- OUTSIDE RECORDS SUMMARY | 2024-10-31 22:50 | XMS_ITS | Encounter Summary ---
Author Organization [facility] Address [address] [facility] [address] [place] [address] Phone Care Team Providers Care Ethnic Studies Professor Name Role Phone Heydi Gomez MD Primary Care Provider [phone] Aleksandr Kirkland NP Unavailable [phone] Maximo Mobley MD Unavailable Reason for Referral * Diagnostic Imaging (Routine) - Pending Review Specialty Diagnoses / Procedures Referred By Dori king Referred To Contact Diagnoses Nephrolithiasis Procedures US Kidney Complete Sofie Chen MD [address] [facility] [place] [address] Phone: tel: fax: [facility] (All Locations) Referral ID Status Reason Start Date Expiration Date V isits Requested Visits Authorized [id number] Pending Review 10/31/2024 11/30/2025 99 99 RATORY IMMUNOLOGIST Encounter Details Date Type Department Care Team (Latest Contact Info) Description 10/31/2024 11:20 AM LABORATORY IMMUNOLOGIST Office Visit [facility] [facility] [address] [place] [address] Sofie Chen MD [address] [facility] [place] [address] Nephrolithiasis (Primary Dx) Social History Tobacco Use [...] on file Legal Sex Male 10:57 AM LABORATORY IMMUNOLOGIST Gender Identity Not on file Sexual Orientation Not on file documented as of this encounter Last Filed Vital Signs Vital Sign Reading Time Taken Comments Blood Pressure - - Pulse - - Temperature - - Respiratory Rate - - Oxygen Saturation - - Inhaled Oxygen Concentration - - Weight 91.6 kg (202 lb) 10/31/2024 11:24 AM LABORATORY IMMUNOLOGIST Height 175.3 cm (5' 9 ) 10/31/2024 11:24 AM LABORATORY IMMUNOLOGIST Body Mass Index 29.83 10/31/2024 11:24 AM LABORATORY IMMUNOLOGIST documented in this encounter Patient Instructions * Patient Instructions* Sofie Chen MD - 10/31/2024 11:20 AM LABORATORY IMMUNOLOGIST - US kidneys 4 Weeks - FU [...] butters, blueberries, blackberries, raspberries, canned strawberries, rhubarb, [place] grapes, tangerines, citrus fruit peels, beets,michaela greens, kale, spinach, chococlate, and black pepper. RATORY IMMUNOLOGIST * Attachments The following attachments cannot be sent through Care Everywhere. * Cystoscopy (English Faculty Member) (Tuvaluan) documented in this encounter Progress Notes * [...] butters, blueberries, blackberries, raspberries, canned strawberries, rhubarb, [place] grapes, tangerines, citrus fruit peels, beets,michaela greens, kale, spinach, chococlate, and black pepper. Sofie Chen MD, 10/31/2024 11:43 AM Referring Physician: Heydi Gomez Attending Physician: No att. providers found Primary Care Physician: Heydi Gomez MD RATORY IMMUNOLOGIST documented in this encounter Miscellaneous Notes * Addendum Note - Laura Krishna - 10/31/2024 11:20 AM CSTAddended by: LAURA KRISHNA on: 10/31/2024 12:15 PM Modules accepted: Orders RATORY IMMUNOLOGIST * Addendum Note - Diann Barrera RMA - 10/31/2024 11:20 AM CSTAddended by: DIANN BARRERA on: 10/31/2024 12:21 PM Modules accepted: Orders RATORY IMMUNOLOGIST documented in this encounter Plan of Treatment [...] POCT URINALYSIS DIPSTICK Routine 10/31/2024 11:49 AM LABORATORY IMMUNOLOGIST Nephrolithiasis documented in this encounter Results * Phosphorus, urine, random (10/31/2024 12:31 PM LABORATORY IMMUNOLOGIST) Phosphorus, ur 28.7 mg/dL Comment: Interpretive Data No reference range established. Current interpretive data was last revised 2019. Urine 10/31/2024 12:3 1 PM LABORATORY IMMUNOLOGIST 10/31/2024 7:01 PM LABORATORY IMMUNOLOGIST Sofie Chen MD LAB URINE ORDERABLES Final Result Performing Organization Address [facility] de Phone Number [address] [place] [address] * Uric acid (10/31/2024 12:24 PM LABORATORY IMMUNOLOGIST) Pathologist [facility] Uric acid 6.1 3.0 - 8.0 mg/dL Comment:Testing performed by : [facility], [address] [place] [address]., [id number] Blood 10/31/2024 12:2 4 PM LABORATORY IMMUNOLOGIST 10/31/2024 1:38 PM LABORATORY IMMUNOLOGIST Sofie Chen MD LAB BLOOD ORDERABLES Final Result Performing Organization Address City/[facility] Co de Phone Number [address] [place] [employer] [address] * PTH (10/31/2024 12:24 PM LABORATORY IMMUNOLOGIST) PTH 56 15 - 65 pg/mL Comment:Testing performed by : [address] [address] Blood 10/31/2024 12:2 4 PM LABORATORY IMMUNOLOGIST 10/31/2024 1:38 PM LABORATORY IMMUNOLOGIST us Hectorsef Carito Chen MD LAB BLOOD ORDERABLES Final Result CHERYL [address] [facility] Department [place] [address] * (ABNORMAL) Urinalysis reflex to microscopic and culture Urine, bladder (10/31/2024 12:01 PM LABORATORY IMMUNOLOGIST) Color, ur Red(A) Yellow Comment:Testing performed by : [address] [address] Clarity, ur Turbid(A) Clear CHERYL Comment:Testing performed by : [address] [address] Specific gravity, ur 1.018 1.003 - 1.030 CHERYL Comment:Testing performed by : [address] [address] pH, urine 6.0 CHERYL Comment: Interpretive Data U rine pH is affected by diet, medications, systemic acid-base disturbances, and renal tubular function. pH may affect urinary stone formation. For example, urine pH below 6.0 may help reduce the tendency for calcium phosphate stones and pH greater than 6.0 may reduce the tendency for uric acid stone formation. Source: [facility] [employer] Current Interpretive Data was last revised on 2017 Testing performed by: [address] [address] Protein, ur ql 2+(A) Negative CHERYL Comment:Testing performed by : [address] [address] Glucose, ur ql Negative Negative CHERYL Comment:Testing performed by : [address] [address] Ketones, ur Negative Negative CHERYL Comment:Testing performed by : [address] [address] Bilirubin, ur Negative Negative CHERYL Comment:Testing performed by : [facility], [address] [place] [address]., [address] Blood, ur 3+(A) Negative CHERYL Comment:Testing performed by : [facility], [address] [place] [address]., [address] Urobilinogen, ur <2.0 <2.0 mg/dL CHERYL Comment:Testing performed by : [address] [address] Nitrite, ur Negative Negative CHERYL Comment:Testing performed by : [address], [place]., [address] Leukocyte esterase, ur 4+(A) Negative CHERYL Comment:Testing performed by : [address] [address] UA reflex comment Reflex to microscopic UA will be performed. CHERYL Comment:Testing performed by : [address] [address] Urine, bladder 10/31/2024 12 :01 PM LABORATORY IMMUNOLOGIST 10/31/2024 8:31 PM LABORATORY IMMUNOLOGIST us Yousef Carito Chen MD LAB MICROBIOLOGY - G ENERAL ORDERABLES Final Result [facility]ERY[facility] [address] [facility] Department [place] [address] * (ABNORMAL) POCT urinalysis dipstick (10/31/2024 11:49 AM LABORATORY IMMUNOLOGIST) Color, Urine, POC Yellow Clarity, ur, POC Clear Clear Glucose, ur, POC Negative Negative MG/DL Bilirubin, ur, POC Negative Negative, Small, Moderate, Large Ketones, ur, POC Negative Negative Specific [place], POC 1.025 1.003 - 1.030 Blood, ur, POC 3+(A) Negative pH, ur, POC 6.0 5.0 - 8.0 Protein, ur, POC 2+(A) Negative Urobilinogen, urine, POC 0.2 0.2 - 1.0 mg/dL Nitrite, ur, POC Negative Negative Leukocytes, ur, POC 3+(A) Negative Lot Number 0 Urine 10/31/2024 11:4 9 AM LABORATORY IMMUNOLOGIST us Yousef Carito Chen MD POINT OF CARE TEST O RDERABLES Final Result documented in this encounter Visit Diagnoses Diagnosis Nephrolithiasis- Primary Calculus of kidney documented in this encounter Care Teams Ethnic Studies Professor Relationship Specialty Start Date End Date Heydi Gomez MD [address] [place] [address] PCP - General 12/12/16 Aleksandr Kirkland NP [address] [place] [address] [address] [place] [address] Nurse Practitioner Nurse Practitioner 12/04/20 Maximo Mobley MD [address] [address] Consulting Physician Cardiology 10/07/24 documented as of this encounter
--- OUTSIDE RECORDS SUMMARY | 2024-10-31 22:50 | XMS_ITS | Referral Summary ---
Author Organization [facility] [address] Address [address] [place] [address] Care Team Providers Care Grinder Set Up Operator Gear Tool Name Role Phone Heydi Gomez MD Primary Care Provider Aleksandr Kirkland NP Unavailable [phone] Maximo Mobley MD Unavailable Encounters Date Type Department Care Team Description 10/31/[address] [facility] Surgery [facility] 2nd [place] [address] [place] [phone] Sunita Diaz MD 10/31/2024 Results Follow-Up [facility] Surgery [address] [place] [address] [address] [place] [phone] Sofie Chen MD 10/31/2024 12:33 PM RECORDS ADMINISTRATOR Hospital Encounter [facility] Office Building [address] [place] [address] Nephrolithiasis 10/31/2024 12:15 PM RECORDS ADMINISTRATOR Lab [facility] Office Building [address] [place] [address] Nephrolithiasis 10/31/2024 Orders Only [facility] Surgery [address] [place] [address] [address] [place] [address] Sofie Chen MD Kidney stone (Primary Dx) 10/31/2024 11:20 AM RECORDS ADMINISTRATOR Office Visit [facility] Surgery [address] [place] [address] Sofie Chen MD Nephrolithiasis (Primary Dx) 10/20/2024 Orders Only [facility] Surgery [address] [place] [address] Sofie Chen MD Kidney stone (Primary Dx) 10/20/2024 7:30 AM RECORDS ADMINISTRATOR - 10/20/2024 9:20 AM RECORDS ADMINISTRATOR Surgery [facility] OR [address] [place] [address] Sofie Chen MD HOLMIUM LASER LITHOTRIPSY, STONE BASKETING ,CYSTOSCOPY, BILATERAL RETROGRADE PYELOGRAM,BILATERAL URETEROSCOPY , BILATERAL STENT EXCHANGE 10/20/2024 7:35 AM RECORDS ADMINISTRATOR Anesthesia Event [facility] OR [address] [place] [address] Familia Reed MD Grehan, William G., MD 10/20/2024 5:29 AM RECORDS ADMINISTRATOR - 10/20/2024 12:32 PM RECORDS ADMINISTRATOR Hospital Encounter [facility] OR [address] [place] [address] Sofie Chen MD Nephrolithiasis (Primary Dx) Discharge Disposition: Discharge to home or self care 10/14/[address] [facility] [address] [facility] [address] [place] [phone] Maximo Mobley MD 10/04/[address] [facility] Surgery [facility] [place] [address] Diann Light 09/26/[address] [facility] [address] [place] [address] Maximo Mobley MD 09/20/2024 3:35 AM RECORDS ADMINISTRATOR - 09/22/2024 10:42 AM RECORDS ADMINISTRATOR Hospital Encounter [facility] 1 [place] [address] Du Cruz MD Kidney stone (Primary Dx) Discharge Disposition: Discharge to home or self care 09/21/2024 6:53 PM RECORDS ADMINISTRATOR Anesthesia Event [facility] Operating Room 1 [place] [address] Palmira Garcia MD Lentz, William Thomas, NP 09/21/2024 6:25 PM RECORDS ADMINISTRATOR - 09/21/2024 7:40 PM RECORDS ADMINISTRATOR Surgery [facility] Operating Room 1 [place] [address] Valery Carson MD CYSTOSCOPY, RIGHT RETROGRADE PYELOGRAM, RIGHT URETERAL STENT PLACEMENT 08/31/2024 1:30 PM RECORDS ADMINISTRATOR Office Visit [facility] [address] [place] [address] Maximo Mobley MD Coronary artery disease involving sleetmute coronary artery of sleetmute heart without angina pectoris (Primary Dx); S/P CABG x 3; Essential hypertension; RBBB; Statin intolerance; Myalgia due to statin from Last 3 Months Allergies Active Allergy Reactions Criticality Noted Date Comments Gxtrosz-Fyy-Nny Reductase Inhibitors Muscle pain Medium Medications cholecalciferol [...] (11/20/2020): Added automatically from request for surgery [id number] Tear of left supraspinatus tendon 08/03/2020 Arthritis of left 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 Obesity (BMI 30-39.9) 10/31/2019 H/O atrial fibrillation without current medicati on 04/20/2019 Paroxysmal atrial fibrillation (CMS/HCC) 019 Hx of CABG 10/13/2018 Coronary artery disease invo lving sleetmute coronary artery of sleetmute heart without angina pectoris 09/15/2018 Overview (09/15/2018): Added automatically from request for surgery [id number] Hyperlipidemia associated with type 2 diabetes m talib 04/24/2016 Overview (12/19/2016): Hypercholesteremia Assessment & Plan (07/28/2017 1:29 PM RECORDS ADMINISTRATOR): 07/28/2017 POC lipids: Total chol 163, TG [...] (08/31/2018): Added automatically from request for surgery [id number] Hyperlipidemia 02/12/2015 07/28/2017 Overview (12/19/2016): HLD (hyperlipidemia) Coronary arteriosclerosis in sleetmute artery 02/12/2015 10/13/2018 Overview (12/19/2016): CAD in sleetmute artery Immunizations Immunization Administration Dates Next Due [...] on file Legal Sex Male 10:57 AM RECORDS ADMINISTRATOR Gender Identity Not on file Sexual Orientation Not on file Last Filed Vital Signs Vital Sign Reading Time Taken Comments Blood Pressure 123/40 10/20/2024 12:15 PM RECORDS ADMINISTRATOR Pulse 79 10/20/2024 12:15 PM RECORDS ADMINISTRATOR Temperature 36.4 C (97.5 F) 10/20/2024 10:05 AM RECORDS ADMINISTRATOR Respiratory Rate 18 10/20/2024 12:15 PM RECORDS ADMINISTRATOR Oxygen Saturation 93% 10/20/2024 12:15 PM RECORDS ADMINISTRATOR Inhaled Oxygen Concentration - - Weight 91.6 kg (202 lb) 10/31/2024 11:24 AM RECORDS ADMINISTRATOR Height 175.3 cm (5' 9 ) 10/31/2024 11:24 AM RECORDS ADMINISTRATOR Body Mass Index 29.83 10/31/2024 11:24 AM RECORDS ADMINISTRATOR Plan of Treatment Not on file Medical Devices Implanted Type Area Panel Cutter Device Identifier Shelf Expiration Date Model / Serial / Lot [employer] Universa 6fr 24cm Radiopaque Graduate Firm Monofilament Tether [id number] - [id number] Implanted:Qty: 1 on 10/20/2024 by Sofie Chen MD at [facility] Stent Right: Ureter [employer] [id number] 07/15/2027 [id number] / / [id number] [employer] Universa 6fr 24cm Radiopaque Graduate Firm Monofilament Tether [id number] - [id number] Implanted:Qty: 1 on 10/20/2024 by Sofie Chen MD at [facility] Stent Right: Ureter [employer] [id number] 07/15/2027 [id number] / / [id number] Medsternal Wire Cabg Bilateral: Chest Wall [employer] [id number] Suturebridge Tobias Drill Guide Punch Tap Set Implant Achilles - [id number] Implanted:Qty: 1 on 12/04/2020 by Ryan Allison MD at [facility] Left: Shoulder [employer] 01/12/2024 [id number]- CP / / [id number] [employer] Ar-7535 Fiberlink Arthrex Suturetape 1.3mm Tape Suture Nonabsorbable - [id number] Implanted:Qty: 1 on 12/04/2020 by Ryan Allison MD at [facility] Left: Shoulder [employer] 10/14/2024 [id number]-7535 / / [id number] [employer] Ar-[id number] Swivelock C 4.75mm 19.1mm Closed Eyelet Vent Tobias Suture - [id number] Implanted:Qty: 1 on 12/04/2020 by Ryan Allison MD at [facility] Left: Shoulder [employer] 06/13/2024 [id number] / / [id number] [facility] [id number] Regenesorb Ultratape Ultrabraid 4.75mm Smooth 2 Tobias Suture - [id number] Implanted:Qty: 1 on 12/04/2020 by Ryan Allison MD at [facility] Left: Shoulder [employer] [facility] 08/07/2023 [id number] / / [id number] [employer] Ar-[id number] Swivelock Tenodesis 6.25mm 19.1mm Closed Eyelet Shoulder Biceps - [id number] Implanted:Qty: 1 on 12/04/2020 by Ryan Allison MD at [facility] Left: Shoulder [employer] 09/13/2024 AR-[id number] / / [id number] Explanted Type Area Panel Cutter Device Identifier Shelf Expiration Date Model / Serial / Lot [employer] Universa 6fr 24cm Radiopaque Graduate Firm Monofilament Tether [id number] - [id number] - [id number] Implanted:Qty: 1 on 09/21/2024 by Valery Carson MD at [facility] Explanted:Qty: 1 on 10/20/2024 Stent Right: Ureter [employer] [id number] 05/10/2027 [id number] / [id number] T1 / [id number] Procedures Procedure Name Priority Date/Time Associated Diagnosis Comments PHOSPHORUS, URINE, RANDOM Routine 10/31/2024 12:31 PM RECORDS ADMINISTRATOR Nephrolithiasis PTH Routine 10/31/2024 12:24 PM RECORDS ADMINISTRATOR Nephrolithiasis URIC ACID Routine 10/31/2024 12:24 PM RECORDS ADMINISTRATOR Nephrolithiasis URINALYSIS, MICROSCOPIC ONLY Routine 10/31/2024 12:01 PM RECORDS ADMINISTRATOR Nephrolithiasis URINALYSIS AND REFLEX TO MICROSCOPIC AND CULTURE Routine 10/31/2024 12:01 PM RECORDS ADMINISTRATOR Nephrolithiasis POCT URINALYSIS DIPSTICK Routine 10/31/2024 11:49 AM RECORDS ADMINISTRATOR Nephrolithiasis POCT GLUCOSE DEVICE Routine 10/20/2024 9 :28 AM RECORDS ADMINISTRATOR FL RETRO PYELO (IN OR) IP Routine 9:10 AM RECORDS ADMINISTRATOR STONE ANALYSIS Routine 10/20/2024 9:02 AM RECORDS ADMINISTRATOR AZ AN PROCEDURE PLACEHOLDER Routine 10/20/2024 7:44 AM RECORDS ADMINISTRATOR AZ AN ELECTIVE SUPRAGLOTTIC AIRWAY Routine 10/20/2024 7:44 AM RECORDS ADMINISTRATOR URETEROSCOPY STONE MANIPULATION WITH ABLATION LASER 10/20/2024 7:36 AM RECORDS ADMINISTRATOR Kidney stone POC BLOOD GAS AND CHEMISTRIES, VENOUS Routine 10/20/2024 6:15 AM RECORDS ADMINISTRATOR POCT CREATININE FOR CONTRAST EVALUATION Routine 10/20/2024 6:11 AM RECORDS ADMINISTRATOR POCT GLUCOSE DEVICE Routine 09/22/2024 7 :38 AM RECORDS ADMINISTRATOR POCT GLUCOSE DEVICE Routine 09/22/2024 4 :24 AM RECORDS ADMINISTRATOR POCT GLUCOSE DEVICE Routine 09/22/2024 12:20 AM RECORDS ADMINISTRATOR POCT GLUCOSE DEVICE Routine 09/21/2024 9 :49 PM RECORDS ADMINISTRATOR POCT GLUCOSE DEVICE Routine 09/21/2024 7 :44 PM RECORDS ADMINISTRATOR FL FLUOROSCOPY < 1 HOUR IP Routine 09/21/19 7:23 PM RECORDS ADMINISTRATOR URINE CULTURE Routine 09/21/2024 7:21 PM RECORDS ADMINISTRATOR AZ AN PROCEDURE PLACEHOLDER Routine 09/21/2024 7:13 PM RECORDS ADMINISTRATOR AZ AN ELECTIVE ENDOTRACHEAL AIRWAY Routine 09/21/2024 7:13 PM RECORDS ADMINISTRATOR CYSTOSCOPY PLACEMENT URETERAL STENT 09/21/2024 6:56 PM RECORDS ADMINISTRATOR Kidney stone Case Notes POC; Rob [phone] POCT GLUCOSE DEVICE Routine 09/21/2024 5 :12 PM RECORDS ADMINISTRATOR POCT GLUCOSE DEVICE Routine 09/21/2024 3 :42 PM RECORDS ADMINISTRATOR POCT GLUCOSE DEVICE Routine 09/21/2024 11:52 AM RECORDS ADMINISTRATOR POCT GLUCOSE DEVICE Routine 09/21/2024 7 :29 AM RECORDS ADMINISTRATOR POCT GLUCOSE DEVICE Routine 09/21/2024 3 :39 AM RECORDS ADMINISTRATOR POCT GLUCOSE DEVICE Routine 09/21/2024 12:07 AM RECORDS ADMINISTRATOR POCT GLUCOSE DEVICE Routine 09/20/2024 10:47 PM RECORDS ADMINISTRATOR EGFR Timed 09/20/2024 9:52 PM RECORDS ADMINISTRATOR CBC WITHOUT DIFFERENTIAL Timed 09/20/2024 9:52 PM RECORDS ADMINISTRATOR PHOSPHORUS Timed 09/20/2024 9:52 PM RECORDS ADMINISTRATOR MAGNESIUM Timed 09/20/2024 9:52 PM RECORDS ADMINISTRATOR BASIC METABOLIC PANEL Timed 09/20/2024 9:52 PM RECORDS ADMINISTRATOR TROPONIN I HIGH-SENSITIVITY 4-HOUR Timed 09/20/2024 9:52 PM RECORDS ADMINISTRATOR POCT GLUCOSE DEVICE Routine 09/20/2024 8 :37 PM RECORDS ADMINISTRATOR POCT GLUCOSE DEVICE Routine 09/20/2024 5 :23 PM RECORDS ADMINISTRATOR TROPONIN I HIGH-SENSITIVITY 6-HOUR Timed 09/20/2024 4:35 PM RECORDS ADMINISTRATOR TROPONIN I HIGH-SENSITIVITY 2-HOUR Timed 09/20/2024 1:45 PM RECORDS ADMINISTRATOR POCT GLUCOSE DEVICE Routine 09/20/2024 1 :42 PM RECORDS ADMINISTRATOR TRANSTHORACIC ECHO (TTE) COMPLETE W DOPPLER/CF W CONTRAST ED Urgent/IP Urgent 09/20/2024 12:22 PM RECORDS ADMINISTRATOR POCT GLUCOSE DEVICE Routine 09/20/2024 11:15 AM RECORDS ADMINISTRATOR XR CHEST PA LATERAL 2 VIEWS ED Urgent/IP Urgent 09/20/2024 11:04 AM RECORDS ADMINISTRATOR ECG 12-LEAD STAT 09/20/2024 10:33 AM RECORDS ADMINISTRATOR TROPONIN I HIGH-SENSITIVITY SERIES (BASELINE, 2HR, 4HR, 6HR) STAT 09/20/2024 10:15 AM RECORDS ADMINISTRATOR POCT GLUCOSE DEVICE Routine 09/20/2024 8 :45 AM RECORDS ADMINISTRATOR URINALYSIS, MICROSCOPIC ONLY Routine 09/20/2024 6:17 AM RECORDS ADMINISTRATOR URINALYSIS AND REFLEX TO MICROSCOPIC Routine 09/20/2024 6:17 AM RECORDS ADMINISTRATOR URINE CULTURE Routine 09/20/2024 6:17 AM RECORDS ADMINISTRATOR B CHECK SAMPLE STAT 09/20/2024 5:42 AM RECORDS ADMINISTRATOR POCT GLUCOSE DEVICE Routine 09/20/2024 5 :[address] BODY OUTSIDE CONSULT Routine 09/20/19 4:57 AM RECORDS ADMINISTRATOR EGFR STAT 09/20/2024 4:33 AM RECORDS ADMINISTRATOR DIFFERENTIAL AUTO STAT 09/20/2024 4:3 3 AM RECORDS ADMINISTRATOR PHOSPHORUS STAT 09/20/2024 4:33 AM RECORDS ADMINISTRATOR MAGNESIUM STAT 09/20/2024 4:33 AM RECORDS ADMINISTRATOR TYPE AND SCREEN STAT 09/20/2024 4:33 AM RECORDS ADMINISTRATOR APTT STAT 09/20/2024 4:33 AM RECORDS ADMINISTRATOR PROTIME-INR STAT 09/20/2024 4:33 AM RECORDS ADMINISTRATOR BASIC METABOLIC PANEL STAT 09/20/2024 4:33 AM RECORDS ADMINISTRATOR CBC WITH AUTO DIFFERENTIAL STAT 09/20/2024 4:33 AM RECORDS ADMINISTRATOR ELECTROCARDIOGRAM REPORT Routine 08/31/2024 2:35 PM RECORDS ADMINISTRATOR Coronary artery disease involving sleetmute coronary artery of sleetmute heart without angina pectoris POCT LIPID PANEL Routine 08/31/2024 9:59 AM RECORDS ADMINISTRATOR Coronary artery disease involving sleetmute coronary artery of sleetmute heart without angina pectoris CYSTOSCOPY PLACEMENT URETERAL STENT Kidney stone Case Notes POC; Sree [phone] from Last 3 Months Results * Phosphorus, urine, random (10/31/2024 12:31 PM RECORDS ADMINISTRATOR) Phosphorus, ur 28.7 mg/dL Comment: Interpretive Data No reference range established. Current interpretive data was last revised 2019. Urine 10/31/2024 12:3 1 PM RECORDS ADMINISTRATOR 10/31/2024 7:01 PM RECORDS ADMINISTRATOR us Hectorsef Carito Chen MD LAB URINE ORDERABLES Final Result Performing Organization Address [facility] de Phone Number [address] [address] * Uric acid (10/31/2024 12:24 PM RECORDS ADMINISTRATOR) Pathologist [facility] Uric acid 6.1 3.0 - 8.0 mg/dL Comment:Testing performed by : [address] [address] Blood 10/31/2024 12:2 4 PM RECORDS ADMINISTRATOR 10/31/2024 1:38 PM RECORDS ADMINISTRATOR us Yousef Carito Chen MD LAB BLOOD ORDERABLES Final Result Performing Organization Address [facility] de Phone Number [address] [address] * PTH (10/31/2024 12:24 PM RECORDS ADMINISTRATOR) Pathologist [facility] PTH 56 15 - 65 pg/mL Comment:Testing performed by : [address] [address] Blood 10/31/2024 12:2 4 PM RECORDS ADMINISTRATOR 10/31/2024 1:38 PM RECORDS ADMINISTRATOR Sofie Chen MD LAB BLOOD ORDERABLES Final Result Performing Organization Address [facility] de Phone Number [address] [address] * (ABNORMAL) Urinalysis reflex to microscopic and culture Urine, bladder (10/31/2024 12:01 PM RECORDS ADMINISTRATOR) Pathologist [facility] Color, ur Red(A) Yellow Comment:Testing performed by : [address] [address] Clarity, ur Turbid(A) Clear CHERYL FONSECA Comment:Testing performed by : [address] [address] Specific gravity, ur 1.018 1.003 - 1.030 CHERYL FONSECA Comment:Testing performed by : [facility], [address] [place] [address], [place]., [address] pH, urine 6.0 CHERYL Comment: Interpretive Data U rine pH is affected by diet, medications, systemic acid-base disturbances, and renal tubular function. pH may affect urinary stone formation. For example, urine pH below 6.0 may help reduce the tendency for calcium phosphate stones and pH greater than 6.0 may reduce the tendency for uric acid stone formation. Source: [facility] Tele[facility] Current Interpretive Data was last revised on 2017 Testing performed by: [facility], [address] [place] [address], [place]., [address] Protein, ur ql 2+(A) Negative CHERYL Comment:Testing performed by : [address], [place]., [address] Glucose, ur ql Negative Negative CHERYL Comment:Testing performed by : [address], [place]., [address] Ketones, ur Negative Negative CHERYL Comment:Testing performed by : [address], [place]., [address] Bilirubin, ur Negative Negative CHERYL Comment:Testing performed by : [address], [place]., [address] Blood, ur 3+(A) Negative CHERYL Comment:Testing performed by : [address], [place]., [address] Urobilinogen, ur <2.0 <2.0 mg/dL CHERYL Comment:Testing performed by : [address] [address] Nitrite, ur Negative Negative CHERYL Comment:Testing performed by : [address], [place]., [address] Leukocyte esterase, ur 4+(A) Negative CHERYL Comment:Testing performed by : [address] [address] UA reflex comment Reflex to microscopic UA will be performed. CHERYL Comment:Testing performed by : [address], [place]., [address] Urine, bladder 10/31/2024 12 :01 PM RECORDS ADMINISTRATOR 10/31/2024 8:31 PM RECORDS ADMINISTRATOR Hectorsef Carito Chen MD LAB MICROBIOLOGY - G ENERAL ORDERABLES Final Result Performing Organization Address [facility] de Phone Number CHERYL [address] [place] [address] * (ABNORMAL) Urinalysis, microscopic only (10/31/2024 12:01 PM RECORDS ADMINISTRATOR) WBC, ur >50(A) 0 - 5 /HPF Comment:Testing performed by : [facility], [address] [place] [address]., [address] RBC, ur >50(A) 0 - 2 /HPF CHERYL Comment:Testing performed by : [facility], [address] [place] [address]., [address] Culture Reflex Comment Reflex to urine culture will be performed. CHERYL Comment:Testing performed by : [address] [address] Urine, bladder 10/31/2024 12 :01 PM RECORDS ADMINISTRATOR 10/31/2024 8:31 PM RECORDS ADMINISTRATOR us Yousef Carito Chen MD LAB URINE ORDERABLES Final Result Performing Organization Address [facility] de Phone Number CHERYL [address] [address] * (ABNORMAL) POCT urinalysis dipstick (10/31/2024 11:49 AM RECORDS ADMINISTRATOR) Color, Urine, POC Yellow Clarity, ur, POC Clear Clear Glucose, ur, POC Negative Negative MG/DL Bilirubin, ur, POC Negative Negative, Small, Moderate, Large Ketones, ur, POC Negative Negative Specific [place], POC 1.025 1.003 - 1.030 Blood, ur, POC 3+(A) Negative pH, ur, POC 6.0 5.0 - 8.0 Protein, ur, POC 2+(A) Negative Urobilinogen, urine, POC 0.2 0.2 - 1.0 mg/dL Nitrite, ur, POC Negative Negative Leukocytes, ur, POC 3+(A) Negative Lot Number 0 Urine 10/31/2024 11:4 9 AM RECORDS ADMINISTRATOR Sofie Chen MD POINT OF CARE TEST O RDERABLES Final Result * POCT glucose (10/20/2024 9:28 AM RECORDS ADMINISTRATOR) Glucose, POC 158 70 - 199 mg/dL Blood 10/20/2024 9:28 AM RECORDS ADMINISTRATOR 10/20/2024 9:28 AM RECORDS ADMINISTRATOR Sofie Chen MD LAB POCT ORDERABLES - DEVICE Final Result Performing Organization Address [facility] de Phone Number CHERYL FONSECA [address] [facility] Department [place] [address] * FL Retro Pyelo (In Or) (10/20/2024 9:10 AM RECORDS ADMINISTRATOR) Narrative ADRIAN_[email or web address]_[email or web address]_MHE - 10/20/2024 9:18 AM RECORDS ADMINISTRATOR The images from this study are not interpreted by Radiology. Please refer to the physician's procedure / OR operative note. Sofie Chen MD IMG FLUOROSCOPY PROC EDURES Final Result Performing Organization Address [facility] de Phone Number ADRIAN_[email or web address] * Stone analysis (10/20/2024 9:02 AM RECORDS ADMINISTRATOR) Stone analysis Not Reported [facility] Lab Source, Kid Stone Right Ureter CHERYL [...] developed and its performance characteristics determined by [facility] in a manner consistent with CLIA requirements. This test has not been cleared or approved by the U.S. Food and Drug Administration. Test Performed by: [facility] Laboratories - [facility] [address] [place] [address] Button Reclaimer: Bridger Mckeon Ph.D.; CLIA# [id number] Stone (Urine, Clean Catch) 10/20/2024 9:02 AM RECORDS ADMINISTRATOR 10/20/2024 9:29 AM RECORDS ADMINISTRATOR Narrative CHERYL - 10/28/2024 11:09 AM RECORDS ADMINISTRATOR Right ureteral stone for analysis us Sofie Chen MD LAB URINE ORDERABLES Final Result CHERYL [address] [place] [address] Department [place] [address] [facility] * AZ AN ELECTIVE SUPRAGLOTTIC AIRWAY, [place] AN PROCEDURE PLACEHOLDER (10/20/2024 7:44 AM RECORDS ADMINISTRATOR) Narrative Nallely Mosley CRNA - 10/20/2024 7:44 AM RECORDS ADMINISTRATOR Nallely Mosley CRNA 10/20/2024 7:48 AM Airway Patient location: OR Urgency: elective Indications for airway management: anesthesia Difficult airway: no Staff: Placed by: CRITICAL CARE REGISTERED NURSE: Nallely Mosley CRNA Emergent airway documentation: Risks [...] and Chemistries, Venous - (10/20/2024 6:15 AM RECORDS ADMINISTRATOR) pH,live POC 7.38 7.32 - 7.43 pCO2, live POC 44 40 - 50 mmHg [facility] pO2,live POC 45 mmHg [facility] Comment: Interpretive Data No reference range established. Current interpretive data was last revised 2020. HCO3, live (Calc) POC 26 20 - 30 mmol/L [facility] Base excess, live POC 1 mmol/L [facility] Comment: Interpretive Data No reference range established. Current interpretive data was last revised 2020. Hemoglobin, live POC 11.6(L) 13.0 - 17.5 g/dL [facility] Hematocrit, live POC 34.0(L) 38.9 - 50.3 % [facility] Sodium, live POC 140 135 - 145 mmol/L [facility] Potassium, live POC 4.1 3.3 - 4.9 mmol/L [facility] Comment: Interpretive Data This method is not able to assess for hemolysis, which may falsely increase potassium concentrations. If further testing is needed to evaluate this result, consider in-laboratory plasma potassium. Current Interpretive Data was last revised on 2022. Glucose, live POC 158 70 - 199 mg/dL [facility] Ionized Calcium, live POC 5.10 4.50 - 5.10 mg/dL [facility] Blood 10/20/2024 6:15 AM RECORDS ADMINISTRATOR 10/20/2024 6:15 AM RECORDS ADMINISTRATOR us Hectorsef Carito Chen MD LAB POCT ORDERABLES - DEVICE Final Result CHERYL [address] [facility] Department [place] [address] * POCT creatinine for contrast evaluation (10/20/2024 6:11 AM RECORDS ADMINISTRATOR) Pathologist [facility] Creatinine POC 1.00 0.80 - 1.30 mg/dL Blood 10/20/2024 6:11 AM RECORDS ADMINISTRATOR 10/20/2024 6:11 AM RECORDS ADMINISTRATOR us Sofie Chen MD POINT OF CARE TEST O RDERABLES Final Result CHERYL [address] Department [place] [address] * POCT glucose (09/22/2024 7:38 AM RECORDS ADMINISTRATOR) Glucose, POC 116 70 - 199 mg/dL Blood 09/22/2024 7:38 AM RECORDS ADMINISTRATOR 09/22/2024 7:38 AM RECORDS ADMINISTRATOR Du Cruz MD LAB POCT ORDERABLES - DEV ICE Final Result Performing Organization Address City/[facility]/ZIP Co de Phone Number [facility] [place] [address] * POCT glucose (09/22/2024 4:24 AM RECORDS ADMINISTRATOR) Glucose, POC 121 70 - 199 mg/dL Blood 09/22/2024 4:24 AM RECORDS ADMINISTRATOR 09/22/2024 4:24 AM RECORDS ADMINISTRATOR Du Cruz MD LAB POCT ORDERABLES - DEV ICE Final Result Performing Organization Address [facility]/ZIP Co de Phone Number [facility] [place] [address] * POCT glucose (09/22/2024 12:20 AM RECORDS ADMINISTRATOR) Glucose, POC 124 70 - 199 mg/dL Blood 09/22/2024 12:2 0 AM RECORDS ADMINISTRATOR 09/22/2024 12:20 AM RECORDS ADMINISTRATOR Du Cruz MD LAB POCT ORDERABLES - DEV ICE Final Result Performing Organization Address City/[facility]/ZIP Co de Phone Number [facility] [place] [address] * POCT glucose (09/21/2024 9:49 PM RECORDS ADMINISTRATOR) Glucose, POC 130 70 - 199 mg/dL Blood 09/21/2024 9:49 PM RECORDS ADMINISTRATOR 09/21/2024 9:49 PM RECORDS ADMINISTRATOR Du Cruz MD LAB POCT ORDERABLES - DEV ICE Final Result Performing Organization Address [facility] de Phone Number [facility] [place] [address] * POCT glucose (09/21/2024 7:44 PM RECORDS ADMINISTRATOR) Glucose, POC 121 70 - 199 mg/dL Blood 09/21/2024 7:44 PM RECORDS ADMINISTRATOR 09/21/2024 7:44 PM RECORDS ADMINISTRATOR Du Cruz MD LAB POCT ORDERABLES - DEV ICE Final Result Performing Organization Address [facility] de Phone Number [facility] [place] [address] * FL Fluoroscopy < 1 Hour (09/21/2024 7:23 PM RECORDS ADMINISTRATOR) Narrative [facility] - 09/21/2024 7:23 PM RECORDS ADMINISTRATOR The images from this study are not interpreted by Radiology. Please refer to the physician's procedure / OR operative note. Valery Carson MD IMG FLUOROSCOPY PROCEDURES F inal Result Performing Organization Address [facility]/[place] Co de Phone Number [email or web address] * Urine culture Urine, bladder (09/21/2024 7:21 PM RECORDS ADMINISTRATOR) Report Final Report: No growth Urine, bladder 09/21/2024 7: 21 PM RECORDS ADMINISTRATOR 09/21/2024 9:38 PM RECORDS ADMINISTRATOR Narrative [facility] - 09/23/2024 7:48 AM RECORDS ADMINISTRATOR Urine culture Indications for Culture:->Urology patient Specimen received in a sterile container. Testing performed by [facility] ([phone]) us Valery Carson MD LAB MICROBIOLOGY - GENERAL O RDERABLES Final Result CHERYL [facility] Department [place] [address] * [place] AN ELECTIVE ENDOTRACHEAL AIRWAY, [place] AN PROCEDURE PLACEHOLDER (09/21/2024 7:13 PM RECORDS ADMINISTRATOR) Narrative Christiana Howard CRNA - 09/21/2024 7:13 PM RECORDS ADMINISTRATOR Chirstiana Howard CRNA 09/21/2024 7:14 PM Airway Patient location: OR Urgency: elective Indications for airway management: anesthesia Difficult airway: no Staff: Supervising provider: Palmira Garcia MD Placed by: CRITICAL CARE REGISTERED NURSE: Christiana Howard CRNA Emergent airway documentation: Risks [...] esult * POCT glucose (09/21/2024 5:12 PM RECORDS ADMINISTRATOR) Glucose, POC 104 70 - 199 mg/dL Blood 09/21/2024 5:12 PM RECORDS ADMINISTRATOR 09/21/2024 5:12 PM RECORDS ADMINISTRATOR us Du Cruz MD LAB POCT ORDERABLES - DEV ICE Final Result Performing Organization Address [facility]/[place] Co de Phone Number [facility] [place] [address] * POCT glucose (09/21/2024 3:42 PM RECORDS ADMINISTRATOR) Glucose, POC 130 70 - 199 mg/dL Blood 09/21/2024 3:42 PM RECORDS ADMINISTRATOR 09/21/2024 3:42 PM RECORDS ADMINISTRATOR Du Cruz MD LAB POCT ORDERABLES - DEV ICE Final Result Performing Organization Address [facility]/[place] [address] * POCT glucose (09/21/2024 11:52 AM RECORDS ADMINISTRATOR) Glucose, POC 170 70 - 199 mg/dL Blood 09/21/2024 11:5 2 AM RECORDS ADMINISTRATOR 09/21/2024 11:52 AM RECORDS ADMINISTRATOR Du Cruz MD LAB POCT ORDERABLES - DEV ICE Final Result Performing Organization Address [facility]/[place] Co de Phone Number [facility] [place] [address] * POCT glucose (09/21/2024 7:29 AM RECORDS ADMINISTRATOR) Glucose, POC 188 70 - 199 mg/dL Blood 09/21/2024 7:29 AM RECORDS ADMINISTRATOR 09/21/2024 7:29 AM RECORDS ADMINISTRATOR Du Cruz MD LAB POCT ORDERABLES - DEV ICE Final Result Performing Organization Address City/[facility]/[place] Co de Phone Number [facility] [place] [address] * POCT glucose (09/21/2024 3:39 AM RECORDS ADMINISTRATOR) Glucose, POC 161 70 - 199 mg/dL Blood 09/21/2024 3:39 AM RECORDS ADMINISTRATOR 09/21/2024 3:39 AM RECORDS ADMINISTRATOR Du Cruz MD LAB POCT ORDERABLES - DEV ICE Final Result Performing Organization Address [facility] de Phone Number [facility] [place] [address] * POCT glucose (09/21/2024 12:07 AM RECORDS ADMINISTRATOR) Glucose, POC 134 70 - 199 mg/dL Blood 09/21/2024 12:0 7 AM RECORDS ADMINISTRATOR 09/21/2024 12:07 AM RECORDS ADMINISTRATOR Du Cruz MD LAB POCT ORDERABLES - DEV ICE Final Result Performing Organization Address [facility] de Phone Number [facility] [place] [address] * POCT glucose (09/20/2024 10:47 PM RECORDS ADMINISTRATOR) Glucose, POC 133 70 - 199 mg/dL Blood 09/20/2024 10:4 7 PM RECORDS ADMINISTRATOR 09/20/2024 10:47 PM RECORDS ADMINISTRATOR Du Cruz MD LAB POCT ORDERABLES - DEV ICE Final Result Performing Organization Address [facility] de Phone Number [facility] [place] [address] * Troponin I high-sensitivity 4-hour (09/20/2024 9:52 PM RECORDS ADMINISTRATOR) Trop I hs <4 <=35 ng/L Comment: [...] report a delta. Blood 09/20/2024 9:52 PM RECORDS ADMINISTRATOR 09/20/2024 10:16 PM RECORDS ADMINISTRATOR [facility] Velasquez Cruz MD LAB BLOOD ORDERABLES Cinthia mercado Result [facility] Department [place] [address] * eGFR (09/20/2024 9:52 PM RECORDS ADMINISTRATOR) eGFR 71 >=60 mL/min/1. 73 m2 Comment: [...] last reviewed 2021. Blood 09/20/2024 9:52 PM RECORDS ADMINISTRATOR 09/20/2024 10:17 PM RECORDS ADMINISTRATOR Du Cruz MD LAB BLOOD ORDERABLES Cinthia l Result Performing Organization Address [facility]/[place] Co de Phone Number [facility] Department [place] [address] * (ABNORMAL) CBC without differential (09/20/2024 9:52 PM RECORDS ADMINISTRATOR) Pathologist [facility] WBC 8.8 3.8 - 9.9 K/cumm Hgb 12.7(L) 13.0 - 17.5 g/dL [facility] Hct 38.5(L) 38.9 - 50.3 % [facility] Plt 307 150 - 400 K/cumm [facility] MPV 9.8 9.1 - 12.3 fL [facility] RBC 4.35 4.30 - 5.80 M/cumm [facility] MCV 88.5 81.3 - 96.4 fL [facility] MCH 29.2 27.1 - 33.3 pg [facility] MCHC 33.0 32.3 - 35.7 g/dL [facility] RDW CV 11.9 11.1 - 14.9 % [facility] RDW SD 38.7 35.7 - 48.1 fL [facility] NRBC abs 0.00 0.00 - 0.01 K/cumm [facility] Blood 09/20/2024 9:52 PM RECORDS ADMINISTRATOR 09/20/2024 10:18 PM RECORDS ADMINISTRATOR Du Cruz MD LAB BLOOD ORDERABLES Cinthia l Result [facility] Department [place] [address] * Phosphorus (09/20/2024 9:52 PM RECORDS ADMINISTRATOR) Pathologist [facility] Phosphorus, pl 4.1 2.3 - 4.5 mg/dL Blood 09/20/2024 9:52 PM RECORDS ADMINISTRATOR 09/20/2024 10:17 PM RECORDS ADMINISTRATOR Du Curz MD LAB BLOOD ORDERABLES Cinthia l Result Performing Organization Address City/[facility]/ZIP Co de Phone Number [facility] Department [place] [address] * Magnesium (09/20/2024 9:52 PM RECORDS ADMINISTRATOR) Pathologist [facility] Magnesium 1.9 1.4 - 2.5 mg/dL Blood 09/20/2024 9:52 PM RECORDS ADMINISTRATOR 09/20/2024 10:17 PM RECORDS ADMINISTRATOR Du Cruz MD LAB BLOOD ORDERABLES Cinthia l Result Performing Organization Address [facility] de Phone Number [facility] Department [place] [address] * Basic metabolic panel (09/20/2024 9:52 PM RECORDS ADMINISTRATOR) Pathologist [facility] Sodium 141 135 - 145 mmol/L Potassium, pl 4.1 3.3 - 4.9 mmol/L [facility] Chloride 102 97 - 110 mmol/L [facility] CO2 31 22 - 32 mmol/L [facility] Anion gap 8 2 - 15 mmol/L [facility] BUN 15 6 - 25 mg/dL [facility] Creatinine 1.10 0.80 - 1.30 mg/dL [facility] Glucose 127 70 - 199 mg/dL [facility] Comment: Interpretive Data Fasting glucose >/= 126 [...] 2022. Calcium 8.9 8.5 - 10.3 mg/dL [facility] Blood 09/20/2024 9:52 PM RECORDS ADMINISTRATOR 09/20/2024 10:17 PM RECORDS ADMINISTRATOR Du Cruz MD LAB BLOOD ORDERABLES Cinthia l Result Performing Organization Address [facility]/[place] Co de Phone Number [facility] [place] [address] * POCT glucose (09/20/2024 8:37 PM RECORDS ADMINISTRATOR) Glucose, POC 155 70 - 199 mg/dL Blood 09/20/2024 8:37 PM RECORDS ADMINISTRATOR 09/20/2024 8:37 PM RECORDS ADMINISTRATOR Du Cruz MD LAB POCT ORDERABLES - DEV ICE Final Result Performing Organization Address [facility] de Phone Number [facility] Department [place] [address] * POCT glucose (09/20/2024 5:23 PM RECORDS ADMINISTRATOR) Glucose, POC 145 70 - 199 mg/dL Blood 09/20/2024 5:23 PM RECORDS ADMINISTRATOR 09/20/2024 5:23 PM RECORDS ADMINISTRATOR Result [facility] Du Cruz MD LAB POCT ORDERABLES - DEV ICE Final Result Performing Organization Address [facility] [place] [address] * Troponin I high-sensitivity 6-hour (09/20/2024 4:35 PM RECORDS ADMINISTRATOR) Trop I hs <4 <=35 ng/L Comment: Interpretive Data For further hscTnI resources including the diagnostic algorithm and an aid in interpretation, copy and paste this link: https://bjhlab.testcatalog.org/show/hsTrop-1 Current Interpretive Data last revised 2020. Trop I hs delta 0 ng/L [facility] Trop I hs interp Insignificant [facility] Blood 09/20/2024 4:35 PM RECORDS ADMINISTRATOR 09/20/2024 5:10 PM RECORDS ADMINISTRATOR Du Cruz MD LAB BLOOD ORDERABLES Cinthia l Result Performing Organization Address [facility]/[place] Co de Phone Number [facility] Department [place] [address] * Troponin I high-sensitivity 2-hour (09/20/2024 1:45 PM RECORDS ADMINISTRATOR) [facility] Trop I hs <4 <=35 ng/L Comment: Interpretive Data For further hscTnI resources including the diagnostic algorithm and an aid in interpretation, copy and paste this link: https://bjhlab.testcatalog.org/show/hsTrop-1 Current Interpretive Data last revised 2020. Trop I hs delta See Comment ng/L [facility] Comment:Inappropriate collec tion time to report a delta. Trop I hs pct delta See Comment % [facility] Comment:Inappropriate collec tion time to report a delta. Trop I hs interp See Comment [facility] Comment:Inappropriate collec tion time to report a delta. Blood 09/20/2024 1:45 PM RECORDS ADMINISTRATOR 09/20/2024 2:21 PM RECORDS ADMINISTRATOR Result [facility] Du Cruz MD LAB BLOOD ORDERABLES Cinthia l Result Performing Organization Address [facility]/[place] Co de Phone Number [facility] [address] [place] [address] * POCT glucose (09/20/2024 1:42 PM RECORDS ADMINISTRATOR) [facility] Glucose, POC 172 70 - 199 mg/dL Blood 09/20/2024 1:42 PM RECORDS ADMINISTRATOR 09/20/2024 1:42 PM RECORDS ADMINISTRATOR Result [facility] Du Cruz MD LAB POCT ORDERABLES - DEV ICE Final Result CHERYL [facility] Department [place] [address] * TRANSTHORACIC ECHO (TTE) COMPLETE W DOPPLER/CF W CONTRAST (09/20/2024 12:22 PM RECORDS ADMINISTRATOR) LV EF 70 % CARDIOREPORT Anatomical Region Laterality Modality Ultrasound 09/20/2024 11:3 5 AM RECORDS ADMINISTRATOR Narrative 09/20/2024 1:44 PM RECORDS ADMINISTRATOR Patient name: Boo Serrato Date of test: 09/20/2024 Type of test: TTE w/Doppler Hospital #: 0 Date of : 1950 (M) [place] Worker: Nichole Lin RDCS, [employer] Referring Physician: DU CRUZ MD Contrast Agent: 0.15 ml Definity Administered, (1.35 ml wasted). Contrast Administered by: Diann Renee RN Supervised/Interpreted by: Steve Yu MD Diagnosis: SOB Location: [place] [facility] Reason for test: Chest pain [...] 2=Hypo 3=Akinetic 4=Dyskin./Aneurysm 0=Not visualized) Parasternal Long [place]:MAS=1 BAS=1 MIL=1 JESSICA=1 Parasternal Short [place]:MAS=1 MIS=1 PR=1 MIL=1 MAL=1 MA=1 Apical 4 Chambers:=1 MIS=1 BIS=1 BAL=1 MAL=1 AL=1 AC=1 Apical 2 Chambers:AI=1 PR=1 BI=1 BA=1 MA=1 AA=1 AC=1 LV Global [...] MD By signing this report, the attending mixing plant operator certifies that he or she has personally supervised and interpreted the echocardiogram and has reviewed and or edited and agrees with the written comments contained within the report. Procedure Note Steve Yu MD - 09/20/2024 Patient name: Boo Serrato Date of test: 09/20/2024 Type of test: TTE w/Doppler [facility] #: 0 Date of : 1950 (M) [place] Worker: Nichole Lin, SONAL, [employer] Referring Physician: DU CRUZ MD Contrast Agent: 0.15 ml Definity Administered, (1.35 ml wasted). Contrast Administered by: Diann Renee, RN Supervised/Interpreted by: Steve Yu MD Diagnosis: SOB Location: [facility] Reason for test: Chest pain or SOB, [...] 2=Hypo 3=Akinetic 4=Dyskin./Aneurysm 0=Not visualized) Parasternal Long [place]:MAS=1 BAS=1 MIL=1 JESSICA=1 Parasternal Short [place]:MAS=1 MIS=1 PR=1 MIL=1 MAL=1 MA=1 Apical 4 Chambers:=1 MIS=1 BIS=1 BAL=1 MAL=1 AL=1 AC=1 Apical 2 Chambers:AI=1 PR=1 BI=1 BA=1 MA=1 AA=1 AC=1 LV Global [...] MD By signing this report, the attending mixing plant operator certifies that he or she has personally supervised and interpreted the echocardiogram and has reviewed and or edited and agrees with the written comments contained within the report. Du Cruz MD CV ECHO PROCEDURES Final Result * POCT glucose (09/20/2024 11:15 AM RECORDS ADMINISTRATOR) Glucose, POC 149 70 - 199 mg/dL Blood 09/20/2024 11:1 5 AM RECORDS ADMINISTRATOR 09/20/2024 11:15 AM RECORDS ADMINISTRATOR Du Cruz MD LAB POCT ORDERABLES - DEV ICE Final Result CHERYL [facility] Department [place] [address] * XR Chest Pa Lateral 2 Views (09/20/2024 11:04 AM RECORDS ADMINISTRATOR) Anatomical Region Laterality Modality Body, Chest N/A Computed Radiogr aphy 09/20/2024 11:2 4 AM RECORDS ADMINISTRATOR Impressions 09/20/2024 11:24 AM RECORDS ADMINISTRATOR Comparison is made to prior study of 11/27/2020. The lung volumes are smaller with increased atelectasis. There is no pulmonary edema or pneumonia. No pneumothorax. No definite pleural effusion. The heart size and mediastinal contour are unchanged. Electronically signed by: Lokesh Bui M.D. Narrative 09/20/2024 11:24 AM RECORDS ADMINISTRATOR EXAMINATION: 2 view chest radiograph Procedure Note [...] * ECG 12 lead (09/20/2024 10:33 AM RECORDS ADMINISTRATOR) [facility] Ventricular Rate EKG/Min [address] [facility] Atrial Rate [address] [facility] AZ-Interval (MSEC) [address] [facility] QRS-Interval (MSEC) [address] [facility] QT-Interval (MSEC) [address] [facility] QTc [address] [facility] P [place] -[address] [facility] R [place] -[address] [facility] T [place] [address] [facility] Diagnosis Normal sinus rhythm Right bundle branch block Abnormal ECG No previous ECGs available Confirmed by Laura Shook MD ([id number]) on 09/20/2024 10:32:[address] [facility] 09/20/2024 10:3 3 AM RECORDS ADMINISTRATOR 09/20/2024 10:32 PM RECORDS ADMINISTRATOR us Urbano Rhodes MD ECG ORDERABLES Final Result [facility] * Troponin I high-sensitivity series (baseline, 2hr, 4hr, 6hr) (09/20/2024 10:15 AM RECORDS ADMINISTRATOR) [facility] Trop I hs <4 <=35 ng/L Comment: Interpretive Data For further [facility] resources including the diagnostic algorithm and an aid in interpretation, copy and paste this link: https://bjhlab.testcatalog.org/show/hsTrop-1 Current Interpretive Data last revised 2020. Blood 09/20/2024 10:1 5 AM RECORDS ADMINISTRATOR 09/20/2024 10:52 AM RECORDS ADMINISTRATOR us Du Cruz MD LAB BLOOD ORDERABLES Cinthia l Result [facility] Department [place] [address] * POCT glucose (09/20/2024 8:45 AM RECORDS ADMINISTRATOR) [facility] Glucose, POC 147 70 - 199 mg/dL Blood 09/20/2024 8:45 AM RECORDS ADMINISTRATOR 09/20/2024 8:45 AM RECORDS ADMINISTRATOR Du Cruz MD LAB POCT ORDERABLES - DEV ICE Final Result Performing Organization Address [facility]/[place] Co de Phone Number [facility] Department [place] [address] * (ABNORMAL) Urinalysis reflex to microscopic (09/20/2024 6:17 AM RECORDS ADMINISTRATOR) Color, ur Katie Yellow Clarity, ur Cloudy(A) Clear [facility] Specific gravity, ur 1.022 1.003 - 1.030 [facility] pH, urine 5.5 [facility] Comment: Interpretive Data U rine pH is affected by diet, medications, systemic acid-base disturbances, and renal tubular function. pH may affect urinary stone formation. For example, urine pH below 6.0 may help reduce the tendency for calcium phosphate stones and pH greater than 6.0 may reduce the tendency for uric acid stone formation. Source: [facility] Current Interpretive Data was last revised on 2017 Protein, ur ql 1+(A) Negative [facility] Glucose, ur ql Negative Negative [facility] Ketones, ur Negative Negative [facility] Bilirubin, ur Negative Negative [facility] Blood, ur 3+(A) Negative [facility] Urobilinogen, ur <2.0 <2.0 mg/dL [facility] Nitrite, ur Negative Negative [facility] Leukocyte esterase, ur Negative Negative [facility] UA reflex comment Reflex to microscopic UA will be performed. [facility] Urine 09/20/2024 6:17 AM RECORDS ADMINISTRATOR 09/20/2024 6:40 AM RECORDS ADMINISTRATOR Du Cruz MD LAB URINE ORDERABLES Cinthia l Result Performing Organization Address [facility]/ZIP Co de Phone Number [facility] Department [place] [address] * (ABNORMAL) Urinalysis, microscopic only (09/20/2024 6:17 AM RECORDS ADMINISTRATOR) WBC, ur 0-5 0 - 5 /HPF RBC, ur >50(A) 0 - 2 /HPF [facility] Mucous, ur Present(A) [facility] Urine 09/20/2024 6:17 AM RECORDS ADMINISTRATOR 09/20/2024 6:40 AM RECORDS ADMINISTRATOR Du Cruz MD LAB URINE ORDERABLES Cinthia l Result Performing Organization Address [facility] de Phone Number [facility] [place] [address] * Urine culture Urine, clean voided (09/20/2024 6:17 AM RECORDS ADMINISTRATOR) Report Final Report: No growth Urine, clean voided 09/20/2024 6:17 AM RECORDS ADMINISTRATOR 09/20/2024 6:43 AM RECORDS ADMINISTRATOR Narrative [facility] - 09/21/2024 9:41 AM RECORDS ADMINISTRATOR Indications for Culture:->Urology patient Testing performed by [facility] ([phone]) Du Cruz MD LAB MICROBIOLOGY - GENERA L ORDERABLES Final Result Performing Organization Address [facility] de Phone Number [facility] Department [place] [address] * Check Sample (09/20/2024 5:42 AM RECORDS ADMINISTRATOR) ABO Rh O Negative [facility] HCLL OTHER 09/20/2024 5:42 AM RECORDS ADMINISTRATOR 09/20/2024 6:43 AM RECORDS ADMINISTRATOR Du Cruz MD LAB BLOOD ORDERABLES Cinthia l Result Performing Organization Address [facility]/[place] Co de Phone Number [facility] Department [place] [address] [facility] * POCT glucose (09/20/2024 5:29 AM RECORDS ADMINISTRATOR) Glucose, POC 143 70 - 199 mg/dL Blood 09/20/2024 5:29 AM RECORDS ADMINISTRATOR 09/20/2024 5:29 AM RECORDS ADMINISTRATOR [facility] MD LAB POCT ORDERABLES - DEV ICE Final Result CHERYL [facility] Department [place] [address] * CT Body Outside Consult (09/20/2024 4:57 AM RECORDS ADMINISTRATOR) Anatomical Region Laterality Modality Body N/A Computed Tomogra phy 09/20/2024 9:40 AM RECORDS ADMINISTRATOR Impressions 09/20/2024 12:05 PM RECORDS ADMINISTRATOR 1. Mild right hydroureteronephrosis down to the [...] images may or may not represent the sleetmute source data set and thus may contain changes that may lower the accuracy of this second-opinion interpretation. Dictated by: Bradley Maldonado M.D. The radiology attending physician has personally reviewed this study, and had reviewed and/or edited this written report and agrees with it. Electronically signed by: Louann Camilo M.D. Narrative 09/20/2024 12:05 PM RECORDS ADMINISTRATOR EXAMINATION: RADIOLOGY CONSULTATION ON OUTSIDE IMAGING STUDY STUDY INITIALLY PERFORMED: 09/19/2024 at [facility] [place]. TYPE OF STUDY: Multiple CT images of [...] IMAGING STUDY STUDY INITIALLY PERFORMED: 09/19/2024 at [facility] [place]. TYPE OF STUDY: Multiple CT images of [...] images may or may not represent the sleetmute source data set and thus may contain changes that may lower the accuracy of this second-opinion interpretation. Dictated by: Bradley Maldonado M.D. The radiology attending physician has personally reviewed this study, and had reviewed and/or edited this written report and agrees with it. Electronically signed by: Louann Camilo M.D. Du Cruz MD IMG CT PROCEDURES Final R esult * eGFR (09/20/2024 4:33 AM RECORDS ADMINISTRATOR) eGFR 82 >=60 mL/min/1. 73 m2 Comment: [...] last reviewed 2021. Blood 09/20/2024 4:33 AM RECORDS ADMINISTRATOR 09/20/2024 5:19 AM RECORDS ADMINISTRATOR Du Cruz MD LAB BLOOD ORDERABLES Cinthia l Result [facility] Department [place] [address] * (ABNORMAL) Differential, auto (09/20/2024 4:33 AM RECORDS ADMINISTRATOR) Neutrophil abs 6.8(H) 1.5 - 6.5 K/cumm Imm gran abs 0.0 0.0 - 0.1 K/cumm [facility] Lymphocyte abs 2.1 0.8 - 3.3 K/cumm [facility] Monocyte abs 1.0(H) 0.2 - 0.8 K/cumm [facility] Eosinophil abs 0.2 0.0 - 0.5 K/cumm [facility] Basophil abs 0.1 0.0 - 0.1 K/cumm [facility] Neutrophil pct 66.4 % [facility] Comment: Interpretive Data Percent cell count reference ranges are not reported, since discordance with absolute values may lead to misinterpretation of CBC data. Current Interpretive Data was last revised on 2017. Imm gran pct 0.4 % [facility] Comment: Interpretive Data Percent cell count reference ranges are not reported, since discordance with absolute values may lead to misinterpretation of CBC data. Current Interpretive Data was last revised on 2017. Lymphocyte pct 20.9 % [facility] Comment: Interpretive Data Percent cell count reference ranges are not reported, since discordance with absolute values may lead to misinterpretation of CBC data. Current Interpretive Data was last revised on 2017. Monocyte pct 9.5 % [facility] Comment: Interpretive Data Percent cell count reference ranges are not reported, since discordance with absolute values may lead to misinterpretation of CBC data. Current Interpretive Data was last revised on 2017. Eosinophil pct 2.1 % [facility] Comment: Interpretive Data Percent cell count reference ranges are not reported, since discordance with absolute values may lead to misinterpretation of CBC data. Current Interpretive Data was last revised on 2017. Basophil pct 0.7 % [facility] Comment: Interpretive Data Percent cell count reference ranges are not reported, since discordance with absolute values may lead to misinterpretation of CBC data. Current Interpretive Data was last revised on 2017. Blood 09/20/2024 4:33 AM RECORDS ADMINISTRATOR 09/20/2024 5:21 AM RECORDS ADMINISTRATOR Du Cruz MD LAB BLOOD ORDERABLES Cinthia mercado Result [facility] Department [place] [address] * (ABNORMAL) CBC with auto differential (09/20/2024 4:33 AM RECORDS ADMINISTRATOR) [facility] WBC 10.2(H) 3.8 - 9.9 K/cumm Hgb 13.4 13.0 - 17.5 g/dL [facility] Hct 40.2 38.9 - 50.3 % [facility] Plt 346 150 - 400 K/cumm [facility] MPV 9.9 9.1 - 12.3 fL [facility] RBC 4.53 4.30 - 5.80 M/cumm [facility] MCV 88.7 81.3 - 96.4 fL [facility] MCH 29.6 27.1 - 33.3 pg [facility] MCHC 33.3 32.3 - 35.7 g/dL [facility] RDW CV 11.9 11.1 - 14.9 % [facility] RDW SD 39.0 35.7 - 48.1 fL [facility] NRBC abs 0.00 0.00 - 0.01 K/cumm [facility] Blood 09/20/2024 4:33 AM RECORDS ADMINISTRATOR 09/20/2024 5:21 AM RECORDS ADMINISTRATOR Du Cruz MD LAB BLOOD ORDERABLES Cinthia l Result Performing Organization Address [facility]/State/ZIP Co de Phone Number [facility] Department [place] [address] * aPTT (09/20/2024 4:33 AM RECORDS ADMINISTRATOR) [facility] aPTT 35 28 - 38 sec Comment: Interpretive Data Heparin therapeutic range: 66.0 - 100.0 seconds. Range based on correlation with therapeutic heparin activity range of 0.3 - 0.7 Units/mL. Current interpretive data was last revised on 2023. Blood 09/20/2024 4:33 AM RECORDS ADMINISTRATOR 09/20/2024 5:30 AM RECORDS ADMINISTRATOR Du Cruz MD LAB BLOOD ORDERABLES Cinthia l Result Performing Organization Address [facility]/[place]UST Co de Phone Number [facility] [address] * Protime-INR (09/20/2024 4:33 AM RECORDS ADMINISTRATOR) Pathologist [facility] PT 11.7 9.7 - 13.0 sec INR 1.08 0.90 - 1.20 [facility] Comment: Interpretive data Oral anticoagulant therapeutic ranges: Venous thromboembolism prophylaxis or treatment: 2.0-3.0 CARDIOLOGY Standard range: 2.0-3.0 High-intensity range: 2.5-3.5 Refer to indication-specific guidelines for appropriate target ranges for prosthetic heart valve replacement. Current interpretive data was last revised on 2019. Blood 09/20/2024 4:33 AM RECORDS ADMINISTRATOR 09/20/2024 5:30 AM RECORDS ADMINISTRATOR Du Cruz MD LAB BLOOD ORDERABLES Cinthia l Result Performing Organization Address [facility] [place] [address] * Type and screen (09/20/2024 4:33 AM RECORDS ADMINISTRATOR) [facility] ABO Rh O Negative Tono, indirect Negative [facility] Blood 09/20/2024 4:33 AM RECORDS ADMINISTRATOR 09/20/2024 5:20 AM RECORDS ADMINISTRATOR Narrative [facility] - 09/20/2024 6:11 AM RECORDS ADMINISTRATOR Has the patient had Daratumumab or Isatuximab in the past 6 months?->Unknown Du Cruz MD LAB BLOOD BANK TEST ORDER YULI Final Result Performing Organization Address [facility]/[place] [address] * Phosphorus (09/20/2024 4:33 AM RECORDS ADMINISTRATOR) Pathologist [facility] Phosphorus, pl 3.7 2.3 - 4.5 mg/dL Blood 09/20/2024 4:33 AM RECORDS ADMINISTRATOR 09/20/2024 5:19 AM RECORDS ADMINISTRATOR Du Cruz MD LAB BLOOD ORDERABLES Cinthia l Result Performing Organization Address City/[facility] Co de Phone Number [facility] [place] [address] * Magnesium (09/20/2024 4:33 AM RECORDS ADMINISTRATOR) Pathologist [facility] Magnesium 2.0 1.4 - 2.5 mg/dL Blood 09/20/2024 4:33 AM RECORDS ADMINISTRATOR 09/20/2024 5:19 AM RECORDS ADMINISTRATOR Du Cruz MD LAB BLOOD ORDERABLES Cinthia l Result Performing Organization Address [facility] de Phone Number [facility] [place] [address] * Basic metabolic panel (09/20/2024 4:33 AM RECORDS ADMINISTRATOR) Pathologist [facility] Sodium 142 135 - 145 mmol/L Potassium, pl 4.3 3.3 - 4.9 mmol/L [facility] Chloride 105 97 - 110 mmol/L [facility] CO2 30 22 - 32 mmol/L [facility] Anion gap 7 2 - 15 mmol/L [facility] BUN 14 6 - 25 mg/dL [facility] Creatinine 0.97 0.80 - 1.30 mg/dL [facility] Glucose 143 70 - 199 mg/dL [facility] Comment: Interpretive Data Fasting glucose >/= 126 [...] 2022. Calcium 9.2 8.5 - 10.3 mg/dL [facility] Blood 09/20/2024 4:33 AM RECORDS ADMINISTRATOR 09/20/2024 5:19 AM RECORDS ADMINISTRATOR Du Cruz MD LAB BLOOD ORDERABLES Cinthia l Result [facility] Department [place] [address] * Electrocardiogram Report (08/31/2024 2:35 PM RECORDS ADMINISTRATOR) Maximo Mobley MD ECG ORDERABLES Edited Result - Final * POCT lipid panel (08/31/2024 9:59 AM RECORDS ADMINISTRATOR) Cholesterol, POC 108 mg/dL Comment:GLU = 121 HDL, POC 36 mg/dL Triglycerides, POC 194 mg/dL LDL Cholesterol POC 33 mg/dL Chol/HDL Ratio, POC 0.9 Non-HDL Cholesterol, POC 72 mg/dL Cholesterol Total, POC 108 mg/dL Capillary blood 08/31/2024 9 :59 AM RECORDS ADMINISTRATOR Maximo Mobley MD POINT OF CARE TEST ORDERABLES Fi nal Result from Last 3 Months [facility] OPEN [facility] MEDICARE [facility] Advance Directives For more information, please contact: [phone] * Full Code (Latest Code Status on File) Date Activated Date Inactivated Comments 09/20/2024 4:10 AM 09/22/2024 2:52 PM * Full Code Date Activated Date Inactivated Comments 09/16/2018 1:22 PM 09/23/2018 6:01 PM Care Teams Grinder Set Up Operator Gear Tool Relationship Specialty Start Date End Date Heydi Gomez MD [address] [place] [address] PCP - General 12/12/16 Aleksandr Kirkland NP [address] [place] [address] DR R[address] [place] [address] Nurse Practitioner Nurse Practitioner 12/04/20 Maximo Mobley MD [address] [address] Consulting Physician Cardiology 10/07/24
--- OUTSIDE RECORDS SUMMARY | 2024-10-31 22:50 | XMS_ITS | Encounter Summary ---
Author Organization [facility] Address [address] [facility] [address] [place] [address] Phone Care Team Providers Care Underwear Cutter Name Role Phone Heydi Gomez MD Primary Care Provider [phone] Aleksandr Kirkland NP Unavailable [phone] Maximo Mobley MD Unavailable Encounter Details Date Type Department Care Team (Late st Contact Info) Description 10/31/2024 Orders Only [facility] Surgery [facility] [address] [place] [address] Sofie Chen MD [address] [facility] [place], [place] [id number] Kidney stone (Primary Dx) Social History Tobacco [...] on file 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 Gender Identity Not on file Sexual Orientation Not on file documented as of this encounter Plan of Treatment Scheduled Orders Name Type Priority Associated Diagnoses Orde r Schedule Creatinine clearance, urine, 24 hour Lab Routine Kidney stone Expected: 10/31/2024, Expires: 10/31/2025 documented as of this encounter Visit Diagnoses Diagnosis Kidney stone- Primary Calculus of kidney documented in this encounter Care Teams Underwear Cutter Relationship Specialty Start Date End Date Heydi Gomez MD [address] [place] [address] PCP - General 12/12/16 Aleksandr Kirkland NP [address] [place] [address] [address] [address] Nurse Practitioner Nurse Practitioner 12/04/20 Maximo Mobley MD [address] [place] [address] Consulting Physician Cardiology 10/07/24 documented as of this encounter
--- OUTSIDE RECORDS SUMMARY | 2024-10-31 22:50 | XMS_ITS | Encounter Summary ---
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 Gender Identity Not on file Sexual Orientation Not on file documented as of this encounter Plan of Treatment Not on file documented as of this encounter Procedures Procedure Name Priority Date/Time Associated Diagnosis Comments PHOSPHORUS, URINE, RANDOM Routine 10/31/2024 12:31 PM CHARGE ACCOUNT CLERK Nephrolithiasis URIC ACID Routine 10/31/2024 12:24 PM CHARGE ACCOUNT CLERK Nephrolithiasis PTH Routine 10/31/2024 12:24 PM CHARGE ACCOUNT CLERK Nephrolithiasis documented in this encounter Results * Phosphorus, urine, random (10/31/2024 12:31 PM CHARGE ACCOUNT CLERK) Pathologist [facility] Phosphorus, ur 28.7 mg/dL Comment: Interpretive Data No reference range established. Current interpretive data was last revised 2019. Urine 10/31/2024 12:3 1 PM CHARGE ACCOUNT CLERK 10/31/2024 7:01 PM CHARGE ACCOUNT CLERK us Yousef Carito Chen MD LAB URINE ORDERABLES Final Result Performing Organization Address City/[facility]/ZIP Co de Phone Number [address] [place] [address] * PTH (10/31/2024 12:24 PM CHARGE ACCOUNT CLERK) Pathologist [facility] PTH 56 15 - 65 pg/mL Comment:Testing performed by : [facility], [address] [place] [address], [address] Blood 10/31/2024 12:2 4 PM CHARGE ACCOUNT CLERK 10/31/2024 1:38 PM CHARGE ACCOUNT CLERK Sofie Chen MD LAB BLOOD ORDERABLES Final Result [address] [place] [address] * Uric acid (10/31/2024 12:24 PM CHARGE ACCOUNT CLERK) Pathologist [facility] Uric acid 6.1 3.0 - 8.0 mg/dL Comment:Testing performed by : [facility], [address] [place] [address], [place]., [address] Blood 10/31/2024 12:2 4 PM CHARGE ACCOUNT CLERK 10/31/2024 1:38 PM CHARGE ACCOUNT CLERK us Yousef Carito Chen MD LAB BLOOD ORDERABLES Final Result [facility] [address] [facility] Department [place] [address] documented in this encounter Visit Diagnoses Diagnosis Nephrolithiasis Calculus of kidney documented in this encounter Care Teams Nailhead Setter Relationship Specialty Start Date End Date Heydi Gomez MD [address] [place] [address] PCP - General 12/12/16 Aleksandr Kirkland NP [address] [place] [address] DR [address] [place] [address] Nurse Practitioner Nurse Practitioner 12/04/20 Maximo Mobley MD [address] [place] [address] Consulting Physician Cardiology 10/07/24 documented as of this encounter
--- OUTSIDE RECORDS SUMMARY | 2024-10-31 22:50 | XMS_ITS | Continuity of Care Document ---
Author Organization [email or web address] Address [address] [place] [address] [address] [place] [address] Phone Care Team Providers Care Van Driver Name Role Phone Jocelyn MS, OTR/L, CHTKimberley Unavailable Unavailable Procedures Procedure Date MENTAL HYGIENIST Acute Therapeutic Exercise Therapeutic Activities Neuromuscular Re-Ed [...] Diagnoses Date Provider Providers Copied on Encounter [facility], [place], [place], [id number], [place] tel:[phone] [place] Stiffness of right wrist, not elsewhere classifiedOth symptoms and signs involving the musculoskeletal systemParesthes ia of skinOther general symptoms and signsCarpal tunnel syndrome, right upper limbCarpal tunnel syndrome, left upper limb 8 Jocelyn Chu. [address] [facility], [address], [place], [address], [place]. tel:[phone] Referring Provider: Jan Licea, [address], [place], [address]. tel:[phone] [facility], [place], [place], [address], [place] tel:[phone] [place] Stiffness of right wrist, not elsewhere classifiedOth symptoms and signs involving the musculoskeletal systemParesthes ia of skinOther general symptoms and signsCarpal tunnel syndrome, right upper limbCarpal tunnel syndrome, left upper limb 8 Jocelyn Chu. [address] [facility], [address], [place], [address], [place]. tel:[phone] Referring Provider: Jan Licea, [address], [place], [address]. tel:[phone] [facility], [address], [place], [place], [address], [place] tel:[phone] [place] Stiffness of right wrist, not elsewhere classifiedOth symptoms and signs involving the musculoskeletal systemParesthes ia of skinOther general symptoms and signsCarpal tunnel syndrome, right upper limbCarpal tunnel syndrome, left upper limb 8 Jocelyn Chu. [address] [facility], [address], [place], [address], [place]. tel:[phone] Referring Provider: Jan Licea, [address] [place] [address] [address], [facility] [place], [address]. tel:[phone] [facility] [facility] [address] [facility] [address], [place], [place], [address], [place] tel:[phone] [place] Stiffness of right wrist, not elsewhere classifiedOth symptoms and signs involving the musculoskeletal systemParesthes ia of skinOther general symptoms and signsCarpal tunnel syndrome, right upper limbCarpal tunnel syndrome, left upper limb 8 Jocelyn Chu. [address] [facility], [address], [place], [address], [place]. tel:[phone] Referring Provider: Jan Licea, [address], [place], [address]. tel:[phone] [facility], [address], [place], [place], [address], [place] tel:[phone] [place] Stiffness of right wrist, not elsewhere classifiedOth symptoms and signs involving the musculoskeletal systemParesthes ia of skinOther general symptoms and signsCarpal tunnel syndrome, right upper limbCarpal tunnel syndrome, left upper limb 8 Jocelyn Desouzafer. [address] [facility], [address], [place], [address], [place]. tel:[phone] Referring Provider: Jan Licea, [address], [place], [address]. tel:[phone] [facility] [address], [place], [place], [address], [place] tel:[phone] [place] Stiffness of right wrist, not elsewhere classifiedOth symptoms and signs involving the musculoskeletal systemParesthes ia of skinOther general symptoms and signsCarpal tunnel syndrome, right upper limbCarpal tunnel syndrome, left upper limb 8 Jocelyn Chu. [address] [facility], [address], [place], [address], [place]. tel:[phone] Referring Provider: Jan Licea, [address], [facility] [place], [address]. tel:[phone] [place] [address], [place], [place], [address], [place] tel:[phone] [place] Stiffness of right wrist, not elsewhere classifiedOth symptoms and signs involving the musculoskeletal systemParesthes ia of skinOther general symptoms and signsCarpal tunnel syndrome, right upper limbCarpal tunnel syndrome, left upper limb 8 Jocelyn Chu. [address] [facility], [address], [place], [address], [place]. tel:[phone] Referring Provider: Jan Licea, [address], [place], [address]. tel:[phone] [facility], [place], [place], [address], [place] tel:[phone] [place] Stiffness of right wrist, not elsewhere classifiedOth symptoms and signs involving the musculoskeletal systemParesthes ia of skinOther general symptoms and signsCarpal tunnel syndrome, right upper limbCarpal tunnel syndrome, left upper limb Oct-1 0-201 8 Haantonio Kimberley. [address] [facility], [address], [place], [address], [place]. tel:[phone] Referring Provider: Jan Licea, [address] [place] [address] [address], [place], [address]. tel:[phone] [facility] [address] [place], [place] [address] [address], [place], [place], [address], [place] tel:[phone] [place] Stiffness of right wrist, not elsewhere classifiedOth symptoms and signs involving the musculoskeletal systemParesthes ia of skinOther general symptoms and signsCarpal tunnel syndrome, right upper limbCarpal tunnel syndrome, left upper limb Oct-0 8-201 8 Hauscamrit Kimberley. [address] [place] [address], [address], [place], [address], [place]. tel:[phone] Referring Provider: Jan Licea, [address] [place] [address] [address], [facility] [place], [address]. tel:[phone] [facility] [address] [facility] [address] [facility] [address], [place], [place], [address], [place] tel:[phone] [place] Stiffness of right wrist, not elsewhere classifiedOth symptoms and signs involving the musculoskeletal systemParesthes ia of skinOther general symptoms and signsCarpal tunnel syndrome, right upper limbCarpal tunnel syndrome, left upper limb Jun-0 5-201 8 Hauscamrit Kimberley. [address] [facility], [address], [place], [address], [place]. tel:[phone] Referring Provider: Jan Licea, [address] [place] [address] [address], [facility] [place], [address]. tel:[phone] [facility] [facility], [place], [place], [address], [place] tel:[phone] [place] Stiffness of right wrist, not elsewhere classifiedOth symptoms and signs involving the musculoskeletal systemParesthes ia of skinOther general symptoms and signsCarpal tunnel syndrome, right upper limbCarpal tunnel syndrome, left upper limb 0 3-201 8 Haantonio Chu. [address] [facility], [address], [place], [place], [facility] [place], [place]. tel:[phone] Referring Provider: Jan Licea, [address] [place] [address] [address], [place], [address]. tel:[phone] [facility] [address] [facility] [address], [place], [place], [address], [place] tel:[phone] [place] Stiffness of right wrist, not elsewhere classifiedOth symptoms and signs involving the musculoskeletal systemParesthes ia of skinOther general symptoms and signsCarpal tunnel syndrome, right upper limbCarpal tunnel syndrome, left upper limb 0 1-201 8 Haantonio Chu. [address] [facility], [address], [place], [place], [facility] [place], [place]. tel:[phone] Referring Provider: Jan Licea, [address] [place] [address] [address], [place], [address]. tel:[phone] [facility] [address] [facility] [address], [place], [place], [address], [place] tel:[phone] [place] Stiffness of right wrist, not elsewhere classifiedOth symptoms and signs involving the musculoskeletal systemParesthes ia of skinOther general symptoms and signsCarpal tunnel syndrome, right upper limb Sep-2 6-201 8 Haantonio Chu. [address] [facility], [address], [place], [address], [place]. tel:[phone] Referring Provider: Jan Licea, [address] [place] [address] [address], [place], [address]. tel:[phone] [facility] [facility], [place], [place], [address], [place] tel:[phone] [place] Stiffness of right wrist, not elsewhere classifiedOth symptoms and signs involving the musculoskeletal systemParesthes ia of skinOther general symptoms and signsCarpal tunnel syndrome, right upper limb Sep-2 4-201 8 Hauschild Kimberley. [address] [facility], [address], [place], [address], [place]. tel:[phone] Referring Provider: Jan Licea, [address], [place], [address]. tel:[phone] Family History Family Member Type Diagnosis Age At Onset No Information Payers Payer name Insurance type Covered green party ID Authoriza tion(s) -[facility] c/o [id number] Social History Type Description Quantity Date Captured [...]
--- OUTSIDE RECORDS SUMMARY | 2024-10-31 22:51 | XMS_ITS | Clinical Summary ---
Author Organization [facility] [address] Address [address] [place] [address] Care Team Providers Care Crossing Tender Name Role Phone Heydi Gomez MD Primary Care Provider Aleksandr Kirkland NP Unavailable [phone] Maximo Mobley MD Unavailable Allergies Active Allergy Reactions Criticality Noted Date Comments Xoakwlk-Dza-Ccc Reductase Inhibitors Muscle pain Medium Medications cholecalciferol [...] (11/20/2020): Added automatically from request for surgery [id number] Tear of left supraspinatus tendon 08/03/2020 Arthritis of left 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 Obesity (BMI 30-39.9) 10/31/2019 H/O atrial fibrillation without current medicati on 04/20/2019 Paroxysmal atrial fibrillation (CMS/HCC) 019 Hx of CABG 10/13/2018 Coronary artery disease invo lving lytton coronary artery of lytton heart without angina pectoris 09/15/2018 Overview (09/15/2018): Added automatically from request for surgery [id number] Hyperlipidemia associated with type 2 diabetes umm mayers 04/24/2016 Overview (12/19/2016): Hypercholesteremia Assessment & Plan (07/28/2017 1:29 PM PRIMER CHARGER): 07/28/2017 POC lipids: Total chol 163, TG [...] (08/31/2018): Added automatically from request for surgery [id number] Hyperlipidemia 02/12/2015 07/28/2017 Overview (12/19/2016): HLD (hyperlipidemia) Coronary arteriosclerosis in lytton artery 02/12/2015 10/13/2018 Overview (12/19/2016): CAD in lytton artery Encounters Date Type Department Care Team Description 10/31/2024 12:33 PM PRIMER CHARGER Hospital Encounter [facility] Building [address] [place] [address] Nephrolithiasis 10/31/2024 12:15 PM PRIMER CHARGER Lab [facility] Building [address] [place] [address] Nephrolithiasis 10/31/2024 11:20 AM PRIMER CHARGER Office Visit [facility] Surgery [address] [place] [address] [address] [place] [address] Sofie Chen MD Nephrolithiasis (Primary Dx) 10/31/2024 Telephone [facility] Surgery [facility] 2nd [place] [address] [place] [phone] Sunita Diaz MD 10/31/2024 Results Follow-Up [facility] Surgery [address] [place] [address] [address] [place] [phone] Sofie Chen MD 10/31/2024 Orders Only [facility] Surgery [address] [place] [address] Sofie Chen MD Kidney stone (Primary Dx) 10/20/2024 7:35 AM PRIMER CHARGER Anesthesia Event [facility] OR [address] [place] [address] Familia Reed MD Grehan, William G., MD 10/20/2024 7:30 AM PRIMER CHARGER - 10/20/2024 9:20 AM PRIMER CHARGER Surgery [facility] OR [address] [place] [address] Sofie Chen MD HOLMIUM LASER LITHOTRIPSY, STONE BASKETING ,CYSTOSCOPY, BILATERAL RETROGRADE PYELOGRAM,BILATERAL URETEROSCOPY , BILATERAL STENT EXCHANGE 10/20/2024 5:29 AM PRIMER CHARGER - 10/20/2024 12:32 PM PRIMER CHARGER Hospital Encounter [facility] OR [address] [place] [address] Sofie Chen MD Nephrolithiasis (Primary Dx) Discharge Disposition: Discharge to home or self care 10/20/2024 Orders Only [facility] Surgery [address] [facility] [address] [place] [address] Sofie Chen MD Kidney stone (Primary Dx) 10/14/2024 Telephone [facility] Cardiology [address] [facility] [address] [place] [phone] Maximo Mobley MD 10/04/2024 Telephone [facility] Surgery [address] [place] [address] Diann Light 09/26/2024 Telephone [facility] Cardiology [address] [facility] [address] [place] [phone] Maximo Mobley MD 09/21/2024 6:53 PM PRIMER CHARGER Anesthesia Event [facility] [address] [place] [address] Palmira Garcia MD Lentz, William Thomas, NP 09/21/2024 6:25 PM PRIMER CHARGER - 09/21/2024 7:40 PM [facility] Surgery [facility] [address] [place] [address] Valery Carson MD CYSTOSCOPY, RIGHT RETROGRADE PYELOGRAM, RIGHT URETERAL STENT PLACEMENT 09/20/2024 3:35 AM PRIMER CHARGER - 09/22/2024 10:42 AM PRIMER CHARGER Hospital Encounter [address] [address] Du Cruz MD Kidney stone (Primary Dx) Discharge Disposition: Discharge to home or self care 08/31/2024 1:30 PM PRIMER CHARGER Office Visit [facility] Cardiology [address] [place] [address] Maximo Mobely MD Coronary artery disease involving lytton coronary artery of lytton heart without angina pectoris (Primary Dx); S/P CABG x 3; Essential hypertension; RBBB; Statin intolerance; Myalgia due to statin from Last 3 Months Immunizations Immunization Administration Dates Next Due Influenza, Unspecified 06/27/2024 Pfizer SARS-CoV-2 Monovalent Vaccination (12+ Yrs) PURPLE 11/29/2020,11/08/2020 Surgical History Surgery Date Site/Laterality Comments ROTATOR CUFF REPAIR Bilateral CORONARY ANGIOPLASTY WITH STENT PLACEMENT 09/14/2003 - 09/13/2004 [place] RPR ANOM CORONARY ARTERY PULM ART ORIGIN [...] on file Legal Sex Male 10:57 AM PRIMER CHARGER Gender Identity Not on file Sexual Orientation Not on file Obstetrics History Last Filed Vital Signs Vital Sign Reading Time Taken Comments Blood Pressure 123/40 10/20/2024 12:15 PM PRIMER CHARGER Pulse 79 10/20/2024 12:15 PM PRIMER CHARGER Temperature 36.4 C (97.5 F) 10/20/2024 10:05 AM PRIMER CHARGER Respiratory Rate 18 10/20/2024 12:15 PM PRIMER CHARGER Oxygen Saturation 93% 10/20/2024 12:15 PM PRIMER CHARGER Inhaled Oxygen Concentration - - Weight 91.6 kg (202 lb) 10/31/2024 11:24 AM PRIMER CHARGER Height 175.3 cm (5' 9 ) 10/31/2024 11:24 AM PRIMER CHARGER Body Mass Index 29.83 10/31/2024 11:24 AM PRIMER CHARGER Plan of Treatment Health Maintenance Due Date [...] history exists Medical Devices Implanted Type Area Instrument Maker Apprentice Device Identifier Shelf Expiration Date Model / Serial / Lot [employer] Universa 6fr 24cm Radiopaque Graduate Firm Monofilament Tether [id number] - [id number] Implanted:Qty: 1 on 10/20/2024 by Sofie Chen MD at [facility] Stent Right: Ureter [employer] [id number] 07/15/2027 [id number] / / [id number] [employer] Universa 6fr 24cm Radiopaque Graduate Firm Monofilament Tether [id number] - [id number] Implanted:Qty: 1 on 10/20/2024 by Sofie Chen MD at [facility] Stent Right: Ureter [employer] [id number] 07/15/2027 [id number] / / [id number] Medsternal Wire Cabg Bilateral: Chest Wall [employer] [id number] Suturebridge [place] Drill Guide Punch Tap Set Implant Achilles - [id number] Implanted:Qty: 1 on 12/04/2020 by Ryan Allison MD at [facility] Left: Shoulder [employer] 01/12/2024 [id number]- CP / / [id number] [employer] Ar-7535 Fiberlink Arthrex Suturetape 1.3mm Tape Suture Nonabsorbable - [id number] Implanted:Qty: 1 on 12/04/2020 by Ryan Allison MD at [facility] Left: Shoulder [employer] 10/14/2024 [id number] / / [id number] [employer] Ar-[id number] Swivelock C 4.75mm 19.1mm Closed Eyelet Vent [place] Suture - [id number] Implanted:Qty: 1 on 12/04/2020 by Ryan Allison MD at [facility] Left: Shoulder [employer] 06/13/2024 [id number] / / [id number] [facility] [id number] Regenesorb Ultratape Ultrabraid 4.75mm Smooth 2 [place] Suture - [id number] Implanted:Qty: 1 on 12/04/2020 by Ryan Allison MD at [facility] Left: Shoulder [facility] [employer] [facility] [facility] 08/07/2023 [id number] / / [id number] [employer] Ar-[id number] Swivelock Tenodesis 6.25mm 19.1mm Closed Eyelet Shoulder Biceps - [id number] Implanted:Qty: 1 on 12/04/2020 by Ryan Allison MD at [facility] Left: Shoulder [employer] 09/13/2024 [id number]-[id number] / / [id number] Explanted Type Area Instrument Maker Apprentice Device Identifier Shelf Expiration Date Model / Serial / Lot Narrative [employer] Universa 6fr 24cm Radiopaque Graduate Firm Monofilament Tether [id number] - [id number] - [id number] Implanted:Qty: 1 on 09/21/2024 by Valery Carson MD at [facility] Explanted:Qty: 1 on 10/20/2024 Stent Right: Ureter Narrative Science [facility] [id number] 05/10/2027 [id number] / [id number] / [id number] Procedures Procedure Name Priority Date/Time Associated Diagnosis Comments PHOSPHORUS, URINE, RANDOM Routine 10/31/2024 12:31 PM PRIMER CHARGER Nephrolithiasis PTH Routine 10/31/2024 12:24 PM PRIMER CHARGER Nephrolithiasis URIC ACID Routine 10/31/2024 12:24 PM PRIMER CHARGER Nephrolithiasis URINALYSIS, MICROSCOPIC ONLY Routine 10/31/2024 12:01 PM PRIMER CHARGER Nephrolithiasis URINALYSIS AND REFLEX TO MICROSCOPIC AND CULTURE Routine 10/31/2024 12:01 PM PRIMER CHARGER Nephrolithiasis POCT URINALYSIS DIPSTICK Routine 10/31/2024 11:49 AM PRIMER CHARGER Nephrolithiasis POCT GLUCOSE DEVICE Routine 10/20/2024 9 :28 AM PRIMER CHARGER FL RETRO PYELO (IN OR) IP Routine 9:10 AM PRIMER CHARGER STONE ANALYSIS Routine 10/20/2024 9:02 AM PRIMER CHARGER FL AN PROCEDURE PLACEHOLDER Routine 10/20/2024 7:44 AM PRIMER CHARGER FL AN ELECTIVE SUPRAGLOTTIC AIRWAY Routine 10/20/2024 7:44 AM PRIMER CHARGER URETEROSCOPY STONE MANIPULATION WITH ABLATION LASER 10/20/2024 7:36 AM PRIMER CHARGER Kidney stone POC BLOOD GAS AND CHEMISTRIES, VENOUS Routine 10/20/2024 6:15 AM PRIMER CHARGER POCT CREATININE FOR CONTRAST EVALUATION Routine 10/20/2024 6:11 AM PRIMER CHARGER POCT GLUCOSE DEVICE Routine 09/22/2024 7 :38 AM PRIMER CHARGER POCT GLUCOSE DEVICE Routine 09/22/2024 4 :24 AM PRIMER CHARGER POCT GLUCOSE DEVICE Routine 09/22/2024 12:20 AM PRIMER CHARGER POCT GLUCOSE DEVICE Routine 09/21/2024 9 :49 PM PRIMER CHARGER POCT GLUCOSE DEVICE Routine 09/21/2024 7 :44 PM PRIMER CHARGER FL FLUOROSCOPY < 1 HOUR IP Routine 09/21/19 7:23 PM PRIMER CHARGER URINE CULTURE Routine 09/21/2024 7:21 PM PRIMER CHARGER FL AN PROCEDURE PLACEHOLDER Routine 09/21/2024 7:13 PM PRIMER CHARGER FL AN ELECTIVE ENDOTRACHEAL AIRWAY Routine 09/21/2024 7:13 PM PRIMER CHARGER CYSTOSCOPY PLACEMENT URETERAL STENT 09/21/2024 6:56 PM PRIMER CHARGER Kidney stone Case Notes POC; Rob [phone] POCT GLUCOSE DEVICE Routine 09/21/2024 5 :12 PM PRIMER CHARGER POCT GLUCOSE DEVICE Routine 09/21/2024 3 :42 PM PRIMER CHARGER POCT GLUCOSE DEVICE Routine 09/21/2024 11:52 AM PRIMER CHARGER POCT GLUCOSE DEVICE Routine 09/21/2024 7 :29 AM PRIMER CHARGER POCT GLUCOSE DEVICE Routine 09/21/2024 3 :39 AM PRIMER CHARGER POCT GLUCOSE DEVICE Routine 09/21/2024 12:07 AM PRIMER CHARGER POCT GLUCOSE DEVICE Routine 09/20/2024 10:47 PM PRIMER CHARGER EGFR Timed 09/20/2024 9:52 PM PRIMER CHARGER CBC WITHOUT DIFFERENTIAL Timed 09/20/2024 9:52 PM PRIMER CHARGER PHOSPHORUS Timed 09/20/2024 9:52 PM PRIMER CHARGER MAGNESIUM Timed 09/20/2024 9:52 PM PRIMER CHARGER BASIC METABOLIC PANEL Timed 09/20/2024 9:52 PM PRIMER CHARGER TROPONIN I HIGH-SENSITIVITY 4-HOUR Timed 09/20/2024 9:52 PM PRIMER CHARGER POCT GLUCOSE DEVICE Routine 09/20/2024 8 :37 PM PRIMER CHARGER POCT GLUCOSE DEVICE Routine 09/20/2024 5 :23 PM PRIMER CHARGER TROPONIN I HIGH-SENSITIVITY 6-HOUR Timed 09/20/2024 4:35 PM PRIMER CHARGER TROPONIN I HIGH-SENSITIVITY 2-HOUR Timed 09/20/2024 1:45 PM PRIMER CHARGER POCT GLUCOSE DEVICE Routine 09/20/2024 1 :42 PM PRIMER CHARGER TRANSTHORACIC ECHO (TTE) COMPLETE W DOPPLER/CF W CONTRAST ED Urgent/IP Urgent 09/20/2024 12:22 PM PRIMER CHARGER POCT GLUCOSE DEVICE Routine 09/20/2024 11:15 AM PRIMER CHARGER XR CHEST PA LATERAL 2 VIEWS ED Urgent/IP Urgent 09/20/2024 11:04 AM PRIMER CHARGER ECG 12-LEAD STAT 09/20/2024 10:33 AM PRIMER CHARGER TROPONIN I HIGH-SENSITIVITY SERIES (BASELINE, 2HR, 4HR, 6HR) STAT 09/20/2024 10:15 AM PRIMER CHARGER POCT GLUCOSE DEVICE Routine 09/20/2024 8 :45 AM PRIMER CHARGER URINALYSIS, MICROSCOPIC ONLY Routine 09/20/2024 6:17 AM PRIMER CHARGER URINALYSIS AND REFLEX TO MICROSCOPIC Routine 09/20/2024 6:17 AM PRIMER CHARGER URINE CULTURE Routine 09/20/2024 6:17 AM PRIMER CHARGER B CHECK SAMPLE STAT 09/20/2024 5:42 AM PRIMER CHARGER POCT GLUCOSE DEVICE Routine 09/20/2024 5 :[address] BODY OUTSIDE CONSULT Routine 09/20/19 4:57 AM PRIMER CHARGER EGFR STAT 09/20/2024 4:33 AM PRIMER CHARGER DIFFERENTIAL AUTO STAT 09/20/2024 4:3 3 AM PRIMER CHARGER PHOSPHORUS STAT 09/20/2024 4:33 AM PRIMER CHARGER MAGNESIUM STAT 09/20/2024 4:33 AM PRIMER CHARGER TYPE AND SCREEN STAT 09/20/2024 4:33 AM PRIMER CHARGER APTT STAT 09/20/2024 4:33 AM PRIMER CHARGER PROTIME-INR STAT 09/20/2024 4:33 AM PRIMER CHARGER BASIC METABOLIC PANEL STAT 09/20/2024 4:33 AM PRIMER CHARGER CBC WITH AUTO DIFFERENTIAL STAT 09/20/2024 4:33 AM PRIMER CHARGER ELECTROCARDIOGRAM REPORT Routine 08/31/2024 2:35 PM PRIMER CHARGER Coronary artery disease involving lytton coronary artery of lytton heart without angina pectoris POCT LIPID PANEL Routine 08/31/2024 9:59 AM PRIMER CHARGER Coronary artery disease involving lytton coronary artery of lytton heart without angina pectoris CYSTOSCOPY PLACEMENT URETERAL STENT Kidney stone Case Notes POC; Sree [phone] from Last 3 Months Results * Phosphorus, urine, random (10/31/2024 12:31 PM PRIMER CHARGER) Phosphorus, ur 28.7 mg/dL Comment: Interpretive Data No reference range established. Current interpretive data was last revised 2019. Urine 10/31/2024 12:3 1 PM PRIMER CHARGER 10/31/2024 7:01 PM PRIMER CHARGER Sofie Chen MD LAB URINE ORDERABLES Final Result Performing Organization Address City/[facility] Co de Phone Number [address] [place] [address] * Uric acid (10/31/2024 12:24 PM PRIMER CHARGER) [facility] Uric acid 6.1 3.0 - 8.0 mg/dL Comment:Testing performed by : [address] [address] Blood 10/31/2024 12:2 4 PM PRIMER CHARGER 10/31/2024 1:38 PM PRIMER CHARGER Sofie Chen MD LAB BLOOD ORDERABLES Final Result Performing Organization Address [facility] de Phone Number [address] [address] * PTH (10/31/2024 12:24 PM PRIMER CHARGER) [facility] PTH 56 15 - 65 pg/mL Comment:Testing performed by : [address] [address] Blood 10/31/2024 12:2 4 PM PRIMER CHARGER 10/31/2024 1:38 PM PRIMER CHARGER Sofie Chen MD LAB BLOOD ORDERABLES Final Result Performing Organization Address [facility] de Phone Number [address] [address] * (ABNORMAL) Urinalysis reflex to microscopic and culture Urine, bladder (10/31/2024 12:01 PM PRIMER CHARGER) Color, ur Red(A) Yellow Comment:Testing performed by : [address] [address] Clarity, ur Turbid(A) Clear CHERYL Comment:Testing performed by : [address] [address] Specific gravity, ur 1.018 1.003 - 1.030 CHERYL Comment:Testing performed by : [address] [address] pH, urine 6.0 CHERYL Comment: Interpretive Data U rine pH is affected by diet, medications, systemic acid-base disturbances, and renal tubular function. pH may affect urinary stone formation. For example, urine pH below 6.0 may help reduce the tendency for calcium phosphate stones and pH greater than 6.0 may reduce the tendency for uric acid stone formation. Source: [facility] [employer] Current Interpretive Data was last revised on 2017 Testing performed by: [address] [address] Protein, ur ql 2+(A) Negative CHERYL Comment:Testing performed by : [address] [address] Glucose, ur ql Negative Negative CHERYL Comment:Testing performed by : [address] [address] Ketones, ur Negative Negative CHERYL Comment:Testing performed by : [address] [address] Bilirubin, ur Negative Negative CHERYL Comment:Testing performed by : [address] [address] Blood, ur 3+(A) Negative CHERYL Comment:Testing performed by : [address] [address] Urobilinogen, ur <2.0 <2.0 mg/dL CHERYL Comment:Testing performed by : [address] [address] Nitrite, ur Negative Negative CHERYL Comment:Testing performed by : [address] [address] Leukocyte esterase, ur 4+(A) Negative CHERYL Comment:Testing performed by : [address] [address] UA reflex comment Reflex to microscopic UA will be performed. CHERYL Comment:Testing performed by : [address] [address] Urine, bladder 10/31/2024 12 :01 PM PRIMER CHARGER 10/31/2024 8:31 PM PRIMER CHARGER Arturo Carito Chen MD LAB MICROBIOLOGY - G ENERAL ORDERABLES Final Result Performing Organization Address [facility] Co de Phone Number CHERYL [address] [place] [address] * (ABNORMAL) Urinalysis, microscopic only (10/31/2024 12:01 PM PRIMER CHARGER) WBC, ur >50(A) 0 - 5 /HPF Comment:Testing performed by : [address] [address] RBC, ur >50(A) 0 - 2 /HPF CHERYL Comment:Testing performed by : [address] [address] Culture Reflex Comment Reflex to urine culture will be performed. CHERYL Comment:Testing performed by : [address] [address] Urine, bladder 10/31/2024 12 :01 PM PRIMER CHARGER 10/31/2024 8:31 PM PRIMER CHARGER Sofie Chen MD LAB URINE ORDERABLES Final Result Performing Organization Address [facility] Co de Phone Number CHERYL [address] [place] [address] * (ABNORMAL) POCT urinalysis dipstick (10/31/2024 11:49 AM PRIMER CHARGER) Color, Urine, POC Yellow Clarity, ur, POC Clear Clear Glucose, ur, POC Negative Negative MG/DL Bilirubin, ur, POC Negative Negative, Small, Moderate, Large Ketones, ur, POC Negative Negative Specific [place], POC 1.025 1.003 - 1.030 Blood, ur, POC 3+(A) Negative pH, ur, POC 6.0 5.0 - 8.0 Protein, ur, POC 2+(A) Negative Urobilinogen, urine, POC 0.2 0.2 - 1.0 mg/dL Nitrite, ur, POC Negative Negative Leukocytes, ur, POC 3+(A) Negative Lot Number 0 Urine 10/31/2024 11:4 9 AM PRIMER CHARGER Sofie Chen MD POINT OF CARE TEST O RDERABLES Final Result * POCT glucose (10/20/2024 9:28 AM PRIMER CHARGER) Glucose, POC 158 70 - 199 mg/dL Blood 10/20/2024 9:28 AM PRIMER CHARGER 10/20/2024 9:28 AM PRIMER CHARGER Sofie Chen MD LAB POCT ORDERABLES - DEVICE Final Result Performing Organization Address [facility]/ZIP Co de Phone Number CHERYL [facility] [place] [address] * FL Retro Pyelo (In Or) (10/20/2024 9:10 AM PRIMER CHARGER) Narrative ADRIAN_MORGAN_ALPHONSO_MHE - 10/20/2024 9:18 AM PRIMER CHARGER The images from this study are not interpreted by Radiology. Please refer to the physician's procedure / OR operative note. Sofie Chen MD IMG FLUOROSCOPY PROC EDURES Final Result Performing Organization Address City/[facility]/ZIP Co de Phone Number [email or web address] * Stone analysis (10/20/2024 9:02 AM PRIMER CHARGER) Stone analysis Not Reported [facility] Source, Kid Stone Right Ureter [...] developed and its performance characteristics determined by [facility] in a manner consistent with CLIA requirements. This test has not been cleared or approved by the U.S. Food and Drug Administration. Test Performed by: [facility] [place] [address] Wellness Manager: Bridger Mckeon Ph.D.; CLIA# [id number] Stone (Urine, Clean Catch) 10/20/2024 9:02 AM PRIMER CHARGER 10/20/2024 9:29 AM PRIMER CHARGER Willie LUNA - 10/28/2024 11:09 AM PRIMER CHARGER Right ureteral stone for analysis us Yousef Carito Chen MD LAB URINE ORDERABLES Final Result [place]ERYL [address] [place] [address] [place] [address] [facility] * FL AN ELECTIVE SUPRAGLOTTIC AIRWAY, FL AN PROCEDURE PLACEHOLDER (10/20/2024 7:44 AM PRIMER CHARGER) Narrative Nallely Mosley CRNA - 10/20/2024 7:44 AM PRIMER CHARGER Nallely Mosley CRNA 10/20/2024 7:48 AM Airway [...] and Chemistries, Venous - (10/20/2024 6:15 AM PRIMER CHARGER) Pathologist [facility] pH,live POC 7.38 7.32 - 7.43 pCO2, live POC 44 40 - 50 mmHg [facility] pO2,live POC 45 mmHg [facility] Comment: Interpretive Data No reference range established. Current interpretive data was last revised 2020. HCO3, live (Calc) POC 26 20 - 30 mmol/L [facility] Base excess, live POC 1 mmol/L [facility] Comment: Interpretive Data No reference range established. Current interpretive data was last revised 2020. Hemoglobin, live POC 11.6(L) 13.0 - 17.5 g/dL [facility] Hematocrit, live POC 34.0(L) 38.9 - 50.3 % [facility] Sodium, live POC 140 135 - 145 mmol/L [facility] Potassium, live POC 4.1 3.3 - 4.9 mmol/L [facility] Comment: Interpretive Data This method is not able to assess for hemolysis, which may falsely increase potassium concentrations. If further testing is needed to evaluate this result, consider in-laboratory plasma potassium. Current Interpretive Data was last revised on 2022. Glucose, live POC 158 70 - 199 mg/dL [facility] Ionized Calcium, live POC 5.10 4.50 - 5.10 mg/dL [facility] Blood 10/20/2024 6:15 AM PRIMER CHARGER 10/20/2024 6:15 AM PRIMER CHARGER Sofie Chen MD LAB POCT ORDERABLES - DEVICE Final Result [facility] [address] [facility] Department [place] [address] * POCT creatinine for contrast evaluation (10/20/2024 6:11 AM PRIMER CHARGER) Creatinine POC 1.00 0.80 - 1.30 mg/dL Blood 10/20/2024 6:11 AM PRIMER CHARGER 10/20/2024 6:11 AM PRIMER CHARGER us Sofie Chen MD POINT OF CARE TEST O RDERABLES Final Result [facility]ERY[facility] [address] [place] [address] * POCT glucose (09/22/2024 7:38 AM PRIMER CHARGER) Glucose, POC 116 70 - 199 mg/dL Blood 09/22/2024 7:38 AM PRIMER CHARGER 09/22/2024 7:38 AM PRIMER CHARGER Du Cruz MD LAB POCT ORDERABLES - DEV ICE Final Result Performing Organization Address City/[facility]/ZIP Co de Phone Number [facility] Department [place] [address] * POCT glucose (09/22/2024 4:24 AM PRIMER CHARGER) Glucose, POC 121 70 - 199 mg/dL Blood 09/22/2024 4:24 AM PRIMER CHARGER 09/22/2024 4:24 AM PRIMER CHARGER Du Cruz MD LAB POCT ORDERABLES - DEV ICE Final Result Performing Organization Address City/[facility]/ZIP Co de Phone Number [facility] [place] [address] * POCT glucose (09/22/2024 12:20 AM PRIMER CHARGER) Glucose, POC 124 70 - 199 mg/dL Blood 09/22/2024 12:2 0 AM PRIMER CHARGER 09/22/2024 12:20 AM PRIMER CHARGER Du Cruz MD LAB POCT ORDERABLES - DEV ICE Final Result Performing Organization Address [facility] de Phone Number CHERYL [facility] [place] [address] * POCT glucose (09/21/2024 9:49 PM PRIMER CHARGER) Glucose, POC 130 70 - 199 mg/dL Blood 09/21/2024 9:49 PM PRIMER CHARGER 09/21/2024 9:49 PM PRIMER CHARGER Du Cruz MD LAB POCT ORDERABLES - DEV ICE Final Result Performing Organization Address [facility] de Phone Number [facility] [place] [address] * POCT glucose (09/21/2024 7:44 PM PRIMER CHARGER) Glucose, POC 121 70 - 199 mg/dL Blood 09/21/2024 7:44 PM PRIMER CHARGER 09/21/2024 7:44 PM PRIMER CHARGER Du Cruz MD LAB POCT ORDERABLES - DEV ICE Final Result Performing Organization Address [facility] de Phone Number [facility] [place] [address] * [place] Fluoroscopy < 1 Hour (09/21/2024 7:23 PM PRIMER CHARGER) Narrative [facility] - 09/21/2024 7:23 PM PRIMER CHARGER The images from this study are not interpreted by Radiology. Please refer to the physician's procedure / OR operative note. Valery Carson MD IMG FLUOROSCOPY PROCEDURES F inal Result Performing Organization Address [facility] de Phone Number [email or web address] * Urine culture Urine, bladder (09/21/2024 7:21 PM PRIMER CHARGER) Report Final Report: No growth Urine, bladder 09/21/2024 7: 21 PM PRIMER CHARGER 09/21/2024 9:38 PM PRIMER CHARGER Narrative CHERYL ESPINOSA - 09/23/2024 7:48 AM PRIMER CHARGER Urine culture Indications for Culture:->Urology patient Specimen received in a sterile container. Testing performed by [facility] ([phone]) us Valery Carson MD LAB MICROBIOLOGY - GENERAL O RDERABLES Final Result CHERYL [facility] Department [place] [address] * FL AN ELECTIVE ENDOTRACHEAL AIRWAY, FL AN PROCEDURE PLACEHOLDER (09/21/2024 7:13 PM PRIMER CHARGER) Narrative Christiana Howard CRNA - 09/21/2024 7:13 PM PRIMER CHARGER Christiana Howard CRNA 09/21/2024 7:14 PM Airway Patient location: OR Urgency: elective Indications for airway management: anesthesia Difficult airway: no Staff: Supervising provider: Palmira Garcia MD Placed by: COLLIERY CLERK: Christiana Howard CRNA Emergent airway documentation: Risks [...] esult * POCT glucose (09/21/2024 5:12 PM PRIMER CHARGER) Glucose, POC 104 70 - 199 mg/dL Blood 09/21/2024 5:12 PM PRIMER CHARGER 09/21/2024 5:12 PM PRIMER CHARGER Du Cruz MD LAB POCT ORDERABLES - DEV ICE Final Result Performing Organization Address City/[facility] Co de Phone Number [facility] [place] [address] * POCT glucose (09/21/2024 3:42 PM PRIMER CHARGER) Glucose, POC 130 70 - 199 mg/dL Blood 09/21/2024 3:42 PM PRIMER CHARGER 09/21/2024 3:42 PM PRIMER CHARGER Du Cruz MD LAB POCT ORDERABLES - DEV ICE Final Result Performing Organization Address [facility] [place] [address] * POCT glucose (09/21/2024 11:52 AM PRIMER CHARGER) Glucose, POC 170 70 - 199 mg/dL Blood 09/21/2024 11:5 2 AM PRIMER CHARGER 09/21/2024 11:52 AM PRIMER CHARGER Du Cruz MD LAB POCT ORDERABLES - DEV ICE Final Result Performing Organization Address City/[facility] de Phone Number [facility] [place] [address] * POCT glucose (09/21/2024 7:29 AM PRIMER CHARGER) Glucose, POC 188 70 - 199 mg/dL Blood 09/21/2024 7:29 AM PRIMER CHARGER 09/21/2024 7:29 AM PRIMER CHARGER us Du Cruz MD LAB POCT ORDERABLES - DEV ICE Final Result Performing Organization Address [facility] de Phone Number [facility] [place] [address] * POCT glucose (09/21/2024 3:39 AM PRIMER CHARGER) Glucose, POC 161 70 - 199 mg/dL Blood 09/21/2024 3:39 AM PRIMER CHARGER 09/21/2024 3:39 AM PRIMER CHARGER Du Cruz MD LAB POCT ORDERABLES - DEV ICE Final Result Performing Organization Address [facility] Phone Number [facility] [place] [address] * POCT glucose (09/21/2024 12:07 AM PRIMER CHARGER) Glucose, POC 134 70 - 199 mg/dL Blood 09/21/2024 12:0 7 AM PRIMER CHARGER 09/21/2024 12:07 AM PRIMER CHARGER Du Cruz MD LAB POCT ORDERABLES - DEV ICE Final Result Performing Organization Address [facility] [place] [address] * POCT glucose (09/20/2024 10:47 PM PRIMER CHARGER) Glucose, POC 133 70 - 199 mg/dL Blood 09/20/2024 10:4 7 PM PRIMER CHARGER 09/20/2024 10:47 PM PRIMER CHARGER Du Cruz MD LAB POCT ORDERABLES - DEV ICE Final Result Performing Organization Address [facility] de Phone Number CHERYL ESPINOSA [facility] Department [place] [address] * Troponin I high-sensitivity 4-hour (09/20/2024 9:52 PM PRIMER CHARGER) Trop I hs <4 <=35 ng/L Comment: Interpretive Data For further hscTnI resources including the diagnostic algorithm and an aid in interpretation, copy and paste this link: https://bjhlab.testcatalog.org/show/hsTrop-1 Current Interpretive Data last revised 2020. Trop I hs delta See Comment ng/L [facility] Comment:Inappropriate collec tion time to report a delta. Trop I hs pct delta See Comment % [facility] Comment:Inappropriate collec tion time to report a delta. Trop I hs interp See Comment [facility] Comment:Inappropriate collec tion time to report a delta. Blood 09/20/2024 9:52 PM PRIMER CHARGER 09/20/2024 10:16 PM PRIMER CHARGER [facility] MD LAB BLOOD ORDERABLES Cinthia l Result Performing Organization Address [facility] Co de Phone Number CHERYL ESPINOSA [facility] Department [place] [address] * eGFR (09/20/2024 9:52 PM PRIMER CHARGER) eGFR 71 >=60 mL/min/1. 73 m2 Comment: [...] last reviewed 2021. Blood 09/20/2024 9:52 PM PRIMER CHARGER 09/20/2024 10:17 PM PRIMER CHARGER Du Cruz MD LAB BLOOD ORDERABLES Cinthia l Result Performing Organization Address City/[facility]/ZIP Co de Phone Number [facility] Department [place] [address] * (ABNORMAL) CBC without differential (09/20/2024 9:52 PM PRIMER CHARGER) WBC 8.8 3.8 - 9.9 K/cumm Hgb 12.7(L) 13.0 - 17.5 g/dL [facility] Hct 38.5(L) 38.9 - 50.3 % [facility] Plt 307 150 - 400 K/cumm [facility] MPV 9.8 9.1 - 12.3 fL [facility] RBC 4.35 4.30 - 5.80 M/cumm [facility] MCV 88.5 81.3 - 96.4 fL [facility] MCH 29.2 27.1 - 33.3 pg [facility] MCHC 33.0 32.3 - 35.7 g/dL [facility] RDW CV 11.9 11.1 - 14.9 % [facility] RDW SD 38.7 35.7 - 48.1 fL [facility] NRBC abs 0.00 0.00 - 0.01 K/cumm [facility] Blood 09/20/2024 9:52 PM PRIMER CHARGER 09/20/2024 10:18 PM PRIMER CHARGER Du Cruz MD LAB BLOOD ORDERABLES Cinthia l Result Performing Organization Address City/[facility]/ZIP Co de Phone Number [facility] Department [place] [address] * Phosphorus (09/20/2024 9:52 PM PRIMER CHARGER) [facility] Phosphorus, pl 4.1 2.3 - 4.5 mg/dL Blood 09/20/2024 9:52 PM PRIMER CHARGER 09/20/2024 10:17 PM PRIMER CHARGER Result [facility] Du Cruz MD LAB BLOOD ORDERABLES Cinthia l Result Performing Organization Address [facility] [place] [address] * Magnesium (09/20/2024 9:52 PM PRIMER CHARGER) [facility] Magnesium 1.9 1.4 - 2.5 mg/dL Blood 09/20/2024 9:52 PM PRIMER CHARGER 09/20/2024 10:17 PM PRIMER CHARGER Result [facility] Du Cruz MD LAB BLOOD ORDERABLES Cinthia l Result Performing Organization Address [facility] [place] [address] * Basic metabolic panel (09/20/2024 9:52 PM PRIMER CHARGER) [facility] Sodium 141 135 - 145 mmol/L Potassium, pl 4.1 3.3 - 4.9 mmol/L [facility] Chloride 102 97 - 110 mmol/L [facility] CO2 31 22 - 32 mmol/L [facility] Anion gap 8 2 - 15 mmol/L [facility] BUN 15 6 - 25 mg/dL [facility] Creatinine 1.10 0.80 - 1.30 mg/dL [facility] Glucose 127 70 - 199 mg/dL [facility] Comment: Interpretive Data Fasting glucose >/= [...] 2022. Calcium 8.9 8.5 - 10.3 mg/dL [facility] Blood 09/20/2024 9:52 PM PRIMER CHARGER 09/20/2024 10:17 PM PRIMER CHARGER Du Cruz MD LAB BLOOD ORDERABLES Cinthia l Result Performing Organization Address [facility] Co de Phone Number [facility] Department [place] [address] * POCT glucose (09/20/2024 8:37 PM PRIMER CHARGER) Glucose, POC 155 70 - 199 mg/dL Blood 09/20/2024 8:37 PM PRIMER CHARGER 09/20/2024 8:37 PM PRIMER CHARGER Du Cruz MD LAB POCT ORDERABLES - DEV ICE Final Result Performing Organization Address [facility] de Phone Number [facility] Department [place] [address] * POCT glucose (09/20/2024 5:23 PM PRIMER CHARGER) Glucose, POC 145 70 - 199 mg/dL Blood 09/20/2024 5:23 PM PRIMER CHARGER 09/20/2024 5:23 PM PRIMER CHARGER Du Cruz MD LAB POCT ORDERABLES - DEV ICE Final Result Performing Organization Address [facility] Co de Phone Number [facility] Department [place] [address] * Troponin I high-sensitivity 6-hour (09/20/2024 4:35 PM PRIMER CHARGER) Trop I hs <4 <=35 ng/L Comment: Interpretive Data For further hscTnI resources including the diagnostic algorithm and an aid in interpretation, copy and paste this link: https://[employer].Ender [employer].org/show/hsTrop-1 Current Interpretive Data last revised 2020. Trop I hs delta 0 ng/L [facility] Trop I hs interp Insignificant [facility] Blood 09/20/2024 4:35 PM PRIMER CHARGER 09/20/2024 5:10 PM PRIMER CHARGER Du Cruz MD LAB BLOOD ORDERABLES Cinthia l Result Performing Organization Address [facility] Co de Phone Number [facility] [place] [address] * Troponin I high-sensitivity 2-hour (09/20/2024 1:45 PM PRIMER CHARGER) Pathologist [facility] Trop I hs <4 <=35 ng/L Comment: Interpretive Data For further hscTnI resources including the diagnostic algorithm and an aid in interpretation, copy and paste this link: https://Sift [employer].Ender [employer].org/show/hsTrop-1 Current Interpretive Data last revised 2020. Trop I hs delta See Comment ng/L [facility] Comment:Inappropriate collec tion time to report a delta. Trop I hs pct delta See Comment % [facility] Comment:Inappropriate collec tion time to report a delta. Trop I hs interp See Comment [facility] Comment:Inappropriate collec tion time to report a delta. Blood 09/20/2024 1:45 PM PRIMER CHARGER 09/20/2024 2:21 PM PRIMER CHARGER Du Cruz MD LAB BLOOD ORDERABLES Cinthia l Result Performing Organization Address [facility]/ZIP Co de Phone Number [facility] [place] [address] * POCT glucose (09/20/2024 1:42 PM PRIMER CHARGER) Glucose, POC 172 70 - 199 mg/dL Blood 09/20/2024 1:42 PM PRIMER CHARGER 09/20/2024 1:42 PM PRIMER CHARGER us Du Cruz MD LAB POCT ORDERABLES - DEV ICE Final Result CHERYL [facility] Department [place] [address] * TRANSTHORACIC ECHO (TTE) COMPLETE W DOPPLER/CF W CONTRAST (09/20/2024 12:22 PM PRIMER CHARGER) LV EF 70 % CARDIOREPORT Anatomical Region Laterality Modality Ultrasound 09/20/2024 11:3 5 AM PRIMER CHARGER Narrative 09/20/2024 1:44 PM PRIMER CHARGER Patient name: Boo Serrato Date of test: 09/20/2024 Type of test: TTE w/Doppler Hospital #: 0 Date of : 1950 (M) External Grinder: Nichole Lin [facility] Referring Physician: DU CRUZ MD Contrast Agent: 0.15 ml Definity Administered, (1.35 ml wasted). Contrast Administered by: Diann Renee RN Supervised/Interpreted by: Steve Yu MD Diagnosis: SOB Location: [facility] Medicine Reason for test: Chest pain or [...] 2=Hypo 3=Akinetic 4=Dyskin./Aneurysm 0=Not visualized) Parasternal Long [place]:MAS=1 BAS=1 MIL=1 JESSICA=1 Parasternal Short [place]:MAS=1 MIS=1 PR=1 MIL=1 MAL=1 MA=1 Apical 4 [...] MD By signing this report, the attending nremt certifies that he or she has personally supervised and interpreted the echocardiogram and has reviewed and or edited and agrees with the written comments contained within the report. Procedure Note Steve Yu MD - 09/20/2024 Patient name: Boo Serrato Date of test: 09/20/2024 Type of test: TTE w/[facility] #: 0 Date of : 1950 (M) External Grinder: Nichole Lin RD, [facility] Referring Physician: DU CRUZ MD Contrast Agent: 0.15 ml Definity Administered, (1.35 ml wasted). Contrast Administered by: Diann Renee RN Supervised/Interpreted by: Steve Yu MD Diagnosis: SOB Location: [facility] Reason for test: Chest pain or [...] 2=Hypo 3=Akinetic 4=Dyskin./Aneurysm 0=Not visualized) Parasternal [place]:MAS=1 BAS=1 MIL=1 JESSICA=1 Parasternal [place]:MAS=1 MIS=1 PR=1 MIL=1 MAL=1 MA=1 Apical 4 [...] MD By signing this report, the attending nremt certifies that he or she has personally supervised and interpreted the echocardiogram and has reviewed and or edited and agrees with the written comments contained within the report. Du Cruz MD CV ECHO PROCEDURES Final Result * POCT glucose (09/20/2024 11:15 AM PRIMER CHARGER) Glucose, POC 149 70 - 199 mg/dL Blood 09/20/2024 11:1 5 AM PRIMER CHARGER 09/20/2024 11:15 AM PRIMER CHARGER Du Cruz MD LAB POCT ORDERABLES - DEV ICE Final Result [facility] BJ [facility] Department [place] [address] * XR Chest Pa Lateral 2 Views (09/20/2024 11:04 AM PRIMER CHARGER) Anatomical Region Laterality Modality Body, Chest N/A Computed Radiogr aphy 09/20/2024 11:2 4 AM PRIMER CHARGER Impressions 09/20/2024 11:24 AM PRIMER CHARGER Comparison is made to prior study of 11/27/2020. The lung volumes are smaller with increased atelectasis. There is no pulmonary edema or pneumonia. No pneumothorax. No definite pleural effusion. The heart size and mediastinal contour are unchanged. Electronically signed by: Lokesh Bui M.D. Narrative 09/20/2024 11:24 AM PRIMER CHARGER EXAMINATION: 2 view chest radiograph Procedure Note Lokesh Bui MD - 09/20/2024 EXAMINATION: 2 view chest radiograph IMPRESSION: Comparison is made to prior study of 11/27/2020. The lung volumes are smaller with increased atelectasis. There is no pulmonary edema or pneumonia. No pneumothorax. No definite pleural effusion. The heart size and mediastinal contour are unchanged. Electronically signed by: Lokesh Bui M.D. Result [facility] Du Cruz MD IMG XR PROCEDURES Final R esult * ECG 12 lead (09/20/2024 10:33 AM PRIMER CHARGER) Pathologist [facility] Ventricular Rate EKG/Min 86 BPM [facility] Atrial Rate 86 BPM [facility] FL-Interval (MSEC) 154 ms [facility] QRS-Interval (MSEC) 124 ms [facility] QT-Interval (MSEC) 378 ms [facility] QTc 452 ms [facility] P [place] -9 degrees [facility] R [place] -5 degrees [facility] T [place] 16 degrees [facility] Diagnosis Normal sinus rhythm Right bundle branch block Abnormal ECG No previous ECGs available Confirmed by Bouchra FLAHERTY [facility] ([id number]) on 09/20/2024 10:32:01 PM [facility] 09/20/2024 10:3 3 AM PRIMER CHARGER 09/20/2024 10:32 PM PRIMER CHARGER Result [facility] Urbano Rhodes MD ECG ORDERABLES Final Result [facility] * Troponin I high-sensitivity series (baseline, 2hr, 4hr, 6hr) (09/20/2024 10:15 AM PRIMER CHARGER) [facility] Trop I hs <4 <=35 ng/L Comment: Interpretive Data For further hscTnI resources including the diagnostic algorithm and an aid in interpretation, copy and paste this link: https://bjhlab.testcatalog.org/show/hsTrop-1 Current Interpretive Data last revised 2020. Blood 09/20/2024 10:1 5 AM PRIMER CHARGER 09/20/2024 10:52 AM PRIMER CHARGER Result [facility] Du Cruz MD LAB BLOOD ORDERABLES Cinthia l Result Performing Organization Address City/[facility]/ZIP Co de Phone Number [facility] [place] [address] * POCT glucose (09/20/2024 8:45 AM PRIMER CHARGER) Glucose, POC 147 70 - 199 mg/dL Blood 09/20/2024 8:45 AM PRIMER CHARGER 09/20/2024 8:45 AM PRIMER CHARGER [facility] Velasquez Cruz MD LAB POCT ORDERABLES - DEV ICE Final Result Performing Organization Address [facility] de Phone Number [facility] [place] [address] * (ABNORMAL) Urinalysis reflex to microscopic (09/20/2024 6:17 AM PRIMER CHARGER) Color, ur Katie Yellow Clarity, ur Cloudy(A) Clear [facility] Specific gravity, ur 1.022 1.003 - 1.030 [facility] pH, urine 5.5 [facility] Comment: Interpretive Data U rine pH is affected by diet, medications, systemic acid-base disturbances, and renal tubular function. pH may affect urinary stone formation. For example, urine pH below 6.0 may help reduce the tendency for calcium phosphate stones and pH greater than 6.0 may reduce the tendency for uric acid stone formation. Source: [facility] [employer] Current Interpretive Data was last revised on 2017 Protein, ur ql 1+(A) Negative [facility] Glucose, ur ql Negative Negative [facility] Ketones, ur Negative Negative [facility] Bilirubin, ur Negative Negative [facility] Blood, ur 3+(A) Negative [facility] Urobilinogen, ur <2.0 <2.0 mg/dL [facility] Nitrite, ur Negative Negative [facility] Leukocyte esterase, ur Negative Negative [facility] UA reflex comment Reflex to microscopic UA will be performed. [facility] Urine 09/20/2024 6:17 AM PRIMER CHARGER 09/20/2024 6:40 AM PRIMER CHARGER Du Cruz MD LAB URINE ORDERABLES Cinthia l Result Performing Organization Address [facility] Co de Phone Number [facility] Department [place] [address] * (ABNORMAL) Urinalysis, microscopic only (09/20/2024 6:17 AM PRIMER CHARGER) WBC, ur 0-5 0 - 5 /HPF RBC, ur >50(A) 0 - 2 /HPF [facility] Mucous, ur Present(A) [facility] Urine 09/20/2024 6:17 AM PRIMER CHARGER 09/20/2024 6:40 AM PRIMER CHARGER Du Cruz MD LAB URINE ORDERABLES Cinthia l Result Performing Organization Address [facility] de Phone Number [facility] Department [place] [address] * Urine culture Urine, clean voided (09/20/2024 6:17 AM PRIMER CHARGER) Report Final Report: No growth Urine, clean voided 09/20/2024 6:17 AM PRIMER CHARGER 09/20/2024 6:43 AM PRIMER CHARGER Narrative [facility] - 09/21/2024 9:41 AM PRIMER CHARGER Indications for Culture:->Urology patient Testing performed by [facility] ([phone]) Du Cruz MD LAB MICROBIOLOGY - GENERA L ORDERABLES Final Result Performing Organization Address [facility] Co de Phone Number [facility] Department [place] [address] * Check Sample (09/20/2024 5:42 AM PRIMER CHARGER) ABO Rh O Negative [facility] OTHER 09/20/2024 5:42 AM PRIMER CHARGER 09/20/2024 6:43 AM PRIMER CHARGER Du Cruz MD LAB BLOOD ORDERABLES Cinthia l Result [facility] Department [place] [address] BJ * POCT glucose (09/20/2024 5:29 AM PRIMER CHARGER) Glucose, POC 143 70 - 199 mg/dL Blood 09/20/2024 5:29 AM PRIMER CHARGER 09/20/2024 5:29 AM PRIMER CHARGER Du Cruz MD LAB POCT ORDERABLES - DEV ICE Final Result Performing Organization Address [facility] Co de Phone Number [facility] Department [place] [address] * CT Body Outside Consult (09/20/2024 4:57 AM PRIMER CHARGER) Anatomical Region Laterality Modality Body N/A Computed Tomogra phy 09/20/2024 9:40 AM PRIMER CHARGER Impressions 09/20/2024 12:05 PM PRIMER CHARGER 1. Mild right hydroureteronephrosis down to the [...] images may or may not represent the lytton source data set and thus may contain changes that may lower the accuracy of this second-opinion interpretation. Dictated by: Bradley Maldonado M.D. The radiology attending physician has personally reviewed this study, and had reviewed and/or edited this written report and agrees with it. Electronically signed by: Louann Camilo M.D. Narrative 09/20/2024 12:05 PM PRIMER CHARGER EXAMINATION: RADIOLOGY CONSULTATION ON OUTSIDE IMAGING STUDY STUDY INITIALLY PERFORMED: 09/19/[address] [facility] [place]. TYPE OF STUDY: Multiple CT images of [...] IMAGING STUDY STUDY INITIALLY PERFORMED: 09/19/[address] [facility]. TYPE OF STUDY: Multiple CT images of [...] images may or may not represent the lytton source data set and thus may contain changes that may lower the accuracy of this second-opinion interpretation. Dictated by: Bradley Maldonado M.D. The radiology attending physician has personally reviewed this study, and had reviewed and/or edited this written report and agrees with it. Electronically signed by: Louann Camilo M.D. Du Cruz MD IMG CT PROCEDURES Final R esult * eGFR (09/20/2024 4:33 AM PRIMER CHARGER) eGFR 82 >=60 mL/min/1. 73 m2 Comment: [...] last reviewed 2021. Blood 09/20/2024 4:33 AM PRIMER CHARGER 09/20/2024 5:19 AM PRIMER CHARGER us Du Cruz MD LAB BLOOD ORDERABLES Cinthia l Result [facility] Department [place] [address] * (ABNORMAL) Differential, auto (09/20/2024 4:33 AM PRIMER CHARGER) Neutrophil abs 6.8(H) 1.5 - 6.5 K/cumm Imm gran abs 0.0 0.0 - 0.1 K/cumm [facility] Lymphocyte abs 2.1 0.8 - 3.3 K/cumm [facility] Monocyte abs 1.0(H) 0.2 - 0.8 K/cumm [facility] Eosinophil abs 0.2 0.0 - 0.5 K/cumm [facility] Basophil abs 0.1 0.0 - 0.1 K/cumm [facility] Neutrophil pct 66.4 % [facility] Comment: Interpretive Data Percent cell count reference ranges are not reported, since discordance with absolute values may lead to misinterpretation of CBC data. Current Interpretive Data was last revised on 2017. Imm gran pct 0.4 % [facility] Comment: Interpretive Data Percent cell count reference ranges are not reported, since discordance with absolute values may lead to misinterpretation of CBC data. Current Interpretive Data was last revised on 2017. Lymphocyte pct 20.9 % [facility] Comment: Interpretive Data Percent cell count reference ranges are not reported, since discordance with absolute values may lead to misinterpretation of CBC data. Current Interpretive Data was last revised on 2017. Monocyte pct 9.5 % [facility] Comment: Interpretive Data Percent cell count reference ranges are not reported, since discordance with absolute values may lead to misinterpretation of CBC data. Current Interpretive Data was last revised on 2017. Eosinophil pct 2.1 % [facility] Comment: Interpretive Data Percent cell count reference ranges are not reported, since discordance with absolute values may lead to misinterpretation of CBC data. Current Interpretive Data was last revised on 2017. Basophil pct 0.7 % [facility] Comment: Interpretive Data Percent cell count reference ranges are not reported, since discordance with absolute values may lead to misinterpretation of CBC data. Current Interpretive Data was last revised on 2017. Blood 09/20/2024 4:33 AM PRIMER CHARGER 09/20/2024 5:21 AM PRIMER CHARGER Du Cruz MD LAB BLOOD ORDERABLES Cinthia l Result Performing Organization Address [facility] Co de Phone Number [facility] Department [place] [address] * (ABNORMAL) CBC with auto differential (09/20/2024 4:33 AM PRIMER CHARGER) [facility] WBC 10.2(H) 3.8 - 9.9 K/cumm Hgb 13.4 13.0 - 17.5 g/dL [facility] Hct 40.2 38.9 - 50.3 % [facility] Plt 346 150 - 400 K/cumm [facility] MPV 9.9 9.1 - 12.3 fL [facility] RBC 4.53 4.30 - 5.80 M/cumm [facility] MCV 88.7 81.3 - 96.4 fL [facility] MCH 29.6 27.1 - 33.3 pg [facility] MCHC 33.3 32.3 - 35.7 g/dL [facility] RDW CV 11.9 11.1 - 14.9 % [facility] RDW SD 39.0 35.7 - 48.1 fL [facility] NRBC abs 0.00 0.00 - 0.01 K/cumm [facility] Blood 09/20/2024 4:33 AM PRIMER CHARGER 09/20/2024 5:21 AM PRIMER CHARGER Du Cruz MD LAB BLOOD ORDERABLES Cinthia l Result [facility] Department [place] [address] * aPTT (09/20/2024 4:33 AM PRIMER CHARGER) Pathologist [facility] aPTT 35 28 - 38 sec Comment: Interpretive Data Heparin therapeutic range: 66.0 - 100.0 seconds. Range based on correlation with therapeutic heparin activity range of 0.3 - 0.7 Units/mL. Current interpretive data was last revised on 2023. Blood 09/20/2024 4:33 AM PRIMER CHARGER 09/20/2024 5:30 AM PRIMER CHARGER Du Cruz MD LAB BLOOD ORDERABLES Cinthia l Result Performing Organization Address [facility] de Phone Number [facility] [place] [address] * Protime-INR (09/20/2024 4:33 AM PRIMER CHARGER) PT 11.7 9.7 - 13.0 sec INR 1.08 0.90 - 1.20 [facility] Comment: Interpretive data Oral anticoagulant therapeutic ranges: Venous thromboembolism prophylaxis or treatment: 2.0-3.0 CARDIOLOGY Standard range: 2.0-3.0 High-intensity range: 2.5-3.5 Refer to indication-specific guidelines for appropriate target ranges for prosthetic heart valve replacement. Current interpretive data was last revised on 2019. Blood 09/20/2024 4:33 AM PRIMER CHARGER 09/20/2024 5:30 AM PRIMER CHARGER Result [facility] Du Cruz MD LAB BLOOD ORDERABLES Cinthia l Result Performing Organization Address [facility] [place] [address] * Type and screen (09/20/2024 4:33 AM PRIMER CHARGER) ABO Rh O Negative Tono, indirect Negative [facility] Blood 09/20/2024 4:33 AM PRIMER CHARGER 09/20/2024 5:20 AM PRIMER CHARGER Narrative [facility] - 09/20/2024 6:11 AM PRIMER CHARGER Has the patient had Daratumumab or Isatuximab in the past 6 months?->Unknown Du Cruz MD LAB BLOOD BANK TEST ORDER YULI Final Result Performing Organization Address [facility] Co de Phone Number [facility] [place] [address] * Phosphorus (09/20/2024 4:33 AM PRIMER CHARGER) [facility] Phosphorus, pl 3.7 2.3 - 4.5 mg/dL Blood 09/20/2024 4:33 AM PRIMER CHARGER 09/20/2024 5:19 AM PRIMER CHARGER Du Cruz MD LAB BLOOD ORDERABLES Cinthia l Result Performing Organization Address [facility] de Phone Number [facility] Department [place] [address] * Magnesium (09/20/2024 4:33 AM PRIMER CHARGER) [facility] Magnesium 2.0 1.4 - 2.5 mg/dL Blood 09/20/2024 4:33 AM PRIMER CHARGER 09/20/2024 5:19 AM PRIMER CHARGER Du Cruz MD LAB BLOOD ORDERABLES Cinthia l Result Performing Organization Address [facility] de Phone Number [facility] [place] [address] * Basic metabolic panel (09/20/2024 4:33 AM PRIMER CHARGER) [facility] Sodium 142 135 - 145 mmol/L Potassium, pl 4.3 3.3 - 4.9 mmol/L [facility] Chloride 105 97 - 110 mmol/L [facility] CO2 30 22 - 32 mmol/L [facility] Anion gap 7 2 - 15 mmol/L [facility] BUN 14 6 - 25 mg/dL [facility] Creatinine 0.97 0.80 - 1.30 mg/dL [facility] Glucose 143 70 - 199 mg/dL [facility] Comment: Interpretive Data Fasting glucose >/= [...] 2022. Calcium 9.2 8.5 - 10.3 mg/dL [facility] Blood 09/20/2024 4:33 AM PRIMER CHARGER 09/20/2024 5:19 AM PRIMER CHARGER Result [facility] Du Cruz MD LAB BLOOD ORDERABLES Cinthia mercado Result [facility] Department [place] [address] * Electrocardiogram Report (08/31/2024 2:35 PM PRIMER CHARGER) Maximo Mobley MD ECG ORDERABLES Edited Result - Final * POCT lipid panel (08/31/2024 9:59 AM PRIMER CHARGER) Cholesterol, POC 108 mg/dL Comment:GLU = 121 HDL, POC 36 mg/dL Triglycerides, POC 194 mg/dL LDL Cholesterol POC 33 mg/dL Chol/HDL Ratio, POC 0.9 Non-HDL Cholesterol, POC 72 mg/dL Cholesterol Total, POC 108 mg/dL Capillary blood 08/31/2024 9 :59 AM PRIMER CHARGER Maximo Mobley MD POINT OF CARE TEST ORDERABLES Fi nal Result from Last 3 Months Insurance [facility] OPEN ACCESS MEDICARE [facility] Address: [address] [address] [place] [address] [facility] Advance Directives For more information, please contact: [phone] * Full Code (Latest Code Status on File) Date Activated Date Inactivated Comments 09/20/2024 4:10 AM 09/22/2024 2:52 PM * Full Code Date Activated Date Inactivated Comments 09/16/2018 1:22 PM 09/23/2018 6:01 PM Care Teams Crossing Tender Relationship Specialty Start Date End Date Heydi Gomez MD [address] [place] [address] PCP - General 12/12/16 Aleksandr Kirkland NP [address] [place] [address] [address], [place] [address] Nurse Practitioner Nurse Practitioner 12/04/20 Maximo Mobley MD [facility] [facility] [address] [place] [address] Consulting Physician Cardiology 10/07/24
--- OUTSIDE RECORDS SUMMARY | 2024-10-31 22:51 | XMS_ITS | Encounter Summary ---
Author Organization [facility] Healthcare Address [address] [place] [address] Care Team Providers Care Computational Linguist Name Role Phone Heydi Gomez MD Primary Care Provider [phone] Aleksandr Kirkland NP Unavailable Maximo Mobley MD Unavailable Encounter Details Date Type Department Care Team (Late st Contact Info) Description 09/21/2018 Telephone Transition to Wellness [address] [address] Vijaya Dunn LCSW Social History Tobacco Use Types Packs/Day Years Used Date Smoking Tobacco: Former Smokeless Tobacco: Never Alcohol Use Standard Drinks/Week Comments No 0 (1 standard drink = 0.6 oz pur e alcohol) Sex and Gender Information Value Date Recorded Sex Assigned at Not on file Legal Sex Male 10:57 AM APPLICATIONS DEVELOPER Gender Identity Not on file Sexual Orientation Not on file documented as of this encounter Plan of Treatment Not on file documented as of this encounter Visit Diagnoses Not on filedocumented in this encounter Additional Health Concerns Infection Onset Date Last Indicated Resolved Time COVID: Recovered 09/04/2020 12/03/2020 04/02/2021 3:05 AM CDT documented as of this encounter Care Teams Computational Linguist Relationship Specialty Start Date End Date Heydi Gomez MD [address] [place] [address] PCP - General 12/12/16 Aleksandr Kirkland NP [address] [place] [address] [address], [place] [address] Nurse Practitioner Nurse Practitioner 12/04/20 Maximo Mobley MD [address] [address] Consulting Physician Cardiology 10/07/24 documented as of this encounter
--- OUTSIDE RECORDS SUMMARY | 2024-10-31 22:51 | XMS_ITS | Encounter Summary ---
Author Organization [facility] Healthcare Address [address] [place] [address] Care Team Providers Care Courtesy Booth Cashier Name Role Phone Heydi Gomez MD Primary Care Provider Aleksandr Kirkland NP Unavailable Maximo Mobley MD Unavailable Encounter Details Date Type Department Care Team (Late st Contact Info) Description 09/17/2018 Telephone [facility] [address] [place], [place] [id number] Vijaya Dunn LCSW Social History Tobacco Use Types Packs/Day Years Used Date Smoking Tobacco: Former Smokeless Tobacco: Never Alcohol Use Standard Drinks/Week Comments No 0 (1 standard drink = 0.6 oz pur e alcohol) Sex and Gender Information Value Date Recorded Sex Assigned at Not on file Legal Sex Male 10:57 AM REFERRAL AND INFORMATION AIDE Gender Identity Not on file Sexual Orientation Not on file documented as of this encounter Plan of Treatment Not on file documented as of this encounter Visit Diagnoses Not on filedocumented in this encounter Additional Health Concerns Infection Onset Date Last Indicated Resolved Time COVID: Recovered 09/04/2020 12/03/2020 04/02/2021 3:05 AM CDT documented as of this encounter Care Teams Courtesy Booth Cashier Relationship Specialty Start Date End Date Heydi Gomez MD [address] [place] [address] PCP - General 12/12/16 Aleksandr Kirkland NP [address] [place] [address] [address] [place] [address] Nurse Practitioner Nurse Practitioner 12/04/20 Maximo Mobley MD [address] [place] [address] [address] Consulting Physician Cardiology 10/07/24 documented as of this encounter
--- OUTSIDE RECORDS SUMMARY | 2024-10-31 22:51 | XMS_ITS | Encounter Summary ---
Author Organization [facility] Healthcare Address [address] [place] [address] Care Team Providers Care Power Supply Engineer Name Role Phone Heydi Gomez MD Primary Care Provider [phone] Aleksandr Kirkland NP Unavailable [phone] Maximo Mobley MD Unavailable Encounter Details Date Type Department Care Team (Latest Contact Info) Description 10/31/2024 12:33 PM SEED POTATO ARRANGER Hospital Encounter [facility] Building [address] [id number] Nephrolithiasis Social History Tobacco Use Types Packs/Day [...] on file Legal Sex Male 10:57 AM SEED POTATO ARRANGER Gender Identity Not on file Sexual Orientation Not on file documented as of this encounter Plan of Treatment Pending Results Name Type Priority Associated Diagnoses Date /Time Urine culture Urine, bladder Microbiology Routine 10/31/2024 12:01 PM SEED POTATO ARRANGER Scheduled Orders Name Type Priority Associated Diagnoses Orde r Schedule Urine culture Microbiology Routine Once for 1 Occurrences starting 10/31/2024 until 10/31/2024 documented as of this encounter Procedures Procedure Name Priority Date/Time Associated Diagnosis Comments URINALYSIS AND REFLEX TO MICROSCOPIC AND CULTURE Routine 10/31/2024 12:01 PM SEED POTATO ARRANGER Nephrolithiasis URINALYSIS, MICROSCOPIC ONLY Routine 10/31/2024 12:01 PM SEED POTATO ARRANGER Nephrolithiasis documented in this encounter Results * (ABNORMAL) Urinalysis, microscopic only (10/31/2024 12:01 PM SEED POTATO ARRANGER) WBC, ur >50(A) 0 - 5 /HPF Comment:Testing performed by : [address] [address] RBC, ur >50(A) 0 - 2 /HPF [facility] Comment:Testing performed by : [address] [address] Culture Reflex Comment Reflex to urine culture will be performed. CHERYL Comment:Testing performed by : [address] [address] Urine, bladder 10/31/2024 12 :01 PM SEED POTATO ARRANGER 10/31/2024 8:31 PM SEED POTATO ARRANGER us Yousef Carito Chen MD LAB URINE ORDERABLES Final Result [facility] [address] [facility] Department [place] [address] * (ABNORMAL) Urinalysis reflex to microscopic and culture Urine, bladder (10/31/2024 12:01 PM SEED POTATO ARRANGER) Color, ur Red(A) Yellow Comment:Testing performed by : [address] [place] [address] Clarity, ur Turbid(A) Clear CHERYL Comment:Testing performed by : [address] [address] Specific gravity, ur 1.018 1.003 - 1.030 CHERY[facility] Comment:Testing performed by : [address] [address] pH, urine 6.0 [facility] Comment: Interpretive Data U rine pH is affected by diet, medications, systemic acid-base disturbances, and renal tubular function. pH may affect urinary stone formation. For example, urine pH below 6.0 may help reduce the tendency for calcium phosphate stones and pH greater than 6.0 may reduce the tendency for uric acid stone formation. Source: [facility] [employer] Current Interpretive Data was last revised on 2017 Testing performed by: [address] [address] Protein, ur ql 2+(A) Negative CHERYL Comment:Testing performed by : [address] [address] Glucose, ur ql Negative Negative CHERYL Comment:Testing performed by : [address] [address] Ketones, ur Negative Negative CHERYL Comment:Testing performed by : [address] [address] Bilirubin, ur Negative Negative CHERYL Comment:Testing performed by : [address] [address] Blood, ur 3+(A) Negative CHERYL Comment:Testing performed by : [address] [address] Urobilinogen, ur <2.0 <2.0 mg/dL CHERYL Comment:Testing performed by : [address] [address] Nitrite, ur Negative Negative CHERYL Comment:Testing performed by : [address] [address] Leukocyte esterase, ur 4+(A) Negative CHERYL Comment:Testing performed by : [address] [address] UA reflex comment Reflex to microscopic UA will be performed. CHERYL Comment:Testing performed by : [facility], [address] [facility], [place]., [address] Urine, bladder 10/31/2024 12 :01 PM SEED POTATO ARRANGER 10/31/2024 8:31 PM SEED POTATO ARRANGER us Yousef Carito Chen MD LAB MICROBIOLOGY - G ENERAL ORDERABLES Final Result [facility] [address] [facility] Department [place] [address] documented in this encounter Visit Diagnoses Diagnosis Nephrolithiasis Calculus of kidney documented in this encounter Care Teams Power Supply Engineer Relationship Specialty Start Date End Date Heydi Gomez MD [address] [place] [address] PCP - General 12/12/16 Aleksandr Kirkland, JONATAN [address] [place] [address] [address], [place] [address] Nurse Practitioner Nurse Practitioner 12/04/20 Maximo Mobley MD [address] [place] [address] Consulting Physician Cardiology 10/07/24 documented as of this encounter
--- OUTSIDE RECORDS SUMMARY | 2024-10-31 22:51 | XMS_ITS | Encounter Summary ---
Author Organization [facility] Healthcare Address [address] [place] [address] Care Team Providers Care Body Mechanic Apprentice Name Role Phone Heydi Gomez MD Primary Care Provider [phone] Aleksandr Kirkland NP Unavailable [phone] Maximo Mobley MD Unavailable Encounter Details Date Type Department Care Team (Late st Contact Info) Description 10/14/2024 Telephone [facility] Medical [facility] Cardiology [address] [place] [address] Maximo Mobley MD [address] [address] Social History Tobacco Use Types [...] on file Legal Sex Male 10:57 AM WATER SANDER Gender Identity Not on file Sexual Orientation Not on file documented as of this encounter Miscellaneous Notes * Telephone Encounter - Bhavna Mota, RN - 10/14/2024 9:30 AM WATER SANDER DK-Dr. Gomez is requesting a callback from you regarding this pt-his personal cell is listed. Thank you! R SANDER * Telephone Encounter - Wen Hernandez - 10/14/2024 9:[address] Gomez (PCP) is requesting to speak to Dr. Mobley today. States pt has a lot of blood in urine and wanting to see if Eliquis can be stopped. Contact: R SANDER documented in this encounter Plan of Treatment Not on file documented as of this encounter Visit Diagnoses Not on filedocumented in this encounter Care Teams Body Mechanic Apprentice Relationship Specialty Start Date End Date Heydi Gomez MD [address] [place] [address] PCP - General 12/12/16 Aleksandr Kirkland NP [address] [place] [address] [address] [place] [address] Nurse Practitioner Nurse Practitioner 12/04/20 Maximo Mobley MD [address] [facility] [address] [place] [address] Consulting Physician Cardiology 10/07/24 documented as of this encounter
--- OUTSIDE RECORDS SUMMARY | 2024-10-31 22:51 | XMS_ITS | Encounter Summary ---
Author Organization [facility] Address [address] [facility] [address] [place] [address] Phone Care Team Providers Care Nut Sifter Name Role Phone Heydi Gomez MD Primary Care Provider [phone] Aleksandr Kirkland NP Unavailable [phone] Maximo Mobley MD Unavailable Encounter Details Date Type Department Care Team (Late st Contact Info) Description 10/31/2024 Results Follow-Up [facility] Surgery [address] [place] [address] [address] [place] [address] Sofie Chen MD [address] [facility] [place] [id number] Social History Tobacco Use Types Packs/Day Years [...] on file Legal Sex Male 10:57 AM CAFE TEAM MEMBER Gender Identity Not on file Sexual Orientation Not on file documented as of this encounter Plan of Treatment Not on file documented as of this encounter Visit Diagnoses Not on filedocumented in this encounter Care Teams Nut Sifter Relationship Specialty Start Date End Date Heydi Gomez MD [address] [place] [address] PCP - General 12/12/16 Aleksandr Kirkland NP [address] [facility] [address], [place] [address] Nurse Practitioner Nurse Practitioner 12/04/20 Maximo Mobley MD [address] [address] Consulting Physician Cardiology 10/07/24 documented as of this encounter
--- OUTSIDE RECORDS SUMMARY | 2024-10-31 22:51 | XMS_ITS | Encounter Summary ---
Author Organization [facility] Address [address] [facility] [address] [place] [address] Phone Care Team Providers Care Chart Changer Name Role Phone Heydi Gomez MD Primary Care Provider [phone] Aleksandr Kirkland NP Unavailable [phone] Maximo Mobley MD Unavailable Encounter Details Date Type Department Care Team (Late st Contact Info) Description 10/31/2024 Telephone [facility] 2[address] [place] [address] [place] [address] Sunita Diaz MD [address] [facility] [id number] [place], [place] [id number] Social History Tobacco Use Types Packs/Day Years [...] on file Legal Sex Male 10:57 AM MULE DEVELOPER Gender Identity Not on file Sexual [...] from 6:00 to 18:00 (Thursday-Thursday), please call [phone].If you want to contact Urology consults after hours (18:00 to 6:00) and over the weekend, please call the recovery operator or check the schedule on Amion. DEVELOPER documented in this encounter Plan of Treatment Not on file documented as of this encounter Visit Diagnoses Not on filedocumented in this encounter Care Teams Chart Changer Relationship Specialty Start Date End Date Heydi Gomez MD [address] [place] [address] PCP - General 12/12/16 Aleksandr Kirkland NP [address] [facility] [address], [place] [address] Nurse Practitioner Nurse Practitioner 12/04/20 Maximo Mobley MD [address] [place] [address] [address] Consulting Physician Cardiology 10/07/24 documented as of this encounter
--- OUTSIDE RECORDS SUMMARY | 2024-10-31 22:51 | XMS_ITS | Clinical Summary ---
Author Organization [facility] Address [address] [place] [address] Attn: Epic Prelude ADT TERRA MICHELLE [address] Care Team Providers Care Passenger Interline Clerk Name Role Phone Unavailable Primary Care Provider [...]
--- NOTE | 2024-10-31 23:38 | PC.NURSE ---
Initial catheter of 16 F inserted w/o difficulty. When attempting to irrigate, nothing coming out. 16F removed and larger 20F 3 way irrigation cath placed under sterile technique. Immediate return of blood tinged urine w/ clots noted upon manula irrigation w/ approx 200 ml NS. Catheter flowing to gravity. Continued to irrigate w/ another 300ml manual NS and removed several more clots from catheter. Pt reported immediate relief of pelvic pain w/ schrader to gravity.
[2024-11-01 00:24] VITALS: BP 161/72; PULSE 74; RESP 18; O2SAT 97
== END 2024-11-01 00:24 | disposition home or self-care (01) ==
LOC: CHSED 22:49
PROVIDERS: Emergency Provider Family Medicine; PCP Internal Medicine
DX: R33.9 Retention of urine, unspecified (principal); R31.0 Gross hematuria
CPT/HCPCS: 51702; 99283

== ENCOUNTER 2025-04-06 09:14 | Outpatient (CLI) | payer MEDICARE, SELFPAY ==
--- NOTE | ~2025-04-06 | XR_ITS ---
EXAM/ PROCEDURE: XR lumbar spine 2-3V - 04/06/2025 9:20 CDT HISTORY: 74 years old Male with ACUTE/CHRONIC LOW BACK PAIN COMPARISON: None available TECHNIQUE: Three view(s) FINDINGS/ IMPRESSION: There are no fractures or dislocations.Multilevel degenerative changes are seen. Atherosclerotic calcifications are seen. Reviewed, dictated and finalized at location A.
--- OUTSIDE RECORDS SUMMARY | 2025-04-06 09:20 | XMS_ITS | Referral Summary ---
Author Organization [facility] [address] Address [address] [place] [address] Care Team Providers Care Hand Shoes Sewer Name Role Phone Heydi Gomez MD Primary Care Provider Aleksandr Kirkland NP Unavailable Maximo Mobley MD Unavailable Encounters Date Type Department Care Team Description 01/26/2025 Telephone [facility] Surgery [address] [place] [address] Diann Light from Last 3 Months Allergies Active Allergy Reactions Criticality Noted Date Comments Injlddi-Zyw-Eqx Reductase Inhibitors Muscle pain Medium Medications cholecalciferol (VITAMIN D-3) 2000 unit capsule Take 1 capsule (2,000 Units total) by mouth daily 30 capsule [address] (CYMBALTA) 30 mg capsule Take 1 capsule (30 mg total) by mouth daily 1 Active ascorbic acid (VITAMIN C) 500 mg tablet,chewable Take 1 tablet/chew tab (500 mg total) by mouth daily Active naproxen (ALEVE) 220 mg tablet Take by mouth daily as needed Active fluticasone propionate (FLONASE) 50 mcg/actuation nasal spray Administer 1 spray into each nostril daily as needed Active Ozempic 1 mg/dose (4 mg/3 mL) pen injector injection Inject 1 mg under the skin once a week Thursday 4 Active Repatha SureClick 140 mg/mL pen injector INJECT 1 ML BY SUBCUTANEOUS ROUTE EVERY 2 WEEKS IN THE ABDOMEN, THIGH, OR OUTER AREA OF UPPER ARM 4 Active acetaminophen (TYLENOL) 500 mg tabletIndication s:Pain Take 1 tablet (500 mg total) by mouth every 6 (six) hours as needed for pain 30 tablet 5 Active tamsulosin (FLOMAX) 0.4 mg extended release capsule Take 1 capsule (0.4 mg total) by mouth daily with dinner 30 capsule 1 5 Active trospium (SANCTURA) 20 mg tablet Take 1 tablet (20 mg total) by mouth 2 (two) times a day 60 tablet 11 5 026 Active oxyBUTYnin (DITROPAN) 5 mg tablet Take 1 tablet (5 mg total) by mouth 2 (two) times a day for 5 days 10 tablet 5 Active amlodipine-valsa rtan (EXFORGE) 5-160 mg per tabletIndication s:Essential hypertension Take 1 tablet by mouth once daily 90 tablet 2 5 Active clopidogreL (PLAVIX) 75 mg tablet Take 1 tablet (75 mg total) by mouth daily 90 tablet 3 5 026 Active metoprolol tartrate (LOPRESSOR) 50 mg immediate release tablet Take 1.5 tablets (75 mg total) by mouth 2 (two) times a day 270 tablet 3 5 Active Active Problems Problem Noted Date Diagnosed Date Hematuria 09/20/2024 Nephrolithiasis 09/20/2024 Overweight (BMI 25.0-29.9) 08/31/2023 Premature beats 08/18/2022 Biceps tendonitis on left 11/20/2020 Overview (11/20/2020): Added automatically from request for surgery [id number] Tear of left supraspinatus tendon 08/03/2020 Arthritis of left 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 Obesity (BMI 30-39.9) 10/31/2019 H/O atrial fibrillation without current medicati on 04/20/2019 Paroxysmal atrial fibrillation 10/13/2018 Hx of CABG 10/13/2018 Coronary artery disease invo lving [place] coronary artery of [place] heart without angina pectoris 09/15/2018 Overview (09/15/2018): Added automatically from request for surgery [id number] Hyperlipidemia associated with type 2 diabetes umm mayers 04/24/2016 Overview (12/19/2016): Hypercholesteremia Assessment & Plan (07/28/2017 1:29 PM MAINTENANCE TECHNICIAN 2ND SHIFT): 07/28/2017 POC lipids: Total chol 163, TG [...] (08/31/2018): Added automatically from request for surgery [id number] Hyperlipidemia 02/12/2015 07/28/2017 Overview (12/19/2016): HLD (hyperlipidemia) Coronary arteriosclerosis in [place] artery 02/12/2015 10/13/2018 Overview (12/19/2016): CAD in [place] artery Immunizations Immunization Administration Dates Next Due [...] on file Legal Sex Male 10:57 AM MAINTENANCE TECHNICIAN 2ND SHIFT Gender Identity Not on file Sexual Orientation Not on file Last Filed Vital Signs Vital Sign Reading Time Taken Comments Blood Pressure 123/40 10/20/2024 12:15 PM MAINTENANCE TECHNICIAN 2ND SHIFT Pulse 79 10/20/2024 12:15 PM MAINTENANCE TECHNICIAN 2ND SHIFT Temperature 36.4 C (97.5 F) 10/20/2024 10:05 AM MAINTENANCE TECHNICIAN 2ND SHIFT Respiratory Rate 18 10/20/2024 12:15 PM MAINTENANCE TECHNICIAN 2ND SHIFT Oxygen Saturation 93% 10/20/2024 12:15 PM MAINTENANCE TECHNICIAN 2ND SHIFT Inhaled Oxygen Concentration - - Weight 91.6 kg (202 lb) 10/31/2024 11:24 AM MAINTENANCE TECHNICIAN 2ND SHIFT Height 175.3 cm (5' 9) 10/31/2024 11:24 AM MAINTENANCE TECHNICIAN 2ND SHIFT Body Mass Index 29.83 10/31/2024 11:24 AM MAINTENANCE TECHNICIAN 2ND SHIFT Plan of Treatment Not on file Medical Devices Implanted Type Area Lead Esthetician Device Identifier Shelf Expiration Date Model / Serial / Lot JamLegend Inc Universa 6fr 24cm Radiopaque Graduate Firm Monofilament Tether [id number] - [id number] Implanted:Qty: 1 on 10/20/2024 by Sofie Chen MD at [facility] Stent Right: Ureter [employer] Inc [id number] 07/15/2027 [id number] / / [id number] Cook [employer] Inc Universa 6fr 24cm Radiopaque Graduate Firm Monofilament Tether [id number] - [id number] Implanted:Qty: 1 on 10/20/2024 by Sofie Chen MD at [facility] Stent Right: Ureter [employer] [id number] 07/15/2027 [id number] / / [id number] Medsternal Wire Cabg Bilateral: Chest Wall Arthrex Inc [id number] Suturebridge [place] Drill Guide Punch Tap Set Implant Achilles - [id number] Implanted:Qty: 1 on 12/04/2020 by Ryan Allison MD at [facility] Left: Shoulder Arthrex Inc 01/12/2024 AR-8928BC- CP / / [id number] Arthrex Inc Ar-7535 Fiberlink Arthrex Suturetape 1.3mm Tape Suture Nonabsorbable - [id number] Implanted:Qty: 1 on 12/04/2020 by Ryan Allison MD at [facility] Left: Shoulder Arthrex Inc 10/14/2024 AR-7535 / / [id number] Arthrex Inc Ar-2324bcc Swivelock C 4.75mm 19.1mm Closed Eyelet Vent [place] Suture - [id number] Implanted:Qty: 1 on 12/04/2020 by Ryan Allison MD at [facility] Left: Shoulder Arthrex Inc 06/13/2024 AR-2324BCC / / [id number] [employer] [facility] [id number] Regenesorb Ultratape Ultrabraid 4.75mm Smooth 2 [place] Suture - [id number] Implanted:Qty: 1 on 12/04/2020 by Ryan Allison MD at [facility] Left: Shoulder [employer] 08/07/2023 [id number] / / [id number] Arthrex Inc Ar-1662bc Swivelock Tenodesis 6.25mm 19.1mm Closed Eyelet Shoulder Biceps - [id number] Implanted:Qty: 1 on 12/04/2020 by Ryan Allison MD at [facility] Left: Shoulder Arthrex Inc 09/13/2024 AR-1662BC / / [id number] Explanted Type Area Lead Esthetician Device Identifier Shelf Expiration Date Model / Serial / Lot [employer] Inc Universa 6fr 24cm Radiopaque Graduate Firm Monofilament Tether [id number] - [id number] - [id number] Implanted:Qty: 1 on 09/21/2024 by Valery Carson MD at [facility] Explanted:Qty: 1 on 10/20/2024 Stent Right: Ureter [employer] [id number] 05/10/2027 [id number] / [id number] T1 / [id number] Procedures Procedure Name Priority Date/Time Associated Diagnosis Comments PSA SCREEN Routine 12/12/2024 11:50 AM CDT Nephrolithiasis Lower urinary tract symptoms (LUTS) EGFR STAT 09/20/2024 4:33 AM MAINTENANCE TECHNICIAN 2ND SHIFT POCT LIPID PANEL Routine 08/31/2024 9:59 AM MAINTENANCE TECHNICIAN 2ND SHIFT Coronary artery disease involving [place] coronary artery of [place] heart without angina pectoris from Last 3 Months or Most Recently Relevant to Health Maintenance Results * PSA screen (12/12/2024 11:50 AM CDT) PSA-Total 3.58 <=6.20 ng/mL Comment: Interpretive Data AGE SEX REFERENCE INTERVAL 0 minutes-150 years Female None 0 minutes-49 years Male None 50-59 years Male 0-3.90 60-69 years Male 0-5.40 70-79 years Male 0-6.20 80-150 years Male 0-6.20 The Balwinder PSA Total assay procedure was used. Results from different manufacturers or methods may not be comparable. Serial testing should be performed using the same method. Current interpretive data last revised 22. Testing performed by: [facility], [address] [place] [address]., [address] Blood 12/12/2024 11:5 0 AM CDT 12/12/2024 12:40 PM CDT us Sofie Chen MD LAB BLOOD ORDERABLES Final Result CHERYL [address] [facility] Department [place] [address] * eGFR (09/20/2024 4:33 AM MAINTENANCE TECHNICIAN 2ND SHIFT) eGFR 82 >=60 mL/min/1. 73 m2 Comment: [...] last reviewed 2021. Blood 09/20/2024 4:33 AM MAINTENANCE TECHNICIAN 2ND SHIFT 09/20/2024 5:19 AM MAINTENANCE TECHNICIAN 2ND SHIFT us Briana Cruz MD LAB BLOOD ORDERABLES Cinthia l Result CHERYL [facility] Department [place] [address] * POCT lipid panel (08/31/2024 9:59 AM MAINTENANCE TECHNICIAN 2ND SHIFT) Cholesterol, POC 108 mg/dL Comment:GLU = 121 HDL, POC 36 mg/dL Triglycerides, POC 194 mg/dL LDL Cholesterol POC 33 mg/dL Chol/HDL Ratio, POC 0.9 Non-HDL Cholesterol, POC 72 mg/dL Cholesterol Total, POC 108 mg/dL Capillary blood 08/31/2024 9 :59 AM MAINTENANCE TECHNICIAN 2ND SHIFT Maximo Mobley MD POINT OF CARE TEST ORDERABLES Fi nal Result from Last 3 Months or Most Recently Relevant to Health Maintenance Insurance [employer] [facility] Advance Directives For more information, please contact: [phone] * Full Code (Latest Code Status on File) Date Activated Date Inactivated Comments 09/20/2024 4:10 AM 09/22/2024 2:52 PM * Full Code Date Activated Date Inactivated Comments 09/16/2018 1:22 PM 09/23/2018 6:01 PM Care Teams Hand Shoes Sewer Relationship Specialty Start Date End Date Heydi Gomez MD [address] [place] [address] PCP - General 12/12/16 Aleksandr Kirkland NP [address] [place] [address] [address], [place] [address] Nurse Practitioner Nurse Practitioner 12/04/20 Maximo Mobley MD [address] [place] [address] Consulting Physician Cardiology 10/07/24
--- OUTSIDE RECORDS SUMMARY | 2025-04-06 09:21 | XMS_ITS | Clinical Summary ---
Author Organization [facility] [address] Address [address] [place] [address] Care Team Providers Care Clinical Trial Assistant Name Role Phone Heydi Gomez MD Primary Care Provider Aleksandr Kirkland NP Unavailable [phone] Maximo Mobley MD Unavailable Allergies Active Allergy Reactions Criticality Noted Date Comments Vjotjdl-Oca-Rdh Reductase Inhibitors Muscle pain Medium Medications cholecalciferol [...] (11/20/2020): Added automatically from request for surgery [id number] Tear of left supraspinatus tendon 08/03/2020 Arthritis of left 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 Obesity (BMI 30-39.9) 10/31/2019 H/O atrial fibrillation without current medicati on 04/20/2019 Paroxysmal atrial fibrillation 10/13/2018 Hx of CABG 10/13/2018 Coronary artery disease invo lving [place] coronary artery of [place] heart without angina pectoris 09/15/2018 Overview (09/15/2018): Added automatically from request for surgery [id number] Hyperlipidemia associated with type 2 diabetes m talib 04/24/2016 Overview (12/19/2016): Hypercholesteremia Assessment & Plan (07/28/2017 1:29 PM FLUTE TEACHER): 07/28/2017 POC lipids: Total chol 163, TG [...] (08/31/2018): Added automatically from request for surgery [id number] Hyperlipidemia 02/12/2015 07/28/2017 Overview (12/19/2016): HLD (hyperlipidemia) Coronary arteriosclerosis in [place] artery 02/12/2015 10/13/2018 Overview (12/19/2016): CAD in [place] artery Encounters Date Type Department Care Team Description 01/26/2025 Telephone [facility] Surgery [address] [place] [address] NadegeDiann from Last 3 Months Immunizations Immunization Administration Dates Next Due Influenza, Unspecified 06/27/2024 Pfizer SARS-CoV-2 Monovalent Vaccination (12+ Yrs) PURPLE 11/29/2020,11/08/2020 Surgical History Surgery Date Site/Laterality Comments ROTATOR CUFF REPAIR Bilateral CORONARY ANGIOPLASTY WITH STENT PLACEMENT 09/14/2003 - 09/13/2004 TX RPR ANOM CORONARY ARTERY PULM ART ORIGIN [...] right side CAD (coronary artery disease) A-fib (HCC) 2018 NOTED AFTER CABG Family History Medical History Relation Name [...] on file Legal Sex Male 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 Gender Identity Not on file Sexual Orientation Not on file Obstetrics History Last Filed Vital Signs Vital Sign Reading Time Taken Comments Blood Pressure 123/40 10/20/2024 12:15 PM FLUTE TEACHER Pulse 79 10/20/2024 12:15 PM FLUTE TEACHER Temperature 36.4 C (97.5 F) 10/20/2024 10:05 AM FLUTE TEACHER Respiratory Rate 18 10/20/2024 12:15 PM FLUTE TEACHER Oxygen Saturation 93% 10/20/2024 12:15 PM FLUTE TEACHER Inhaled Oxygen Concentration - - Weight 91.6 kg (202 lb) 10/31/2024 11:24 AM FLUTE TEACHER Height 175.3 cm (5' 9) 10/31/2024 11:24 AM FLUTE TEACHER Body Mass Index 29.83 10/31/2024 11:24 AM FLUTE TEACHER Plan of Treatment Health Maintenance Due Date Last Done Comments Albumin Creatinine Ratio, Urine 1951 Colon Cancer Screening-Colonoscopy 1950 Depression Screening 1950 Hemoglobin A1C 1951 Hepatitis C Screening 1950 Dilated Eye Exam 1951 Foot Exam 1951 Hepatitis B Screening 1969 Abdominal Aortic Aneurysm (A AA) Screen 2016 Well Visit 65+ 2016 Zoster Vaccine (3 of 3) 11/22/2020 09/27/2020, 02/22 DTaP/Tdap/Td Vaccine (2 - Td or Tdap) 08/25/2021 08/25/2011 Covid-19 Vaccine (6 - 2023-2 5 season) 2024 06/18/2021, 11/29/2020, 11/29/2020, Additional history exists Influenza Vaccine (#1) 2025 , 06/18/2021, 06/13/2019, Additional history exists Lipid Panel 08/31/2025 08/31/2024, 08/14, 08/18/2022, Additional history exists eGFR 09/20/2025 09/20/2024, 03/2025, 09/23/2018, Additional history exists Fall Risk Assessment 10/07/2025 10/07/2024 Prostate Cancer Screening-PSA 12/12/2026 12/12/2024 Pneumococcal vaccine 65+ Completed 018, 06/13/2015, 07/22/2013 Medical Devices Implanted Type Area Other Sports Official Device Identifier Shelf Expiration Date Model / Serial / Lot Cook [employer] Inc Universa 6fr 24cm Radiopaque Graduate Firm Monofilament Tether [id number] - [id number] Implanted:Qty: 1 on 10/20/2024 by Sofie Chen MD at [facility] Stent Right: Ureter [employer] [id number] 07/15/2027 [id number] / / [id number] [employer] Universa 6fr 24cm Radiopaque Graduate Firm Monofilament Tether [id number] - [id number] Implanted:Qty: 1 on 10/20/2024 by Sofie Chen MD at [facility] Stent Right: Ureter [employer] [id number] 07/15/2027 [id number] / / [id number] Medsternal Wire Cabg Bilateral: Chest Wall Arthrex Inc [id number] Suturebridge [place] Drill Guide Punch Tap Set Implant Achilles - [id number] Implanted:Qty: 1 on 12/04/2020 by Ryan Allison MD at [facility] Left: Shoulder Arthrex Inc 01/12/2024 AR-8928BC- CP / / [id number] Arthrex Inc Ar-7535 Fiberlink Arthrex Suturetape 1.3mm Tape Suture Nonabsorbable - [id number] Implanted:Qty: 1 on 12/04/2020 by Ryan Allison MD at [facility] Left: Shoulder Arthrex Inc 10/14/2024 AR-7535 / / [id number] Arthrex Inc Ar-2324bcc Swivelock C 4.75mm 19.1mm Closed Eyelet Vent [place] Suture - [id number] Implanted:Qty: 1 on 12/04/2020 by Ryan Allison MD at [facility] Left: Shoulder Arthrex Inc 06/13/2024 AR-2324BCC / / [id number] [employer] [id number] Regenesorb Ultratape Ultrabraid 4.75mm Smooth 2 [place] Suture - [id number] Implanted:Qty: 1 on 12/04/2020 by Ryan Allison MD at [facility] Left: Shoulder [employer] [facility] 08/07/2023 [id number] / / [id number] Arthrex Inc Ar-1662bc Swivelock Tenodesis 6.25mm 19.1mm Closed Eyelet Shoulder Biceps - [id number] Implanted:Qty: 1 on 12/04/2020 by Ryan Allison MD at [facility] Left: Shoulder Ar[employer]rex Inc 09/13/2024 AR-1662BC / / [id number] Explanted Type Area Other Sports Official Device Identifier Shelf Expiration Date Model / Serial / Lot Cook [employer] Inc Universa 6fr 24cm Radiopaque Graduate Firm Monofilament Tether [id number] - [id number] - [id number] Implanted:Qty: 1 on 09/21/2024 by Valery Carson MD at [facility] Explanted:Qty: 1 on 10/20/2024 Stent Right: Ureter [employer] Inc [id number] 05/10/2027 [id number] / [id number] T1 / [id number] Procedures Procedure Name Priority Date/Time Associated Diagnosis Comments PSA SCREEN Routine 12/12/2024 11:50 AM CDT Nephrolithiasis Lower urinary tract symptoms (LUTS) EGFR STAT 09/20/2024 4:33 AM FLUTE TEACHER POCT LIPID PANEL Routine 08/31/2024 9:59 AM FLUTE TEACHER Coronary artery disease involving [place]igh[place] coronary artery of [place]ini heart without angina pectoris from Last 3 [...] data last revised 22. Testing performed by: [facility], [address] [place] [address]., [address] Blood 12/12/2024 11:5 0 AM CDT 12/12/2024 12:40 PM CDT us Sofie Chen MD LAB BLOOD ORDERABLES Final Result Performing Organization Address City/[facility] Co ut Phone Number CHERYL [address] [facility] Department [place] [address] * eGFR (09/20/2024 4:33 AM FLUTE TEACHER) eGFR 82 >=60 mL/min/1. 73 m2 Comment: [...] last reviewed 2021. Blood 09/20/2024 4:33 AM FLUTE TEACHER 09/20/2024 5:19 AM FLUTE TEACHER us Briana Cruz MD LAB BLOOD ORDERABLES Cinthia l Result [facility] Department [place] [address] * POCT lipid panel (08/31/2024 9:59 AM FLUTE TEACHER) Cholesterol, POC 108 mg/dL Comment:GLU = 121 HDL, POC 36 mg/dL Triglycerides, POC 194 mg/dL LDL Cholesterol POC 33 mg/dL Chol/HDL Ratio, POC 0.9 Non-HDL Cholesterol, POC 72 mg/dL Cholesterol Total, POC 108 mg/dL Capillary blood 08/31/2024 9 :59 AM FLUTE TEACHER Maximo Mobley MD POINT OF CARE TEST ORDERABLES Fi nal Result from Last 3 Months or Most Recently Relevant to Health Maintenance Insurance [facility] MEDICARE AETNA [facility] ADVANTRA [facility] Advance Directives For more information, please contact: [phone] * Full Code (Latest Code Status on File) Date Activated Date Inactivated Comments 09/20/2024 4:10 AM 09/22/2024 2:52 PM * Full Code Date Activated Date Inactivated Comments 09/16/2018 1:22 PM 09/23/2018 6:01 PM Care Teams Clinical Trial Assistant Relationship Specialty Start Date End Date Heydi Gomez MD [address] [place] [address] PCP - General 12/12/16 Aleksandr Kirkland NP [address] [place] [address] [address], [place] [address] Nurse Practitioner Nurse Practitioner 12/04/20 Maximo Mobley MD [address] [place] [address] Consulting Physician Cardiology 10/07/24
--- OUTSIDE RECORDS SUMMARY | 2025-04-06 09:21 | XMS_ITS | Encounter Summary ---
Author Organization [facility] Healthcare Address [address] [place] [address] Care Team Providers Care Juvenile Corrections Officer Name Role Phone Heydi Gomez MD Primary Care Provider Aleksandr Kirkland NP Unavailable Maximo Mobley MD Unavailable Encounter Details Date Type Department Care Team (Late st Contact Info) Description 09/17/2018 Telephone [facility] [address] [place], [place] [id number] Vijaya Dunn LCSW Social History Tobacco Use Types Packs/Day Years Used Date Smoking Tobacco: Former Smokeless Tobacco: Never Alcohol Use Standard Drinks/Week Comments No 0 (1 standard drink = 0.6 oz pur e alcohol) Sex and Gender Information Value Date Recorded Sex Assigned at Not on file 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 Gender Identity Not on file Sexual Orientation Not on file documented as of this encounter Plan of Treatment Not on file documented as of this encounter Visit Diagnoses Not on filedocumented in this encounter Additional Health Concerns Infection Onset Date Last Indicated Resolved Time COVID: Recovered 09/04/2020 12/03/2020 04/02/2021 3:05 AM CDT documented as of this encounter Care Teams Juvenile Corrections Officer Relationship Specialty Start Date End Date Heydi Gomez MD [address] [place] [address] PCP - General 12/12/16 Aleksandr Kirkland, JONATAN [address] [facility] [address] [place] [address] Nurse Practitioner Nurse Practitioner 12/04/20 Maximo Mobley MD [address] [place] [address] Consulting Physician Cardiology 10/07/24 documented as of this encounter
--- OUTSIDE RECORDS SUMMARY | 2025-04-06 09:21 | XMS_ITS | Encounter Summary ---
Author Organization [facility] Healthcare Address [address] [place] [address] Care Team Providers Care Accounting Policy Consultant Name Role Phone Heydi Gomez MD Primary Care Provider [phone] Aleksandr Kirkland NP Unavailable Maximo Mobley MD Unavailable Encounter Details Date Type Department Care Team (Late st Contact Info) Description 09/21/2018 Telephone [facility] [id number] [address] Vijaya Dunn LCSW Social History Tobacco Use Types Packs/Day Years Used Date Smoking Tobacco: Former Smokeless Tobacco: Never Alcohol Use Standard Drinks/Week Comments No 0 (1 standard drink = 0.6 oz pur e alcohol) Sex and Gender Information Value Date Recorded Sex Assigned at Not on file 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 Gender Identity Not on file Sexual Orientation Not on file documented as of this encounter Plan of Treatment Not on file documented as of this encounter Visit Diagnoses Not on filedocumented in this encounter Additional Health Concerns Infection Onset Date Last Indicated Resolved Time COVID: Recovered 09/04/2020 12/03/2020 04/02/2021 3:05 AM CDT documented as of this encounter Care Teams Accounting Policy Consultant Relationship Specialty Start Date End Date Heydi Gomez MD [address] [place] [address] PCP - General 12/12/16 Aleksandr Kirkland NP [address] [facility] [address], [place] [address] Nurse Practitioner Nurse Practitioner 12/04/20 Maximo Mobley MD [address] [place] [place] [address] Consulting Physician Cardiology 10/07/24 documented as of this encounter
--- OUTSIDE RECORDS SUMMARY | 2025-04-06 09:21 | XMS_ITS | Clinical Summary ---
Author Organization [facility] Address [address] [place] [address] Attn: Epic Prelude ADT TERRA MICHELLE [address] Care Team Providers Care Hand Rigger Name Role Phone Unavailable Primary Care Provider [...] Colonography Q 5 years 1996 PNEUMOCOCCAL VACCINE 50+ YEARS (1 of 1 - PCV) 04/15/20 01 ZOSTER VACCINE (1 of 2) 2001 INFLUENZA VACCINE (#1) 2025 RSV VACCINE (60+ or ) (1 - 1-dose 75+ series) 2026 Insurance RX AETNA Medicare Part D RX AETNA Medicare Part D
== END 2025-04-06 09:15 | disposition home or self-care (01) ==
LOC: CHSIMG 09:16
PROVIDERS: PCP Internal Medicine; Visit Provider Internal Medicine
DX: M54.50 Low back pain, unspecified (principal)
CPT/HCPCS: 72100

== ENCOUNTER 2025-05-06 11:24 | Outpatient (CLI) | payer MEDICARE, SELFPAY ==
--- NOTE | ~2025-05-06 | MR_ITS ---
EXAMINATION: MR lumbar spine wo con DATE: 05/09/2025 10:14 CDT INDICATION: Low back pain radiating to the bilateral legs for 2 months TECHNIQUE: Magnetic resonance imaging (MRI) of the lumbar spine was performed without intravenous contrast. Sequences included sagittal T2-weighted FSE, sagittal T2-weighted FS FSE, sagittal T1-weighted FSE, and axial T2-weighted FSE. COMPARISON: 08/02/2018 FINDINGS: Lumbar vertebral body heights are within normal limits. No compression fracture in the lumbar spine. Disc desiccation throughout the lumbar spine. Tip of the conus medullaris ends at the L2 level. No abnormal signal within the spinal cord. Grade 1 retrolisthesis of 100 and L2, L2 on L3, L3 on L4 and L5 on S1. Disc desiccation throughout the lumbar spine. Severe intervertebral disc space narrowing at L5-S1 level. Mild intervertebral disc space narrowing throughout the remainder of the lumbar spine. At the L1-L2 level, there is a small concentric broad-based disc bulge causing mild narrowing of the spinal canal mild narrowing of the bilateral neuroforamen. At the L2-L3 level, there is a small concentric disc bulge or degenerative change in the facet joints cause mild narrowing of the spinal canal and moderate narrowing of the bilateral neural foramen. At the L3-4 level, there is a moderate-sized broad-based disc bulge with degenerative change in the facet joints and hypertrophy of the ligamentum flavum causing moderate to severe narrowing of the spinal canal. Moderate narrowing of the bilateral neuroforamen worse on the right. At the L4-5 level, there is a small broad-based disc bulge with degenerative change in the facet joints and hypertrophy of the ligamentum flavum causing moderate narrowing of the spinal canal and mild to moderate narrowing of the bilateral neuroforamen worse on the right. At the L5-S1 level. There is a small broad-based disc bulge degenerative change in the facet joints causing mild narrowing of the spinal canal. Moderate to severe narrowing of the bilateral neural foramen. There is an annular fissure and the intervertebral disc at the L5-S1 level. IMPRESSION: 1. Multilevel discogenic and degenerative change in the lumbar spine as detailed above. Overall, the findings have worsened as compared to the study from 2018. Reviewed, dictated and finalized at location Q. IMPRESSION: 1. Multilevel discogenic and degenerative change in the lumbar spine as detaile d above. Overall, the findings have worsened as compared to the study from 2018 .
== END 2025-05-06 11:25 | disposition home or self-care (01) ==
PROVIDERS: PCP Internal Medicine; Visit Provider Internal Medicine
DX: M48.062 Spinal stenosis, lumbar region with neurogenic claudication (principal)
CPT/HCPCS: 72148

== ENCOUNTER 2025-06-28 13:48 | Outpatient (RCR) | payer MEDICARE, SELFPAY ==
--- NOTE | 2025-06-28 14:35 | OPREHPOC ---
Outpatient Therapy Plan of Care This is a Multidisciplinary Plan of Care that may contain components documented by all disciplines (PT, OT, and ST.) PT Problem 1 PT Problem #1 Knowledge Deficit PT Goal 1 Goal / Goal Update independent and compliant with HEP Target Visit 5 PT Problem 2 PT Problem #2 Impaired Balance PT Goal 1 Goal / Goal Update decrease pain at worst to 3/10 or less in the lower back without pain medication Target Visit 10 PT Problem 3 PT Problem #3 Impaired Range of Motion PT Goal 1 Goal / Goal Update improve lumbar flexion active to ankles improve lumbar extension active to 15 degrees improve bilateral lumbar side bending active to 30 degrees Target Visit 10 PT Problem 4 PT Problem #4 Impaired Strength PT Goal 1 Goal / Goal Update improve bilateral hip strength to 4+/5 or better overall display 4/5 or better core strength Target Visit 10 PT Problem 5 PT Problem #5 Impaired Functional Mobility PT Goal 1 Goal / Goal Update oswestry to display less than 30% functional deficits patient to ambulate 6 minutes without stopping for a total of 1200ft or more patient to tolerate standing and exercising for 30 minutes without need for sitting or rest. Target Visit 10
--- NOTE | 2025-06-28 14:35 | PTOPEVAL1 ---
Assessment and note entered by JT File, PT Evaluation Information Assessment Status Evaluation ICD-10 Condition Codes (PT) Pain in low back M54.50,Radiculopathy, lumbar region M54.16 Onset 06/05/2025 Subjective Information patient reports he has had back issues in the past . he reports he had a shot back in 2018 for the lower back pain. he reports just recently his back pain came back all of a sudden. he reports no injury. he reports the only thing he can trace back to his back pain starting is when he had kidney stones. he reports he has increased pain with standing, walking, leaning/turning either direction. he reports he has had recent xray and mri of the lower back. he reports he does have pain down the bilateral LE's. Reported Pain Level Pain Score 4: Self Report Assessment PT Clinical Summary mr. herron is a pleasant 75 yo man who presents to skilled PT services for evaluation and treatment of lower back pain with bilateral LE radiculopathy . he presents with signs and symptoms of DDD of the lumbar that is confirmed on Xray. patient displays decreased lumbar rom, bilateral LE weakness, mm tightness, and deficits in functional activity performance (primarily in standing and walking). continued skilled PT is indicated to improve his objective/functional deficits and return to his prior level functional activity performance/quality of life. Plan of Care Interventions Electrical Stimulation,Gait Training,Hot Pack/Cold Pack,Manual Therapy,Neuro Re-education,Patient/ Caregiver Education,Therapeutic Activities, Therapeutic Exercise PT Services Indicated Yes Treatment Frequency and 2x weekly for 10 visits Duration These treatments will address the objective and functional deficits as defined above. The patient will be advanced safely and appropriately in order for the patient to progress towards his/her prior level of function. Additional exercises will be introduced and as well as a comprehensive home exercise program upon discharge, if needed, ?to ensure carryover of functional gains achieved in the clinic. This treatment plan has been reviewed and agreement upon by the patient.
--- NOTE | 2025-07-26 15:15 | OPREHPOC ---
Outpatient Therapy Plan of Care This is a Multidisciplinary Plan of Care that may contain components documented by all disciplines (PT, OT, and ST.) PT Problem 1 PT Problem #1 Knowledge Deficit PT Goal 1 Goal / Goal Update independent and compliant with HEP Target Visit 5 PT Problem 2 PT Problem #2 Impaired Balance PT Goal 1 Goal / Goal Update decrease pain at worst to 3/10 or less in the lower back without pain medication Target Visit 10 Progress Not Met PT Problem 3 PT Problem #3 Impaired Range of Motion PT Goal 1 Goal / Goal Update improve lumbar flexion active to ankles improve lumbar extension active to 15 degrees improve bilateral lumbar side bending active to 30 degrees Target Visit 10 Progress Met PT Problem 4 PT Problem #4 Impaired Strength PT Goal 1 Goal / Goal Update improve bilateral hip strength to 4+/5 or better overall display 4/5 or better core strength Target Visit 10 Progress Met PT Problem 5 PT Problem #5 Impaired Functional Mobility PT Goal 1 Goal / Goal Update oswestry to display less than 30% functional deficits -met patient to ambulate 6 minutes without stopping for a total of 1200ft or more -nearly met patient to tolerate standing and exercising for 30 minutes without need for sitting or rest. -met Target Visit 10 Progress Partially Met
--- NOTE | 2025-07-26 15:16 | PTOPDC ---
Assessment and note entered by Louann Bond, PT Evaluation Information Assessment Status Discharge ICD-10 Condition Codes (PT) Pain in low back M54.50,Radiculopathy, lumbar region M54.16 Onset 06/05/2025 Subjective Information Mr. Serrato reports his lower back and leg pain has improved. He no longer has leg pain and he notes he does not have a feeling like his legs will give out when he first stands anymore. He had an injection in the lower back approximately 2 weeks ago that has helped. He has been doing exercises on his own and feels he has improved well enough to continue on his own. Reported Pain Level Pain Score 4: Self Report Assessment PT Clinical Summary Mr. Serrato has completed 10 skilled PT services for lower back pain with bilateral LE radiculopathy. He is reporting improved pain overall with pain no longer radiating into the LE. He also notes improved strength. He objectively demonstrates improved lumbar AROM, improved core strength, improved bilateral hip strength, and improved gait. He is independent in a home exercise program to continue independently. He has met . He will be discharged to an independent [facility] . Plan of Care PT Services Indicated No
== END 2025-07-26 15:34 | disposition home or self-care (01) ==
LOC: CHSPT 13:48
PROVIDERS: PCP Internal Medicine; Visit Provider Nurse Practitioner Adult Health
DX: M54.50 Low back pain, unspecified (principal)
CPT/HCPCS: 97014; 97110; 97112; 97140; 97161; 97750; G0283